=== PATIENT | male | born 1980 | race Caucasian/White ===

== ENCOUNTER 2016-08-22 19:55 | Emergency (ER) | payer SELFPAY ==
[~2016-08-22] VITALS: Ht 188 cm; Wt 227.0 kg
[~2016-08-22 19:55] MED LIST: CITA20 PO; HYDR50CA PO; LATU40TA PO; LISI-363 PO; LOPR100T PO; METF500 PO; PROT40TA PO; ULTR50TA PO; VENTAER INH
[2016-08-22 19:57] VITALS: BP 292/160; PULSE 124; RESP 20; TEMP 98.4; O2SAT 96
[2016-08-22 22:26] VITALS: BP 189/88; PULSE 104; RESP 20; TEMP 98; O2SAT 96
[2016-08-23] MEDS ORDERED: HYDR-3801 PO (03:33)
[2016-08-23] MEDS ORDERED: VENTAER INH (03:33)
[2016-08-23] MEDS ORDERED: CELE20TA PO (03:33)
[2016-08-23] MEDS ORDERED: LISI-515 PO (03:33)
[2016-08-23] MEDS ORDERED: PROT40TA PO (03:34)
[2016-08-23] MEDS ORDERED: LURA40 PO (03:34)
[2016-08-23] MEDS ORDERED: METF500T PO (03:34)
[2016-08-23] MEDS ORDERED: METO-338 PO (03:34)
[2016-08-23 04:30] VITALS: BP 241/116; PULSE 102; RESP 22; O2SAT 97
[2016-08-23] MEDS ORDERED: cloNIDine HCL 0.1 MG TAB PO ONE (05:00)
[2016-08-23] MEDS ORDERED: SODIUM CHLORIDE 0.9% FLUSH 10 ML FLUSH IVF PRN (05:00)
[2016-08-23 05:06] VITALS: RESP 20
[2016-08-23 05:21] LABS: AUTOMATED NEUTROPHIL # 6.3 TH/MM3 (1.8-7.7); BASOPHIL # 0.1 TH/MM3 (0-0.2); BASOPHIL % 1.6 % (0.0-2.0); EOSINOPHIL # 0.2 TH/MM3 (0-0.4); EOSINOPHIL % 2.1 % (0.0-4.0); HEMO FLAGS DIFF FINAL; LYMPH % 17.7 % (9.0-44.0); LYMPHOCYTE # 1.6 TH/MM3 (1.0-4.8); MEAN CELL VOLUME 90.9 FL (80.0-100.0); MEAN CORPUSCULAR HEMOGLOBIN 31.9 PG (27.0-34.0); MEAN CORPUSCULAR HGB CONC 35.1 % (32.0-36.0); MONO % 8.5 % (0.0-8.0); NEUT % 70.1 % (16.0-70.0); PLATELET COUNT 197 TH/MM3 (150-450); RED BLOOD COUNT 5.29 MIL/MM3 (4.50-5.90); RED CELL DISTRIBUTION WIDTH 12.9 % (11.6-17.2); WHITE BLOOD COUNT 8.9 TH/MM3 (4.0-11.0)
[2016-08-23 05:36] LABS: APTT (PATIENT) 21.2 SEC (24.3-30.1); INTERNATIONAL NORMALIZED RATIO 0.9 RATIO; PROTHROMBIN TIME - PATIENT 10.1 SEC (9.8-11.6)
[2016-08-23 05:58] LABS: ALKALINE PHOSPHATASE 94 U/L (45-117); ALT (GPT) 44 U/L (12-78); ANION GAP 8 MEQ/L (5-15); AST (GOT) 31 U/L (15-37); BICARBONATE 30.7 MEQ/L (21.0-32.0); BLOOD UREA NITROGEN 13 MG/DL (7-18); CHLORIDE 99 MEQ/L (98-107); GLOMERULAR FILTRATION RATE 103 ML/MIN (>89); POTASSIUM 3.7 MEQ/L (3.5-5.1); SODIUM (NA) 138 MEQ/L (136-145); TOTAL BILIRUBIN ADULT 2.5 MG/DL (0.2-1.0)
[2016-08-23] MEDS ORDERED: RESP: ALBUTEROL 2.5 MG/IPRATROPIUM 0.5 MG NEB (SCH) NEB ONE (06:00)
--- NOTE | 2016-08-23 06:19 | RADRPT ---
EXAM DATE/TIME: 08/23/2016 05:35 [facility] COMPARISON: CHEST PA & LAT, January 10, 2013, 20:28. INDICATIONS : Short of breath and dizziness. MEDICAL HISTORY : Congestive heart failure. Myocardial infarction. Hypertension. Diabetes. SURGICAL HISTORY : None. ENCOUNTER: Initial ACUITY: 2 days PAIN SCORE: 0/10 LOCATION: Bilateral chest FINDINGS: PA and lateral views of the chest demonstrate the lungs to be symmetrically aerated without evidence of mass, infiltrate or effusion. The cardiomediastinal contours are unremarkable. Osseous structure s are intact. CONCLUSION: No acute disease. Oren Tan MD on August 23, 2016 at 6:17 Board Certified Radiologist. This report was verified electronically.
[2016-08-23] MEDS ORDERED: LABETALOL HCL 100 MG/20 ML VIAL IV PUSH ONE (06:30)
--- NOTE | 2016-08-23 06:33 | PD ---
HPI Chief Complaint: Respiratory Symptoms Time Seen by Provider: 04:33 Travel History International Travel<30 days: No Contact w/Intl Traveler<30days: No Traveled to known affect area: No History of Present Illness HPI Patient is a 36-year-old male who comes in complaining of dizziness, headache, high blood pressure. He says that for the past few days he has had trouble controlling his blood pressure. He reports compliance with his medications. He says that yesterday he developed a headache and dizziness. He says it continued today, and got worse. He came in because of the dizziness and is uncontrollable blood pressure. He denies having any chest pain. He does say he has some pain across his back. He is having some shortness of breath. He denies any blurred vision. PFSH Past Medical History Blood Disorders: No Bipolar Disorder: Yes Anxiety: Yes Depression: Yes Cancer: No Cardiac Catheterization: Yes (2013 NO STENT PLACEMENT) Cardiovascular Problems: Yes (HTN/NSTEMI) High Cholesterol: Yes Congestive Heart Failure: Yes Diminished Hearing: No Endocrine: No Gastrointestinal Disorders: Yes (GERD; PYLORIC STENOSIS A ) GERD: Yes Genitourinary: Yes (KIDNEY STONES) Hypertension: Yes Immune Disorder: No Implanted Vascular Access Dvce: No Insomnia: Yes Kidney Stones: Yes Musculoskeletal: Yes ("BAD KNEES") Neurologic: No Psychiatric: Yes (2 SUICIDE ATTEMPTS IN THE PAST) Reproductive: No Respiratory: Yes (SLEEP APNEA/CPAP @NIGHT) Immunizations Current: Yes Schizophrenia: Yes Sleep Apnea: Yes (USE CPAP WITH ROOM AIR) Tetanus Vaccination: < 5 Years Influenza Vaccination: Yes Past Surgical History Abdominal Surgery: Yes (PYLORIC STENOSIS @ 6 weeks old) Cholecystectomy: Yes (2009) Genitourinary Surgery: Yes (RENAL STENT THEN KIDNEY STONE-REMOVED) Other Surgery: Yes (JENNIFER, PYLORIC STENOSIS A CHILD) Social History Alcohol Use: No Tobacco Use: Yes (HALF A PACK A WEEK ) Substance Use: No Allergies-Medications (Allergen,Severity, Reaction): Coded Allergies: Nonsteroidal Anti-Inflammatory Agts (Verified Adverse Reaction, Mild, UPSETS STOMACH, 08/23/16) Reported Meds & Prescriptions Reported Meds & Active Scripts Active Clonidine (Clonidine HCl) 0.2 Mg Tab 0.2 Mg PO BID Reported Metformin (Metformin HCl) 500 Mg Tab 500 Mg PO BIDPC With meals Protonix (Pantoprazole Sodium) 40 Mg Tab 40 Mg PO DAILY Latuda (Lurasidone) 40 Mg Tab 40 Mg PO DAILY Lopressor (Metoprolol Tartrate) 100 Mg Tab 100 Mg PO BID Lisinopril 20 Mg Tab 20 Mg PO BID Hydralazine (Hydralazine HCl) 100 Mg Tab 100 Mg PO BID Take with meals Celexa (Citalopram Hydrobromide) 20 Mg Tab 20 Mg PO DAILY Ventolin Hfa 18 GM Inh (Albuterol Sulfate) 90 Mcg/Act Aer 2 Puff INH Q4-6H PRN Review of Systems Except as stated in HPI: all other systems reviewed are Neg General / Constitutional: No: Fever, Chills Eyes: No: Blurred Vision HENT: Positive: Headaches, Lightheadedness Cardiovascular: No: Chest Pain or Discomfort Respiratory: Positive: Shortness of Breath Gastrointestinal: No: Nausea, Vomiting Musculoskeletal: Positive: Edema, No: Pain Skin: No Rash Neurologic: Positive: Dizziness Physical Exam Narrative GENERAL: Awake and alert, in no acute distress. SKIN: Focused skin assessment warm/dry. HEAD: Atraumatic. Normocephalic. EYES: Pupils equal and round. No scleral icterus. Extinguishing horizontal nystagmus. ENT: Mucous membranes pink and moist. NECK: Trachea midline. No JVD. CARDIOVASCULAR: Regular rate and rhythm. No murmur appreciated. RESPIRATORY: No accessory muscle use. Clear to auscultation. Breath sounds equal bilaterally. GASTROINTESTINAL: Abdomen soft, non-tender, nondistended. MUSCULOSKELETAL: No obvious deformities. No clubbing. No cyanosis. 2+ pitting edema bilateral lower extremities. NEUROLOGICAL: Awake and alert. No obvious cranial nerve deficits. Motor grossly within normal limits. Normal speech. PSYCHIATRIC: Appropriate mood and affect; insight and judgment normal. Data Data Last Documented VS Vital Signs Date Time Temp Pulse Resp B/P Pulse Ox O2 Delivery O2 Flow Rate FiO2 08/23/16 06:50 85 16 150/74 98 Room Air 08/22/16 22:26 98.0 Orders Complete Blood Count With Diff (08/23/16 04:46) Comprehensive Metabolic Panel (08/23/16 04:46) B-Type Natriuretic Peptide (08/23/16 04:46) Act Partial Throm Time (Ptt) (08/23/16 04:46) Prothrombin Time / Inr (Pt) (08/23/16 04:46) Troponin I (08/23/16 04:46) Iv Access Insert/Monitor (08/23/16 04:46) Electrocardiogram (08/23/16 04:46) Ecg Monitoring (08/23/16 04:46) Oximetry (08/23/16 04:46) Oxygen Administration (08/23/16 04:46) Chest, Pa & Lat (08/23/16 04:46) Sodium Chloride 0.9% Flush (Ns Flush) (08/23/16 05:00) Clonidine (Catapres) (08/23/16 05:00) Albuterol-Ipratropium Neb (Duoneb Neb) (08/23/16 06:00) Labetalol Inj (Trandate Inj) (08/23/16 06:30) Tramadol (Ultram) (08/23/16 06:45) Labs Laboratory Tests Test 08/23/16 05:05 White Blood Count 8.9 TH/MM3 Red Blood Count 5.29 MIL/MM3 Hemoglobin 16.9 GM/DL Hematocrit 48.0 % Mean Corpuscular Volume 90.9 FL Mean Corpuscular Hemoglobin 31.9 PG Mean Corpuscular Hemoglobin 35.1 % Concent Red Cell Distribution Width 12.9 % Platelet Count 197 TH/MM3 Mean Platelet Volume 6.9 FL Neutrophils (%) (Auto) 70.1 % Lymphocytes (%) (Auto) 17.7 % Monocytes (%) (Auto) 8.5 % Eosinophils (%) (Auto) 2.1 % Basophils (%) (Auto) 1.6 % Neutrophils # (Auto) 6.3 TH/MM3 Lymphocytes # (Auto) 1.6 TH/MM3 Monocytes # (Auto) 0.8 TH/MM3 Eosinophils # (Auto) 0.2 TH/MM3 Basophils # (Auto) 0.1 TH/MM3 CBC Comment DIFF FINAL Differential Comment Prothrombin Time 10.1 SEC Prothromb Time International 0.9 RATIO Ratio Activated Partial 21.2 SEC Thromboplast Time Sodium Level 138 MEQ/L Potassium Level 3.7 MEQ/L Chloride Level 99 MEQ/L Carbon Dioxide Level 30.7 MEQ/L Anion Gap 8 MEQ/L Blood Urea Nitrogen 13 MG/DL Creatinine 0.84 MG/DL Estimat Glomerular Filtration 103 ML/MIN Rate Random Glucose 215 MG/DL Calcium Level 8.7 MG/DL Total Bilirubin 2.5 MG/DL Aspartate Amino Transf 31 U/L (AST/SGOT) Alanine Aminotransferase 44 U/L (ALT/SGPT) Alkaline Phosphatase 94 U/L Troponin I 0.05 NG/ML B-Type Natriuretic Peptide 32 PG/ML Total Protein 6.4 GM/DL Albumin 3.0 GM/DL MDM Medical Decision Making Medical Screen Exam Complete: Yes Emergency Medical Condition: Yes Medical Record Reviewed: Yes Interpretation(s) ECG shows sinus rhythm at 99, no ST elevation or depression. Differential Diagnosis ACS versus hypertensive urgency versus hypertensive emergency versus CHF Narrative Course Patient is a 36-year-old male comes in complaining of high blood pressure with dizziness and headache. Exam shows no neurologic abnormalities. IV established , labs sent. Patient given clonidine. Chest x-ray performed shows no acute abnormalities. Labs sent show no acute abnormalities. Patient's blood pressure improved with Clonidine. He was given Tramadol for headache. He is sleeping comfortably. I discussed with him admission vs discharge. He is comfortable with discharge at this time. Given a prescription for Clonidine. Advised to follow up with his doctor. Advised to return to the ED as needed for any worsening symptoms. Diagnosis Primary Impression: HTN (hypertension) Qualified Code: I10 - Essential hypertension Additional Impression: Headache Qualified Code: R51 - Acute nonintractable headache, unspecified headache type Patient Instructions: General Instructions, Hypertension (DC) Additional Instructions: Follow up with your doctor. You can take a clonidine twice a day as needed for high blood pressure. Return to the ED as needed for any worsening symptoms. Scripts Clonidine 0.2 Mg Tab0.2 Mg PO BID #60 TAB Ref 0 Prov:Emma Roberts MD 08/23/16 Disposition: DISCHARGE HOME Condition: Stable Emma Roberts MD Aug 23, 2016 06:33
[2016-08-23] MEDS ORDERED: traMADol HCL 50 MG TAB PO ONE (06:45)
[2016-08-23 06:50] VITALS: BP 150/74; PULSE 85; RESP 16; O2SAT 98
[2016-08-23] MEDS ORDERED: CLON0.2T PO (07:01)
--- NOTE | 2016-08-24 07:57 | EKG ---
Date Performed: 08/23/2016 Time Performed: 05:02:20 PTAGE: 36 years EKG: Sinus rhythm INCOMPLETE RIGHT BUNDLE BRANCH BLOCK NONSPECIFIC ST & T-WAVE ABNORMALITY ABNORMAL ECG Compared to PREVIOUS TRACING , there has been resolution of a sinus tachycardia and improvement in th e inferior lateral ST segment changes. PREVIOUS TRACIN06/12/2015 06.17 DOCTOR: Yareli Gerardo Interpretating Date/Time 08/24/2016 07:56:33
== END 2016-08-23 08:39 | disposition home or self-care (01) ==
LOC: NEPE 19:55
DX: I10 Essential (primary) hypertension (principal); F41.9 Anxiety disorder, unspecified; F31.9 Bipolar disorder, unspecified; Z72.0 Tobacco use; R94.31 Abnormal electrocardiogram [ECG] [EKG]
CPT/HCPCS: 71020; 80053; 83880; 84484; 85025; 85610; 85730; 93005; 94664

== ENCOUNTER 2017-01-04 14:20 | Emergency (ER) | payer OTHER ==
[~2017-01-04] VITALS: Ht 185.4 cm; Wt 240.0 kg
[~2017-01-04 14:20] MED LIST changes: +CELE20TA PO; -CITA20 PO; +CLON0.2T PO; +HYDR-3801 PO; -HYDR50CA PO; -LATU40TA PO; -LISI-363 PO; +LISI-515 PO; -LOPR100T PO; +LURA40 PO; -METF500 PO; +METF500T PO; +METO-338 PO; -ULTR50TA PO
[2017-01-04 14:23] VITALS: BP 247/121; PULSE 112; RESP 28; TEMP 98.7; O2SAT 95
--- NOTE | 2017-01-04 14:27 | PD ---
Physical Exam Date Seen by Provider: Jan 04, 2017 Time Seen by Provider: 14:24 Narrative 36 yo male here for evaluation of HTN and headache. Feeling dizzy, nauseous x 4 days. Struggles to breath on occassion with ambulating. No sleep. Pain to head is 10/10. No other medical issues. He is morbidly obese. Vitals are stable in triage. Awaiting Bed placement. [facility] Medical Record Reviewed: Yes Supervised Visit with MINESH: Ryan Menendez Jan 04, 2017 14:27
--- NOTE | 2017-01-04 16:26 | PD ---
HPI . headache x 5 days Chief Complaint: Headache Time Seen by Provider: 16:26 Travel History International Travel<30 days: No Contact w/Intl Traveler<30days: No Traveled to known affect area: No History of Present Illness HPI 36-year-old male well-known to me from the [facility] here with complaints of uncontrolled hypertension and headache for the past 5 days. Patient reports that he's had a headache for the past 5 days. He says the pressure is 10/10 and located mainly on his left side. He reports having some type of illness/sinus issues last week, but says that has since resolved. He also reports issues with his blood pressure. It is very elevated today and patient says that he lost his insurance and has not been able to follow-up with his primary care provider. He tells me that he took the last of his medication this morning. In triage, patient reported that he had shortness of breath with walking, however this is baseline for him. He was last in here in July 2016 for hypertension and chest pain. Workup at that time was unremarkable. He has not been able to follow-up with his primary care provider due to insurance issues. He tells me that he currently has patient assistance, but heard the clinic was closing. He is in the process of filling out paperwork for [facility] and plans on making an appointment. His primary concern is his headache. He says that it's causing him trouble sleeping. He has not been able to sleep for the past 3-4 days. He has not taken any medications for this headache. PFSH Past Medical History Blood Disorders: No Bipolar Disorder: Yes Anxiety: Yes Depression: Yes Cancer: No Cardiac Catheterization: Yes (2013 NO STENT PLACEMENT) Cardiovascular Problems: Yes (HTN, STEMI ) High Cholesterol: Yes Congestive Heart Failure: Yes Diabetes: Yes ("BOARDERLINE") Diminished Hearing: No Endocrine: No Gastrointestinal Disorders: Yes (GERD; PYLORIC STENOSIS A ) GERD: Yes Genitourinary: Yes (KIDNEY STONES) Hypertension: Yes Immune Disorder: No Implanted Vascular Access Dvce: No Insomnia: Yes Kidney Stones: Yes Musculoskeletal: Yes ("BAD KNEES") Neurologic: No Psychiatric: Yes (2 SUICIDE ATTEMPTS IN THE PAST) Reproductive: No Respiratory: Yes (SLEEP APNEA/CPAP @NIGHT) Immunizations Current: Yes Schizophrenia: Yes Sleep Apnea: Yes (USE CPAP WITH ROOM AIR) Past Surgical History Abdominal Surgery: Yes (PYLORIC STENOSIS @ 6 weeks old) Cholecystectomy: Yes (2009) Genitourinary Surgery: Yes (RENAL STENT THEN KIDNEY STONE-REMOVED) Other Surgery: Yes (JENNIFER, PYLORIC STENOSIS A CHILD) Social History Alcohol Use: No Tobacco Use: Yes (HALF A PACK A WEEK ) Substance Use: No Allergies-Medications (Allergen,Severity, Reaction): Coded Allergies: Nonsteroidal Anti-Inflammatory Agts (Verified Adverse Reaction, Mild, UPSETS STOMACH, 01/04/17) Reported Meds & Prescriptions Reported Meds & Active Scripts Active Reported Labetalol (Labetalol HCl) 200 Mg Tab 200 Mg PO BID Amlodipine (Amlodipine Besylate) 5 Mg Tab 5 Mg PO BID Glipizide 5 Mg Tab 5 Mg PO BID Take 30 minutes before a meal Trazodone (Trazodone HCl) 100 Mg Tablet 100 Mg PO HS Metformin (Metformin HCl) 500 Mg Tab 500 Mg PO BIDPC With meals Protonix (Pantoprazole Sodium) 40 Mg Tab 40 Mg PO DAILY Latuda (Lurasidone) 40 Mg Tab 40 Mg PO DAILY Lopressor (Metoprolol Tartrate) 100 Mg Tab 100 Mg PO BID Celexa (Citalopram Hydrobromide) 20 Mg Tab 20 Mg PO DAILY Review of Systems General / Constitutional: No: Fever Eyes: No: Visual changes HENT: No: Headaches Cardiovascular: No: Chest Pain or Discomfort Respiratory: No: Shortness of Breath Gastrointestinal: Positive: Nausea, No: Abdominal Pain Genitourinary: No: Dysuria Musculoskeletal: No: Pain Skin: No Rash Neurologic: Positive: Headache, No: Weakness Psychiatric: No: Depression Endocrine: No: Polydipsia Hematologic/Lymphatic: No: Easy Bruising Physical Exam Narrative GENERAL: AAO x 3, no acute distress, Well-nourished, well-developed patient. SKIN: Warm and dry. No visible rashes or bruising. HEAD: Normocephalic and atraumatic. EYES: No scleral icterus. No injection or drainage. EOM intact, PERRLA ENT: No nasal drainage noted. Mucous membranes pink. Airway patent. NECK: Supple, trachea midline. No JVD. CARDIOVASCULAR: Regular rate and rhythm without murmurs, gallops, or rubs. RESPIRATORY: Breath sounds equal bilaterally. No accessory muscle use. No rhonchi or rales. GASTROINTESTINAL: Abdomen soft, non-tender, nondistended. EXTREMITIES: No cyanosis or edema. BACK: No obvious deformity. NEURO: CN II-12 intact, clinical reimbursement specialist strength normal b/l, UE and LE 5/5, no focal deficits, no pronator drift, grossly intact exam PSYCH: AAO x 3, normal affect. Data Data Last Documented VS Vital Signs Date Time Temp Pulse Resp B/P Pulse Ox O2 Delivery O2 Flow Rate FiO2 01/04/17 18:49 97 20 179/109 97 Room Air 01/04/17 14:23 98.7 Orders Complete Blood Count With Diff (01/04/17 16:37) Basic Metabolic Panel (Bmp) (01/04/17 16:37) Prothrombin Time / Inr (Pt) (01/04/17 16:37) Act Partial Throm Time (Ptt) (01/04/17 16:37) Ecg Monitoring (01/04/17 16:37) Iv Access Insert/Monitor (01/04/17 16:37) Oximetry (01/04/17 16:37) Sodium Chloride 0.9% Flush (Ns Flush) (01/04/17 16:45) Ondansetron Inj (Zofran Inj) (01/04/17 16:45) Ct Brain W/O Iv Contrast(Rout) (01/04/17 16:37) Electrocardiogram (01/04/17 ) Ondansetron Inj (Zofran Inj) (01/04/17 18:00) Hydralazine Inj (Apresoline Inj) (01/04/17 18:15) Tramadol (Ultram) (01/04/17 18:30) Labs Laboratory Tests Test 01/04/17 17:14 White Blood Count 8.9 TH/MM3 Red Blood Count 4.91 MIL/MM3 Hemoglobin 16.2 GM/DL Hematocrit 45.0 % Mean Corpuscular Volume 91.7 FL Mean Corpuscular Hemoglobin 32.9 PG Mean Corpuscular Hemoglobin 35.9 % Concent Red Cell Distribution Width 13.4 % Platelet Count 223 TH/MM3 Mean Platelet Volume 7.4 FL Neutrophils (%) (Auto) 75.1 % Lymphocytes (%) (Auto) 13.6 % Monocytes (%) (Auto) 7.6 % Eosinophils (%) (Auto) 2.8 % Basophils (%) (Auto) 0.9 % Neutrophils # (Auto) 6.7 TH/MM3 Lymphocytes # (Auto) 1.2 TH/MM3 Monocytes # (Auto) 0.7 TH/MM3 Eosinophils # (Auto) 0.2 TH/MM3 Basophils # (Auto) 0.1 TH/MM3 CBC Comment DIFF FINAL Differential Comment Prothrombin Time 9.8 SEC Prothromb Time International 0.9 RATIO Ratio Activated Partial 27.3 SEC Thromboplast Time Sodium Level 139 MEQ/L Potassium Level 4.2 MEQ/L Chloride Level 102 MEQ/L Carbon Dioxide Level 30.0 MEQ/L Anion Gap 7 MEQ/L Blood Urea Nitrogen 14 MG/DL Creatinine 0.88 MG/DL Estimat Glomerular Filtration 97 ML/MIN Rate Random Glucose 217 MG/DL Calcium Level 8.8 MG/DL [facility] Medical Decision Making Medical Screen Exam Complete: Yes Emergency Medical Condition: Yes Medical Record Reviewed: Yes Differential Diagnosis tension headache, sinus headache, uncontrolled HTN, Narrative Course 36 yr old male here with c/o headache for several days. He also states he has had difficulty sleeping. His bp was elevated. Exam unremarkable. CT brain ordered. Labs ordered. Last Impressions Head CT 01/04/17 1637 Signed Impressions: Service Date/Time: Wednesday, January 04, 2017 17:23 - CONCLUSION: Stable brain appearance with no acute findings. Chris Finch MD Laboratory Tests Test 01/04/17 17:14 White Blood Count 8.9 TH/MM3 Red Blood Count 4.91 MIL/MM3 Hemoglobin 16.2 GM/DL Hematocrit 45.0 % Mean Corpuscular Volume 91.7 FL Mean Corpuscular Hemoglobin 32.9 PG Mean Corpuscular Hemoglobin 35.9 % Concent Red Cell Distribution Width 13.4 % Platelet Count 223 TH/MM3 Mean Platelet Volume 7.4 FL Neutrophils (%) (Auto) 75.1 % Lymphocytes (%) (Auto) 13.6 % Monocytes (%) (Auto) 7.6 % Eosinophils (%) (Auto) 2.8 % Basophils (%) (Auto) 0.9 % Neutrophils # (Auto) 6.7 TH/MM3 Lymphocytes # (Auto) 1.2 TH/MM3 Monocytes # (Auto) 0.7 TH/MM3 Eosinophils # (Auto) 0.2 TH/MM3 Basophils # (Auto) 0.1 TH/MM3 CBC Comment DIFF FINAL Differential Comment Prothrombin Time 9.8 SEC Prothromb Time International 0.9 RATIO Ratio Activated Partial 27.3 SEC Thromboplast Time Sodium Level 139 MEQ/L Potassium Level 4.2 MEQ/L Chloride Level 102 MEQ/L Carbon Dioxide Level 30.0 MEQ/L Anion Gap 7 MEQ/L Blood Urea Nitrogen 14 MG/DL Creatinine 0.88 MG/DL Estimat Glomerular Filtration 97 ML/MIN Rate Random Glucose 217 MG/DL Calcium Level 8.8 MG/DL BP was still elevated. Hydralazine here in ED. Tramadol for headache. There seems to be some issues with the reported meds. We tried contacting the patient's pharmacy, but they were closed. Patient is supposedly on metoprolol and labetalol. I wonder if this combo was actually prescribed. I also wonder about patient's compliance. I advised him to f/u with his PCP immediately or go to the [facility] clinic as soon as possible. Prior to dc his bp was improved. Patient verbalized understanding of instructions, questions were answered, and thanked me for their care. I advised them if their condition worsens, please return to the nearest emergency room for further care. Diagnosis Primary Impression: Headache Qualified Code: G44.209 - Tension-type headache, not intractable, unspecified chronicity pattern Additional Impression: HTN (hypertension) Qualified Code: I10 - Essential hypertension Patient Instructions: General Instructions Additional Instructions: Please return to emergency department if your symptoms return or worsen. Follow up with your primary care provider. You can take Tylenol OTC as needed for the headache. Med/Other Pt SpecificInfo: No Change to Meds Disposition: 01 DISCHARGE HOME Condition: Stable Mayelin Herron Jan 04, 2017 16:26
[2017-01-04] MEDS ORDERED: SODIUM CHLORIDE 0.9% FLUSH 10 ML FLUSH IVF PRN (16:45)
[2017-01-04] MEDS ORDERED: ONDANSETRON HCL 4 MG/2 ML VIAL IM ONE (16:45)
[2017-01-04] MEDS ORDERED: LABE200T2 PO (16:51)
[2017-01-04] MEDS ORDERED: AMLO5TAB2 PO (16:51)
[2017-01-04] MEDS ORDERED: TRAZ100T6 PO (16:51)
[2017-01-04] MEDS ORDERED: GLIP5TAB8 PO (16:51)
[2017-01-04 16:52] VITALS: RESP 22; O2SAT 96
[2017-01-04 17:38] LABS: AUTOMATED NEUTROPHIL # 6.7 TH/MM3 (1.8-7.7); BASOPHIL # 0.1 TH/MM3 (0-0.2); BASOPHIL % 0.9 % (0.0-2.0); EOSINOPHIL # 0.2 TH/MM3 (0-0.4); EOSINOPHIL % 2.8 % (0.0-4.0); HEMO FLAGS DIFF FINAL; LYMPH % 13.6 % (9.0-44.0); LYMPHOCYTE # 1.2 TH/MM3 (1.0-4.8); MEAN CELL VOLUME 91.7 FL (80.0-100.0); MEAN CORPUSCULAR HEMOGLOBIN 32.9 PG (27.0-34.0); MEAN CORPUSCULAR HGB CONC 35.9 % (32.0-36.0); MONO % 7.6 % (0.0-8.0); NEUT % 75.1 % (16.0-70.0); PLATELET COUNT 223 TH/MM3 (150-450); RED BLOOD COUNT 4.91 MIL/MM3 (4.50-5.90); RED CELL DISTRIBUTION WIDTH 13.4 % (11.6-17.2); WHITE BLOOD COUNT 8.9 TH/MM3 (4.0-11.0)
--- NOTE | 2017-01-04 17:48 | RADRPT ---
EXAM DATE/TIME: 01/04/2017 17:23 [facility] COMPARISON: CT BRAIN W/O CONTRAST, June 12, 2015, 7:06. INDICATIONS : Headaches with dizziness. RADIATION DOSE: 53.81 CTDIvol (mGy) MEDICAL HISTORY : Cardiovascular disease. Hypertension. SURGICAL HISTORY : None. ENCOUNTER: Initial ACUITY: 4 - 6 days PAIN SCALE: 7/10 LOCATION: Left cranial TECHNIQUE: Multiple contiguous axial images were obtained of the head. Using automated exposure control and adj ustment of the mA and/or kV according to patient size, radiation dose was kept as low as reasonably a chievable to obtain optimal diagnostic quality images. DICOM format image data is available electro nically for review and comparison. FINDINGS: There is a stable small area of diminished density in the periventricular and subcortical white matte r of the right mid convexity parietal region. 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 There is no evidence of intracranial mass or hemorrhage. There is nothing to suggest acute i nfarction. The extracranial structures are grossly intact. CONCLUSION: Stable brain appearance with no acute findings. Chris Finch MD on January 04, 2017 at 17:44 Board Certified Radiologist. This report was verified electronically.
[2017-01-04 17:56] LABS: APTT (PATIENT) 27.3 SEC (24.3-30.1); INTERNATIONAL NORMALIZED RATIO 0.9 RATIO; PROTHROMBIN TIME - PATIENT 9.8 SEC (9.8-11.6)
[2017-01-04] MEDS ORDERED: ONDANSETRON HCL 4 MG/2 ML VIAL IV PUSH ONE (18:00)
[2017-01-04 18:09] VITALS: BP 202/100; PULSE 75; RESP 18; O2SAT 97
[2017-01-04 18:10] LABS: POTASSIUM 4.2 MEQ/L (3.5-5.1)
[2017-01-04] MEDS ORDERED: hydrALAZINE HCL 20 MG/ML VIAL IV PUSH ONE (18:15)
[2017-01-04] MEDS ORDERED: traMADol HCL 50 MG TAB PO ONE (18:30)
[2017-01-04 18:49] VITALS: BP 179/109; PULSE 97; RESP 20; O2SAT 97
--- NOTE | 2017-01-05 11:31 | EKG ---
Date Performed: 01/04/2017 Time Performed: 16:54:44 PTAGE: 36 years EKG: Sinus rhythm POSSIBLE LEFT ATRIAL ENLARGEMENT NONSPECIFIC T-WAVE ABNORMALITY BORDERLINE ECG Compared to prior tra cing no significant change PREVIOUS TRACING : 08/23/2016 05.02 DOCTOR: Jared Mensah Interpretating Date/Time 01/05/2017 11:28:54
== END 2017-01-04 19:08 | disposition home or self-care (01) ==
LOC: NEPE 14:20
DX: G44.209 Tension-type headache, unspecified, not intractable (principal); I11.0 Hypertensive heart disease with heart failure; I50.9 Heart failure, unspecified; I25.2 Old myocardial infarction; I25.10 Atherosclerotic heart disease of native coronary artery without angina pectoris; K21.9 Gastro-esophageal reflux disease without esophagitis; E11.9 Type 2 diabetes mellitus without complications
CPT/HCPCS: 70450; 80048; 85025; 85610; 85730; 93005; 96374; 96375; 99285; J0360; J2405

== ENCOUNTER 2017-01-26 06:17 | Inpatient (IN) | payer OTHER ==
[2017-01-26] VITALS (16 sets, daily range): BP systolic 129–273; BP diastolic 65–144; PULSE 86–138; RESP 16–38; TEMP 97.7–98.6; O2SAT 88–99
[~2017-01-26] VITALS: Ht 185.4 cm; Wt 237.6 kg
[~2017-01-26 06:17] MED LIST changes: +AMLO5TAB2 PO; -CLON0.2T PO; +GLIP5TAB8 PO; -HYDR-3801 PO; +LABE200T2 PO; -LISI-515 PO; +TRAZ100T6 PO; -VENTAER INH
[2017-01-26] MEDS: RESP: ALBUTEROL 2.5 MG/IPRATROPIUM 0.5 MG NEB (SCH) INH (06:37)
[2017-01-26] MEDS ORDERED: methylPREDNISolone SOD SUCC 125 MG/2 ML VIAL IVP ONE (06:45)
[2017-01-26] MEDS ORDERED: SODIUM CHLORIDE 0.9% FLUSH 10 ML FLUSH IVF PRN (06:45)
--- NOTE | 2017-01-26 06:49 | PD ---
HPI Chief Complaint: Chest Pain Time Seen by Provider: 06:32 Travel History International Travel<30 days: No Contact w/Intl Traveler<30days: No Traveled to known affect area: No History of Present Illness HPI 36yo M with PMH of HTN, DM, bipolar disorder, sleep apnea on nocturnal CPAP, morbid obesity presents to the ED with c/o sob for 2 days. Pt also with midsternal chest pain for a few hours today. Pain is constant, nonradiating. + Nausea. Denies any fever, cough, vomiting, abdominal pain, history of PE, DVT, recent surgery, recent travel, focal weakness or numbness. Pt states he had a NSTEMI before and they did a cardiac cath and said it was not too bad so no stent was needed. 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 Former cig smoker and had used nebulizers before. States he does have occasional abdominal cramping but no pain. PFSH Past Medical History Blood Disorders: No Bipolar Disorder: Yes Anxiety: Yes Depression: Yes Cancer: No Cardiac Catheterization: Yes (2013 NO STENT PLACEMENT) Cardiovascular Problems: Yes (HTN, STEMI ) High Cholesterol: Yes Congestive Heart Failure: Yes Diabetes: Yes ("BOARDERLINE") Diminished Hearing: No Endocrine: No Gastrointestinal Disorders: Yes (GERD; PYLORIC STENOSIS A ) GERD: Yes Genitourinary: Yes (KIDNEY STONES) Hypertension: Yes Immune Disorder: No Implanted Vascular Access Dvce: No Insomnia: Yes Kidney Stones: Yes Musculoskeletal: Yes ("BAD KNEES") Neurologic: No Psychiatric: Yes (2 SUICIDE ATTEMPTS IN THE PAST) Reproductive: No Respiratory: Yes (SLEEP APNEA/CPAP @NIGHT) Immunizations Current: Yes Schizophrenia: Yes Sleep Apnea: Yes (USE CPAP WITH ROOM AIR) Past Surgical History Abdominal Surgery: Yes (PYLORIC STENOSIS @ 6 weeks old) Cholecystectomy: Yes (2009) Genitourinary Surgery: Yes (RENAL STENT THEN KIDNEY STONE-REMOVED) Other Surgery: Yes (JENNIFER, PYLORIC STENOSIS A CHILD) Social History Alcohol Use: No Tobacco Use: No Substance Use: No Allergies-Medications (Allergen,Severity, Reaction): Coded Allergies: diclofenac (Unverified Adverse Reaction, Mild, UPSETS STOMACH, 01/26/17) etodolac (Unverified Adverse Reaction, Mild, UPSETS STOMACH, 01/26/17) flurbiprofen (Unverified Adverse Reaction, Mild, UPSETS STOMACH, 01/26/17) ibuprofen (Unverified Adverse Reaction, Mild, UPSETS STOMACH, 01/26/17) indomethacin (Unverified Adverse Reaction, Mild, UPSETS STOMACH, 01/26/17) ketoprofen (Unverified Adverse Reaction, Mild, UPSETS STOMACH, 01/26/17) ketorolac (Unverified Adverse Reaction, Mild, UPSETS STOMACH, 01/26/17) naproxen (Unverified Adverse Reaction, Mild, UPSETS STOMACH, 01/26/17) oxaprozin (Unverified Adverse Reaction, Mild, UPSETS STOMACH, 01/26/17) Reported Meds & Prescriptions Reported Meds & Active Scripts Active Reported Labetalol (Labetalol HCl) 200 Mg Tab 200 Mg PO BID Amlodipine (Amlodipine Besylate) 5 Mg Tab 5 Mg PO BID Glipizide 5 Mg Tab 5 Mg PO BID Take 30 minutes before a meal Trazodone (Trazodone HCl) 100 Mg Tablet 100 Mg PO HS Metformin (Metformin HCl) 500 Mg Tab 500 Mg PO BIDPC With meals Protonix (Pantoprazole Sodium) 40 Mg Tab 40 Mg PO DAILY Latuda (Lurasidone) 40 Mg Tab 40 Mg PO DAILY Lopressor (Metoprolol Tartrate) 100 Mg Tab 100 Mg PO BID Celexa (Citalopram Hydrobromide) 20 Mg Tab 20 Mg PO DAILY Review of Systems Except as stated in HPI: all other systems reviewed are Neg Physical Exam Narrative GENERAL: 36yo M in mild distress. SKIN: Focused skin assessment warm/dry. HEAD: Atraumatic. Normocephalic. EYES: Pupils equal and round. No scleral icterus. No injection or drainage. ENT: No nasal bleeding or discharge. Mucous membranes pink and moist. NECK: Trachea midline. No JVD. CARDIOVASCULAR: Regular rate and rhythm. No murmur appreciated. RESPIRATORY: + accessory muscle use. Expiratory wheezing bilaterally. GASTROINTESTINAL: Abdomen soft, morbidly obese. No tenderness to palpation. MUSCULOSKELETAL: No obvious deformities. No clubbing. No cyanosis. +Bilateral pitting edema. NEUROLOGICAL: Awake and alert. No obvious cranial nerve deficits. Motor grossly within normal limits. Normal speech. PSYCHIATRIC: Appropriate mood and affect; insight and judgment normal. Data Data Last Documented VS Vital Signs Date Time Temp Pulse Resp B/P (MAP) Pulse Ox O2 Delivery O2 Flow Rate FiO2 8/31/17 06:57 103 16 191/93 (125) 99 Nasal Cannula 1.50 01/26/17 06:33 98.6 Orders Orders Complete Blood Count With Diff (01/26/17 06:32) Basic Metabolic Panel (Bmp) (01/26/17 06:32) B-Type Natriuretic Peptide (01/26/17 06:32) Act Partial Throm Time (Ptt) (01/26/17 06:32) Prothrombin Time / Inr (Pt) (01/26/17 06:32) Troponin I (01/26/17 06:32) Blood Culture (01/26/17 06:32) Iv Access Insert/Monitor (01/26/17 06:32) Ecg Monitoring (01/26/17 06:32) Oximetry (01/26/17 06:32) Oxygen Administration (01/26/17 06:32) Chest, Single Ap (01/26/17 06:32) Sodium Chloride 0.9% Flush (Ns Flush) (01/26/17 06:45) Methylprednisolone So Succ Inj (Solumedr (01/26/17 06:45) Albuterol-Ipratropium Neb (Duoneb Neb) (01/26/17 06:45) Lipase (01/26/17 06:32) Electrocardiogram (01/26/17 ) Aspirin Chew (Aspirin Chew) (01/26/17 08:00) Morphine Inj (Morphine Inj) (01/26/17 08:00) Nitroglycerin 2% Oint (Nitroglycerin 2% (01/26/17 08:00) Metoprolol Tartrate Inj (Lopressor Inj) (01/26/17 08:00) Heparin Infusion OLIVE.Q1H (01/26/17 07:48) Heparin Inj (Heparin Inj) (01/26/17 08:00) Heparin Inj (Heparin Inj) (01/26/17 14:00) Heparin Inj (Heparin Inj) (01/26/17 14:00) Heparin-D5w 25,000 U/250 Ml (Heparin-D5w (01/26/17 08:00) Act Partial Throm Time (Ptt) (01/26/17 07:48) Cbc No Diff, Includes Plts (01/26/17 07:48) Cbc No Diff, Includes Plts (01/29/17 06:00) Act Partial Throm Time (Ptt) (01/26/17 14:48) Occult Blood (Hemoccult) Stool (01/26/17 07:48) Atorvastatin (Lipitor) (01/26/17 09:00) Admit Order (Ed Use Only) (01/26/17 08:16) Consult Cardiology (01/26/17 ) Labs Laboratory Tests Test 01/26/17 06:39 01/26/17 08:12 White Blood Count 8.9 TH/MM3 8.6 TH/MM3 Red Blood Count 5.22 MIL/MM3 5.06 MIL/MM3 Hemoglobin 16.8 GM/DL 16.6 GM/DL Hematocrit 49.8 % 48.5 % Mean Corpuscular Volume 95.3 FL 95.8 FL Mean Corpuscular Hemoglobin 32.3 PG 32.8 PG Mean Corpuscular Hemoglobin Concent 33.8 % 34.3 % Red Cell Distribution Width 14.2 % 14.0 % Platelet Count 237 TH/MM3 230 TH/MM3 Mean Platelet Volume 7.3 FL 7.2 FL Neutrophils (%) (Auto) 70.3 % Lymphocytes (%) (Auto) 19.0 % Monocytes (%) (Auto) 8.4 % Eosinophils (%) (Auto) 1.7 % Basophils (%) (Auto) 0.6 % Neutrophils # (Auto) 6.3 TH/MM3 Lymphocytes # (Auto) 1.7 TH/MM3 Monocytes # (Auto) 0.7 TH/MM3 Eosinophils # (Auto) 0.2 TH/MM3 Basophils # (Auto) 0.0 TH/MM3 CBC Comment DIFF FINAL Differential Comment Prothrombin Time 10.5 SEC Prothromb Time International Ratio 1.0 RATIO Activated Partial Thromboplast Time 26.1 SEC 24.5 SEC Blood Urea Nitrogen 15 MG/DL Creatinine 1.25 MG/DL Random Glucose 217 MG/DL Calcium Level 8.6 MG/DL Sodium Level 143 MEQ/L Potassium Level 4.0 MEQ/L Chloride Level 104 MEQ/L Carbon Dioxide Level 32.3 MEQ/L Anion Gap 7 MEQ/L Estimat Glomerular Filtration Rate 65 ML/MIN Troponin I 0.31 NG/ML B-Type Natriuretic Peptide 251 PG/ML Lipase 96 U/L MDM Medical Decision Making Medical Screen Exam Complete: Yes Emergency Medical Condition: Yes Interpretation(s) EKG: Sinus tachycardia at 113bpm. Normal axis. No ST segment elevation or depression. Differential Diagnosis ACS vs. Pneumonia vs. COPD exacerbation Narrative Course 36yo M who is morbidly obese here with chest pain and sob. Pt is wheezing bilaterally so will give duonebs x3, methylprednisolone. CXR showed mild basilar airspace disease most characteristic of atelectasis. Cardiomegaly. Pt seen at end of my shift and sign out to next team to follow up labs and reevaluate. Diagnosis Primary Impression: Chest pain Qualified Codes: R07.9 - Chest pain, unspecified Roxanna Tapia DO Jan 26, 2017 06:49
[2017-01-26 06:52] LABS: AUTOMATED NEUTROPHIL # 6.3 TH/MM3 (1.8-7.7); BASOPHIL % 0.6 % (0.0-2.0); EOSINOPHIL # 0.2 TH/MM3 (0-0.4); EOSINOPHIL % 1.7 % (0.0-4.0); HEMATOCRIT 49.8 % (39.0-51.0); HEMO FLAGS DIFF FINAL; LYMPHOCYTE # 1.7 TH/MM3 (1.0-4.8); MEAN CELL VOLUME 95.3 FL (80.0-100.0); MEAN CORPUSCULAR HEMOGLOBIN 32.3 PG (27.0-34.0); MEAN CORPUSCULAR HGB CONC 33.8 % (32.0-36.0); MONO % 8.4 % (0.0-8.0); NEUT % 70.3 % (16.0-70.0); PLATELET COUNT 237 TH/MM3 (150-450); RED BLOOD COUNT 5.22 MIL/MM3 (4.50-5.90); RED CELL DISTRIBUTION WIDTH 14.2 % (11.6-17.2); WHITE BLOOD COUNT 8.9 TH/MM3 (4.0-11.0)
--- NOTE | 2017-01-26 06:54 | RADRPT ---
EXAM DATE/TIME: 01/26/2017 06:45 [facility] COMPARISON: CHEST SINGLE AP, June 12, 2015, 6:16. INDICATIONS : Shortness of breath. MEDICAL HISTORY : Hypertension. Sleep apnea SURGICAL HISTORY : Cholecystectomy. ENCOUNTER: Initial ACUITY: 1 day PAIN SCORE: 0/10 LOCATION: Bilateral chest FINDINGS: Heart size is enlarged. There is mild basilar airspace disease. No significant effusion. No pneumotho rax. CONCLUSION: 1. Mild basilar airspace disease most characteristic of atelectasis. Cardiomegaly. Oren Tan MD on January 26, 2017 at 6:50 Board Certified Radiologist. This report was verified electronically.
[2017-01-26 06:59] LABS: APTT (PATIENT) 26.1 SEC (24.3-30.1); PROTHROMBIN TIME - PATIENT 10.5 SEC (9.8-11.6)
[2017-01-26 07:07] LABS: BICARBONATE 32.3 MEQ/L (21.0-32.0)
--- NOTE | 2017-01-26 07:41 | PD ---
Physical Exam Date Seen by Provider: Jan 26, 2017 Narrative Care assumed from Dr. Tapia at 700 pending workup. 36yo M with PMH of HTN, DM, bipolar disorder, sleep apnea on nocturnal CPAP, morbid obesity presents to the ED with c/o sob for 2 days. Pt also with midsternal chest pain for a few hours today. Pt states he had a NSTEMI before and they did a cardiac cath and said it was not too bad so no stent was needed. Patient states that he is amenable to admission to the chest pain center for further evaluation. Data Data Last Documented VS Vital Signs Date Time Temp Pulse Resp B/P (MAP) Pulse Ox O2 Delivery O2 Flow Rate FiO2 01/26/17 06:57 103 16 191/93 (125) 99 Nasal Cannula 1.50 01/26/17 06:33 98.6 Orders Orders Complete Blood Count With Diff (01/26/17 06:32) Basic Metabolic Panel (Bmp) (01/26/17 06:32) B-Type Natriuretic Peptide (01/26/17 06:32) Act Partial Throm Time (Ptt) (01/26/17 06:32) Prothrombin Time / Inr (Pt) (01/26/17 06:32) Troponin I (01/26/17 06:32) Blood Culture (01/26/17 06:32) Iv Access Insert/Monitor (01/26/17 06:32) Ecg Monitoring (01/26/17 06:32) Oximetry (01/26/17 06:32) Oxygen Administration (01/26/17 06:32) Chest, Single Ap (01/26/17 06:32) Sodium Chloride 0.9% Flush (Ns Flush) (01/26/17 06:45) Methylprednisolone So Succ Inj (Solumedr (01/26/17 06:45) Albuterol-Ipratropium Neb (Duoneb Neb) (01/26/17 06:45) Lipase (01/26/17 06:32) Electrocardiogram (01/26/17 ) Aspirin Chew (Aspirin Chew) (01/26/17 08:00) Morphine Inj (Morphine Inj) (01/26/17 08:00) Nitroglycerin 2% Oint (Nitroglycerin 2% (01/26/17 08:00) Metoprolol Tartrate Inj (Lopressor Inj) (01/26/17 08:00) Heparin Infusion OLIVE.Q1H (01/26/17 07:48) Heparin Inj (Heparin Inj) (01/26/17 08:00) Heparin Inj (Heparin Inj) (01/26/17 14:00) Heparin Inj (Heparin Inj) (01/26/17 14:00) Heparin-D5w 25,000 U/250 Ml (Heparin-D5w (01/26/17 08:00) Act Partial Throm Time (Ptt) (01/26/17 07:48) Cbc No Diff, Includes Plts (01/26/17 07:48) Cbc No Diff, Includes Plts (01/29/17 06:00) Act Partial Throm Time (Ptt) (01/26/17 14:48) Occult Blood (Hemoccult) Stool (01/26/17 07:48) Diet Npo Except Meds (01/26/17 Breakfast) Atorvastatin (Lipitor) (01/26/17 08:15) Admit Order (Ed Use Only) (01/26/17 08:16) Consult Cardiology (01/26/17 ) Labs Laboratory Tests Test 01/26/17 06:39 White Blood Count 8.9 TH/MM3 Red Blood Count 5.22 MIL/MM3 Hemoglobin 16.8 GM/DL Hematocrit 49.8 % Mean Corpuscular Volume 95.3 FL Mean Corpuscular Hemoglobin 32.3 PG Mean Corpuscular Hemoglobin Concent 33.8 % Red Cell Distribution Width 14.2 % Platelet Count 237 TH/MM3 Mean Platelet Volume 7.3 FL Neutrophils (%) (Auto) 70.3 % Lymphocytes (%) (Auto) 19.0 % Monocytes (%) (Auto) 8.4 % Eosinophils (%) (Auto) 1.7 % Basophils (%) (Auto) 0.6 % Neutrophils # (Auto) 6.3 TH/MM3 Lymphocytes # (Auto) 1.7 TH/MM3 Monocytes # (Auto) 0.7 TH/MM3 Eosinophils # (Auto) 0.2 TH/MM3 Basophils # (Auto) 0.0 TH/MM3 CBC Comment DIFF FINAL Differential Comment Prothrombin Time 10.5 SEC Prothromb Time International Ratio 1.0 RATIO Activated Partial Thromboplast Time 26.1 SEC Blood Urea Nitrogen 15 MG/DL Creatinine 1.25 MG/DL Random Glucose 217 MG/DL Calcium Level 8.6 MG/DL Sodium Level 143 MEQ/L Potassium Level 4.0 MEQ/L Chloride Level 104 MEQ/L Carbon Dioxide Level 32.3 MEQ/L Anion Gap 7 MEQ/L Estimat Glomerular Filtration Rate 65 ML/MIN Troponin I 0.31 NG/ML B-Type Natriuretic Peptide 251 PG/ML Lipase 96 U/L [facility] Supervised Visit with MINESH: No Narrative Course CBC & BMP Diagram 01/26/17 06:39 Calcium Level 8.6 Troponin 0.31. BNP 251. This patient has an elevated troponin. Therefore, he will need to be admitted rather then sent to the chest pain center. I reviewed his records. He had a cardiac catheterization done on 10/11/13 which showed diffuse mild coronary artery disease, a left dominant system and an ejection fraction of 55%. I will page both cardiology and medicine for admission in the meantime, I will make sure that he has had a beta naveed, nitroglycerin and heparin Critical Care Narrative Aggregate critical care time was 35* minutes. Time to perform other separately billable procedures was not included in the critical care time. My time did not include minutes spent treating any other patients simultaneously or on activities that did not directly contribute to the patient's treatment. The services I provided to this patient were to treat and/or prevent clinically significant deterioration due to NSTEMI I provided critical care services requiring my management, as noted below: Chart data review, documentation time, medication orders and management, vital sign assessments/reviewing monitor data, ordering and reviewing lab tests, ordering and interpreting/reviewing x-rays and diagnostic studies, care of the patient and discussion of the patient with the admitting physicians Physician Communication Physician Communication Dr. Torres requests that we keep him NPO for probable cath later today. Dr. Galloway will admit. Diagnosis Primary Impression: Chest pain Qualified Codes: R07.9 - Chest pain, unspecified Additional Impression: Non-ST elevation AK (NSTEMI) Admitting Information Admitting Physician Requests: Admit Condition: Stable Radha Ma MD Jan 26, 2017 07:41
[2017-01-26] MEDS ORDERED: ASPIRIN 81 MG CHEW TAB PO ONE (08:00)
[2017-01-26] MEDS ORDERED: HEPARIN SODIUM - IV 10,000 UNITS/10 ML VIAL IV ONE (08:00)
[2017-01-26] MEDS ORDERED: HEPARIN-D5W 25,000 U/250 ML 250 ML IV PRN ×2 (08:00→22:15)
[2017-01-26] MEDS ORDERED: MORPHINE SULFATE 4 MG/ML INJ IV PUSH ONE (08:00)
[2017-01-26] MEDS ORDERED: NITROGLYCERIN 2% OINT 1 GM PACKET TOP ONE (08:00)
[2017-01-26] MEDS ORDERED: SODIUM CHLOR 0.9% 1000 ML INJ 1,000 ML IV SCH (08:16)
[2017-01-26] MEDS: METOPROLOL TARTRATE 5 MG/5 ML VIAL IVS SCH ×3 (08:20→09:03)
--- NOTE | 2017-01-26 08:27 | HHI.HP ---
HPI Service [facility] Primary Care Physician Non-Staff Admission Diagnosis NSTEMI Diagnoses: Chief Complaint: Chest pain Travel History International Travel<30 Days: No Contact w/Intl Traveler <30 Da: No Traveled to Known Affected Are: No History of Present Illness Mr. Torre is a 36-year-old male with a history of hypertension, diabetes mellitus, bipolar disorder and sleep apnea who presented to the emergency department on 01/26/2017 due to epigastric and substernal chest pain as well shortness of breath that started 2 days ago. On Monday01/24/2017, he experienced epigastric and substernal chest pain. Chest discomfort did not radiate anywhere but had some nausea as well as dyspnea. He continued with the day and in fact went to school ([employer]). Later in the day, as he was walking in the parking lot, he experienced similar symptoms. Assuming it as of GI origin, he took some acid reflux medications which provided little relief. On 01/25/2017, he again had similar symptoms. This morning around 5:30AM, he woke up with epigastric, substernal chest pain, sharp, throbbing in nature and mild diaphoresis. He again had dyspnea and nausea. His pain subsided with rest. He denies any cough, abdominal pain, fever, chills. Denies any changes in bowel or bladder habits. On arrival, Temp 97.7F, HR 138, Resp 24, BP 273/144, Pulse ox 88% on room air. CXR shows atelectasis. First troponin was 0.31. Review of Systems Except as stated in HPI: all other systems reviewed are Neg Past Family Social History Past Medical History Hypertension, hyperlipidemia, diabetes, kidney stones, GERD, bipolar disorder, sleep apnea currently on CPAP machine. Morbid obesity. 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 Reported Medications Labetalol (Labetalol HCl) 200 Mg Tab 200 Mg PO BID Amlodipine (Amlodipine Besylate) 5 Mg Tab 5 Mg PO BID Glipizide 5 Mg Tab 5 Mg PO BID Take 30 minutes before a meal Trazodone (Trazodone HCl) 100 Mg Tablet 100 Mg PO HS Metformin (Metformin HCl) 500 Mg Tab 500 Mg PO BIDPC With meals Protonix (Pantoprazole Sodium) 40 Mg Tab 40 Mg PO DAILY Latuda (Lurasidone) 40 Mg Tab 40 Mg PO DAILY Lopressor (Metoprolol Tartrate) 100 Mg Tab 100 Mg PO BID Celexa (Citalopram Hydrobromide) 20 Mg Tab 20 Mg PO DAILY Allergies: Coded Allergies: diclofenac (Unverified Adverse Reaction, Mild, UPSETS STOMACH, 01/26/17) etodolac (Unverified Adverse Reaction, Mild, UPSETS STOMACH, 01/26/17) flurbiprofen (Unverified Adverse Reaction, Mild, UPSETS STOMACH, 01/26/17) ibuprofen (Unverified Adverse Reaction, Mild, UPSETS STOMACH, 01/26/17) indomethacin (Unverified Adverse Reaction, Mild, UPSETS STOMACH, 01/26/17) ketoprofen (Unverified Adverse Reaction, Mild, UPSETS STOMACH, 01/26/17) ketorolac (Unverified Adverse Reaction, Mild, UPSETS STOMACH, 01/26/17) naproxen (Unverified Adverse Reaction, Mild, UPSETS STOMACH, 01/26/17) oxaprozin (Unverified Adverse Reaction, Mild, UPSETS STOMACH, 01/26/17) Family History Dad - hypertension Social History Denies using tobacco, alcohol, illicit drugs. Physical Exam Vital Signs Vital Signs Date Time Temp Pulse Resp B/P (MAP) Pulse Ox O2 Delivery O2 Flow Rate FiO2 01/26/17 06:57 103 16 191/93 (125) 99 Nasal Cannula 1.50 01/26/17 06:40 Nasal Cannula 2.00 01/26/17 06:37 94 Nasal Cannula 2.00 01/26/17 06:33 98.6 103 38 133/65 (87) 92 01/26/17 06:33 97 Nasal Cannula 2.00 01/26/17 06:19 97.7 138 24 273/144 (187) 88 Room Air Physical Exam GENERAL: Alert, Oriented x 3, NAD. Morbidly obese. SKIN: No rashes, ecchymoses or lesions. Warm and dry. HEAD: Atraumatic. Normocephalic. No temporal or scalp tenderness. EYES: Pupils equal round and reactive. No injection or drainage. ENT: Nose without bleeding, purulent drainage or septal hematoma. Airway patent. NECK: Trachea midline. No lymphadenopathy. Supple, nontender, no meningeal signs. CARDIOVASCULAR: Regular rate and rhythm without murmurs, gallops, or rubs. No JVD. RESPIRATORY: Clear to auscultation. Breath sounds equal bilaterally. No wheezes , rales, or rhonchi. GASTROINTESTINAL: Abdomen soft, non-tender, nondistended. No guarding. MUSCULOSKELETAL: Extremities without clubbing, cyanosis, or edema. NEUROLOGICAL: Awake and alert. Cranial nerves II through XII intact. No focal neurological deficits. Normal speech. Laboratory Laboratory Tests Test 01/26/17 06:39 01/26/17 08:12 White Blood Count 8.9 Red Blood Count 5.22 Hemoglobin 16.8 Hematocrit 49.8 Mean Corpuscular Volume 95.3 Mean Corpuscular Hemoglobin 32.3 Mean Corpuscular Hemoglobin Concent 33.8 Red Cell Distribution Width 14.2 Platelet Count 237 Mean Platelet Volume 7.3 Neutrophils (%) (Auto) 70.3 Lymphocytes (%) (Auto) 19.0 Monocytes (%) (Auto) 8.4 Eosinophils (%) (Auto) 1.7 Basophils (%) (Auto) 0.6 Neutrophils # (Auto) 6.3 Lymphocytes # (Auto) 1.7 Monocytes # (Auto) 0.7 Eosinophils # (Auto) 0.2 Basophils # (Auto) 0.0 CBC Comment DIFF FINAL Differential Comment Prothrombin Time 10.5 Prothromb Time International Ratio 1.0 Activated Partial Thromboplast Time 26.1 Blood Urea Nitrogen 15 Creatinine 1.25 Random Glucose 217 Calcium Level 8.6 Sodium Level 143 Potassium Level 4.0 Chloride Level 104 Carbon Dioxide Level 32.3 Anion Gap 7 Estimat Glomerular Filtration Rate 65 Troponin I 0.31 B-Type Natriuretic Peptide 251 Lipase 96 Date/Time Source Procedure Growth Status 01/26/17 06:45 Blood Peripheral Aerobic Blood Culture Pending Received 01/26/17 06:45 Blood Peripheral Anaerobic Blood Culture Pending Received Result Diagram: 01/26/1739 01/26/1739 Imaging Last Impressions Chest X-Ray 01/26/1732 Signed Impressions: Service Date/Time: December 06:45 - CONCLUSION: 1. Mild basilar airspace disease most characteristic of atelectasis. Cardiomegaly. Oren Tan MD Caprini VTE Risk Assessment Caprini VTE Risk Assessment: Mod/High Risk (score >= 2) Caprini Risk Assessment Model Point Value = 1 Point Value = 2 Point Value = 3 Point Value = 5 Age 41-60 Minor surgery BMI > 25 kg/m2 Swollen legs Varicose veins or History of unexplained or recurrent spontaneous Oral contraceptives or hormone replacement Sepsis (< 1 month) Serious lung disease, including pneumonia (< 1 month) Abnormal pulmonary function Acute myocardial infarction Congestive heart failure (< 1 month) History of inflammatory bowel disease Medical patient at bed rest Age 61-74 Arthroscopic surgery Major open surgery (> 45 min) Laparoscopic surgery (> 45 min) Malignancy Confined to bed (> 72 hours) Immobilizing plaster cast Central venous access Age >= 75 History of VTE Family history of VTE Factor V Leiden Prothrombin [id number] Lupus anticoagulant Anticardiolipin antibodies Elevated serum homocysteine Heparin-induced thrombocytopenia Other congenital or acquired thrombophilia Stroke (< 1 month) Elective arthroplasty Hip, pelvis, or leg fracture Acute spinal cord injury (< 1 month) Prophylaxis Regimen Total Risk Factor Score Risk Level Prophylaxis Regimen 0-1 Low Early ambulation 2 Moderate Order ONE of the following: *Sequential Compression Device (SCD) *Heparin 5000 units SQ BID 3-4 Higher Order ONE of the following medications: *Heparin 5000 units SQ TID *Enoxaparin/Lovenox 40 mg SQ daily (WT < 150 kg, CrCl > 30 mL/min) *Enoxaparin/Lovenox 30 mg SQ daily (WT < 150 kg, CrCl > 10-29 mL/min) *Enoxaparin/Lovenox 30 mg SQ BID (WT < 150 kg, CrCl > 30 mL/min) AND/OR *Sequential Compression Device (SCD) 5 or more Highest Order ONE of the following medications: *Heparin 5000 units SQ TID (Preferred with Epidurals) *Enoxaparin/Lovenox 40 mg SQ daily (WT < 150 kg, CrCl > 30 mL/min) *Enoxaparin/Lovenox 30 mg SQ daily (WT < 150 kg, CrCl > 10-29 mL/min) *Enoxaparin/Lovenox 30 mg SQ BID (WT < 150 kg, CrCl > 30 mL/min) AND *Sequential Compression Device (SCD) Assessment and Plan Problem List: (1) Non-ST elevation GA (NSTEMI) ICD Code: I21.4 - Non-ST elevation GA (NSTEMI) Status: Acute (2) Hypertension ICD Code: I10 - Hypertension Status: Acute (3) Morbid obesity ICD Code: E66.01 - Morbid obesity Status: Chronic (4) Sleep apnea ICD Code: G47.30 - Sleep apnea, unspecified Status: Acute Assessment and Plan Mr. Torre is a pleasant morbidly obese male with a history of diabetes, hypertension, bipolar disorder who presents to the ED due to two day duration of epigastric, substernal chest pain - sharp, throbbing in nature, associated with nausea, dyspnea. - NSTEMI - First troponin 0.31. EKG reviewed by me, does not show any evidence ST elevation or depression. - Patient's risk factors include HTN, morbid obesity. - Cardiology consulted. Patient is currently on heparin drip. - Received Aspirin 324 mg in the ED. - Will give patient Lipitor 80mg now. Continue Aspirin 81mg Qday - NTG PRN. - Initial plan was to consider Cath. However, patient's weight is a prohibitive factor. Plan to cath was cancelled. - If non-invasive management is decided by cardiology, we could consider Ticagrelor 90mg BID as well as aspirin 81mg Qday for 12 months. - Will obtain Lipid panel in the AM. - Accelerated hypertension - BP was above 200 systolic. Patient received metoprolol IV push. - Due to sustained high BP, we started Labetalol 20mg IV once and then Labetalol 10mg 4hrs PRN. - Will start patient Nifedipine SR 60mg now and Qday. If renal function improves, consider adding lisinopril 10mg Qday. - Acute kidney injury - Creatinine 1.25. Baseline around 0.85. - BMP in the AM. Avoid nephrotoxins. - Morbid obesity - Patient admits to eating as an addict. He wants to know if he can get help at [facility]. - We will ask Case management to look into resources. - Bipolar disorder - no acute issues. Full code. Heparin drip. Discussed Condition With ER provider, RN. Physician Certification 2 Midnight Certification Type: Admission for Inpatient Services Order for Inpatient Services The services are ordered in accordance with Medicare regulations or non- Medicare payer requirements, as applicable. In the case of services not specified as inpatient-only, they are appropriately provided as inpatient services in accordance with the 2-midnight benchmark. Estimated LOS (days): 2 days is the estimated time the patient will need to remain in the hospital, assuming treatment plan goals are met and no additional complications. Post-Hospital Plan: Home [place] Galloway DO Jan 26, 2017 08:27
[2017-01-26] MEDS ORDERED: NALOXONE HCL 0.4 MG/ML AMP IV PRN (08:30)
[2017-01-26] MEDS ORDERED: MAGNESIUM HYDROXIDE SUSP 30 ML CUP PO PRN (08:30)
[2017-01-26] MEDS ORDERED: SENNOSIDES 8.6 MG TAB PO PRN (08:30)
[2017-01-26] MEDS ORDERED: BISACODYL 10 MG SUPP RECTAL PRN (08:30)
[2017-01-26] MEDS ORDERED: LACTULOSE SYRUP 20 GM/30 ML CUP PO PRN (08:30)
[2017-01-26] MEDS ORDERED: SODIUM CHLORIDE 0.9% FLUSH 10 ML FLUSH IV FLUSH PRN (08:30)
[2017-01-26 08:37] LABS: APTT (PATIENT) 24.5 SEC (24.3-30.1)
[2017-01-26 08:49] LABS: HEMATOCRIT 48.5 % (39.0-51.0); MEAN CELL VOLUME 95.8 FL (80.0-100.0); MEAN CORPUSCULAR HEMOGLOBIN 32.8 PG (27.0-34.0); MEAN CORPUSCULAR HGB CONC 34.3 % (32.0-36.0); PLATELET COUNT 230 TH/MM3 (150-450); RED BLOOD COUNT 5.06 MIL/MM3 (4.50-5.90); REVIEW FLAG FINAL; WHITE BLOOD COUNT 8.6 TH/MM3 (4.0-11.0)
--- NOTE | 2017-01-26 08:51 | PD.CONS ---
HPI Service CV Consult Requested By Reason for Consult chest pain Primary Care Physician Non-Staff History of Present Illness Here with nonobstructive CAD on [facility] 2013, HTN, hyperlipidemia for chest pain. This started Monday morning while he was getting ready to go to his college class. While taking a shower he developed retrosternal chest pain and shortness of breath. He pushed through and went to school. While walking to his class the pain came back. Now every time he exerts himself he has chest pain and shortness of breath. It does not radiate. There are no other associated symptoms. It lasts as long as he is exerting and resolves after rest for 5 minutes. He quit smoking four year ago. There is no family h/o of premature cardiac disease (Collin Corrales) Consult Requested By 36 year old male presents with chest pain symptoms. Prior cardiac workup involved [facility] 2013 which showed mild disease. Symptoms are exertional and nonexertional. + SOB. troponin milldy elevated. (Minor,Alan Alfaro MD) Review of Systems Consitutional: DENIES: Fatigue, Fever, Chills, Weight gain, Weight loss Eyes: DENIES: Amaurosis Fugax, Change in vision HEENT: DENIES: Lightheadedness, Change in hearing Respiratory: DENIES: See HPI, Cough, Snoring, Shortness of breath, Wheezing, Sputum production Cardiovascular: COMPLAINS OF: See HPI Gastrointestinal: DENIES: Nausea, Vomiting, Change in bowel habits, Reflux, Bloody stools, Melena Genitourinary: DENIES: Urinary incontinence, Difficulty voiding Integumentary: DENIES: Rash Neurologic: DENIES: Tingling or numbness, Memory problems, Poor Balance, Stroke symptoms Musculoskeletal: DENIES: Joint pain, Muscle pain, Limited range of motion, Back pain Psychiatric: DENIES: Anxiety, Depression, Sleep disturbances Hematologic: DENIES: Bruising tendencies, Bleeding tendencies Endocrine: DENIES: Weight gain, Weight loss, Thyroid disease (Collin Corrales ) Past Family Social History Allergies: Coded Allergies: diclofenac (Unverified Adverse Reaction, Mild, UPSETS STOMACH, 01/26/17) etodolac (Unverified Adverse Reaction, Mild, UPSETS STOMACH, 01/26/17) flurbiprofen (Unverified Adverse Reaction, Mild, UPSETS STOMACH, 01/26/17) ibuprofen (Unverified Adverse Reaction, Mild, UPSETS STOMACH, 01/26/17) indomethacin (Unverified Adverse Reaction, Mild, UPSETS STOMACH, 01/26/17) ketoprofen (Unverified Adverse Reaction, Mild, UPSETS STOMACH, 01/26/17) ketorolac (Unverified Adverse Reaction, Mild, UPSETS STOMACH, 01/26/17) naproxen (Unverified Adverse Reaction, Mild, UPSETS STOMACH, 01/26/17) oxaprozin (Unverified Adverse Reaction, Mild, UPSETS STOMACH, 01/26/17) Past Medical History borderline diabetes HTN hyperlipidemia h/o suicide attempts X 2 Past Surgical History pyloric stenosis corrected in infancy cholecystectomy renal stent f/b nephrectomy Reported Medications Reported Meds & Active Scripts Active Reported Labetalol (Labetalol HCl) 200 Mg Tab 200 Mg PO BID Amlodipine (Amlodipine Besylate) 5 Mg Tab 5 Mg PO BID Glipizide 5 Mg Tab 5 Mg PO BID Take 30 minutes before a meal Trazodone (Trazodone HCl) 100 Mg Tablet 100 Mg PO HS Metformin (Metformin HCl) 500 Mg Tab 500 Mg PO BIDPC With meals Protonix (Pantoprazole Sodium) 40 Mg Tab 40 Mg PO DAILY Latuda (Lurasidone) 40 Mg Tab 40 Mg PO DAILY Lopressor (Metoprolol Tartrate) 100 Mg Tab 100 Mg PO BID Celexa (Citalopram Hydrobromide) 20 Mg Tab 20 Mg PO DAILY Active Ordered Medications Current Medications Medications (Trade) Dose Ordered Sig/Abdulaziz Route Start Time Stop Time Status Last Admin (NS Flush) 2 ml UNSCH PRN IVF 01/26/17 06:45 (Heparin Inj) 5,000 units UNSCH PRN IV 01/26/17 14:00 (Heparin Inj) 2,500 units UNSCH PRN IV 01/26/17 14:00 Heparin Sodium/ Dextrose 250 ml @ 28.632 mls/ hr TITRATE PRN IV 01/26/17 08:00 01/26/17 08:19 (Lipitor) 80 mg ONCE ONCE PO 01/26/17 09:00 01/26/17 09:01 Sodium Chloride 1,000 ml @ 100 mls/hr Q10H IV 01/26/17 08:16 UNV (NS Flush) 2 ml UNSCH PRN IV FLUSH 01/26/17 08:30 UNV (NS Flush) 2 ml BID IV FLUSH 01/26/17 09:00 UNV (Tylenol) 650 mg Q4H PRN PO 01/26/17 08:30 UNV (Narcan Inj) 0.4 mg UNSCH PRN IV 01/26/17 08:30 UNV (Breanna-Colace) 1 tab BID PO 01/26/17 09:00 UNV (Milk Of Magnesia Liq) 30 ml Q12H PRN PO 01/26/17 08:30 UNV (Senokot) 17.2 mg Q12H PRN PO 01/26/17 08:30 UNV (Dulcolax Supp) 10 mg DAILY PRN RECTAL 01/26/17 08:30 UNV (Lactulose Liq) 30 ml DAILY PRN PO 01/26/17 08:30 UNV Family History no contributory Social History quit smoking 4 years ago denies EtOH and substance abuse (Collin Corrales) Physical Exam Vital Signs Vital Signs Date Time Temp Pulse Resp B/P (MAP) Pulse Ox O2 Delivery O2 Flow Rate FiO2 01/26/17 06:57 103 16 191/93 (125) 99 Nasal Cannula 1.50 01/26/17 06:40 Nasal Cannula 2.00 01/26/17 06:37 94 Nasal Cannula 2.00 01/26/17 06:33 98.6 103 38 133/65 (87) 92 01/26/17 06:33 97 Nasal Cannula 2.00 01/26/17 06:19 97.7 138 24 273/144 (187) 88 Room Air Physical Exam GENERAL: Morbidly obese patient in no apparent distress. NECK: No JVD. No carotid bruit. CARDIOVASCULAR: Regular rate and rhythm. S1/S2 no murmur, rub, or gallop. RESPIRATORY: No accessory muscle use. Clear to auscultation. Breath sounds equal bilaterally. GASTROINTESTINAL: Abdomen soft, non-tender, nondistended. MUSCULOSKELETAL: Extremities without clubbing, cyanosis, or edema. Laboratory Laboratory Tests Test 01/26/17 06:39 01/26/17 08:12 White Blood Count 8.9 Red Blood Count 5.22 Hemoglobin 16.8 Hematocrit 49.8 Mean Corpuscular Volume 95.3 Mean Corpuscular Hemoglobin 32.3 Mean Corpuscular Hemoglobin Concent 33.8 Red Cell Distribution Width 14.2 Platelet Count 237 Mean Platelet Volume 7.3 Neutrophils (%) (Auto) 70.3 Lymphocytes (%) (Auto) 19.0 Monocytes (%) (Auto) 8.4 Eosinophils (%) (Auto) 1.7 Basophils (%) (Auto) 0.6 Neutrophils # (Auto) 6.3 Lymphocytes # (Auto) 1.7 Monocytes # (Auto) 0.7 Eosinophils # (Auto) 0.2 Basophils # (Auto) 0.0 CBC Comment DIFF FINAL Differential Comment Prothrombin Time 10.5 Prothromb Time International Ratio 1.0 Activated Partial Thromboplast Time 26.1 Blood Urea Nitrogen 15 Creatinine 1.25 Random Glucose 217 Calcium Level 8.6 Sodium Level 143 Potassium Level 4.0 Chloride Level 104 Carbon Dioxide Level 32.3 Anion Gap 7 Estimat Glomerular Filtration Rate 65 Troponin I 0.31 B-Type Natriuretic Peptide 251 Lipase 96 Date/Time Source Procedure Growth Status 01/26/17 06:45 Blood Peripheral Aerobic Blood Culture Pending Received 01/26/17 06:45 Blood Peripheral Anaerobic Blood Culture Pending Received (Collin Corrales) Result Diagram: 01/26/1763801/26/17638 Assessment and Plan Problem List: (1) Non-ST elevation ID (NSTEMI) ICD Codes: I21.4 - Non-ST elevation ID (NSTEMI) Status: Acute (2) HTN (hypertension) ICD Codes: I10 - Hypertension Status: Chronic (3) CAD (coronary artery disease) ICD Codes: I25.10 - Coronary artery disease Status: Chronic Assessment and Plan NSTEMI - On heparin, with his strongly suggestive symptoms and elevated troponin we will schedule coronary angiogram. His last dose of metformin was yesterday, we will start hydration normal saline at 200 cc/hr HTN - Add NICHOL-I and BB as tolerated, the nurse had just given IV Lopressor while I was seeing the pt. Will wait for effect. (Collin Corrales) Assessment and Plan unable to do LCH due to weight limit unable to do CTA coronaries due to weight limit medical mgt only echo add long acting nitrate, asa, plavix, statin. (Alan Torres MD) Collin Corrales Jan 26, 2017 08:51 Alan Torres MD Jan 26, 2017 11:41
[2017-01-26] MEDS ORDERED: ATORVASTATIN 80 MG TAB PO ONE (09:00)
[2017-01-26] MEDS: SODIUM CHLOR 0.9% 1000 ML INJ 1,000 ML IV SCH ×2 (09:00→17:21)
[2017-01-26] MEDS: DOCUSATE SODIUM 50 MG/SENNA 8.6 MG TAB PO SCH ×2 (09:00→21:52)
[2017-01-26] MEDS: SODIUM CHLORIDE 0.9% FLUSH 10 ML FLUSH IV FLUSH SCH ×2 (09:00→22:02)
[2017-01-26] MEDS ORDERED: MIDAZOLAM HCL 2 MG/2 ML VIAL IV SCH (09:00)
[2017-01-26] MEDS ORDERED: METOPROLOL TARTRATE 50 MG TAB PO SCH (10:45)
[2017-01-26] MEDS ORDERED: METOPROLOL TARTRATE 5 MG/5 ML VIAL IV PUSH PRN (10:45)
[2017-01-26] MEDS ORDERED: NITROGLYCERIN 0.4 MG SL 25 TABS/BTL SL SCH (10:45)
[2017-01-26] MEDS ORDERED: LABETALOL HCL 100 MG/20 ML VIAL IV PUSH ONE (13:00)
[2017-01-26] MEDS ORDERED: ONDANSETRON HCL 4 MG/2 ML VIAL IV PUSH PRN (13:00)
[2017-01-26] MEDS ORDERED: HEPARIN SODIUM - IV 10,000 UNITS/10 ML VIAL IV PRN ×2 (14:00)
[2017-01-26] MEDS ORDERED: DEXTROSE 50% IN WATER 50 ML VIAL(D50) IV PRN (17:30)
[2017-01-26] MEDS ORDERED: GLUCAGON 1 MG/ML VIAL OTHER PRN (17:30)
[2017-01-26 17:36] LABS: APTT (PATIENT) 27.7 SEC (24.3-30.1)
--- NOTE | 2017-01-26 17:37 | ECHRPT ---
Indication: NSTEMI CONCLUSIONS Very technically difficult study Mildly dilated left ventricle. Mild concentric left ventricular hypertrophy. The left ventricular systolic function is moderately reduced with an estimated ejection fraction in the range of 40-45%. The left atrial size is viep-rc-jlyygxdnes dilated. The right atrial size is mildly dilated. The interatrial septum not well visualized. The aortic root and proximal ascending aorta are not well visualized. The mitral valve is not well visualized. No mitral valve stenosis. Mild mitral valve regurgitation. The aortic valve is not well visualized. No aortic valve stenosis. There is mild tricuspid valve regurgitation. There is estimated iqoykrzp-de-jomblr pulmonary hypertension present (range 60-70 mmHg). The pulmonary valve is not well visualized. The inferior vena cava was not well visualized. BP: 205 / 91 HR: 87 Rhythm: Sinus MEASUREMENTS (Male / Female) Normal Values Technical Quality:Very technically difficult study 2D ECHO LV Diastolic Diameter PLAX 5.9 cm 4.2 - 5.9 / 3.9 - 5.3 cm LV Systolic Diameter PLAX 4.9 cm IVS Diastolic Thickness 1.1 cm 0.6 - 1.0 / 0.6 - 0.9 cm LVPW Diastolic Thickness 1.1 cm 0.6 - 1.0 / 0.6 - 0.9 cm LV Relative Wall Thickness 0.4 LVOT Diameter 2.6 cm Aortic Root Diameter 3.3 cm LA Systolic Diameter LX 3.4 cm 3.0 - 4.0 / 2.7 - 3.8 cm M-MODE AV Cusp Separation MM 2.4 cm DOPPLER AV Peak Velocity 130.0 cm/s AV Peak Gradient 6.8 mmHg AV Mean Gradient 4.0 mmHg AV Velocity Time Integral 16.9 cm LVOT Peak Velocity 74.4 cm/s LVOT Peak Gradient 2.2 mmHg LVOT Velocity Time Integral 9.2 cm LVOT Cardiac Index 1162.0 cm/minm AV Area Cont Eq vti 2.9 cm AV Area Cont Eq pk 3.0 cm Mitral E Point Velocity 122.0 cm/s Mitral A Point Velocity 81.9 cm/s Mitral E to A Ratio 1.5 LV E' Lateral Velocity 7.8 cm/s Mitral E to LV E' Lateral Ratio 15.6 LV E' Septal Velocity 6.4 cm/s Mitral E to LV E' Septal Ratio 19.0 TR Peak Velocity 353.0 cm/s TR Peak Gradient 49.8 mmHg PV Peak Velocity 76.7 cm/s PV Peak Gradient 2.4 mmHg FINDINGS LEFT VENTRICLE Mildly dilated left ventricle. Mild concentric left ventricular hypertrophy. The left ventricular systolic function is moderately reduced with an estimated ejection fraction in the range of 40-45%. RIGHT VENTRICLE Normal right ventricular size and systolic function. LEFT ATRIUM The left atrial size is wlcp-lb-xlpwzmhdyj dilated. RIGHT ATRIUM The right atrial size is mildly dilated. ATRIAL SEPTUM The interatrial septum not well visualized. AORTA The aortic root and proximal ascending aorta are not well visualized. MITRAL VALVE The mitral valve is not well visualized. No mitral valve stenosis. Mild mitral valve regurgitation. AORTIC VALVE The aortic valve is not well visualized. No aortic valve stenosis. TRICUSPID VALVE There is mild tricuspid valve regurgitation. There is estimated gmmrwcls-cv-veatil pulmonary hypertension present (range 60-70 mmHg). PULMONARY VALVE The pulmonary valve is not well visualized. VESSELS The inferior vena cava was not well visualized. PERICARDIUM No pericardial effusion. Alan Torres MD, FACC (Electronically Signed) Final Date:26 January 2017 17:36
--- NOTE | 2017-01-26 17:53 | EKG ---
Date Performed: 01/26/2017 Time Performed: 06:26:14 PTAGE: 36 years EKG: SINUS TACHYCARDIA POSSIBLE LEFT ATRIAL ENLARGEMENT NONSPECIFIC ST & T-WAVE ABNORMALITY ABNO RMAL RHYTHM ECG Compared to prior tracing no significant change PREVIOUS TRACING : 01/04/2017 16.54 DOCTOR: Jared Mensah Interpretating Date/Time 01/26/2017 17:51:49
--- NOTE | 2017-01-26 17:54 | EKG ---
Date Performed: 01/26/2017 Time Performed: 10:48:50 PTAGE: 36 years EKG: Sinus rhythm POSSIBLE LEFT ATRIAL ENLARGEMENT NONSPECIFIC T-WAVE ABNORMALITY ABNORMAL ECG Compared to prior virgilio ng no significant change PREVIOUS TRACING : 01/26/2017 06.26 DOCTOR: Jared Mensah Interpretating Date/Time 01/26/2017 17:52:03
[2017-01-26] MEDS ORDERED: NIFEdipine 60 MG SUSTAINED RELEASE TAB PO ONE (18:45)
[2017-01-26] MEDS: LABETALOL HCL 100 MG/20 ML VIAL IV PUSH PRN (18:52)
[2017-01-26] MEDS ORDERED: INSULIN DETEMIR 100 UNITS/ML VIAL SQ SCH (21:00)
[2017-01-26] MEDS: ACETAMINOPHEN 325 MG TAB PO PRN (21:53)
[2017-01-26] MEDS: INSULIN ASPART SUPPLEMENTAL SCALE SQ SCH (22:02)
[2017-01-27] VITALS (19 sets, daily range): BP systolic 164–194; BP diastolic 104–117; PULSE 82–100; RESP 17–20; TEMP 97.6–97.8; O2SAT 92–99
[2017-01-27] MEDS: LABETALOL HCL 100 MG/20 ML VIAL IV PUSH PRN ×3 (00:13→11:01)
[2017-01-27 05:09] LABS: AUTOMATED NEUTROPHIL # 7.9 TH/MM3 (1.8-7.7); BASOPHIL % 0.4 % (0.0-2.0); HEMATOCRIT 44.8 % (39.0-51.0); HEMO FLAGS DIFF FINAL; LYMPH % 8.3 % (9.0-44.0); LYMPHOCYTE # 0.8 TH/MM3 (1.0-4.8); MEAN CELL VOLUME 96.5 FL (80.0-100.0); MEAN CORPUSCULAR HEMOGLOBIN 33.2 PG (27.0-34.0); MEAN CORPUSCULAR HGB CONC 34.4 % (32.0-36.0); MONO % 6.2 % (0.0-8.0); NEUT % 85.1 % (16.0-70.0); PLATELET COUNT 207 TH/MM3 (150-450); RED BLOOD COUNT 4.64 MIL/MM3 (4.50-5.90); RED CELL DISTRIBUTION WIDTH 13.8 % (11.6-17.2); WHITE BLOOD COUNT 9.2 TH/MM3 (4.0-11.0)
[2017-01-27 05:10] LABS: APTT (PATIENT) 26.3 SEC (24.3-30.1)
[2017-01-27 05:34] LABS: BICARBONATE 34.9 MEQ/L (21.0-32.0); POTASSIUM 4.3 MEQ/L (3.5-5.1)
[2017-01-27 05:36] LABS: HDL CHOLESTEROL 44.3 MG/DL (40.0-60.0)
[2017-01-27] MEDS: INSULIN ASPART SUPPLEMENTAL SCALE SQ SCH ×3 (06:27→17:21)
[2017-01-27] MEDS ORDERED: ISOSORBIDE MONONITRATE 30 MG TAB PO SCH (07:00)
--- NOTE | 2017-01-27 07:39 | PD.CARD.PN ---
Subjective Subjective Remarks no chest pain sleeping but arousable Objective Vital Signs / I&O Vital Signs Date Time Temp Pulse Resp B/P (MAP) Pulse Ox O2 Delivery O2 Flow Rate FiO2 01/27/17 03:00 97.7 86 20 194/117 (142) 99 01/26/17 23:18 18 01/26/17 23:00 98.0 90 20 183/103 (129) 95 01/26/17 19:00 98.6 92 20 162/102 (122) 95 01/26/17 18:00 93 01/26/17 17:00 92 01/26/17 15:00 98.6 95 20 171/97 (121) 96 01/26/17 13:52 01/26/17 13:30 98.6 96 22 176/95 (122) 96 01/26/17 13:04 88 20 129/79 (96) 95 Nasal Cannula 3.00 01/26/17 09:46 87 24 205/91 (129) 93 Nasal Cannula 3.00 01/26/17 08:30 95 Nasal Cannula 3.00 I/O 01/26/17 01/26/17 01/26/17 01/27/17 01/27/17 01/27/17 07:00 15:00 23:00 07:00 15:00 23:00 Intake Total 933 ml 1380 ml Balance 933 ml 1380 ml Intake Oral 240 ml 960 ml IV Total 693 ml 420 ml # Voids 4 Physical Exam GENERAL: SKIN: Warm and dry. HEAD: Normocephalic. EYES: No scleral icterus. No injection or drainage. NECK: Supple, trachea midline. No JVD or lymphadenopathy. CARDIOVASCULAR: Regular rate and rhythm without murmurs, gallops, or rubs. RESPIRATORY: Breath sounds equal bilaterally. No accessory muscle use. GASTROINTESTINAL: Abdomen soft, non-tender, nondistended. MUSCULOSKELETAL: No cyanosis, or edema. BACK: Nontender without obvious deformity. No CVA tenderness. Laboratory Laboratory Tests Test 01/26/17 08:12 01/26/17 10:03 01/26/17 16:42 01/27/17 04:50 White Blood Count 8.6 TH/MM3 9.2 TH/MM3 Red Blood Count 5.06 MIL/MM3 4.64 MIL/MM3 Hemoglobin 16.6 GM/DL 15.4 GM/DL Hematocrit 48.5 % 44.8 % Mean Corpuscular Volume 95.8 FL 96.5 FL Mean Corpuscular Hemoglobin 32.8 PG 33.2 PG Mean Corpuscular Hemoglobin Concent 34.3 % 34.4 % Red Cell Distribution Width 14.0 % 13.8 % Platelet Count 230 TH/MM3 207 TH/MM3 Mean Platelet Volume 7.2 FL 7.4 FL Activated Partial Thromboplast Time 24.5 SEC 27.7 SEC 26.3 SEC Troponin I 0.35 NG/ML 0.26 NG/ML Neutrophils (%) (Auto) 85.1 % Lymphocytes (%) (Auto) 8.3 % Monocytes (%) (Auto) 6.2 % Eosinophils (%) (Auto) 0.0 % Basophils (%) (Auto) 0.4 % Neutrophils # (Auto) 7.9 TH/MM3 Lymphocytes # (Auto) 0.8 TH/MM3 Monocytes # (Auto) 0.6 TH/MM3 Eosinophils # (Auto) 0.0 TH/MM3 Basophils # (Auto) 0.0 TH/MM3 CBC Comment DIFF FINAL Differential Comment Blood Urea Nitrogen 15 MG/DL Creatinine 0.98 MG/DL Random Glucose 163 MG/DL Calcium Level 8.4 MG/DL Sodium Level 142 MEQ/L Potassium Level 4.3 MEQ/L Chloride Level 103 MEQ/L Carbon Dioxide Level 34.9 MEQ/L Anion Gap 4 MEQ/L Estimat Glomerular Filtration Rate 86 ML/MIN Triglycerides Level 150 MG/DL Cholesterol Level 206 MG/DL LDL Cholesterol 132 MG/DL HDL Cholesterol 44.3 MG/DL Cholesterol/HDL Ratio 4.65 RATIO Assessment and Plan Problem List: (1) Non-ST elevation CA (NSTEMI) ICD Codes: I21.4 - Non-ST elevation CA (NSTEMI) Status: Acute (2) HTN (hypertension) ICD Codes: I10 - Hypertension Status: Chronic (3) CAD (coronary artery disease) ICD Codes: I25.10 - Coronary artery disease Status: Chronic Assessment and Plan NSTEMI med mgt asa plavix bb statin DC today FU PCP unable to do LCH due to weight limit unable to do CTA coronaries due to weight limit medical mgt only echo add long acting nitrate, asa, plavix, statin. Alan Torres MD Jan 27, 2017 07:39
[2017-01-27] MEDS: SODIUM CHLORIDE 0.9% FLUSH 10 ML FLUSH IV FLUSH SCH (07:46)
[2017-01-27] MEDS: DOCUSATE SODIUM 50 MG/SENNA 8.6 MG TAB PO SCH (07:47)
[2017-01-27] MEDS ORDERED: amLODIPine BESYLATE 5 MG TAB PO SCH (09:00)
[2017-01-27] MEDS ORDERED: ASPIRIN EC 81 MG TABEC PO SCH (09:00)
[2017-01-27] MEDS ORDERED: CLOPIDOGREL 75 MG TAB PO SCH (09:00)
[2017-01-27] MEDS ORDERED: ATORVASTATIN 40 MG TAB PO SCH (09:00)
[2017-01-27] MEDS ORDERED: NIFEdipine 60 MG SUSTAINED RELEASE TAB PO SCH (09:00)
[2017-01-27] MEDS: ACETAMINOPHEN 325 MG TAB PO PRN (11:01)
[2017-01-27] MEDS ORDERED: PLAV75TA29 PO (17:31)
[2017-01-27] MEDS ORDERED: ATOR40TA16 PO (17:31)
[2017-01-27] MEDS ORDERED: METF1000 PO (17:31)
[2017-01-27] MEDS ORDERED: ISOS30TA3 PO (17:31)
[2017-01-27] MEDS ORDERED: GLIP10TA6 PO (17:36)
[2017-01-27] MEDS ORDERED: GLUCTES12 (17:37)
[2017-01-27] MEDS ORDERED: NOVOLOGP2 SQ (17:37)
[2017-01-27] MEDS ORDERED: INSU1MIS15 (17:37)
[2017-01-27] MEDS ORDERED: GLUCKIT15 (17:37)
[2017-01-27] MEDS ORDERED: LANCETS1 MI1 (17:37)
--- NOTE | 2017-01-27 17:40 | HHI.DS ---
Discharge Summary Admission Date Jan 26, 2017 at 08:18 Discharge Date: Jan 27, 2017 Admitting Diagnosis NSTEMI (1) Non-ST elevation CT (NSTEMI) ICD Code: I21.4 - Non-ST elevation CT (NSTEMI) Diagnosis: Principal Status: Acute (2) Hypertension ICD Code: I10 - Hypertension Diagnosis: Principal Status: Acute (3) Morbid obesity ICD Code: E66.01 - Morbid obesity Diagnosis: Principal Status: Chronic (4) Sleep apnea ICD Code: G47.30 - Sleep apnea, unspecified Diagnosis: Principal Status: Acute (5) Morbid obesity with BMI of 60.0-69.9, adult ICD Code: E66.01 - Morbid (severe) obesity due to excess calories; Z68.44 - Body mass index (BMI) 60.0-69.9, adult Diagnosis: Principal (6) CAD (coronary artery disease) ICD Code: I25.10 - Coronary artery disease Diagnosis: Principal Status: Chronic (7) HTN (hypertension) ICD Code: I10 - Hypertension Diagnosis: Principal Status: Chronic (8) Diabetes mellitus with hyperglycemia ICD Code: E11.65 - Type 2 diabetes mellitus with hyperglycemia Diagnosis: Principal Status: Chronic Procedures none Brief History - From Admission Mr. Torre is a 36-year-old male with a history of hypertension, diabetes mellitus, bipolar disorder and sleep apnea who presented to the emergency department on 01/26/2017 due to epigastric and substernal chest pain as well shortness of breath that started 2 days ago. On Monday01/24/2017, he experienced epigastric and substernal chest pain. Chest discomfort did not radiate anywhere but had some nausea as well as dyspnea. He continued with the day and in fact went to school ([employer]). Later in the day, as he was walking in the parking lot, he experienced similar symptoms. Assuming it as of GI origin, he took some acid reflux medications which provided little relief. On 01/25/2017, he again had similar symptoms. This morning around 5:30AM, he woke up with epigastric, substernal chest pain, sharp, throbbing in nature and mild diaphoresis. He again had dyspnea and nausea. His pain subsided with rest. He denies any cough, abdominal pain, fever, chills. Denies any changes in bowel or bladder habits. On arrival, Temp 97.7F, HR 138, Resp 24, BP 273/144, Pulse ox 88% on room air. CXR shows atelectasis. First troponin was 0.31. CBC/BMP: 01/27/17 0450 01/27/17 0450 Significant Findings Laboratory Tests Test 01/26/17 06:39 01/26/17 08:12 01/26/17 10:03 01/26/17 16:42 Neutrophils (%) (Auto) 70.3 % (16.0-70.0) Monocytes (%) (Auto) 8.4 % (0.0-8.0) Random Glucose 217 MG/DL (74-106) Carbon Dioxide Level 32.3 MEQ/L (21.0-32.0) Estimat Glomerular Filtration Rate 65 ML/MIN (>89) Troponin I 0.31 NG/ML (0.02-0.05) 0.35 NG/ML (0.02-0.05) 0.26 NG/ML (0.02-0.05) B-Type Natriuretic Peptide 251 PG/ML (0-100) Test 01/27/17 04:50 Neutrophils (%) (Auto) 85.1 % (16.0-70.0) Lymphocytes (%) (Auto) 8.3 % (9.0-44.0) Neutrophils # (Auto) 7.9 TH/MM3 (1.8-7.7) Lymphocytes # (Auto) 0.8 TH/MM3 (1.0-4.8) Random Glucose 163 MG/DL (74-106) Calcium Level 8.4 MG/DL (8.5-10.1) Carbon Dioxide Level 34.9 MEQ/L (21.0-32.0) Anion Gap 4 MEQ/L (5-15) Estimat Glomerular Filtration Rate 86 ML/MIN (>89) Cholesterol Level 206 MG/DL (120-200) LDL Cholesterol 132 MG/DL (0-99) Imaging Last Impressions Chest X-Ray 01/26/17 0632 Signed Impressions: Service Date/Time: , January 26, 2017 06:45 - CONCLUSION: 1. Mild basilar airspace disease most characteristic of atelectasis. Cardiomegaly. rOen Tan MD PE at Discharge Morbidly obese, lying in bed, nad S1S2 RRR, no MRG clear lungs BL soft, obese, non tender abdomen no edema in lower extremities no JVD Pt update on day of discharge Denies cp/sob. Hospital Course Mr. Torre is a pleasant morbidly obese male with a history of diabetes, hypertension, bipolar disorder who presents to the ED due to two day duration of epigastric, substernal chest pain - sharp, throbbing in nature, associated with nausea, dyspnea. - NSTEMI - First troponin 0.31. EKG reviewed by me, does not show any evidence ST elevation or depression. Troponins peaked at 0.35 and started trending down. - Patient started on heparin drip and aspirin. - Patient was started on Beta naveed, long acting nitrates, Plavix, ASA, statin - Initial plan was to consider Cath. However, patient's weight is a prohibitive factor. Plan to cath was cancelled and medical management recommended by cardiology. - Lipid panel showed aa total cholesterol of 206 and an LDL cholesterol of 132. - Accelerated hypertension - BP was above 200 systolic. Patient received metoprolol IV push. - Due to sustained high BP, we started Labetalol 20mg IV once and then Labetalol 10mg 4hrs PRN. - Patient was started on Nifedipine SR 60mg now and Qday and amlodipine 10 mg po Q day w improvement in BP. - Acute kidney injury - Creatinine 1.25. Baseline around 0.85. - BMP repeated and back to baseline at 0.9. - Morbid obesity - Case management provided information on overeaters anonymous. - Patient advised to lose weight. - Bipolar disorder - no acute issues. - Diabetes Mellitus w hyperglycemia - Patient with uncontrolled hyperglycemia. Patient's home antidiabetic medications resumed, Patient discharged with SSI with insulin Novolog. Full code.On Heparin drip whole hospitalized. Pt Condition on Discharge: Stable Discharge Disposition: Discharge Home Discharge Time: <= 30 minutes Discharge Instructions Follow up Referrals: Cardiology - 2-3 Days with Minor,Alan Alfaro MD PCP Follow-up - 2-3 Days New Medications: Blood Glucose Monitoring W/Device (Glucocom Blood Glucose Mo W/Device) 1 Kit Kit KIT .ROUTE DIRECTED for Blood Sugar Management, #1 Glipizide (Glipizide) 10 Mg Tab 10 MG PO BIDAC for Blood Sugar Management, #60 TAB 0 Refills Take 30 minutes before a meal Glucocom Test Strips (Glucocom Test Strips) 1 Hannah Hannah EA .ROUTE DIRECTED for Blood Sugar Management, #1 Insulin Aspart Inj (Novolog Inj) 1,000 Unit/10 Ml Vial 2-12 UNITS SQ ACHS for Blood Sugar Management, #10 ML 0 Refills Max dose at bedtime ( ) units; sugars less than 70,(0) units; sugars 150-199,(2) units; sugars 200-249,(4) units; sugars 250-299,(7) units; sugars 300-349,(10) units; sugars greater than 349,(12)units Insulin Syringe/U-100/31G X 5/16" 1 ml (Insulin Syringe/U-100/31G X 5/16" 1 ml) 31 Gauge X 5/16" Mis EA .ROUTE DIRECTED for Blood Sugar Management, #1 0 Refills Lancets (Lancets) 1 Mis Mis EA .ROUTE DIRECTED for Blood Sugar Management, #1 0 Refills Metformin (Metformin) 1,000 Mg Tab 1000 MG PO BIDPC for Blood Sugar Management, #60 TAB 0 Refills With meals Atorvastatin (Atorvastatin) 40 Mg Tab 40 MG PO DAILY for Cholesterol Management, #31 TAB Clopidogrel (Plavix) 75 Mg Tab 75 MG PO DAILY for cad, #31 TAB Isosorbide Mononitrate ER (Isosorbide Mononitrate ER) 30 Mg Josee 30 MG PO DAILY@07 for cad, #31 TAB Continued Medications: Amlodipine (Amlodipine) 5 Mg Tab 5 MG PO BID for Blood Pressure Management, #30 TAB 0 Refills Citalopram (Celexa) 20 Mg Tab 20 MG PO DAILY for Control Depression, #30 TAB 0 Refills Labetalol (Labetalol) 200 Mg Tab 200 MG PO BID for Blood Pressure Management, TAB 0 Refills Lurasidone (Latuda) 40 Mg Tab 40 MG PO DAILY, #30 TAB 0 Refills Metoprolol Tartrate (Lopressor) 100 Mg Tab 100 MG PO BID, #60 TAB 0 Refills Pantoprazole (Protonix) 40 Mg Tab 40 MG PO DAILY for Reflux, #30 TAB 0 Refills Trazodone (Trazodone) 100 Mg Tablet 100 MG PO HS for Control Depression, #30 TAB 0 Refills Discontinued Medications: Glipizide (Glipizide) 5 Mg Tab 5 MG PO BID for Blood Sugar Management, #30 TAB 0 Refills Take 30 minutes before a meal Metformin (Metformin) 500 Mg Tab 500 MG PO BIDPC for Blood Sugar Management, #60 TAB 0 Refills With meals Talat Lawler MD Jan 27, 2017 17:40
--- NOTE | 2017-01-28 01:11 | EKG ---
Date Performed: 01/26/2017 Time Performed: 16:28:00 PTAGE: 36 years EKG: Sinus rhythm . Possible left posterior fascicular block Inferior/lateral ST-T changes are nonspecific Borderline E CG PREVIOUS TRACING : 01/26/2017 10.48 Compared to prior tracing no significant change DOCTOR: Andrez Butler Interpretating Date/Time 01/28/2017 01:09:25
== END 2017-01-27 18:22 | disposition home or self-care (01) | DRG 281 ==
LOC: NEPE 06:17 → NEDA 08:18 → HCIS 13:10
PROVIDERS: ADMIT Hospitalist; ATTEND Hospitalist
DX: I21.4 Non-ST elevation (NSTEMI) myocardial infarction (principal); Z68.44 Body mass index [BMI] 60.0-69.9, adult; N17.9 Acute kidney failure, unspecified; E11.9 Type 2 diabetes mellitus without complications; F31.9 Bipolar disorder, unspecified; I10 Essential (primary) hypertension; E66.01 Morbid (severe) obesity due to excess calories; G47.33 Obstructive sleep apnea (adult) (pediatric); F41.9 Anxiety disorder, unspecified; K21.9 Gastro-esophageal reflux disease without esophagitis; G47.00 Insomnia, unspecified; I25.10 Atherosclerotic heart disease of native coronary artery without angina pectoris; Z87.891 Personal history of nicotine dependence; I25.2 Old myocardial infarction; Z79.84 Long term (current) use of oral hypoglycemic drugs
CPT/HCPCS: 71010; 80048; 80061; 82948; 83690; 83880; 84484; 85025; 85027; 85610; 85730; 87040; 93005; 93306; 94640; 94664; 96374; J1644; J1815; J2270; J2405; J2930; J7030

== ENCOUNTER 2017-01-31 07:26 | Inpatient (IN) | payer OTHER ==
[2017-01-31] VITALS (17 sets, daily range): BP systolic 180–227; BP diastolic 80–124; PULSE 68–88; RESP 16–28; TEMP 98.1–98.6; O2SAT 94–99
[~2017-01-31] VITALS: Ht 185.4 cm; Wt 246.7 kg
[~2017-01-31 07:26] MED LIST changes: +ATOR40TA16 PO; +GLIP10TA6 PO; -GLIP5TAB8 PO; +GLUCKIT15; +GLUCTES12; +INSU1MIS15; +ISOS30TA3 PO; +LANCETS1 MI1; +METF1000 PO; -METF500T PO; +NOVOLOGP2 SQ; +PLAV75TA29 PO
[2017-01-31] MEDS ORDERED: SODIUM CHLORIDE 0.9% FLUSH 10 ML FLUSH IVF PRN (07:45)
--- NOTE | 2017-01-31 07:53 | PD ---
HPI Chief Complaint: Chest Pain Time Seen by Provider: 07:34 Travel History International Travel<30 days: No Contact w/Intl Traveler<30days: No Traveled to known affect area: No History of Present Illness HPI This is a 36-year-old gentleman with history of hypertension, hyperlipidemia, diabetes mellitus, morbid obesity, who presents today with complaints of chest pain since last night. The patient reports it as sharp and stabbing to the substernal area. He denies any radiation. He does report associated shortness of breath and diaphoresis. The patient was just recently admitted for a non-ST elevation FL. The patient at that time was too large to have a cardiac catheterization. It was decided that he would have medical management. The patient states that he's been taking his medications as prescribed. There are no other complaints at the time of my examination. The patient has multiple allergies listed to NSAIDs. When asked about that, he states he has GERD and is not truly allergic to the NSAIDs. PFSH Past Medical History Arthritis: No Asthma: No Blood Disorders: No Bipolar Disorder: Yes Anxiety: Yes Depression: Yes Heart Rhythm Problems: No Cancer: No Cardiac Catheterization: Yes (2013 NO STENT PLACEMENT) Cardiovascular Problems: Yes (HTN, STEMI ) High Cholesterol: Yes Chemotherapy: No Chest Pain: Yes Congestive Heart Failure: Yes COPD: No Cerebrovascular Accident: No Diabetes: Yes ("BOrDERLINE") Patient Takes Glucophage: Yes (01/30/172099) Diminished Hearing: No Endocrine: No Gastrointestinal Disorders: Yes (GERD; PYLORIC STENOSIS A ) GERD: Yes Genitourinary: Yes (KIDNEY STONES) Hiatal Hernia: No Hypertension: Yes Immune Disorder: No Implanted Vascular Access Dvce: No Insomnia: Yes Kidney Stones: Yes Musculoskeletal: Yes ("BAD KNEES") Neurologic: No Psychiatric: Yes (2 SUICIDE ATTEMPTS IN THE PAST) Reproductive: No Respiratory: Yes (SLEEP APNEA/CPAP @NIGHT) Immunizations Current: Yes Migraines: Yes (migraines 2-3 times a month) Radiation Therapy: No Renal Failure: No Schizophrenia: Yes Seizures: No Sickle Cell Disease: No Sleep Apnea: Yes (USE CPAP WITH ROOM AIR) Ulcer: No Past Surgical History Abdominal Surgery: Yes (PYLORIC STENOSIS @ 6 weeks old) AICD: No Arteriovenous Shunt: No Cardiac Surgery: No Cholecystectomy: Yes Ear Surgery: No Endocrine Surgery: No Eye Surgery: No Genitourinary Surgery: Yes (RENAL STENT THEN KIDNEY STONE-REMOVED) Gynecologic Surgery: No Insulin Pump: No Joint Replacement: No Oral Surgery: No Pacemaker: No Thoracic Surgery: No Other Surgery: Yes (JENNIFER, PYLORIC STENOSIS A CHILD) Social History Alcohol Use: No Tobacco Use: No (QUIT 2013) Substance Use: No Allergies-Medications (Allergen,Severity, Reaction): Coded Allergies: diclofenac (Unverified Adverse Reaction, Mild, UPSETS STOMACH, 01/26/17) etodolac (Unverified Adverse Reaction, Mild, UPSETS STOMACH, 01/26/17) flurbiprofen (Unverified Adverse Reaction, Mild, UPSETS STOMACH, 01/26/17) ibuprofen (Unverified Adverse Reaction, Mild, UPSETS STOMACH, 01/26/17) indomethacin (Unverified Adverse Reaction, Mild, UPSETS STOMACH, 01/26/17) ketoprofen (Unverified Adverse Reaction, Mild, UPSETS STOMACH, 01/26/17) ketorolac (Unverified Adverse Reaction, Mild, UPSETS STOMACH, 01/26/17) naproxen (Unverified Adverse Reaction, Mild, UPSETS STOMACH, 01/26/17) oxaprozin (Unverified Adverse Reaction, Mild, UPSETS STOMACH, 01/26/17) Reported Meds & Prescriptions Reported Meds & Active Scripts Active Novolog Inj (Insulin Aspart) 1,000 Unit/10 Ml Vial 2-12 Units SQ ACHS Max dose at bedtime ( ) units; sugars less than 70,(0) units; sugars 150-199,(2) units; sugars 200-249,(4) units; sugars 250-299,(7) units; sugars 300-349,(10) units; sugars greater than 349,(12)units Glucocom Test Strips (Blood Glucose Test Strips) 1 Hannah Hannah Ea .ROUTE DIRECTED Lancets 1 Mis Mis Ea .ROUTE DIRECTED Insulin Syringe/U-100/31G X 5/16" 1 ml 31 Gauge X 5/16" Mis Ea .ROUTE DIRECTED Glucocom Blood Glucose Mo W/Device (Device) 1 Kit Kit Kit .ROUTE DIRECTED Glipizide 10 Mg Tab 10 Mg PO BIDAC Take 30 minutes before a meal Metformin (Metformin HCl) 1,000 Mg Tab 1,000 Mg PO BIDPC With meals Isosorbide Mononitrate ER (Isosorbide Mononitrate) 30 Mg Josee 30 Mg PO DAILY@07 Atorvastatin (Atorvastatin Calcium) 40 Mg Tab 40 Mg PO DAILY Plavix (Clopidogrel Bisulfate) 75 Mg Tab 75 Mg PO DAILY Reported Labetalol (Labetalol HCl) 200 Mg Tab 200 Mg PO BID Amlodipine (Amlodipine Besylate) 5 Mg Tab 5 Mg PO BID Trazodone (Trazodone HCl) 100 Mg Tablet 100 Mg PO HS Protonix (Pantoprazole Sodium) 40 Mg Tab 40 Mg PO DAILY Latuda (Lurasidone) 40 Mg Tab 40 Mg PO DAILY Lopressor (Metoprolol Tartrate) 100 Mg Tab 100 Mg PO BID Celexa (Citalopram Hydrobromide) 20 Mg Tab 20 Mg PO DAILY Review of Systems Except as stated in HPI: all other systems reviewed are Neg General / Constitutional: No: Fever, Chills Eyes: No: Blurred Vision, Photophobia HENT: No: Headaches, Neck Pain Cardiovascular: Positive: Chest Pain or Discomfort, Diaphoresis, No: Palpitations, Irregular Rhythm, Tachycardia Respiratory: Positive: Shortness of Breath, No: Cough Gastrointestinal: No: Nausea, Vomiting, Abdominal Pain Genitourinary: No: Frequency, Dysuria Musculoskeletal: Positive: Weakness, Edema (chronic bilateral lower extremity edema.), No: Pain Skin: Positive Change in Pigmentation (secondary to chronic lower extremity edema.), No Lesions Neurologic: No: Weakness, Dizziness, Syncope Physical Exam Narrative GENERAL: Very pleasant obese gentleman in mild respiratory discomfort. SKIN: Focused skin assessment warm/dry. HEAD: Atraumatic. Normocephalic. EYES: Pupils equal and round. No scleral icterus. No injection or drainage. ENT: No nasal bleeding or discharge. Mucous membranes pink and moist. NECK: Trachea midline. No JVD. CARDIOVASCULAR: Regular rate and rhythm. No murmur appreciated. RESPIRATORY: No accessory muscle use. Breath sounds equal bilaterally. No Rales appreciated. Exam was limited secondary to the patient's large habitus. GASTROINTESTINAL: Abdomen soft, obese, non-tender, nondistended. MUSCULOSKELETAL: Chronic venous stasis changes bilaterally. Patient has chronic lower extremity edema. No lesions appreciated. NEUROLOGICAL: Awake and alert. No obvious cranial nerve deficits. Motor grossly within normal limits. Normal speech. PSYCHIATRIC: Appropriate mood and affect; insight and judgment normal. Data Data Last Documented VS Vital Signs Date Time Temp Pulse Resp B/P (MAP) Pulse Ox O2 Delivery O2 Flow Rate FiO2 01/31/17 08:32 73 20 194/99 (130) 95 Nasal Cannula 2.00 01/31/17 07:30 98.1 Orders Orders Electrocardiogram (01/31/17 07:34) Basic Metabolic Panel (Bmp) (01/31/17 07:34) Ckmb (Isoenzyme) Profile (01/31/17 07:34) Complete Blood Count With Diff (01/31/17 07:34) Magnesium (Mg) (01/31/17 07:34) Prothrombin Time / Inr (Pt) (01/31/17 07:34) Act Partial Throm Time (Ptt) (01/31/17 07:34) Troponin I (01/31/17 07:34) Chest, Single Ap (01/31/17 07:34) Ecg Monitoring (01/31/17 07:34) Bilateral Bp Monitoring (01/31/17 07:34) Iv Access Insert/Monitor (01/31/17 07:34) Oximetry (01/31/17 07:34) Oxygen Administration (01/31/17 07:34) Sodium Chloride 0.9% Flush (Ns Flush) (01/31/17 07:45) Metoprolol Tartrate Inj (Lopressor Inj) (01/31/17 08:00) Aspirin Chew (Aspirin Chew) (01/31/17 08:00) Nitroglycerin 2% Oint (Nitroglycerin 2% (01/31/17 08:00) Admit Order (Ed Use Only) (01/31/17 09:38) Labs Laboratory Tests Test 01/31/17 07:40 White Blood Count 8.8 TH/MM3 Red Blood Count 4.97 MIL/MM3 Hemoglobin 16.4 GM/DL Hematocrit 47.3 % Mean Corpuscular Volume 95.1 FL Mean Corpuscular Hemoglobin 33.0 PG Mean Corpuscular Hemoglobin Concent 34.7 % Red Cell Distribution Width 13.7 % Platelet Count 240 TH/MM3 Mean Platelet Volume 7.5 FL Neutrophils (%) (Auto) 74.4 % Lymphocytes (%) (Auto) 15.6 % Monocytes (%) (Auto) 6.8 % Eosinophils (%) (Auto) 2.4 % Basophils (%) (Auto) 0.8 % Neutrophils # (Auto) 6.5 TH/MM3 Lymphocytes # (Auto) 1.4 TH/MM3 Monocytes # (Auto) 0.6 TH/MM3 Eosinophils # (Auto) 0.2 TH/MM3 Basophils # (Auto) 0.1 TH/MM3 CBC Comment DIFF FINAL Differential Comment Prothrombin Time 11.4 SEC Prothromb Time International Ratio 1.0 RATIO Activated Partial Thromboplast Time 25.8 SEC Blood Urea Nitrogen 12 MG/DL Creatinine 1.15 MG/DL Random Glucose 183 MG/DL Calcium Level 8.7 MG/DL Magnesium Level 1.9 MG/DL Sodium Level 140 MEQ/L Potassium Level 4.0 MEQ/L Chloride Level 102 MEQ/L Carbon Dioxide Level 33.4 MEQ/L Anion Gap 5 MEQ/L Estimat Glomerular Filtration Rate 72 ML/MIN Total Creatine Kinase 67 U/L Troponin I 0.09 NG/ML MDM Medical Decision Making Medical Screen Exam Complete: Yes Emergency Medical Condition: Yes Differential Diagnosis Unstable angina versus non-ST elevation FL versus uncontrolled hypertension. Narrative Course 36-year-old male with a history of hypertension, diabetes mellitus, hyperlipidemia, morbid obesity, presents here with chest pain since last night. The patient has no acute EKG findings. The patient's troponin is 0.09. He states he has been taking all his medications as prescribed however the story has changed with both my questioning and the nurses questioning. The patient's systolic blood pressure was over 200 and diastolic over 100. He's been given Lopressor 5 mg I V times one dose. He's had 1 inch of nitroglycerin paste placed. He's also had 324 mg of aspirin chewable. He'll be admitted to the hospital under observation for blood pressure control. He was previously admitted and the decision at that time was for medical management secondary to the inability to catheter him secondary to his size. Diagnosis Primary Impression: Chest pain Additional Impressions: Elevated troponin I level Diabetes Uncontrolled hypertension Hyperlipidemia Morbid obesity Admitting Information Admitting Physician Requests: Observation Rishi De Souza MD Jan 31, 2017 07:53
[2017-01-31 07:59] LABS: AUTOMATED NEUTROPHIL # 6.5 TH/MM3 (1.8-7.7); BASOPHIL # 0.1 TH/MM3 (0-0.2); BASOPHIL % 0.8 % (0.0-2.0); EOSINOPHIL # 0.2 TH/MM3 (0-0.4); EOSINOPHIL % 2.4 % (0.0-4.0); HEMATOCRIT 47.3 % (39.0-51.0); HEMO FLAGS DIFF FINAL; LYMPH % 15.6 % (9.0-44.0); LYMPHOCYTE # 1.4 TH/MM3 (1.0-4.8); MEAN CELL VOLUME 95.1 FL (80.0-100.0); MEAN CORPUSCULAR HGB CONC 34.7 % (32.0-36.0); MONO % 6.8 % (0.0-8.0); NEUT % 74.4 % (16.0-70.0); PLATELET COUNT 240 TH/MM3 (150-450); RED BLOOD COUNT 4.97 MIL/MM3 (4.50-5.90); RED CELL DISTRIBUTION WIDTH 13.7 % (11.6-17.2); WHITE BLOOD COUNT 8.8 TH/MM3 (4.0-11.0)
[2017-01-31] MEDS ORDERED: NITROGLYCERIN 2% OINT 1 GM PACKET TOPICAL ONE (08:00)
[2017-01-31] MEDS ORDERED: METOPROLOL TARTRATE 5 MG/5 ML VIAL IV PUSH ONE (08:00)
[2017-01-31] MEDS ORDERED: ASPIRIN 81 MG CHEW TAB CHEW ONE (08:00)
[2017-01-31 08:11] LABS: APTT (PATIENT) 25.8 SEC (24.3-30.1); PROTHROMBIN TIME - PATIENT 11.4 SEC (9.8-11.6)
--- NOTE | 2017-01-31 08:20 | RADRPT ---
EXAM DATE/TIME: 01/31/2017 07:44 [facility] COMPARISON: CHEST SINGLE AP, January 26, 2017, 6:45. INDICATIONS : Chest pain, shortness of breath. MEDICAL HISTORY : Hypertension. Myocardial infarction. Diabetes mellitus type II. Congestive heart failure. SURGICAL HISTORY : None. ENCOUNTER: Initial ACUITY: 1 week PAIN SCORE: 10/10 LOCATION: chest midline. FINDINGS: A single view of the chest demonstrates the lungs to be symmetrically, but under aerated with minimal atelectatic changes of the right hemidiaphragm. Heart size remains prominent but appears to be well compensated accounting for the low lung volumes. Osseous structures are intact. CONCLUSION: 1. Hypoinflation with minimal atelectatic changes above the right diaphragm. 2. Compensated cardiomegaly. 3. No significant change from prior. Paul Baugh MD on January 31, 2017 at 8:17 Board Certified Radiologist. This report was verified electronically.
[2017-01-31 08:23] LABS: BICARBONATE 33.4 MEQ/L (21.0-32.0); MAGNESIUM 1.9 MG/DL (1.5-2.5)
--- NOTE | 2017-01-31 09:48 | HHI.HP ---
HPI Service Family Medicine Primary Care Physician Purvi Kuhn MD Admission Diagnosis chest pain, elevated troponin, uncontrolled htn, Diagnoses: Chief Complaint: chest pain and high BP International Travel<30 Days: No Contact w/Intl Traveler<30days: No Known Affected Area: No History of Present Illness Mr. Torre is a 36-year-old male w/PMHx DM, HTN, HLD, bipolar disorder and MANISH who presented to ED 01/26/2017 w/ epigastric and substernal CP and SOB and departed 01/27 with improvement after medical mgmt who reports back to ED today with continuing CP and SOB on exertion. His chest pain is substernal with some radiation to left arm and subsides somewhat with rest. His BP on admit is 227/ 124. Pt is not a candidate for heart cath due to body habitus here or at [facility]. He denies any cough, abdominal pain, fever, chills, headache or vision changes. Denies any changes in bladder habits; however, does describe some recent diarrhea. CXR shows lung hypoinflation likely due to MANISH noncompliance with CPAP and obesity hypoventilation syndrome. First troponin was 0.09. ECG does not show any interval change from 01/27. Admitted for ACS r/o. (David Prince MD R1) Review of Systems Other as per HPI (David Prince MD R1) Past Family Social History Past Medical History Hypertension, hyperlipidemia, diabetes, kidney stones, GERD, bipolar disorder, sleep apnea currently on CPAP machine. Morbid obesity. Past Surgical History Pyloric stenosis surgery in [place], renal stent, cholecystectomy Reported Medications Reported Meds & Active Scripts Active Novolog Inj (Insulin Aspart) 1,000 Unit/10 Ml Vial 2-12 Units SQ ACHS Max dose at bedtime ( ) units; sugars less than 70,(0) units; sugars 150-199,(2) units; sugars 200-249,(4) units; sugars 250-299,(7) units; sugars 300-349,(10) units; sugars greater than 349,(12)units Glucocom Test Strips (Blood Glucose Test Strips) 1 Hannah Hannah Ea .ROUTE DIRECTED Lancets 1 Mis Mis Ea .ROUTE DIRECTED Insulin Syringe/U-100/31G X 5/16" 1 ml 31 Gauge X 5/16" Mis Ea .ROUTE DIRECTED Glucocom Blood Glucose Mo W/Device (Device) 1 Kit Kit Kit .ROUTE DIRECTED Glipizide 10 Mg Tab 10 Mg PO BIDAC Take 30 minutes before a meal Metformin (Metformin HCl) 1,000 Mg Tab 1,000 Mg PO BIDPC With meals Isosorbide Mononitrate ER (Isosorbide Mononitrate) 30 Mg Josee 30 Mg PO DAILY@07 Atorvastatin (Atorvastatin Calcium) 40 Mg Tab 40 Mg PO DAILY Plavix (Clopidogrel Bisulfate) 75 Mg Tab 75 Mg PO DAILY Reported Labetalol (Labetalol HCl) 200 Mg Tab 200 Mg PO BID Amlodipine (Amlodipine Besylate) 5 Mg Tab 5 Mg PO BID Trazodone (Trazodone HCl) 100 Mg Tablet 100 Mg PO HS Protonix (Pantoprazole Sodium) 40 Mg Tab 40 Mg PO DAILY Latuda (Lurasidone) 40 Mg Tab 40 Mg PO DAILY Lopressor (Metoprolol Tartrate) 100 Mg Tab 100 Mg PO BID Celexa (Citalopram Hydrobromide) 20 Mg Tab 20 Mg PO DAILY (David Prince MD R1) Allergies: Coded Allergies: diclofenac (Unverified Adverse Reaction, Mild, UPSETS STOMACH, 01/26/17) etodolac (Unverified Adverse Reaction, Mild, UPSETS STOMACH, 01/26/17) flurbiprofen (Unverified Adverse Reaction, Mild, UPSETS STOMACH, 01/26/17) ibuprofen (Unverified Adverse Reaction, Mild, UPSETS STOMACH, 01/26/17) indomethacin (Unverified Adverse Reaction, Mild, UPSETS STOMACH, 01/26/17) ketoprofen (Unverified Adverse Reaction, Mild, UPSETS STOMACH, 01/26/17) ketorolac (Unverified Adverse Reaction, Mild, UPSETS STOMACH, 01/26/17) naproxen (Unverified Adverse Reaction, Mild, UPSETS STOMACH, 01/26/17) oxaprozin (Unverified Adverse Reaction, Mild, UPSETS STOMACH, 01/26/17) Active Ordered Medications Current Medications Medications (Trade) Dose Ordered Sig/Abdulaziz Route Start Time Stop Time Status Last Admin (NS Flush) 2 ml UNSCH PRN IVF 01/31/17 07:45 Family History Dad - hypertension Social History Denies using tobacco, alcohol, illicit drugs. (David Prince MD R1) Physical Exam Vital Signs Vital Signs Date Time Temp Pulse Resp B/P (MAP) Pulse Ox O2 Delivery O2 Flow Rate FiO2 01/31/17 08:32 73 20 194/99 (130) 95 Nasal Cannula 2.00 01/31/17 07:46 78 23 185/106 (132) Nasal Cannula 2.00 01/31/17 07:45 94 Nasal Cannula 2.00 01/31/17 07:35 Room Air 01/31/17 07:30 98.1 80 20 227/124 (158) 97 Physical Exam GENERAL: Alert, Oriented x 3, NAD. Morbidly obese. SKIN: No rashes, ecchymoses. Multiple striae over the distribution of lower abdomen. Warm and dry. Venous stasis skin changes over bilateral LEs from below knee to above ankles with R > L. HEAD: Atraumatic. Normocephalic. No temporal or scalp tenderness. EYES: Pupils equal round and reactive. No injection or drainage. ENT: Nose without bleeding, purulent drainage or septal hematoma. Airway patent. NECK: Trachea midline. Supple, nontender, no meningeal signs. CARDIOVASCULAR: Regular rate and rhythm without murmurs, gallops, or rubs. Body habitus makes heart sounds and JVD harder to assess. RESPIRATORY: Clear to auscultation. Breath sounds distant due to body habitus, but appear to be equal bilaterally. No wheezes, rales, or rhonchi. GASTROINTESTINAL: Abdomen soft, non-tender, morbidly obese. No guarding. MUSCULOSKELETAL: Extremities without clubbing, but venous stasis as above. NEUROLOGICAL: Awake and alert. Cranial nerves II through XII intact. No focal neurological deficits. Normal speech. Laboratory Laboratory Tests Test 01/31/17 07:40 White Blood Count 8.8 Red Blood Count 4.97 Hemoglobin 16.4 Hematocrit 47.3 Mean Corpuscular Volume 95.1 Mean Corpuscular Hemoglobin 33.0 Mean Corpuscular Hemoglobin Concent 34.7 Red Cell Distribution Width 13.7 Platelet Count 240 Mean Platelet Volume 7.5 Neutrophils (%) (Auto) 74.4 Lymphocytes (%) (Auto) 15.6 Monocytes (%) (Auto) 6.8 Eosinophils (%) (Auto) 2.4 Basophils (%) (Auto) 0.8 Neutrophils # (Auto) 6.5 Lymphocytes # (Auto) 1.4 Monocytes # (Auto) 0.6 Eosinophils # (Auto) 0.2 Basophils # (Auto) 0.1 CBC Comment DIFF FINAL Differential Comment Prothrombin Time 11.4 Prothromb Time International Ratio 1.0 Activated Partial Thromboplast Time 25.8 Blood Urea Nitrogen 12 Creatinine 1.15 Random Glucose 183 Calcium Level 8.7 Magnesium Level 1.9 Sodium Level 140 Potassium Level 4.0 Chloride Level 102 Carbon Dioxide Level 33.4 Anion Gap 5 Estimat Glomerular Filtration Rate 72 Total Creatine Kinase 67 Troponin I 0.09 (David Prince MD R1) Result Diagram: 01/31/1773901/31/17739 Imaging Last Impressions Chest X-Ray 01/31/17733 Signed Impressions: Service Date/Time: Tuesday, January 31, 2017 07:44 - CONCLUSION: 1. Hypoinflation with minimal atelectatic changes above the right diaphragm. 2. Compensated cardiomegaly. 3. No significant change from prior. Paul Baugh MD (David Prince MD R1) [place] VTE Risk Assessment [place] VTE Risk Assessment: Mod/High Risk (score >= 2) (David Prince MD R1) Assessment and Plan Assessment and Plan 36-year-old morbidly obese male 550 pounds prior history of hypertension, hypertensive emergency, hyperlipidemia, recent NSTEMI, and MANISH who returns with chest pain and shortness of breath admitted for ACS rule out versus sternal musculoskeletal pain. Code Status FULL Discussed Condition With Nic Morrissey and Shakir (David Prince MD R1) Attending Attestation The patient has been seen and examined. The chart and all resident notes have been reviewed. I agree that inpatient care is appropriate and that a two midnight stay is expected for the reasons documented in the resident history and physical. I have discussed this with the resident and certify the resident s order for inpatient admission. Patient seen and examined. Case reviewed and discussed Please refer to resident H&P for further details regarding HPI, ROS, PMH, SurgHx , FH and SocHx All systems reviewed and neg except as stated in HPI In summary, patient is a 36yoM recently admitted to the hospital for NSTEMI, admitted with chest pain and uncontrolled BP He is seen in the ED reporting some improvement in his chest pain to 3/10 after titration of Nitro gtt. GENERAL: Obese male resting in bed, awake and alert SKIN: Warm and dry. Large area of erythema and warmth over lower abdomen HEAD: Normocephalic. AT EYES: No scleral icterus. No injection or drainage. ENT: OP clear. NC in place NECK: Supple, trachea midline. No JVD or lymphadenopathy. CARDIOVASCULAR: Regular rate and rhythm without murmurs, gallops, or rubs. Distant heart sounds. RESPIRATORY: Breath sounds equal bilaterally. Diffuse exp wheezing. Poor air movement. No accessory muscle use. GASTROINTESTINAL: Abdomen soft, non-tender, nondistended. Obese, skin as noted above MUSCULOSKELETAL: No cyanosis,there is 1+ bilateral LE edema, R>L. No calf tenderness BACK: Nontender without obvious deformity. No CVA tenderness. NEURO: Awake and alert. Normal speech. CN grossly intact A/P: 36yoM admitted with: Chest pain, NSTEMI Hypertensive urgency vs emergency Medical non-compliance Obesity Hx tobacco dependence Elevated troponin HL DM MANISH Diarrhea Nitro gtt, titrate to BP Resume home anti-hypertensives Duonebs Supplemental oxygen as needed CPAP at night SSI Accu-checks Trend trop, serial ekg Empiric antibiotic therapy Lovenox Patient seen and examined. Case reviewed and discussed Agree with plan of care as discussed with me and documented in the resident note. (Radha Morrissey MD) Problem List: (1) Chest pain ICD Codes: R07.9 - Chest pain, unspecified Plan: Chest pain appears duplicated upon palpation of sternum--possible MSK pain sequela from CP and elevated Troponin/HTN emergency last week; still exertional in nature with left arm radiation--ACS r/o vs MSK pain -Morphine 2 mg IV -Supplemental O2 PRN -Nitroglycerin IV, titrate to effect -ASA 300 mg /day -Beta Aleisha--continue home Metoprolol 25 mg -Continue home atorvastatin 40 mg -Lovenox 40 mg BID vs Heparin -Continue home plavix 75 mg -Trend Troponins (1st 0.09-->0.08) -Trend EKGs -AM CBC, CMP -CPAP when sleeping (2) Hypertensive urgency ICD Codes: I16.0 - Hypertensive urgency Status: Acute Plan: -IV nitroglycerin as above to reduce BP to goal <180 systolic and <100 diastolic -Continue home Amlodipine 5mg (3) Right bundle branch block (RBBB) on electrocardiogram (ECG) ICD Codes: I45.10 - Unspecified right bundle-branch block Status: Acute Plan: -Partial block on ECG -Manage as per above (4) Sleep apnea ICD Codes: G47.30 - Sleep apnea, unspecified Status: Acute Plan: -CPAP when sleeping as above (5) Morbid obesity with BMI of 60.0-69.9, adult ICD Codes: E66.01 - Morbid (severe) obesity due to excess calories; Z68.44 - Body mass index (BMI) 60.0-69.9, adult Plan: -Counselled about wt loss -Part of pt assistance program/blue card gr -CM consult--request start of GLP-1 analog to potentially treat DM and reduce appetite and wt (6) Diabetes mellitus with hyperglycemia ICD Codes: E11.65 - Type 2 diabetes mellitus with hyperglycemia Status: Chronic Plan: -Mild SSI -Consider GLP-1 analog for potential benefit in reducing wt (7) Hyperlipidemia ICD Codes: E78.5 - Hyperlipidemia, unspecified Status: Chronic Plan: -Continue home atorvastatin 40 mg (8) Bipolar depression ICD Codes: F31.30 - Bipolar disorder, current episode depressed, mild or moderate severity, unspecified Status: Chronic Plan: -Continue home Lurasidone, xanax, citalopram (9) Panniculitis ICD Codes: M79.3 - Panniculitis, unspecified Status: Chronic Plan: -Clindamycin 600 mg IV q8h (10) Diarrhea ICD Codes: R19.7 - Diarrhea, unspecified Status: Acute Plan: -Test for C Diff (11) FEN/GI/PPx Status: Acute Plan: -DVT PPx: Lovenox as per above and RAJESH narayan to assist in venous stasis --Doppler US of bilateral LEs to r/o DVT -Diabetic diet -Trazodone for sleep (David Prince MD R1) Problem Qualifiers (1) Chest pain: Qualified Codes: R07.9 - Chest pain, unspecified (2) Diabetes mellitus with hyperglycemia: Qualified Codes: E11.65 - Type 2 diabetes mellitus with hyperglycemia; Z79.4 - jail (current) use of insulin (3) Hyperlipidemia: Qualified Codes: E78.5 - Hyperlipidemia, unspecified (4) Diarrhea: Qualified Codes: R19.7 - Diarrhea, unspecified David Prince MD R1 Jan 31, 2017 09:48 Radha Morrissey MD Jan 31, 2017 22:39
[2017-01-31] MEDS ORDERED: SODIUM CHLORIDE 0.9% FLUSH 10 ML FLUSH IV FLUSH PRN (10:15)
[2017-01-31] MEDS ORDERED: DOCUSATE SODIUM 100 MG CAP PO PRN (10:15)
[2017-01-31] MEDS ORDERED: MORPHINE SULFATE 4 MG/ML INJ IV PRN (10:15)
[2017-01-31] MEDS ORDERED: NITROGLYCERIN 0.4 MG SL 25 TABS/BTL SL PRN (10:15)
[2017-01-31] MEDS ORDERED: ONDANSETRON HCL 4 MG/2 ML VIAL IV PRN (10:15)
[2017-01-31] MEDS ORDERED: GLUCAGON 1 MG/ML VIAL OTHER PRN (10:30)
[2017-01-31] MEDS: NITROGLYCERIN-D5W 50 MG/250 ML 250 ML IV PRN (12:05)
[2017-01-31] MEDS: INSULIN ASPART SUPPLEMENTAL SCALE SQ SCH ×3 (12:30→21:00)
[2017-01-31] MEDS ORDERED: DEXTROSE 50% IN WATER 50 ML SYRINGE IV PRN (12:30)
--- NOTE | 2017-01-31 13:49 | EKG ---
Date Performed: 01/31/2017 Time Performed: 07:35:59 PTAGE: 36 years EKG: Sinus rhythm INCOMPLETE RIGHT BUNDLE BRANCH BLOCK SEPTAL MYOCARDIAL INFARCTION ABNORMAL ECG Compared to prior tra cing no significant change PREVIOUS TRACING : 01/26/2017 16.28 DOCTOR: Keyon Mccarthy Interpretating Date/Time 01/31/2017 13:46:31
[2017-01-31] MEDS: ENOXAPARIN SODIUM 40 MG/0.4 ML SYRINGE SQ SCH ×2 (15:22→22:58)
--- NOTE | 2017-01-31 17:29 | RADRPT ---
EXAM DATE/TIME: 01/31/2017 16:32 [place] COMPARISON: US LEG BILATERAL VENOUS DOPPLER, June 13, 2015, 8:37. INDICATIONS : MEDICAL HISTORY : Myocardial infarction. Congestive heart failure. Hypercholesterolemia.Hypertension. Gastroesophageal reflux. Diabetes. SURGICAL HISTORY : Cholecystectomy. Pyloric stenosis surgery. Renal stent. Kidney stone removed. ENCOUNTER: Subsequent ACUITY: 1 day PAIN SCORE: 5/10 LOCATION: Bilateral legs. TECHNIQUE: Venous ultrasound of the left and right leg was performed from the inguinal ligament to the proximal calf. Real-time, color Doppler and spectral tracing, compression and augmentation techniques were us ed. FINDINGS: RIGHT LEG: There is normal compressibility of the deep venous system from the inguinal region to the proximal ca lf. No echogenic clot is seen in the lumen of the common femoral, femoral, popliteal, and posterior tibial veins. There is a normal response of the venous system to proximal and distal augmentation an d respiration. 3.1 x 3.0 x 5.0 cm Lopez's cyst. LEFT LEG: There is normal compressibility of the deep venous system from the inguinal region to the proximal ca lf. No echogenic clot is seen in the lumen of the common femoral, femoral, popliteal, and posterior tibial veins. There is a normal response of the venous system to proximal and distal augmentation an d respiration. CONCLUSION: No DVT of either lower extremity. Persistent popliteal cyst on the right. Chris Gold MD on January 31, 2017 at 17:27 Board Certified Radiologist. This report was verified electronically.
[2017-01-31] MEDS: CLINDAMYCIN INJ 600 MG in SODIUM CHLORIDE 0.9% INJ 100 ML IV SCH (18:47)
[2017-01-31] MEDS ORDERED: METOPROLOL TARTRATE 100 MG TAB PO SCH (21:00)
[2017-01-31] MEDS: traZODone HCL 100 MG TAB PO SCH (22:57)
[2017-01-31] MEDS: amLODIPine BESYLATE 5 MG TAB PO SCH (22:57)
[2017-01-31] MEDS: METOPROLOL TARTRATE 100 MG TAB PO SCH (22:57)
[2017-02-01] VITALS (30 sets, daily range): BP systolic 131–179; BP diastolic 71–102; PULSE 72–98; RESP 18–20; TEMP 97.3–98.5; O2SAT 93–96
[2017-02-01] MEDS: CLINDAMYCIN INJ 600 MG in SODIUM CHLORIDE 0.9% INJ 100 ML IV SCH ×3 (02:00→16:44)
[2017-02-01 02:52] LABS: AUTOMATED NEUTROPHIL # 5.8 TH/MM3 (1.8-7.7); BASOPHIL % 0.6 % (0.0-2.0); EOSINOPHIL # 0.2 TH/MM3 (0-0.4); EOSINOPHIL % 2.4 % (0.0-4.0); HEMATOCRIT 45.7 % (39.0-51.0); HEMO FLAGS DIFF FINAL; LYMPH % 13.9 % (9.0-44.0); LYMPHOCYTE # 1.1 TH/MM3 (1.0-4.8); MEAN CELL VOLUME 96.1 FL (80.0-100.0); MEAN CORPUSCULAR HEMOGLOBIN 32.4 PG (27.0-34.0); MEAN CORPUSCULAR HGB CONC 33.7 % (32.0-36.0); MONO % 8.7 % (0.0-8.0); NEUT % 74.4 % (16.0-70.0); PLATELET COUNT 211 TH/MM3 (150-450); RED BLOOD COUNT 4.76 MIL/MM3 (4.50-5.90); RED CELL DISTRIBUTION WIDTH 14.1 % (11.6-17.2); WHITE BLOOD COUNT 7.8 TH/MM3 (4.0-11.0)
[2017-02-01 03:02] LABS: BICARBONATE 33.1 MEQ/L (21.0-32.0)
[2017-02-01] MEDS: METOPROLOL TARTRATE 100 MG TAB PO SCH ×3 (04:36→22:05)
[2017-02-01] MEDS: ACETAMINOPHEN 325 MG TAB PO PRN ×2 (04:37→10:44)
[2017-02-01] MEDS: ALPRAZolam 0.25 MG TAB PO PRN ×2 (04:37→22:11)
[2017-02-01] MEDS: INSULIN ASPART SUPPLEMENTAL SCALE SQ SCH ×4 (07:00→21:00)
[2017-02-01] MEDS: SODIUM CHLORIDE 0.9% FLUSH 10 ML FLUSH IV FLUSH SCH ×3 (09:00→21:00)
[2017-02-01] MEDS: ENOXAPARIN SODIUM 40 MG/0.4 ML SYRINGE SQ SCH ×2 (09:11→22:05)
[2017-02-01] MEDS: ATORVASTATIN 40 MG TAB PO SCH (09:12)
[2017-02-01] MEDS: LURASIDONE 40 MG TAB PO SCH (09:12)
[2017-02-01] MEDS: CITALOPRAM HYDROBROMIDE 20 MG TAB PO SCH (09:12)
[2017-02-01] MEDS: ASPIRIN EC 325 MG TABEC PO SCH (09:12)
[2017-02-01] MEDS: PANTOPRAZOLE SOD 40 MG DELAYED RELEASE TAB PO SCH (09:12)
[2017-02-01] MEDS: CLOPIDOGREL 75 MG TAB PO SCH (09:12)
[2017-02-01] MEDS: amLODIPine BESYLATE 5 MG TAB PO SCH ×2 (09:12→22:05)
[2017-02-01] MEDS: NITROGLYCERIN-D5W 50 MG/250 ML 250 ML IV PRN (09:14)
[2017-02-01] MEDS: LISINOPRIL 20 MG TAB PO SCH (10:31)
[2017-02-01 12:00] LABS: C. DIFF EPI 027 PRESUMPTIVE NEGATIVE (NEGATIVE)
[2017-02-01] MEDS: RESP: ALBUTEROL 2.5 MG/IPRATROPIUM 0.5 MG NEB (SCH) NEB ×3 (12:00→20:50)
--- NOTE | 2017-02-01 14:41 | EKG ---
Date Performed: 01/31/2017 Time Performed: 13:58:12 PTAGE: 36 years EKG: Sinus rhythm INCOMPLETE RIGHT BUNDLE BRANCH BLOCK MINIMAL ST DEPRESSION BORDERLINE ECG PREVIOUS TRACING : 01/31/2017 07.35 DOCTOR: Jared Mensah Interpretating Date/Time 02/01/2017 14:38:24
--- NOTE | 2017-02-01 14:42 | EKG ---
Date Performed: 02/01/2017 Time Performed: 04:41:10 PTAGE: 36 years EKG: Normal Sinus rhythm Possible incomplete right bundle branch block Poor R-wave progression Abnormal ECG PREVIOUS TRACING 01/31/17 No obvious change from the prior tracing. DOCTOR: Jared Mensah Interpretating Date/Time 02/01/2017 14:39:18
--- NOTE | 2017-02-01 14:53 | HHI.FPPN ---
Subjective Remarks Mr. Torre was afebrile with persistent HTN overnight (average SBP in 150's-170 's). Patient states that he is doing well overall; he reports improvement in shortness of breath and chest pain today. Patient states that he has a current headache which he attributes to Nitroglycerin. Patient does not report abdominal pain or dysuria. Patient reports continued loose stools. Patient states that he did not get CPAP last night but that he will get tonight. (Ruddy Sheldon MD, R3) Objective Vitals Vital Signs Date Time Temp Pulse Resp B/P (MAP) Pulse Ox O2 Delivery O2 Flow Rate FiO2 02/01/17 14:15 76 166/82 02/01/17 13:30 155/98 (117) 02/01/17 13:00 167/85 (112) 02/01/17 12:30 170/90 (116) 02/01/17 12:05 18 02/01/17 12:00 177/89 (118) 02/01/17 11:53 178/92 (120) 02/01/17 11:15 163/92 (115) 02/01/17 11:00 98.2 91 18 175/102 (126) 96 02/01/17 11:00 88 02/01/17 10:35 81 182/109 02/01/17 10:00 90 02/01/17 09:22 18 02/01/17 09:14 74 185/90 02/01/17 09:00 72 02/01/17 08:00 72 02/01/17 08:00 74 175/85 02/01/17 07:15 97.8 74 18 179/96 (123) 95 02/01/17 07:00 77 02/01/17 07:00 74 176/100 02/01/17 06:00 80 02/01/17 05:00 84 02/01/17 04:00 88 02/01/17 04:00 98.5 85 20 131/71 (91) 93 02/01/17 03:00 84 02/01/17 02:58 93 Nasal Cannula 2.00 02/01/17 02:00 78 02/01/17 01:00 74 02/01/17 00:00 98.3 73 18 165/91 (115) 94 02/01/17 00:00 76 01/31/17 23:00 82 01/31/17 22:00 82 01/31/17 21:00 88 01/31/17 20:00 98.3 88 19 187/112 (137) 95 01/31/17 20:00 80 01/31/17 18:45 85 190/115 01/31/17 18:30 80 199/116 01/31/17 18:26 86 01/31/17 18:20 95 21 01/31/17 18:10 98.6 81 19 185/104 (131) 94 01/31/17 18:10 81 186/98 01/31/17 15:20 72 28 194/93 (126) 95 Nasal Cannula 2.00 I/O 01/31/17 01/31/17 01/31/17 02/01/17 02/01/17 02/01/17 07:00 15:00 23:00 07:00 15:00 23:00 Intake Total 180 ml 100 ml Balance 180 ml 100 ml Intake Oral 180 ml IV Total 100 ml # Voids 4 (Ruddy Sheldon MD, R3) Result Diagram: 02/01/17 0202 02/01/17 0202 Imaging Last Impressions Chest X-Ray 01/31/17 0734 Signed Impressions: Service Date/Time: Tuesday, January 31, 2017 07:44 - CONCLUSION: 1. Hypoinflation with minimal atelectatic changes above the right diaphragm. 2. Compensated cardiomegaly. 3. No significant change from prior. Paul Baugh MD Lower Extremity Ultrasound 01/31/17 0000 Signed Impressions: Service Date/Time: Tuesday, January 31, 2017 16:32 - CONCLUSION: No DVT of either lower extremity. Persistent popliteal cyst on the right. Chris Gold MD Objective Remarks GENERAL: Alert, Oriented x 3, NAD. Morbidly obese. SKIN: No rashes, ecchymoses. Multiple striae over the distribution of lower abdomen. Warm and dry. Venous stasis skin changes over bilateral LEs from below knee to above ankles. EYES: Pupils equal round and reactive. No injection or drainage. CARDIOVASCULAR: Regular rate and rhythm without murmurs. RESPIRATORY: CTAB. Breath sounds distant due to body habitus, but appear to be equal bilaterally. End expiratory squeaking GASTROINTESTINAL: Abdomen soft, non-tender, morbidly obese. MUSCULOSKELETAL: No pain to calf palpation. Extremities without clubbing, but venous stasis as above. NEUROLOGICAL: Awake and alert. Cranial nerves grossly intact. No focal neurological deficits. Normal speech. (Ruddy Sheldon MD, R3) A/P Assessment and Plan 36-year-old morbidly obese male 550 pounds prior history of hypertension, hypertensive emergency, hyperlipidemia, recent NSTEMI, and MANISH who returns with chest pain and shortness of breath admitted for ACS rule out versus sternal musculoskeletal pain. Discharge Planning Pending HTN improvement/stabilization (Ruddy Sheldon MD, R3) Attending Attestation Patient seen and examined. Case reviewed and discussed Agree with plan of care as discussed with me and documented in the resident note. (Radha Morrissey MD) Problem List: (1) Hypertensive urgency ICD Codes: I16.0 - Hypertensive urgency Status: Acute Plan: Impression: BP 227/124 on admission. In association with troponin elevation, chest pain, SOB and Cr 1.15 -Continue IV nitroglycerin to decrease BP ~25% initially -Will plan to discontinue 02/01 evening vs 02/02 depending on BP -Continue Amlodipine 5mg daily -Continue Metoprolol 100mg q8hrs -Start Lisinopril 40mg daily -PRN Clonidine 0.1 q6hrs for BP 170/100 -Will monitor BMP (2) Chest pain ICD Codes: R07.9 - Chest pain, unspecified Status: Resolved Plan: Impression: Chest pain on admission reportedly exertional in nature with L arm radiation; NSTEMI last week. In association with Troponin 0.09 and EKG demonstrative of nonspecific ST changes. Improvement in chest pain during hospitalization on nitroglycerin drip; suspect secondary to hypertensive emergency Troponin x3 0.09-> 0.08-> 0.06-> 0.06 EKG x2 w/o EKG changes -Continue Nitroglycerin; plan to discontinue 02/01-02/02 -Continue HTN control -Continue ASA, BB, Atorvastatin (3) Right bundle branch block (RBBB) on electrocardiogram (ECG) ICD Codes: I45.10 - Unspecified right bundle-branch block Status: Acute Plan: -Partial block on ECG -Manage as per above (4) Sleep apnea ICD Codes: G47.30 - Sleep apnea, unspecified Status: Acute Plan: -CPAP when sleeping (5) Morbid obesity with BMI of 60.0-69.9, adult ICD Codes: E66.01 - Morbid (severe) obesity due to excess calories; Z68.44 - Body mass index (BMI) 60.0-69.9, adult Plan: -Counselled about wt loss -Part of pt assistance program/blue card gr -CM consult (6) Diabetes mellitus with hyperglycemia ICD Codes: E11.65 - Type 2 diabetes mellitus with hyperglycemia Status: Chronic Plan: Impression: Patient on home Novolog SS, Glipizide 10mg daily, Metformin 1000mg BID -Continue Mild SSI while inpatient (7) Hyperlipidemia ICD Codes: E78.5 - Hyperlipidemia, unspecified Status: Chronic Plan: -Continue home atorvastatin 40 mg (8) Bipolar depression ICD Codes: F31.30 - Bipolar disorder, current episode depressed, mild or moderate severity, unspecified Status: Chronic Plan: -Continue home Lurasidone, xanax, citalopram (9) Panniculitis ICD Codes: M79.3 - Panniculitis, unspecified Status: Chronic Plan: -Clindamycin 600 mg IV q8h (10) Diarrhea ICD Codes: R19.7 - Diarrhea, unspecified Status: Resolved Plan: Impression: Loose stools; no associated leukocytosis or significant abdominal pain. No known GI bleeding or anemia. Suspect benign etiology C diff testing negative (11) Venous stasis ICD Codes: I87.8 - Other specified disorders of veins Status: Chronic Plan: Bilateral LE US ordered on admission; negative for DVT -Continue RAJESH narayan (12) Wheezing ICD Codes: R06.2 - Wheezing Status: Acute Plan: Impression: End expiratory squeaking on exam -Will order PRN Albuterol nebulizer (13) Pulmonary hypertension ICD Codes: I27.2 - Other secondary pulmonary hypertension Status: Chronic Plan: Impression:01/26 echo with PA peak of 60-70mmHg -Will consider pulmonary consultation while inpatient (14) Total bilirubin, elevated ICD Codes: R17 - Unspecified jaundice Plan: T BILI elevation to 2.5 07/2016 -Will recheck CMP (15) FEN/GI/PPx Status: Acute Plan: Fluids: None at this time; regular diet Diet: Diabetic diet Electrolytes: Metabolic panel wnl on admission DVT PPx: Lovenox 40mg daily Continue home Pantoprazole 40mg daily (Ruddy Sheldon MD, R3) Problem Qualifiers (1) Chest pain: Qualified Codes: R07.9 - Chest pain, unspecified (2) Diabetes mellitus with hyperglycemia: Qualified Codes: E11.65 - Type 2 diabetes mellitus with hyperglycemia; Z79.4 - care home (current) use of insulin (3) Hyperlipidemia: Qualified Codes: E78.5 - Hyperlipidemia, unspecified (4) Diarrhea: Qualified Codes: R19.7 - Diarrhea, unspecified Ruddy Sheldon MD, R3 Feb 01, 2017 14:53 Radha Morrissey MD Feb 03, 2017 08:09
[2017-02-01] MEDS ORDERED: RESP: ALBUTEROL 2.5 MG/3 ML NEB (PRN) NEB (15:00)
[2017-02-01] MEDS: cloNIDine HCL 0.1 MG TAB PO PRN (15:22)
[2017-02-01 19:08] LABS: AST (GOT) 19 U/L (15-37); BICARBONATE 33.5 MEQ/L (21.0-32.0); BLOOD UREA NITROGEN 12 MG/DL (7-18); GLOMERULAR FILTRATION RATE 90 ML/MIN (>89)
[2017-02-01 19:10] LABS: ALT (GPT) 37 U/L (12-78)
[2017-02-01 19:46] LABS: ALKALINE PHOSPHATASE 78 U/L (45-117); ANION GAP 3 MEQ/L (5-15); CHLORIDE 102 MEQ/L (98-107); POTASSIUM 3.8 MEQ/L (3.5-5.1); SODIUM (NA) 138 MEQ/L (136-145); TOTAL BILIRUBIN ADULT 3.2 MG/DL (0.2-1.0)
[2017-02-01] MEDS: traZODone HCL 100 MG TAB PO SCH (22:05)
--- NOTE | 2017-02-01 22:15 | MB ---
cc: LAM MENA DATE OF CONSULTATION 02/01/[address] Radha Morrissey. REASON FOR CONSULTATION COPD, sleep apnea. HISTORY OF THE PRESENT ILLNESS Mr. Torre is a 36-year-old morbidly obese male, with diabetes mellitus, hypertension, obstructive sleep apnea. He came to the hospital with complaint of epigastric substernal pain which was going on for few days. Did not have fever or chills. No night sweats. No nausea or vomiting. The patient was evaluated in the emergency room. LABORATORY DATA His CBC showed WBC 7.8, hemoglobin 15.4, hematocrit 45.7, MCV 96, platelet count 211. Sodium 141, potassium 4.0, chloride 103, CO2 33. BUN 12, creatinine 0.98. His troponin is 0.06. IMAGING Chest x-ray shows hypoinflation. ultrasound of the lower extremity shows no DVT. His blood pressure was high. He is started on clonidine as well as he is also on nitro drip. Blood pressure is better controlled. PAST MEDICAL HISTORY Significant for: 1. History of obstructive sleep apnea, uses C-PAP machine at home. 2. Possible COPD of obesity hypoventilation. 3. Diabetes mellitus. 4. Hypertension. 5. Bipolar disorder. 6. Morbid obesity. 7. Nephrolithiasis. 8. History of cholecystectomy. 9. Gastroesophageal reflux disease. MEDICATIONS He is currently takin. Albuterol/Atrovent nebulizer treatment. 2. Lisinopril 40 mg a day. 3. Clonidine 0.1 mg q.6 h p.r.n. 4. Aspirin 325 mg a day. 5. Plavix 75 milligrams daily. 6. Lipitor 40 mg a day. 7. Celexa 20 mg a day. 8. Latuda 40 mg daily. 9. Protonix 40 mg a day. 10. Amlodipine 5 mg a day. 11. Trazodone 100 milligrams at night time. 12. Metoprolol 100 mg q.8 h. 13. Clindamycin IV. 14. Lovenox 40 mg q. 12-hour. ALLERGIES DICLOFENAC, ETODOLAC, IBUPROFEN, INDOMETHACIN, KETOPROFEN, KETORALAC, NAPROSYN. SOCIAL HISTORY He is single. Used to work at cleaning offices and worked in sales. He has a history of smoking which he quit one year ago. He drinks socially. He lives with his parents. REVIEW OF SYSTEMS He has gained weight and weights more than 500 pounds. He is able to walk a good distance. He has no seizure, stroke or epilepsy. PHYSICAL EXAMINATION GENERAL: Morbidly obese male in no acute distress. He is sitting in the chair. VITAL SIGNS: Blood pressure 170/93, heart rate 78, respirations 16, temperature 98. HEENT: Examination shows pupils are equal and reactive to light. Oral mucosa, nasal mucosa normal. NECK: Supple. JVP not raised. CHEST: Decreased breath sounds. No rhonchi. CARDIOVASCULAR: S1-S2 normal. ABDOMEN: Morbidly obese. EXTREMITIES: 1-2+ pedal edema. CENTRAL NERVOUS SYSTEM: Alert and oriented times three. No focal deficit. ASSESSMENT 1. Obstructive sleep apnea and he uses C-PAP machine. 2. Obesity hypoventilation. 3. Underlying restrictive lung disease. 4. Chest pain. 5. Morbid obesity. 6. Diabetes mellitus. 7. Bipolar disorder. 8. Hypertension. PLAN Encouraged him to use CPAP machine at night time and day time only as needed. Supplement his oxygen. Continue aerosol treatment. Cardiac workup is underway. He is not considered a candidate for cardiac cath here or at [facility]. He is on nitroglycerine for control of blood pressure and chest pain. Further treatment will depend on the course in the hospital. Thank you Dr. Radha Morrissey for this consultation. MD RAKESH Cosme/JANEE /5:26 PM /9:39 PM [place]
[2017-02-02] VITALS (27 sets, daily range): BP systolic 142–191; BP diastolic 72–103; PULSE 68–96; RESP 18–22; TEMP 97.8–99; O2SAT 92–99
[2017-02-02] MEDS: CLINDAMYCIN INJ 600 MG in SODIUM CHLORIDE 0.9% INJ 100 ML IV SCH ×2 (00:52→10:55)
[2017-02-02] MEDS: RESP: ALBUTEROL 2.5 MG/IPRATROPIUM 0.5 MG NEB (SCH) NEB ×6 (03:17→19:54)
[2017-02-02] MEDS: METOPROLOL TARTRATE 100 MG TAB PO SCH ×3 (05:00→20:48)
[2017-02-02 06:40] LABS: AUTOMATED NEUTROPHIL # 4.8 TH/MM3 (1.8-7.7); BASOPHIL % 0.6 % (0.0-2.0); EOSINOPHIL # 0.2 TH/MM3 (0-0.4); EOSINOPHIL % 2.7 % (0.0-4.0); HEMATOCRIT 44.7 % (39.0-51.0); HEMO FLAGS DIFF FINAL; LYMPH % 14.2 % (9.0-44.0); LYMPHOCYTE # 0.9 TH/MM3 (1.0-4.8); MEAN CELL VOLUME 95.2 FL (80.0-100.0); MEAN CORPUSCULAR HEMOGLOBIN 32.9 PG (27.0-34.0); MEAN CORPUSCULAR HGB CONC 34.6 % (32.0-36.0); MONO % 10.6 % (0.0-8.0); NEUT % 71.9 % (16.0-70.0); PLATELET COUNT 191 TH/MM3 (150-450); RED CELL DISTRIBUTION WIDTH 13.8 % (11.6-17.2); WHITE BLOOD COUNT 6.7 TH/MM3 (4.0-11.0)
[2017-02-02] MEDS: INSULIN ASPART SUPPLEMENTAL SCALE SQ SCH ×4 (07:00→21:00)
--- NOTE | 2017-02-02 09:11 | HHI.FPPN ---
Subjective Remarks Per EMR: Mr. Torre was afebrile with continued HTN overnight; patient with most recent BP of 146/92 at ~0400 this morning. Nitroglycerin drip weaned overnight; discontinued at approximately 5 AM Patient reports that he is doing well; he did not use CPAP last night but states that he slept well. Patient does not report chest pain, shortness of breath, nausea/vomiting, abdominal discomfort, dysuria, or abnormal bowel movements. Diarrhea resolved. Patient states that he plans to use CPAP more frequently. (Ruddy Sheldon MD, R3) Objective Vitals Vital Signs Date Time Temp Pulse Resp B/P (MAP) Pulse Ox O2 Delivery O2 Flow Rate FiO2 02/02/17 07:41 92 02/02/17 04:00 97.9 79 18 146/92 (110) 96 02/02/17 03:00 70 02/02/17 02:00 78 02/02/17 01:00 72 02/02/17 00:00 80 02/02/17 00:00 97.8 72 18 179/83 (115) 93 02/01/17 22:00 98 02/01/17 21:00 76 02/01/17 20:51 95 Nasal Cannula 2.00 02/01/17 20:00 94 Nasal Cannula 2.00 02/01/17 20:00 80 02/01/17 20:00 97.3 81 18 157/78 (104) 93 02/01/17 18:23 74 172/101 02/01/17 18:01 80 02/01/17 17:52 77 154/63 02/01/17 17:00 79 02/01/17 16:42 78 170/93 02/01/17 16:00 75 02/01/17 15:56 93 Nasal Cannula 2.00 02/01/17 15:54 94 Nasal Cannula 2.00 02/01/17 15:51 76 152/84 02/01/17 15:10 97.9 75 18 165/95 (118) 93 02/01/17 15:10 74 02/01/17 14:15 76 166/82 02/01/17 14:00 87 02/01/17 13:30 155/98 (117) 02/01/17 13:00 167/85 (112) 02/01/17 13:00 85 02/01/17 12:30 170/90 (116) 02/01/17 12:05 18 02/01/17 12:00 92 02/01/17 12:00 177/89 (118) 02/01/17 11:53 178/92 (120) 02/01/17 11:15 163/92 (115) 02/01/17 11:00 98.2 91 18 175/102 (126) 96 02/01/17 11:00 88 02/01/17 10:35 81 182/109 02/01/17 10:00 90 02/01/17 09:22 18 02/01/17 09:14 74 185/90 I/O 02/01/17 02/01/17 02/01/17 02/02/17 02/02/17 02/02/17 07:00 15:00 23:00 07:00 15:00 23:00 Intake Total 180 ml 100 ml 720 ml 339 ml Balance 180 ml 100 ml 720 ml 339 ml Intake Oral 180 ml 620 ml IV Total 100 ml 100 ml 339 ml # Voids 4 (Ruddy Sheldon MD, R3) Result Diagram: 02/02/17 0540 02/01/17 1814 Imaging Last Impressions Chest X-Ray 01/31/17 0734 Signed Impressions: Service Date/Time: Tuesday, January 31, 2017 07:44 - CONCLUSION: 1. Hypoinflation with minimal atelectatic changes above the right diaphragm. 2. Compensated cardiomegaly. 3. No significant change from prior. Paul Baugh MD Lower Extremity Ultrasound 01/31/17 0000 Signed Impressions: Service Date/Time: Tuesday, January 31, 2017 16:32 - CONCLUSION: No DVT of either lower extremity. Persistent popliteal cyst on the right. Chris Gold MD Objective Remarks GENERAL: NAD. Morbidly obese. SKIN: No rashes, ecchymoses. Multiple striae over the distribution of lower abdomen. Warm and dry. Venous stasis skin changes over bilateral LEs from below knee to above ankles. EYES: Pupils equal round and reactive. No injection or drainage. EOM grossly intact CARDIOVASCULAR: Regular rate and rhythm without murmurs. RESPIRATORY: CTAB. Breath sounds distant due to body habitus, but appear to be equal bilaterally. I did not appreciate any end-expiratory wheezing today GASTROINTESTINAL: Abdomen soft, non-tender, morbidly obese. MUSCULOSKELETAL: No pain to calf palpation. venous stasis as above. Grossly normal motor function and and range of motion NEUROLOGICAL: Awake and alert. Cranial nerves grossly intact. Grossly normal peripheral motor and sensory function. Normal speech. (Ruddy Sheldon MD, R3) A/P Assessment and Plan 36-year-old morbidly obese male 550 pounds prior history of hypertension, hypertensive emergency, hyperlipidemia, recent NSTEMI, and MANISH who returns with chest pain and shortness of breath admitted for ACS rule out versus sternal musculoskeletal pain. Discharge Planning Pending HTN improvement/stabilization (Ruddy Sheldon MD, R3) Attending Attestation Patient seen and examined. Case reviewed and discussed Agree with plan of care as discussed with me and documented in the resident note. (Radha Morrissey MD) Problem List: (1) Hypertensive urgency ICD Codes: I16.0 - Hypertensive urgency Status: Acute Plan: Impression: BP 227/124 on admission. In association with troponin elevation, chest pain, SOB and Cr 1.15 -Will discontinue IV nitroglycerin since weaned -Will restart home oral Isosorbide but increase dose to 60mg QID -Continue Amlodipine 5mg daily -Continue Metoprolol 100mg q8hrs -Start Lisinopril 40mg daily -PRN Clonidine 0.1 q6hrs for BP 170/100 -Will monitor BMP (2) Chest pain ICD Codes: R07.9 - Chest pain, unspecified Status: Resolved Plan: Impression: Chest pain on admission reportedly exertional in nature with L arm radiation; NSTEMI last week. In association with Troponin 0.09 and EKG demonstrative of nonspecific ST changes. Improvement in chest pain during hospitalization on nitroglycerin drip; suspect secondary to hypertensive emergency Troponin x3 0.09-> 0.08-> 0.06-> 0.06 EKG x2 w/o EKG changes -Continue HTN control -Continue ASA, BB, Atorvastatin (3) Right bundle branch block (RBBB) on electrocardiogram (ECG) ICD Codes: I45.10 - Unspecified right bundle-branch block Status: Acute Plan: -Partial block on ECG -Manage as per above (4) Sleep apnea ICD Codes: G47.30 - Sleep apnea, unspecified Status: Acute Plan: -CPAP when sleeping (5) Morbid obesity with BMI of 60.0-69.9, adult ICD Codes: E66.01 - Morbid (severe) obesity due to excess calories; Z68.44 - Body mass index (BMI) 60.0-69.9, adult Plan: -Counselled about wt loss -Part of pt assistance program/blue card gr -CM consult (6) Diabetes mellitus with hyperglycemia ICD Codes: E11.65 - Type 2 diabetes mellitus with hyperglycemia Status: Chronic Plan: Impression: Patient on home Novolog SS, Glipizide 10mg daily, Metformin 1000mg BID -Continue Mild SSI while inpatient (7) Hyperlipidemia ICD Codes: E78.5 - Hyperlipidemia, unspecified Status: Chronic Plan: -Continue home atorvastatin 40 mg (8) Bipolar depression ICD Codes: F31.30 - Bipolar disorder, current episode depressed, mild or moderate severity, unspecified Status: Chronic Plan: -Continue home Lurasidone, xanax, citalopram (9) Panniculitis ICD Codes: M79.3 - Panniculitis, unspecified Status: Chronic Plan: Impression: suggestion of pannicular infection.Initially placed on Clindamycin 600 mg IV q8h -Will switch to oral Bactrim (10) Diarrhea ICD Codes: R19.7 - Diarrhea, unspecified Status: Resolved Plan: Impression: Loose stools; no associated leukocytosis or significant abdominal pain. No known GI bleeding or anemia. Suspect benign etiology C diff testing negative (11) Venous stasis ICD Codes: I87.8 - Other specified disorders of veins Status: Chronic Plan: Bilateral LE US ordered on admission; negative for DVT -Continue RAJESH narayan (12) Wheezing ICD Codes: R06.2 - Wheezing Status: Acute Plan: Impression: Improved 02/02. End expiratory squeaking on exam -PRN Albuterol nebulizer (13) Pulmonary hypertension ICD Codes: I27.2 - Other secondary pulmonary hypertension Status: Chronic Plan: Impression:01/26 echo with PA peak of 60-70mmHg -Pulmonary consulted -Continue CPAP -Not eligible for further pulm HTN treatment here or at [facility] (14) Total bilirubin, elevated ICD Codes: R17 - Unspecified jaundice Plan: Impression: T BILI elevation to 2.5 07/2016 Repeat BILI elevated 02/02 at 3.2 Suspect Gilbert's -Will recheck direct Bilirubin (15) FEN/GI/PPx Status: Acute Plan: Fluids: None at this time; regular diet Diet: Diabetic diet Electrolytes: Metabolic panel wnl on admission DVT PPx: Lovenox 40mg daily Continue home Pantoprazole 40mg daily (Ruddy Sheldon MD, R3) Problem Qualifiers (1) Chest pain: Qualified Codes: R07.9 - Chest pain, unspecified (2) Diabetes mellitus with hyperglycemia: Qualified Codes: E11.65 - Type 2 diabetes mellitus with hyperglycemia; Z79.4 - longterm (current) use of insulin (3) Hyperlipidemia: Qualified Codes: E78.5 - Hyperlipidemia, unspecified (4) Diarrhea: Qualified Codes: R19.7 - Diarrhea, unspecified Ruddy Sheldon MD, R3 Feb 02, 2017 09:11 Radha Morrissey MD Feb 03, 2017 08:09
[2017-02-02] MEDS: amLODIPine BESYLATE 5 MG TAB PO SCH ×2 (09:23→20:48)
[2017-02-02] MEDS: PANTOPRAZOLE SOD 40 MG DELAYED RELEASE TAB PO SCH (09:23)
[2017-02-02] MEDS: ATORVASTATIN 40 MG TAB PO SCH (09:24)
[2017-02-02] MEDS: CITALOPRAM HYDROBROMIDE 20 MG TAB PO SCH (09:24)
[2017-02-02] MEDS: LURASIDONE 40 MG TAB PO SCH (09:24)
[2017-02-02] MEDS: ASPIRIN EC 325 MG TABEC PO SCH (09:24)
[2017-02-02] MEDS: CLOPIDOGREL 75 MG TAB PO SCH (09:24)
[2017-02-02] MEDS: SODIUM CHLORIDE 0.9% FLUSH 10 ML FLUSH IV FLUSH SCH ×2 (09:25→20:55)
[2017-02-02] MEDS: LISINOPRIL 20 MG TAB PO SCH (09:25)
[2017-02-02] MEDS: ENOXAPARIN SODIUM 40 MG/0.4 ML SYRINGE SQ SCH ×2 (09:25→20:48)
[2017-02-02] MEDS: ALPRAZolam 0.25 MG TAB PO PRN (09:36)
[2017-02-02] MEDS ORDERED: ISOSORBIDE MONONITRATE 30 MG TAB PO ONE ×2 (10:00→12:00)
[2017-02-02] MEDS: cloNIDine HCL 0.1 MG TAB PO PRN (10:55)
[2017-02-02] MEDS ORDERED: OXYGENDME NAS.CANULA (11:10)
[2017-02-02] MEDS ORDERED: PILL SPLITTER OTHER PRN (11:30)
[2017-02-02] MEDS: CHLORHEXIDINE GLUCONATE 4% SOLN 120 ML BTL TOPICAL SCH (12:15)
[2017-02-02] MEDS: SULFAMETHOXAZOLE-TRIMETHOPRIM DS 800-160 MG TAB PO SCH ×2 (12:31→20:55)
[2017-02-02] MEDS: CHLORTHALIDONE 50 MG TAB PO SCH (13:52)
--- NOTE | 2017-02-02 16:33 | HHI.PR ---
Subjective Remarks 36 YOWM with MANISH,COPD,HTN,CP Nitro drip weaned off Did't use CPAP On NC Objective Vital Signs Vital Signs Date Time Temp Pulse Resp B/P (MAP) Pulse Ox O2 Delivery O2 Flow Rate FiO2 02/02/17 12:13 97 Nasal Cannula 3.00 02/02/17 10:30 3.00 02/02/17 07:41 92 02/02/17 04:00 97.9 79 18 146/92 (110) 96 02/02/17 03:00 70 02/02/17 02:00 78 02/02/17 01:00 72 02/02/17 00:00 80 02/02/17 00:00 97.8 72 18 179/83 (115) 93 02/01/17 22:00 98 02/01/17 21:00 76 02/01/17 20:51 95 Nasal Cannula 2.00 02/01/17 20:00 94 Nasal Cannula 2.00 02/01/17 20:00 80 02/01/17 20:00 97.3 81 18 157/78 (104) 93 02/01/17 18:23 74 172/101 02/01/17 18:01 80 02/01/17 17:52 77 154/63 02/01/17 17:00 79 02/01/17 16:42 78 170/93 I/O 02/01/17 02/01/17 02/01/17 02/02/17 02/02/17 02/02/17 07:00 15:00 23:00 07:00 15:00 23:00 Intake Total 180 ml 100 ml 720 ml 339 ml 100 ml Balance 180 ml 100 ml 720 ml 339 ml 100 ml Intake Oral 180 ml 620 ml IV Total 100 ml 100 ml 339 ml 100 ml # Voids 4 Result Diagram: 02/02/17 0540 02/01/17 1814 Objective Remarks GENERAL: Morbidly obese male, NAD SKIN: Warm and dry. HEAD: Normocephalic. EYES: No scleral icterus. No injection or drainage. NECK: Supple, trachea midline. No JVD or lymphadenopathy. CARDIOVASCULAR: Regular rate and rhythm without murmurs, gallops, or rubs. RESPIRATORY: Breath sounds equal bilaterally. No accessory muscle use. GASTROINTESTINAL: Abdomen soft, non-tender, obese. MUSCULOSKELETAL: No cyanosis, ++ edema. BACK: Nontender without obvious deformity. No CVA tenderness. A/P Assessment and Plan MANISH Morbid obesity HTN Bipolar disorder CP resolved PLAN: CPAP at night and PRN Aerosol nebs Supplement 02 Monitor BP Modesto Wu MD Feb 02, 2017 16:33
[2017-02-02] MEDS: traZODone HCL 100 MG TAB PO SCH (20:48)
[2017-02-03] VITALS (15 sets, daily range): BP systolic 151–174; BP diastolic 58–99; PULSE 63–99; RESP 18–20; TEMP 97.3–98.7; O2SAT 97–99
[2017-02-03] MEDS: RESP: ALBUTEROL 2.5 MG/IPRATROPIUM 0.5 MG NEB (SCH) NEB ×4 (01:03→11:41)
[2017-02-03] MEDS: METOPROLOL TARTRATE 100 MG TAB PO SCH (05:12)
[2017-02-03] MEDS ORDERED: ISOSORBIDE MONONITRATE 30 MG TAB PO SCH (07:00)
[2017-02-03] MEDS: INSULIN ASPART SUPPLEMENTAL SCALE SQ SCH ×2 (07:00→11:00)
[2017-02-03] MEDS ORDERED: ISOSORBIDE MONONITRATE 60 MG TAB PO SCH (07:00)
[2017-02-03 07:36] LABS: BASOPHIL # 0.1 TH/MM3 (0-0.2); BASOPHIL % 1.2 % (0.0-2.0); EOSINOPHIL # 0.2 TH/MM3 (0-0.4); EOSINOPHIL % 3.1 % (0.0-4.0); HEMATOCRIT 44.5 % (39.0-51.0); LYMPH % 13.8 % (9.0-44.0); MEAN CORPUSCULAR HEMOGLOBIN 33.1 PG (27.0-34.0); MEAN CORPUSCULAR HGB CONC 34.1 % (32.0-36.0); MONO % 11.3 % (0.0-8.0); NEUT % 70.6 % (16.0-70.0); PLATELET COUNT 192 TH/MM3 (150-450); RED BLOOD COUNT 4.59 MIL/MM3 (4.50-5.90); RED CELL DISTRIBUTION WIDTH 14.2 % (11.6-17.2); WHITE BLOOD COUNT 7.1 TH/MM3 (4.0-11.0)
[2017-02-03 07:39] LABS: HEMO FLAGS AUTO DIFF
[2017-02-03 07:48] LABS: BICARBONATE 35.9 MEQ/L (21.0-32.0)
[2017-02-03] MEDS: CHLORHEXIDINE GLUCONATE 4% SOLN 120 ML BTL TOPICAL SCH (09:00)
[2017-02-03] MEDS: ENOXAPARIN SODIUM 40 MG/0.4 ML SYRINGE SQ SCH (09:00)
[2017-02-03] MEDS: SULFAMETHOXAZOLE-TRIMETHOPRIM DS 800-160 MG TAB PO SCH (09:00)
[2017-02-03 09:06] LABS: SCAN/DIFF AUTO DIFF CONFIRMED
--- NOTE | 2017-02-03 10:16 | HHI.PR ---
Subjective Remarks 36 YOWM with MANISH,COPD,HTN,CP Did't use CPAP On NC Feels much better " I am ready to go home" Objective Vital Signs Vital Signs Date Time Temp Pulse Resp B/P (MAP) Pulse Ox O2 Delivery O2 Flow Rate FiO2 02/03/17 09:00 74 02/03/17 08:10 97 Nasal Cannula 2.00 02/03/17 08:00 91 02/03/17 07:30 Nasal Cannula 2.00 21 02/03/17 07:30 89 02/03/17 07:30 97.8 92 20 174/99 (124) 99 02/03/17 06:06 66 02/03/17 05:00 74 02/03/17 04:09 63 02/03/17 04:07 98.7 78 20 159/78 (105) 98 02/03/17 03:00 64 02/03/17 02:00 68 02/03/17 01:00 73 02/03/17 00:00 98.4 69 20 151/58 (89) 97 02/03/17 00:00 69 02/02/17 23:00 90 02/02/17 22:00 70 02/02/17 21:00 68 02/02/17 20:00 74 02/02/17 20:00 89 Nasal Cannula 3.00 02/02/17 20:00 98.1 74 22 159/72 (101) 96 02/02/17 19:59 97 Nasal Cannula 3.00 02/02/17 19:00 73 02/02/17 18:00 76 02/02/17 17:00 74 02/02/17 16:04 83 02/02/17 16:00 98.6 75 18 142/81 (101) 92 02/02/17 15:00 84 02/02/17 14:00 80 02/02/17 13:00 96 02/02/17 12:13 97 Nasal Cannula 3.00 02/02/17 12:08 79 02/02/17 12:00 99.0 86 18 171/98 (122) 93 02/02/17 11:00 78 02/02/17 10:30 3.00 I/O 02/02/17 02/02/17 02/02/17 02/03/17 02/03/17 02/03/17 06:59 14:59 22:59 06:59 14:59 22:59 Intake Total 339 ml 100 ml 480 ml 120 ml Output Total 1550 ml Balance 339 ml 100 ml 480 ml -1430 ml Intake Oral 480 ml 120 ml IV Total 339 ml 100 ml Output Urine Total 1550 ml # Voids 6 Result Diagram: 02/03/17 0505 02/03/17 0509 Objective Remarks GENERAL: Morbidly obese male, NAD SKIN: Warm and dry. HEAD: Normocephalic. EYES: No scleral icterus. No injection or drainage. NECK: Supple, trachea midline. No JVD or lymphadenopathy. CARDIOVASCULAR: Regular rate and rhythm without murmurs, gallops, or rubs. RESPIRATORY: Breath sounds equal bilaterally. No accessory muscle use. GASTROINTESTINAL: Abdomen soft, non-tender, obese. MUSCULOSKELETAL: No cyanosis, ++ edema. BACK: Nontender without obvious deformity. No CVA tenderness. A/P Assessment and Plan MANISH Morbid obesity HTN Bipolar disorder CP resolved PLAN: CPAP at night and PRN Aerosol nebs Supplement 02 Monitor BP Stable from pulm standpoint Advised him to FU with Dr.Wahba Wu,Modesto Lewis MD Feb 03, 2017 10:16
[2017-02-03] MEDS ORDERED: NIFEdipine 30 MG SUSTAINED RELEASE TAB PO SCH (10:30)
[2017-02-03] MEDS ORDERED: NIFEdipine 90 MG SUSTAINED RELEASE TAB PO SCH (10:45)
[2017-02-03] MEDS ORDERED: METOPROLOL TARTRATE 100 MG TAB PO ONE (11:00)
[2017-02-03] MEDS: CLOPIDOGREL 75 MG TAB PO SCH (11:15)
[2017-02-03] MEDS: ATORVASTATIN 40 MG TAB PO SCH (11:16)
[2017-02-03] MEDS: LURASIDONE 40 MG TAB PO SCH (11:16)
[2017-02-03] MEDS: PANTOPRAZOLE SOD 40 MG DELAYED RELEASE TAB PO SCH (11:16)
[2017-02-03] MEDS: CHLORTHALIDONE 50 MG TAB PO SCH (11:16)
[2017-02-03] MEDS: ASPIRIN EC 325 MG TABEC PO SCH (11:16)
[2017-02-03] MEDS: CITALOPRAM HYDROBROMIDE 20 MG TAB PO SCH (11:17)
[2017-02-03] MEDS: ALPRAZolam 0.25 MG TAB PO PRN (11:17)
[2017-02-03] MEDS: LISINOPRIL 20 MG TAB PO SCH (11:25)
[2017-02-03] MEDS: SODIUM CHLORIDE 0.9% FLUSH 10 ML FLUSH IV FLUSH SCH (11:26)
[2017-02-03] MEDS ORDERED: NIFE90TA2 PO (14:10)
[2017-02-03] MEDS ORDERED: ASPI325T33 PO (14:10)
[2017-02-03] MEDS ORDERED: LISI40TA PO (14:10)
[2017-02-03] MEDS ORDERED: ATOR40TA16 PO (14:10)
[2017-02-03] MEDS ORDERED: SULF1TAB23 PO (14:10)
[2017-02-03] MEDS ORDERED: NITR0.4S SL (14:10)
[2017-02-03] MEDS ORDERED: METO-338 PO (14:10)
[2017-02-03] MEDS ORDERED: METF1000 PO (14:10)
[2017-02-03] MEDS ORDERED: CHLOR50 PO (14:10)
[2017-02-03] MEDS ORDERED: ISOS60TA PO (14:10)
[2017-02-03] MEDS ORDERED: PLAV75TA29 PO (14:10)
[2017-02-03] MEDS ORDERED: GLIP10TA6 PO (14:10)
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
--- NOTE | 2017-02-03 14:32 | PD.AMA ---
Against Medical Advice Note Discharge Disposition: Against Medical Advice Pt Condition on Discharge: Stable AMA Statement Patient Joss Torre has decided to leave the hospital against medical advice. This patient has the capacity to refuse care and understands the risks of leaving, including permanent disability and/or , and has had an opportunity to ask questions about his condition. The patient has been informed that he may return for care at any time, and follow up has been arranged/ advised. David Prince MD R1 Feb 03, 2017 14:32
--- NOTE | 2017-02-03 14:34 | HHI.DCPOC ---
Discharge Care Plan Diagnosis: (1) Depressive disorder (2) CAD (coronary artery disease) (3) Morbid obesity with BMI of 60.0-69.9, adult (4) Uncontrolled hypertension (5) Panniculitis (6) Chest pain (7) Hypoventilation associated with obesity syndrome Goals to Promote Your Health * To prevent worsening of your condition and complications * To maintain your health at the optimal level Directions to Meet Your Goals Take your medications as prescribed Follow your dietary instruction Follow activity as directed Keep your appointments as scheduled Take your immunizations and boosters as scheduled If your symptoms worsen call your PCP, if no PCP go to Urgent Care Center or Emergency Room Smoking is Dangerous to Your Health. Avoid second hand smoke Call the 24-hour hour crisis hotline for domestic abuse at David Prince MD R1 Feb 03, 2017 14:34
--- NOTE | 2017-02-03 16:22 | HHI.FPPN ---
Subjective Remarks grounds that he slept well and had no acute events overnight. Patient states he did not use CPAP. Patient indicates he got dizzy walking to the bathroom without supplemental O2. Discussed need to get patient's blood pressure down and need for supplemental O2 on discharge; however, apparently his insurance will not support supplemental O2. We will medically manage his hypertension at this point. Patient's panniculitis has improved with only one small area on his left abdomen at the level of the umbilicus. Patient concerned about taking care of his parents at home and has decided to go AMA versus receive additional treatment. Patient denies chest pains, shortness of breath, nausea, vomiting, diarrhea, and DVT pain. Objective Vitals Vital Signs Date Time Temp Pulse Resp B/P (MAP) Pulse Ox O2 Delivery O2 Flow Rate FiO2 02/03/17 13:00 84 02/03/17 12:18 2.00 02/03/17 12:18 99 02/03/17 12:14 2.00 02/03/17 11:00 97.3 94 18 166/98 (120) 02/03/17 11:00 94 02/03/17 09:00 74 02/03/17 08:10 97 Nasal Cannula 2.00 02/03/17 08:00 91 02/03/17 07:30 Nasal Cannula 2.00 21 02/03/17 07:30 89 02/03/17 07:30 97.8 92 20 174/99 (124) 99 02/03/17 06:06 66 02/03/17 05:00 74 02/03/17 04:09 63 02/03/17 04:07 98.7 78 20 159/78 (105) 98 02/03/17 03:00 64 02/03/17 02:00 68 02/03/17 01:00 73 02/03/17 00:00 98.4 69 20 151/58 (89) 97 02/03/17 00:00 69 02/02/17 23:00 90 02/02/17 22:00 70 02/02/17 21:00 68 02/02/17 20:00 74 02/02/17 20:00 89 Nasal Cannula 3.00 02/02/17 20:00 98.1 74 22 159/72 (101) 96 02/02/17 19:59 97 Nasal Cannula 3.00 02/02/17 19:00 73 02/02/17 18:00 76 02/02/17 17:00 74 I/O 02/02/17 02/02/17 02/02/17 02/03/17 02/03/17 02/03/17 07:00 15:00 23:00 07:00 15:00 23:00 Intake Total 339 ml 100 ml 480 ml 120 ml Output Total 1550 ml Balance 339 ml 100 ml 480 ml -1430 ml Intake Oral 480 ml 120 ml IV Total 339 ml 100 ml Output Urine Total 1550 ml # Voids 6 Result Diagram: 02/03/17 0505 02/03/17 0509 Imaging Last Impressions Chest X-Ray 01/31/17 0734 Signed Impressions: Service Date/Time: Tuesday, January 31, 2017 07:44 - CONCLUSION: 1. Hypoinflation with minimal atelectatic changes above the right diaphragm. 2. Compensated cardiomegaly. 3. No significant change from prior. Paul Baugh MD Lower Extremity Ultrasound 01/31/17 0000 Signed Impressions: Service Date/Time: Tuesday, January 31, 2017 16:32 - CONCLUSION: No DVT of either lower extremity. Persistent popliteal cyst on the right. Chris Gold MD Objective Remarks GENERAL: NAD. Morbidly obese, sitting in a chair without shirt on and RAJESH hose off. SKIN: No rashes, ecchymoses. Multiple striae over the distribution of lower abdomen. Warm and dry. Venous stasis skin changes over bilateral LEs from below knee to above ankles. 17cm x 15cm oval erythematous, warm and edematous patch over his left abdomen at level of umbilicus. Lesion in pannus appears to have resolved--no longer with foul smell. EYES: Pupils equal round and reactive. No injection or drainage. EOM grossly intact CARDIOVASCULAR: Regular rate and rhythm without murmurs. RESPIRATORY: CTAB. Breath sounds distant due to body habitus, but appear to be equal bilaterally. I did not appreciate any end-expiratory wheezing today GASTROINTESTINAL: Abdomen soft, non-tender, morbidly obese. MUSCULOSKELETAL: No pain to calf palpation. venous stasis as above. Grossly normal motor function and and range of motion NEUROLOGICAL: Awake and alert. Cranial nerves grossly intact. Grossly normal peripheral motor and sensory function. Normal speech. A/P Assessment and Plan 36-year-old morbidly obese male 550 pounds prior history of hypertension, hypertensive emergency, hyperlipidemia, recent NSTEMI, and MANISH who returns with chest pain and shortness of breath admitted for ACS rule out versus sternal musculoskeletal pain. see other entry for this date--this is a duplicate Discharge Planning Pending HTN improvement/stabilization David Prince MD R1 Feb 03, 2017 16:22
[2017-02-04] MEDS ORDERED: METOPROLOL SUCCINATE 50 MG EXTENDED RELEASE TAB PO SCH (21:00)
== END 2017-02-03 15:00 | disposition left against medical advice (07) | DRG 281 ==
LOC: NEPC 07:26 → NEDA 09:40 → NEDH 15:57 → HCIS 17:52 → OBSVTOIN 02-01 09:22
PROVIDERS: ADMIT Family Medicine; ATTEND Family Medicine
DX: R07.9 Chest pain, unspecified (principal); I21.4 Non-ST elevation (NSTEMI) myocardial infarction; E66.2 Morbid (severe) obesity with alveolar hypoventilation; I27.2 Other secondary pulmonary hypertension; E11.65 Type 2 diabetes mellitus with hyperglycemia; I11.0 Hypertensive heart disease with heart failure; I50.9 Heart failure, unspecified; R17 Unspecified jaundice; Z68.45 Body mass index [BMI] 70 or greater, adult; F31.30 Bipolar disorder, current episode depressed, mild or moderate severity, unspecified; I16.1 Hypertensive emergency; E78.5 Hyperlipidemia, unspecified; K21.9 Gastro-esophageal reflux disease without esophagitis; R19.7 Diarrhea, unspecified; I45.10 Unspecified right bundle-branch block; M79.3 Panniculitis, unspecified; J44.9 Chronic obstructive pulmonary disease, unspecified; F20.9 Schizophrenia, unspecified; I25.10 Atherosclerotic heart disease of native coronary artery without angina pectoris; F41.9 Anxiety disorder, unspecified; I87.8 Other specified disorders of veins; Z91.14 Patient's other noncompliance with medication regimen; Z87.891 Personal history of nicotine dependence; Z79.4 Long term (current) use of insulin; Z79.84 Long term (current) use of oral hypoglycemic drugs; Z91.19 Patient's noncompliance with other medical treatment and regimen
CPT/HCPCS: 71010; 80048; 80053; 82248; 82550; 82948; 83735; 84484; 85025; 85610; 85730; 87493; 93005; 93970; 94150; 94620; 94640; 94664; 96365; 96366; 96372; 96375; G0378; J1650; J1815

== ENCOUNTER 2017-02-17 08:46 | Inpatient (IN) | payer OTHER ==
[~2017-02-17] VITALS: Ht 185.4 cm; Wt 181.4 kg
[2017-02-17] VITALS (7 sets, daily range): BP systolic 118–195; BP diastolic 57–113; PULSE 77–87; RESP 14–24; TEMP 97.9–98.7; O2SAT 92–96
[~2017-02-17 08:46] MED LIST changes: -AMLO5TAB2 PO; +ASPI325T33 PO; +CHLOR50 PO; -ISOS30TA3 PO; +ISOS60TA PO; -LABE200T2 PO; +LISI40TA PO; +NIFE90TA2 PO; +NITR0.4S SL; +OXYGENDME NAS.CANULA; +SULF1TAB23 PO
[2017-02-17] MEDS ORDERED: NITROGLYCERIN 2% OINT 1 GM PACKET TOP ONE (09:00)
[2017-02-17] MEDS ORDERED: SODIUM CHLORIDE 0.9% FLUSH 10 ML FLUSH IVF PRN (09:00)
[2017-02-17] MEDS ORDERED: ASPIRIN 325 MG TAB PO ONE (09:00)
--- NOTE | 2017-02-17 09:02 | PD ---
HPI Chief Complaint: Chest Pain Time Seen by Provider: 08:56 Travel History International Travel<30 days: No Contact w/Intl Traveler<30days: No Traveled to known affect area: No History of Present Illness HPI 36-year-old male with history of diabetes, hypertension, non-ST elevation [place] 2 weeks ago, presents to the ER today because of substernal 10 out of 10 chest pains when he woke up today. He is nauseous, having mild shortness of breath. He denies any fevers, coughing, or any other symptoms. Modifying Factors: None Associated Signs & Symptoms: Chest pains Risk Factors: Non-ST elevation [place] 2 weeks ago PFSH Past Medical History Arthritis: No Asthma: No Blood Disorders: No Bipolar Disorder: Yes Anxiety: Yes Depression: Yes Heart Rhythm Problems: No Cancer: No Cardiac Catheterization: Yes (2013 NO STENT PLACEMENT) Cardiovascular Problems: Yes (HTN, STEMI ) High Cholesterol: Yes Chemotherapy: No Chest Pain: Yes Congestive Heart Failure: Yes COPD: No Cerebrovascular Accident: No Diabetes: Yes ("BOrDERLINE") Diminished Hearing: No Endocrine: No Gastrointestinal Disorders: Yes (GERD; PYLORIC STENOSIS A ) GERD: Yes Genitourinary: Yes (KIDNEY STONES) Hiatal Hernia: No Hypertension: Yes Immune Disorder: No Implanted Vascular Access Dvce: No Insomnia: Yes Kidney Stones: Yes Musculoskeletal: Yes ("BAD KNEES") Neurologic: No Psychiatric: Yes (2 SUICIDE ATTEMPTS IN THE PAST) Reproductive: No Respiratory: Yes (SLEEP APNEA/CPAP @NIGHT) Immunizations Current: Yes Migraines: Yes (migraines 2-3 times a month) Radiation Therapy: No Renal Failure: No Schizophrenia: Yes Seizures: No Sickle Cell Disease: No Sleep Apnea: Yes (USE CPAP WITH ROOM AIR) Ulcer: No Past Surgical History Abdominal Surgery: Yes (PYLORIC STENOSIS @ 6 weeks old) AICD: No Arteriovenous Shunt: No Cardiac Surgery: No Cholecystectomy: Yes Ear Surgery: No Endocrine Surgery: No Eye Surgery: No Genitourinary Surgery: Yes (RENAL STENT THEN KIDNEY STONE-REMOVED) Gynecologic Surgery: No Insulin Pump: No Joint Replacement: No Oral Surgery: No Pacemaker: No Thoracic Surgery: No Other Surgery: Yes (JENNIFER, PYLORIC STENOSIS A CHILD) Social History Alcohol Use: No Tobacco Use: No (QUIT 2013) Substance Use: Yes Allergies-Medications (Allergen,Severity, Reaction): Coded Allergies: diclofenac (Unverified Adverse Reaction, Mild, UPSETS STOMACH, 02/17/17) etodolac (Unverified Adverse Reaction, Mild, UPSETS STOMACH, 02/17/17) flurbiprofen (Unverified Adverse Reaction, Mild, UPSETS STOMACH, 02/17/17) ibuprofen (Unverified Adverse Reaction, Mild, UPSETS STOMACH, 02/17/17) indomethacin (Unverified Adverse Reaction, Mild, UPSETS STOMACH, 02/17/17) ketoprofen (Unverified Adverse Reaction, Mild, UPSETS STOMACH, 02/17/17) ketorolac (Unverified Adverse Reaction, Mild, UPSETS STOMACH, 02/17/17) naproxen (Unverified Adverse Reaction, Mild, UPSETS STOMACH, 02/17/17) oxaprozin (Unverified Adverse Reaction, Mild, UPSETS STOMACH, 02/17/17) Reported Meds & Prescriptions Reported Meds & Active Scripts Active Lisinopril 40 Mg Tab 40 Mg PO DAILY Chlorthalidone 50 Mg Tab 50 Mg PO DAILY Aspirin EC (Aspirin) 325 Mg Tabdr 325 Mg PO DAILY Nifedipine ER (Nifedipine) 90 Mg Tab 90 Mg PO DAILY Isosorbide Mononitrate ER (Isosorbide Mononitrate) 60 Mg Tab 60 Mg PO DAILY@07 Nitrostat SL (Nitroglycerin) 0.4 Mg Subl 0.4 Mg SL Q5M PRN Glipizide 10 Mg Tab 10 Mg PO BIDAC Take 30 minutes before a meal Metformin (Metformin HCl) 1,000 Mg Tab 1,000 Mg PO BIDPC With meals Plavix (Clopidogrel Bisulfate) 75 Mg Tab 75 Mg PO DAILY Lopressor (Metoprolol Tartrate) 100 Mg Tab 200 Mg PO BID Lancets 1 Mis Mis Ea .ROUTE DIRECTED Glucocom Blood Glucose Mo W/Device (Device) 1 Kit Kit Kit .ROUTE DIRECTED Reported Trazodone (Trazodone HCl) 100 Mg Tablet 100 Mg PO HS Protonix (Pantoprazole Sodium) 40 Mg Tab 40 Mg PO DAILY Latuda (Lurasidone) 40 Mg Tab 40 Mg PO DAILY Celexa (Citalopram Hydrobromide) 20 Mg Tab 20 Mg PO DAILY Review of Systems Except as stated in HPI: all other systems reviewed are Neg Physical Exam Narrative GENERAL: Well developed morbidly obese young male patient currently in moderate distress. Awake and oriented 3. SKIN: Focused skin assessment warm/dry. HEAD: Atraumatic. Normocephalic. EYES: Pupils equal and round. No scleral icterus. No injection or drainage. ENT: No nasal bleeding or discharge. Mucous membranes pink and moist. NECK: Trachea midline. No JVD. CARDIOVASCULAR: Regular rate and rhythm. No murmur appreciated. Pulses are present and equal bilaterally. RESPIRATORY: No accessory muscle use. Clear to auscultation. Breath sounds equal bilaterally. GASTROINTESTINAL: Abdomen soft, morbidly obese, non-tender, nondistended. Hepatic and splenic margins not palpable. MUSCULOSKELETAL: No obvious deformities. No clubbing. No cyanosis. Bilateral pitting edema of the legs. NEUROLOGICAL: Awake and alert. No obvious cranial nerve deficits. Motor grossly within normal limits. Normal speech. PSYCHIATRIC: Appropriate mood and affect; insight and judgment normal. Data Data Last Documented VS Vital Signs Date Time Temp Pulse Resp B/P (MAP) Pulse Ox O2 Delivery O2 Flow Rate FiO2 02/17/17 09:07 77 24 174/80 (111) 94 Nasal Cannula 2.00 156/70 (98) 02/17/17 08:51 98.7 Orders Orders Electrocardiogram (02/17/17 ) Electrocardiogram (02/17/17 08:56) Basic Metabolic Panel (Bmp) (02/17/17 08:56) B-Type Natriuretic Peptide (02/17/17 08:56) Ckmb (Isoenzyme) Profile (02/17/17 08:56) Complete Blood Count With Diff (02/17/17 08:56) Magnesium (Mg) (02/17/17 08:56) Prothrombin Time / Inr (Pt) (02/17/17 08:56) Act Partial Throm Time (Ptt) (02/17/17 08:56) Troponin I (02/17/17 08:56) Chest, Single Ap (02/17/17 08:56) Ecg Monitoring (02/17/17 08:56) Bilateral Bp Monitoring (02/17/17 08:56) Iv Access Insert/Monitor (02/17/17 08:56) Oximetry (02/17/17 08:56) Oxygen Administration (02/17/17 08:56) Aspirin (Aspirin) (02/17/17 09:00) Nitroglycerin 2% Oint (Nitroglycerin 2% (02/17/17 09:00) Sodium Chloride 0.9% Flush (Ns Flush) (02/17/17 09:00) Labs Laboratory Tests Test 02/17/17 09:00 White Blood Count 9.1 TH/MM3 Red Blood Count 5.14 MIL/MM3 Hemoglobin 16.6 GM/DL Hematocrit 47.9 % Mean Corpuscular Volume 93.4 FL Mean Corpuscular Hemoglobin 32.4 PG Mean Corpuscular Hemoglobin Concent 34.7 % Red Cell Distribution Width 13.6 % Platelet Count 256 TH/MM3 Mean Platelet Volume 7.0 FL Neutrophils (%) (Auto) 79.7 % Lymphocytes (%) (Auto) 10.3 % Monocytes (%) (Auto) 6.1 % Eosinophils (%) (Auto) 3.4 % Basophils (%) (Auto) 0.5 % Neutrophils # (Auto) 7.3 TH/MM3 Lymphocytes # (Auto) 0.9 TH/MM3 Monocytes # (Auto) 0.6 TH/MM3 Eosinophils # (Auto) 0.3 TH/MM3 Basophils # (Auto) 0.0 TH/MM3 CBC Comment DIFF FINAL Differential Comment Prothrombin Time 10.8 SEC Prothromb Time International Ratio 1.0 RATIO Activated Partial Thromboplast Time 25.6 SEC Blood Urea Nitrogen 15 MG/DL Creatinine 0.92 MG/DL Random Glucose 191 MG/DL Calcium Level 9.0 MG/DL Magnesium Level 1.9 MG/DL Sodium Level 137 MEQ/L Potassium Level 4.7 MEQ/L Chloride Level 104 MEQ/L Carbon Dioxide Level 27.4 MEQ/L Anion Gap 6 MEQ/L Estimat Glomerular Filtration Rate 93 ML/MIN Total Creatine Kinase 77 U/L Troponin I 0.03 NG/ML B-Type Natriuretic Peptide 129 PG/ML MDM Medical Decision Making Medical Screen Exam Complete: Yes Emergency Medical Condition: Yes Medical Record Reviewed: Yes Interpretation(s) EKG shows NSR, no ST elevation or depression, and no arrhythmias. No significant T-wave inversions. Laboratory Tests Test 02/17/17 09:00 Neutrophils (%) (Auto) 79.7 % (16.0-70.0) Lymphocytes # (Auto) 0.9 TH/MM3 (1.0-4.8) Random Glucose 191 MG/DL (74-106) B-Type Natriuretic Peptide 129 PG/ML (0-100) Last 24 hours Impressions Chest X-Ray 02/17/17 0856 Signed Impressions: Service Date/Time: Friday, February 17, 2017 09:16 - CONCLUSION: No acute disease. No significant change has occurred. Josh Youssef MD Differential Diagnosis ACS versus CHF versus pneumonia versus bronchitis Narrative Course EKG and chest x-ray did not show any signs of acute processes. Cardiac enzymes are negative. At this point, considering history, patient has been given aspirin and nitroglycerin and on reevaluation at 10:30 AM, his chest pains down to a 6 out of 10. My plan would be to admit him for further evaluation. Case was discussed with Dr. Galloway for admission. Diagnosis Primary Impression: Chest pain Admitting Information Admitting Physician Requests: Admit Saul Michel MD Feb 17, 2017 09:02
[2017-02-17 09:21] LABS: AUTOMATED NEUTROPHIL # 7.3 TH/MM3 (1.8-7.7); BASOPHIL % 0.5 % (0.0-2.0); EOSINOPHIL # 0.3 TH/MM3 (0-0.4); EOSINOPHIL % 3.4 % (0.0-4.0); HEMATOCRIT 47.9 % (39.0-51.0); HEMO FLAGS DIFF FINAL; LYMPH % 10.3 % (9.0-44.0); LYMPHOCYTE # 0.9 TH/MM3 (1.0-4.8); MEAN CELL VOLUME 93.4 FL (80.0-100.0); MEAN CORPUSCULAR HEMOGLOBIN 32.4 PG (27.0-34.0); MEAN CORPUSCULAR HGB CONC 34.7 % (32.0-36.0); MONO % 6.1 % (0.0-8.0); NEUT % 79.7 % (16.0-70.0); PLATELET COUNT 256 TH/MM3 (150-450); RED BLOOD COUNT 5.14 MIL/MM3 (4.50-5.90); RED CELL DISTRIBUTION WIDTH 13.6 % (11.6-17.2); WHITE BLOOD COUNT 9.1 TH/MM3 (4.0-11.0)
--- NOTE | 2017-02-17 09:22 | RADRPT ---
EXAM DATE/TIME: 02/17/2017 09:16 [facility] COMPARISON: CHEST SINGLE AP, January 31, 2017, 7:44. INDICATIONS : Bilateral chest pain. MEDICAL HISTORY : Hypertension. Congestive heart failure. Myocardial infarction. Diabetes mellitus type II. nSTEMI . SURGICAL HISTORY : None. ENCOUNTER: Initial ACUITY: 1 day PAIN SCORE: 5/10 LOCATION: Bilateral chest FINDINGS: Again noted is evidence of hypoaeration and elevation of diaphragms with the persistent suggestion of cardiomegaly compensated. CONCLUSION: No acute disease. No significant change has occurred. Josh Youssef MD on February 17, 2017 at 9:20 Board Certified Radiologist. This report was verified electronically.
[2017-02-17 09:29] LABS: APTT (PATIENT) 25.6 SEC (24.3-30.1); PROTHROMBIN TIME - PATIENT 10.8 SEC (9.8-11.6)
[2017-02-17 09:43] LABS: BICARBONATE 27.4 MEQ/L (21.0-32.0); MAGNESIUM 1.9 MG/DL (1.5-2.5); POTASSIUM 4.7 MEQ/L (3.5-5.1)
[2017-02-17] MEDS ORDERED: ACETAMINOPHEN 325 MG TAB PO PRN (11:00)
[2017-02-17] MEDS ORDERED: BISACODYL 10 MG SUPP RECTAL PRN (11:00)
[2017-02-17] MEDS ORDERED: ONDANSETRON HCL 4 MG/2 ML VIAL IVP PRN (11:00)
[2017-02-17] MEDS ORDERED: SODIUM CHLORIDE 0.9% FLUSH 10 ML FLUSH IV FLUSH PRN (11:00)
[2017-02-17] MEDS ORDERED: MAGNESIUM HYDROXIDE SUSP 30 ML CUP PO PRN (11:00)
[2017-02-17] MEDS ORDERED: NITROGLYCERIN 0.4 MG SL 25 TABS/BTL SL PRN (11:00)
[2017-02-17] MEDS ORDERED: NALOXONE HCL 0.4 MG/ML AMP IV PUSH PRN (11:00)
[2017-02-17] MEDS ORDERED: LACTULOSE SYRUP 20 GM/30 ML CUP PO PRN (11:00)
[2017-02-17] MEDS ORDERED: SENNOSIDES 8.6 MG TAB PO PRN (11:00)
[2017-02-17] MEDS ORDERED: ENOXAPARIN SODIUM 40 MG/0.4 ML SYRINGE SQ SCH (14:00)
--- NOTE | 2017-02-17 14:27 | HHI.HP ---
[facility] Purvi Kuhn MD Admission Diagnosis chest pain Diagnoses: Travel History International Travel<30 Days: No Contact w/Intl Traveler <30 Da: No Traveled to Known Affected Are: No History of Present Illness Mr. Torre is a 36-year-old male with a history of hypertension, diabetes mellitus, bipolar disorder and sleep apnea who presented to the emergency department on 02/17/2017 with substernal chest pressure that started this morning. He woke up this morning with chest pressure associated with some nausea but no vomiting and no diaphoresis. He was somewhat dyspneic during the chest pain episode. He took a sub-lingual nitroglycerin which relieved his symptoms. The whole episode lasted about 10 minutes. Patient denies any cough , fever or chills. Denies any abdominal pain, changes in bowel or bladder habits. On admission he was somewhat hypertensive with blood pressure 195/113. Blood pressure improved R on 246/83. CBC, chemistry panel unremarkable except random glucose 191. Chest x-ray unremarkable for any acute findings. Off note patient recently had an episode of NSTEMI. Cardiology evaluated patient in the previous admission. Unfortunately due to body habitus, cardiac catheter lab cannot accommodate this patient. Subsequently medical management was recommended. Review of Systems Except as stated in HPI: all other systems reviewed are Neg Past Family Social History Past Medical History NSTEMI, Hypertension, hyperlipidemia, diabetes, kidney stones, GERD, bipolar disorder, sleep apnea currently on CPAP machine. Morbid obesity Past Surgical History Pyloric stenosis surgery in early intervention [employer], renal stent, cholecystectomy. Allergies: Coded Allergies: diclofenac (Unverified Adverse Reaction, Mild, UPSETS STOMACH, 02/17/17) etodolac (Unverified Adverse Reaction, Mild, UPSETS STOMACH, 02/17/17) flurbiprofen (Unverified Adverse Reaction, Mild, UPSETS STOMACH, 02/17/17) ibuprofen (Unverified Adverse Reaction, Mild, UPSETS STOMACH, 02/17/17) indomethacin (Unverified Adverse Reaction, Mild, UPSETS STOMACH, 02/17/17) ketoprofen (Unverified Adverse Reaction, Mild, UPSETS STOMACH, 02/17/17) ketorolac (Unverified Adverse Reaction, Mild, UPSETS STOMACH, 02/17/17) naproxen (Unverified Adverse Reaction, Mild, UPSETS STOMACH, 02/17/17) oxaprozin (Unverified Adverse Reaction, Mild, UPSETS STOMACH, 02/17/17) Family History Dad - hypertension Social History Denies using tobacco, alcohol, illicit drugs. Physical Exam Vital Signs Vital Signs Date Time Temp Pulse Resp B/P (MAP) Pulse Ox O2 Delivery O2 Flow Rate FiO2 02/17/17 13:10 98.6 83 19 146/83 (104) 92 02/17/17 12:54 02/17/17 09:07 77 24 174/80 (111) 94 Nasal Cannula 2.00 156/70 (98) 02/17/17 09:06 94 Nasal Cannula 2.00 02/17/17 09:06 (140) Nasal Cannula 2.00 02/17/17 08:56 82 27 93 Nasal Cannula 2.00 02/17/17 08:51 98.7 87 14 195/113 (140) 96 Physical Exam GENERAL: Alert, Oriented x 3, NAD. Morbidly obese. SKIN: No rashes, ecchymoses or lesions. Warm and dry. HEAD: Atraumatic. Normocephalic. No temporal or scalp tenderness. EYES: Pupils equal round and reactive. No injection or drainage. ENT: Nose without bleeding, purulent drainage or septal hematoma. Airway patent. NECK: Trachea midline. No lymphadenopathy. Supple, nontender, no meningeal signs. CARDIOVASCULAR: Regular rate and rhythm without murmurs, gallops, or rubs. No JVD. RESPIRATORY: Clear to auscultation. Breath sounds equal bilaterally. No wheezes , rales, or rhonchi. GASTROINTESTINAL: Abdomen soft, non-tender, nondistended. No guarding. MUSCULOSKELETAL: Extremities without clubbing, cyanosis, or edema. NEUROLOGICAL: Awake and alert. Cranial nerves II through XII intact. No focal neurological deficits. Normal speech. Laboratory Laboratory Tests Test 02/17/17 09:00 White Blood Count 9.1 Red Blood Count 5.14 Hemoglobin 16.6 Hematocrit 47.9 Mean Corpuscular Volume 93.4 Mean Corpuscular Hemoglobin 32.4 Mean Corpuscular Hemoglobin Concent 34.7 Red Cell Distribution Width 13.6 Platelet Count 256 Mean Platelet Volume 7.0 Neutrophils (%) (Auto) 79.7 Lymphocytes (%) (Auto) 10.3 Monocytes (%) (Auto) 6.1 Eosinophils (%) (Auto) 3.4 Basophils (%) (Auto) 0.5 Neutrophils # (Auto) 7.3 Lymphocytes # (Auto) 0.9 Monocytes # (Auto) 0.6 Eosinophils # (Auto) 0.3 Basophils # (Auto) 0.0 CBC Comment DIFF FINAL Differential Comment Prothrombin Time 10.8 Prothromb Time International Ratio 1.0 Activated Partial Thromboplast Time 25.6 Blood Urea Nitrogen 15 Creatinine 0.92 Random Glucose 191 Calcium Level 9.0 Magnesium Level 1.9 Sodium Level 137 Potassium Level 4.7 Chloride Level 104 Carbon Dioxide Level 27.4 Anion Gap 6 Estimat Glomerular Filtration Rate 93 Total Creatine Kinase 77 Troponin I 0.03 B-Type Natriuretic Peptide 129 Result Diagram: 02/17/17 0900 02/17/17 0900 Imaging Last Impressions Chest X-Ray 02/17/17 0856 Signed Impressions: Service Date/Time: Friday, February 17, 2017 09:16 - CONCLUSION: No acute disease. No significant change has occurred. Josh Youssef MD Caprini VTE Risk Assessment Caprini VTE Risk Assessment: Mod/High Risk (score >= 2) Caprini Risk Assessment Model Point Value = 1 Point Value = 2 Point Value = 3 Point Value = 5 Age 41-60 Minor surgery BMI > 25 kg/m2 Swollen legs Varicose veins or History of unexplained or recurrent spontaneous Oral contraceptives or hormone replacement Sepsis (< 1 month) Serious lung disease, including pneumonia (< 1 month) Abnormal pulmonary function Acute myocardial infarction Congestive heart failure (< 1 month) History of inflammatory bowel disease Medical patient at bed rest Age 61-74 Arthroscopic surgery Major open surgery (> 45 min) Laparoscopic surgery (> 45 min) Malignancy Confined to bed (> 72 hours) Immobilizing plaster cast Central venous access Age >= 75 History of VTE Family history of VTE Factor V Leiden Prothrombin [id number] Lupus anticoagulant Anticardiolipin antibodies Elevated serum homocysteine Heparin-induced thrombocytopenia Other congenital or acquired thrombophilia Stroke (< 1 month) Elective arthroplasty Hip, pelvis, or leg fracture Acute spinal cord injury (< 1 month) Prophylaxis Regimen Total Risk Factor Score Risk Level Prophylaxis Regimen 0-1 Low Early ambulation 2 Moderate Order ONE of the following: *Sequential Compression Device (SCD) *Heparin 5000 units SQ BID 3-4 Higher Order ONE of the following medications: *Heparin 5000 units SQ TID *Enoxaparin/Lovenox 40 mg SQ daily (WT < 150 kg, CrCl > 30 mL/min) *Enoxaparin/Lovenox 30 mg SQ daily (WT < 150 kg, CrCl > 10-29 mL/min) *Enoxaparin/Lovenox 30 mg SQ BID (WT < 150 kg, CrCl > 30 mL/min) AND/OR *Sequential Compression Device (SCD) 5 or more Highest Order ONE of the following medications: *Heparin 5000 units SQ TID (Preferred with Epidurals) *Enoxaparin/Lovenox 40 mg SQ daily (WT < 150 kg, CrCl > 30 mL/min) *Enoxaparin/Lovenox 30 mg SQ daily (WT < 150 kg, CrCl > 10-29 mL/min) *Enoxaparin/Lovenox 30 mg SQ BID (WT < 150 kg, CrCl > 30 mL/min) AND *Sequential Compression Device (SCD) Assessment and Plan Problem List: (1) Chest pain ICD Code: R07.9 - Chest pain, unspecified Status: Resolved (2) Non-ST elevation [place] (NSTEMI) ICD Code: I21.4 - Non-ST elevation NV (NSTEMI) Status: Acute (3) Hypertension ICD Code: I10 - Hypertension Status: Acute (4) Morbidly obese ICD Code: E66.01 - Morbid obesity Status: Chronic Assessment and Plan Mr. Torre is a pleasant 36-year-old morbidly obese male with a history of recent NSTEMI who presented to the emergency department today 02/17/2017 due to chest pressure that occurred this morning associated with nausea and dyspnea. Previously patient was evaluated by cardiology but medical therapy was recommended due to the fact that cardiac catheterization lab cannot recommended him because of his body habitus. - Chest pain - History of recent NSTEMI - Continue aspirin 325 mg daily, Plavix 75 mg daily. - Continue lisinopril 40 mg daily, metoprolol 200 mg twice a day - Will increase isosorbide mononitrate from 60 mg daily to 120 mg daily. - We'll also increase atorvastatin from 40 mg to 80 mg daily at bedtime. - We'll obtain 2 sets of troponins along with 2 sets of EKGs. - Even if troponins are elevated, patient will likely not be able to undergo cardiac catheterization due to body habitus. - Hypertension - Hyperlipidemia - Continue lisinopril 40 mg daily, nifedipine 90 mg daily along with Imdur and beta naveed. - Continue statin at an increased dose of 80 mg daily at bedtime. - Diabetes mellitus - At home patient takes metformin 1000 mg twice a day and glipizide 10 mg daily. - While in the hospital we'll keep him on sliding scale insulin and Levemir 10 units daily at bedtime. - Obtain hemoglobin A1c. Hemoglobin A1c in 2015 was 6.3. - Morbid obesity BMI 72.7. - Discussed with patient at length regarding short amount of exercise and increasing the duration gradually. - Also encouraged patient to exercise portion control and eat more fresh for some vegetables. - Patient is motivated and shows enthusiasm. Full code. Lovenox 40 mg every day. Physician Certification 2 Midnight Certification Type: Admission for Inpatient Services Order for Inpatient Services The services are ordered in accordance with Medicare regulations or non- Medicare payer requirements, as applicable. In the case of services not specified as inpatient-only, they are appropriately provided as inpatient services in accordance with the 2-midnight benchmark. Estimated LOS (days): 1 days is the estimated time the patient will need to remain in the hospital, assuming treatment plan goals are met and no additional complications. Post-Hospital Plan: Home Wellington Galloway DO Feb 17, 2017 2:27 pm
[2017-02-17] MEDS ORDERED: GLUCAGON 1 MG/ML VIAL OTHER PRN (15:00)
[2017-02-17] MEDS ORDERED: DEXTROSE 50% IN WATER 50 ML VIAL(D50) IV PUSH PRN (15:00)
--- NOTE | 2017-02-17 16:26 | EKG ---
Date Performed: 02/17/2017 Time Performed: 08:59:02 PTAGE: 36 years EKG: Sinus rhythm POSSIBLE LEFT ATRIAL ENLARGEMENT BORDERLINE ECG Since PREVIOUS TRACING , no significant change noted PREVIOUS TRACIN02/01/2017 04.41 DOCTOR: Jenifer Billingsley Interpretating Date/Time 02/17/2017 16:25:41
[2017-02-17] MEDS: INSULIN ASPART SUPPLEMENTAL SCALE SQ SCH ×2 (17:00→21:00)
[2017-02-17] MEDS ORDERED: INSULIN DETEMIR 100 UNITS/ML VIAL SQ SCH (21:00)
[2017-02-17] MEDS ORDERED: traZODone HCL 100 MG TAB PO SCH (21:00)
[2017-02-17] MEDS: DOCUSATE SODIUM 50 MG/SENNA 8.6 MG TAB PO SCH (21:00)
[2017-02-17] MEDS: METOPROLOL TARTRATE 100 MG TAB PO SCH (21:19)
[2017-02-17] MEDS: SODIUM CHLORIDE 0.9% FLUSH 10 ML FLUSH IV FLUSH SCH (21:21)
[2017-02-18 03:45] VITALS: BP 150/71; PULSE 100; RESP 18; TEMP 98; O2SAT 92
[2017-02-18] MEDS ORDERED: ISOSORBIDE MONONITRATE 60 MG TAB PO SCH ×2 (07:00)
[2017-02-18 08:00] VITALS: BP 132/60; PULSE 105; RESP 18; TEMP 98.3; O2SAT 90
[2017-02-18] MEDS: INSULIN ASPART SUPPLEMENTAL SCALE SQ SCH (08:00)
[2017-02-18] MEDS: DOCUSATE SODIUM 50 MG/SENNA 8.6 MG TAB PO SCH (08:26)
[2017-02-18] MEDS: SODIUM CHLORIDE 0.9% FLUSH 10 ML FLUSH IV FLUSH SCH (08:28)
[2017-02-18] MEDS: METOPROLOL TARTRATE 100 MG TAB PO SCH (08:28)
[2017-02-18] MEDS ORDERED: CITALOPRAM HYDROBROMIDE 20 MG TAB PO SCH (09:00)
[2017-02-18] MEDS ORDERED: LURASIDONE 40 MG TAB PO SCH (09:00)
[2017-02-18] MEDS ORDERED: LISINOPRIL 20 MG TAB PO SCH (09:00)
[2017-02-18] MEDS ORDERED: CLOPIDOGREL 75 MG TAB PO SCH (09:00)
[2017-02-18] MEDS ORDERED: NIFEdipine 90 MG SUSTAINED RELEASE TAB PO SCH (09:00)
[2017-02-18] MEDS ORDERED: ASPIRIN EC 325 MG TABEC PO SCH (09:00)
[2017-02-18] MEDS ORDERED: CHLORTHALIDONE 50 MG TAB PO SCH (09:00)
[2017-02-18] MEDS ORDERED: ATORVASTATIN 40 MG TAB PO SCH ×2 (09:00)
[2017-02-18] MEDS ORDERED: PANTOPRAZOLE SOD 40 MG DELAYED RELEASE TAB PO SCH (09:00)
[2017-02-18] MEDS ORDERED: ISOS60TA PO (10:15)
[2017-02-18] MEDS ORDERED: ATOR40TA16 PO (10:15)
--- NOTE | 2017-02-18 10:19 | HHI.PR ---
Subjective Remarks Follow up for chest pain. Patient is currently doing well. No chest pain, SOB, fever, chills. Resting in bed comfortably. Objective Vitals Vital Signs Date Time Temp Pulse Resp B/P (MAP) Pulse Ox O2 Delivery O2 Flow Rate FiO2 02/18/17 08:00 98.3 105 18 132/60 (84) 90 02/18/17 03:45 98.0 100 18 150/71 (97) 92 02/17/17 23:42 97.9 86 18 118/57 (77) 92 02/17/17 20:00 86 02/17/17 20:00 97.9 86 19 178/97 (124) 95 02/17/17 16:00 98.3 85 19 159/87 (111) 94 02/17/17 13:15 82 02/17/17 13:10 98.6 83 19 146/83 (104) 92 02/17/17 12:54 I/O 02/17/17 02/17/17 02/17/17 02/18/17 02/18/17 02/18/17 07:00 15:00 23:00 07:00 15:00 23:00 Intake Total 480 ml Balance 480 ml Intake Oral 480 ml # Voids 1 3 # Bowel Movements 1 1 Result Diagram: 02/17/17 0900 02/17/17 0900 Imaging Last Impressions Chest X-Ray 02/17/17 0856 Signed Impressions: Service Date/Time: Friday, February 17, 2017 09:16 - CONCLUSION: No acute disease. No significant change has occurred. Josh Youssef MD Objective Remarks GENERAL: AOX3, NAD, Morbidly obese. SKIN: Warm and dry. HEAD: Normocephalic. EYES: No scleral icterus. No injection or drainage. NECK: Supple, trachea midline. No JVD or lymphadenopathy. CARDIOVASCULAR: Regular rate and rhythm without murmurs, gallops, or rubs. RESPIRATORY: Breath sounds equal bilaterally. No accessory muscle use. GASTROINTESTINAL: Abdomen soft, non-tender, nondistended. MUSCULOSKELETAL: No cyanosis, or edema. BACK: Nontender without obvious deformity. No CVA tenderness. Procedures None. A/P Problem List: (1) Chest pain ICD Code: R07.9 - Chest pain, unspecified Status: Resolved (2) Non-ST elevation [place] (NSTEMI) ICD Code: I21.4 - Non-ST elevation SC (NSTEMI) Status: Acute (3) Hypertension ICD Code: I10 - Hypertension Status: Acute (4) Morbidly obese ICD Code: E66.01 - Morbid obesity Status: Chronic Assessment and Plan Mr. Torre is a pleasant 36-year-old morbidly obese male with a history of recent NSTEMI who presented to the emergency department today 02/17/2017 due to chest pressure that occurred this morning associated with nausea and dyspnea. Previously patient was evaluated by cardiology but medical therapy was recommended due to the fact that cardiac catheterization lab cannot recommended him because of his body habitus. - Chest pain - History of recent NSTEMI - Continue aspirin 325 mg daily, Plavix 75 mg daily. - Continue lisinopril 40 mg daily, metoprolol 200 mg twice a day - Increased isosorbide mononitrate from 60 mg daily to 120 mg daily. - Increased atorvastatin from 40 mg to 80 mg daily at bedtime. - We'll obtain 2 sets of troponins along with 2 sets of EKGs. No elevation in troponins. EKGs unremarkable for any acute ischemia. - Lifestyle modifications is strongly encouraged. - Hypertension - Hyperlipidemia - Continue lisinopril 40 mg daily, nifedipine 90 mg daily along with Imdur and beta naveed. - Continue statin at an increased dose of 80 mg daily at bedtime. - Diabetes mellitus - At home patient takes metformin 1000 mg twice a day and glipizide 10 mg daily. - While in the hospital we'll keep him on sliding scale insulin and Levemir 10 units daily at bedtime. - Obtain hemoglobin A1c. Hemoglobin A1c in 2014 was 6.3. - Morbid obesity BMI 72.7. - Discussed with patient at length regarding short amount of exercise and increasing the duration gradually. - Also encouraged patient to exercise portion control and eat more fresh for some vegetables. - Patient is motivated and shows enthusiasm. Full code. Lovenox 40 mg every day. Discharge patient to home Condition on discharge: Improved Heart healthy Diet as tolerated Ad Vivian activity Rx written: Lipitor 80mg QHS Imdur 120mg Qday. Follow-up with primary care physician within one week. Wellington Galloway DO Feb 18, 2017 10:19 am
--- NOTE | 2017-02-18 16:41 | EKG ---
Date Performed: 02/17/2017 Time Performed: 18:36:50 PTAGE: 36 years EKG: Sinus rhythm POSSIBLE LEFT ATRIAL ENLARGEMENT NONSPECIFIC ST & T-WAVE ABNORMALITY Compared to previous tracing, S T-T change is slightly more prominent BORDERLINE ECG PREVIOUS TRACING : 02/17/2017 08.59 DOCTOR: Lenny Combs Interpretating Date/Time 02/18/2017 16:39:36
[2017-02-19 11:33] LABS: HEMOGLOBIN A1b 0.8 %; HEMOGLOBIN Ao 84.7 %; HEMOGLOBIN F 1.4 %; HEMOGLOBIN LA1C 1.5 %; HEMOGLOBIN P3 3.3 %
== END 2017-02-18 11:19 | disposition home or self-care (01) | DRG 313 ==
LOC: NEPE 08:46 → NEDA 10:54 → N04B 12:50
PROVIDERS: ADMIT Hospitalist; ATTEND Hospitalist
DX: R07.89 Other chest pain (principal); I25.2 Old myocardial infarction; Z68.45 Body mass index [BMI] 70 or greater, adult; I10 Essential (primary) hypertension; E11.9 Type 2 diabetes mellitus without complications; F31.9 Bipolar disorder, unspecified; G47.30 Sleep apnea, unspecified; E78.5 Hyperlipidemia, unspecified; E66.01 Morbid (severe) obesity due to excess calories; Z71.3 Dietary counseling and surveillance; Z79.84 Long term (current) use of oral hypoglycemic drugs; Z88.8 Allergy status to other drugs, medicaments and biological substances
CPT/HCPCS: 71010; 80048; 82550; 82948; 83036; 83735; 83880; 84484; 85025; 85610; 85730; 93005; 99285; J1650

== ENCOUNTER 2017-06-05 09:25 | Inpatient (IN) | payer OTHER ==
[2017-06-05] VITALS (26 sets, daily range): BP systolic 134–265; BP diastolic 66–144; PULSE 70–107; RESP 17–26; TEMP 97.7–97.8; O2SAT 89–99
[~2017-06-05] VITALS: Ht 185.4 cm; Wt 220.7 kg
[~2017-06-05 09:25] MED LIST changes: -GLUCTES12; -INSU1MIS15; -NOVOLOGP2 SQ; -OXYGENDME NAS.CANULA; -SULF1TAB23 PO; +TRAZ100T10 PO; -TRAZ100T6 PO
[2017-06-05] MEDS ORDERED: SODIUM CHLORIDE 0.9% FLUSH 10 ML FLUSH IVF PRN (09:45)
[2017-06-05] MEDS ORDERED: LABETALOL HCL 100 MG/20 ML VIAL IV PUSH ONE (10:00)
[2017-06-05] MEDS ORDERED: NITROGLYCERIN 0.4 MG SL 25 TABS/BTL SL ONE (10:00)
[2017-06-05 10:09] LABS: AUTOMATED NEUTROPHIL # 6.4 TH/MM3 (1.8-7.7); BASOPHIL # 0.1 TH/MM3 (0-0.2); BASOPHIL % 0.6 % (0.0-2.0); EOSINOPHIL # 0.2 TH/MM3 (0-0.4); EOSINOPHIL % 1.9 % (0.0-4.0); HEMATOCRIT 50.5 % (39.0-51.0); HEMOGLOBIN 17.2 GM/DL (13.0-17.0); LYMPH % 14.6 % (9.0-44.0); LYMPHOCYTE # 1.3 TH/MM3 (1.0-4.8); MEAN CELL VOLUME 93.4 FL (80.0-100.0); MEAN CORPUSCULAR HEMOGLOBIN 31.8 PG (27.0-34.0); MEAN PLATELET VOLUME 7.3 FL (7.0-11.0); MONO % 8.2 % (0.0-8.0); MONOCYTE # 0.7 TH/MM3 (0-0.9); NEUT % 74.7 % (16.0-70.0); PLATELET COUNT 229 TH/MM3 (150-450); RED BLOOD COUNT 5.41 MIL/MM3 (4.50-5.90); WHITE BLOOD COUNT 8.6 TH/MM3 (4.0-11.0)
[2017-06-05 10:12] LABS: PROTHROMBIN TIME - PATIENT 10.3 SEC (9.8-11.6)
[2017-06-05 10:15] LABS: BICARBONATE 34.9 MEQ/L (21.0-32.0); CALCIUM 8.5 MG/DL (8.5-10.1); CREATININE 1.15 MG/DL (0.60-1.30); MAGNESIUM 1.8 MG/DL (1.5-2.5)
[2017-06-05 10:20] LABS: TROPONIN I 0.04 NG/ML (0.02-0.05)
[2017-06-05] MEDS ORDERED: ONDANSETRON HCL 4 MG/2 ML VIAL IV PUSH ONE (10:45)
--- NOTE | 2017-06-05 10:49 | RADRPT ---
EXAM DATE/TIME: 06/05/2017 09:59 [place] COMPARISON: CT PULMONARY ANGIOGRAM, June 12, 2015, 9:42. CHEST SINGLE AP, February 17, 2017, 9:16. INDICATIONS : Chest pain and short of breath. MEDICAL HISTORY : Hypertension. Congestive heart failure. Myocardial infarction. Diabetes II SURGICAL HISTORY : None. ENCOUNTER: Initial ACUITY: 1 day PAIN SCORE: 9/10 LOCATION: Bilateral chest FINDINGS: The heart appears mildly enlarged. There is mild generalized vascular engorgement. There is no eviden ce of pulmonary edema or consolidating airspace disease. Osseous structures are intact CONCLUSION: 1. Cardiomegaly 2. No evidence of significant congestion or acute air space disease. Daniel Valverde MD on June 05, 2017 at 10:42 Board Certified Radiologist. This report was verified electronically.
--- NOTE | 2017-06-05 11:13 | HHI.HP ---
HPI Service [facility] Hospitalists Primary Care Physician No Primary Care Physician Admission Diagnosis Diagnoses: Chief Complaint: Chest pain Dyspnea Travel History International Travel<30 Days: No Contact w/Intl Traveler <30 Da: No Traveled to Known Affected Are: No History of Present Illness Written by Azeb Gregorio, acting as scribe for Dr. Packer on 06/05/17 at 11: 07. This is a 37-year-old morbidly obese male with a past medical history significant for hypertension, diabetes, bipolar disorder, sleep apnea, dyslipidemia, GERD, Hx of NSTEMI 01/2017 and CHF who presents to [facility] ED with complaints of 02/05 substernal nonradicular throbbing chest pain for the past 2 days. Patient reports associated shortness of breath at rest, worse with minimal exertion. He also states his shortness of breath is exacerbated with lying supine. Chest pain aggravated with activity. He endorses dry heaves. Patient's been taking nitroglycerin at home with some relief in his chest pain. He endorses medication compliance. He was seen in the office by Dr. Torres for follow up of his NSTEMI in February. At the time of the NSTEMI in January, patient was evaluated by cardiology but due to patients body habitus , cardiac receiver/laborer unable to accommodate patient and medical management recommended. Patient denies any complaints of chest pain since January. In the ED, patient was found to have extremely elevated blood pressure of 265/144. Initial troponin 0.04. Review of Systems Except as stated in HPI: all other systems reviewed are Neg Past Family Social History Past Medical History HTN hx of NSTEMI 02/12 CHF HLD Morbid obesity DM GERD MANISH, CPAP compliant Kidney stones Bipolar d/o Past Surgical History Cardiac cath 2013 Cholecystectomy Pyloric stenosis surgery in sales engineer account manager Renal stent Reported Medications sosorbide Mononitrate ER (Isosorbide Mononitrate) 60 Mg Tab 120 Mg PO DAILY@07 Atorvastatin (Atorvastatin Calcium) 40 Mg Tab 80 Mg PO DAILY Lisinopril 40 Mg Tab 40 Mg PO DAILY Chlorthalidone 50 Mg Tab 50 Mg PO DAILY Aspirin EC (Aspirin) 325 Mg Tabdr 325 Mg PO DAILY Nifedipine ER (Nifedipine) 90 Mg Tab 90 Mg PO DAILY Nitrostat SL (Nitroglycerin) 0.4 Mg Subl 0.4 Mg SL Q5M PRN Glipizide 10 Mg Tab 10 Mg PO BIDAC Take 30 minutes before a meal Metformin (Metformin HCl) 1,000 Mg Tab 1,000 Mg PO BIDPC With meals Plavix (Clopidogrel Bisulfate) 75 Mg Tab 75 Mg PO DAILY Lopressor (Metoprolol Tartrate) 100 Mg Tab 200 Mg PO BID Lancets 1 Mis Mis Ea .ROUTE DIRECTED Glucocom Blood Glucose Mo W/Device (Device) 1 Kit Kit Kit .ROUTE DIRECTED Trazodone (Trazodone HCl) 100 Mg Tablet 100 Mg PO HS Protonix (Pantoprazole Sodium) 40 Mg Tab 40 Mg PO DAILY Latuda (Lurasidone) 40 Mg Tab 40 Mg PO DAILY Celexa (Citalopram Hydrobromide) 20 Mg Tab 20 Mg PO DAILY Allergies: Coded Allergies: diclofenac (Unverified Adverse Reaction, Mild, UPSETS STOMACH, 06/05/17) etodolac (Unverified Adverse Reaction, Mild, UPSETS STOMACH, 06/05/17) flurbiprofen (Unverified Adverse Reaction, Mild, UPSETS STOMACH, 06/05/17) ibuprofen (Unverified Adverse Reaction, Mild, UPSETS STOMACH, 06/05/17) indomethacin (Unverified Adverse Reaction, Mild, UPSETS STOMACH, 06/05/17) ketoprofen (Unverified Adverse Reaction, Mild, UPSETS STOMACH, 06/05/17) ketorolac (Unverified Adverse Reaction, Mild, UPSETS STOMACH, 06/05/17) naproxen (Unverified Adverse Reaction, Mild, UPSETS STOMACH, 06/05/17) oxaprozin (Unverified Adverse Reaction, Mild, UPSETS STOMACH, 06/05/17) Active Ordered Medications Active Medications Aspirin (Ecotrin Ec) 325 mg DAILY PO; Start 06/06/17 at 09:00 Atorvastatin Calcium (Lipitor) 80 mg DAILY PO; Start 06/06/17 at 09:00 Citalopram Hydrobromide (CeleXA) 20 mg DAILY PO; Start 06/06/17 at 09:00 Clopidogrel Bisulfate (Plavix) 75 mg DAILY PO; Start 06/06/17 at 09:00 Dextrose (D50w (Vial) Inj) 50 ml UNSCH PRN IV PUSH; Start 06/05/17 at 11:30 Enalaprilat (Vasotec Inj) 1.25 mg Q8H PRN IV PUSH; Start 06/05/17 at 11:30 Glucagon (Glucagon Inj) 1 mg UNSCH PRN OTHER; Start 06/05/17 at 11:30 Insulin Aspart (NovoLOG SUPPLEMENTAL SCALE) 1 ACHS SLIDING SCALE SQ; Start 06/05 at 12:00 Isosorbide Mononitrate (Imdur) 120 mg DAILY@07 PO; Start 06/06/17 at 07:00 Labetalol HCl (Trandate Inj) 20 mg ONCE ONCE IV PUSH Last administered on at 10:14; Admin Dose 20 MG; Start 06/05/17 at 10:00; Stop 06/05/17 at 10:01; Status DC Lisinopril (Prinivil) 40 mg DAILY PO; Start 06/06/17 at 09:00 Lurasidone HCl (Latuda) 40 mg DAILY PO; Start 06/06/17 at 09:00 Metoprolol Tartrate (Lopressor) 200 mg BID PO; Start 06/05/17 at 21:00 Nifedipine (Procardia Xl) 30 mg ONCE ONCE PO Last administered on 06/05/17at 12: 47; Admin Dose 30 MG; Start 06/05/17 at 12:30; Stop 06/05/17 at 12:32; Status DC Nifedipine (Procardia Xl) 30 mg ONCE ONCE PO; Start 06/05/17 at 13:00; Stop 06/05 at 13:01; Status Cancel Nifedipine (Procardia Xl) 90 mg DAILY PO; Start 06/06/17 at 09:00 Nitroglycerin (Nitrostat Sl) 0.4 mg ONCE ONCE SL Last administered on 06/05/17at 10:14; Admin Dose 0.4 MG; Start 06/05/17 at 10:00; Stop 06/05/17 at 10:01; Status DC Ondansetron HCl (Zofran Inj) 4 mg ONCE ONCE IV PUSH Last administered on at 11:04; Admin Dose 4 MG; Start 06/05/17 at 10:45; Stop 06/05/17 at 10:46; Status DC Pantoprazole Sodium (Protonix) 40 mg DAILY PO; Start 06/06/17 at 09:00 Patient Own Medication PT OWN MED: CHLORTHALIDONE 50MG TAB... DAILY PO; Start at 09:00; Status Future Hold Sodium Chloride (NS Flush) 2 ml UNSCH PRN IVF; Start 06/05/17 at 09:45 Trazodone HCl (Desyrel) 100 mg HS PO; Start 06/05/17 at 21:00 Family History Grandmother, pacemaker Father, HTN Mental health issues Social History Patient has a history of tobacco use 2 packs/week but quit 3 1/2 to 4 years ago. Patient does not drink alcohol. Patient denies illicit drug use. Physical Exam Vital Signs Vital Signs Date Time Temp Pulse Resp B/P (MAP) Pulse Ox O2 Delivery O2 Flow Rate FiO2 06/05/17 11:05 98 18 205/121 (149) 99 Room Air 06/05/17 09:34 95 22 94 Room Air 06/05/17 09:27 97.7 107 26 265/144 (184) 97 Physical Exam GENERAL: This is a well-nourished, well-developed morbidly obese male patient, in no apparent distress. Sitting on side of bed. Awake and alert. SKIN: No rashes, ecchymoses or lesions. Cool and dry. HEAD: Atraumatic. Normocephalic. No temporal or scalp tenderness. EYES: Pupils equal round and reactive. Extraocular motions intact. No scleral icterus. No injection or drainage. ENT: Nose without bleeding or purulent drainage. Throat without erythema, tonsillar hypertrophy or exudate. Uvula midline. Airway patent. NECK: Trachea midline. No lymphadenopathy. Supple, nontender, no meningeal signs. CARDIOVASCULAR: Distant heart sounds. Regular rate and rhythm without murmurs, gallops, or rubs. RESPIRATORY: Clear to auscultation. Breath sounds equal bilaterally. No wheezes , rales, or rhonchi. GASTROINTESTINAL: Abdomen soft, non-tender, protuberant. No hepato-splenomegaly , or palpable masses. No guarding. MUSCULOSKELETAL: Extremities without clubbing or cyanosis. Bilateral pedal edema. No joint tenderness, effusion, or edema noted. No calf tenderness. NEUROLOGICAL: Awake and alert. Cranial nerves II through XII grossly intact. Motor and sensory grossly within normal limits. Five out of 5 muscle strength in all muscle groups. No focal neurologic findings appreciated. Normal speech. Laboratory Laboratory Tests Test 06/05/17 09:45 White Blood Count 8.6 Red Blood Count 5.41 Hemoglobin 17.2 Hematocrit 50.5 Mean Corpuscular Volume 93.4 Mean Corpuscular Hemoglobin 31.8 Mean Corpuscular Hemoglobin Concent 34.0 Red Cell Distribution Width 14.0 Platelet Count 229 Mean Platelet Volume 7.3 Neutrophils (%) (Auto) 74.7 Lymphocytes (%) (Auto) 14.6 Monocytes (%) (Auto) 8.2 Eosinophils (%) (Auto) 1.9 Basophils (%) (Auto) 0.6 Neutrophils # (Auto) 6.4 Lymphocytes # (Auto) 1.3 Monocytes # (Auto) 0.7 Eosinophils # (Auto) 0.2 Basophils # (Auto) 0.1 CBC Comment DIFF FINAL Differential Comment Prothrombin Time 10.3 Prothromb Time International Ratio 1.0 Activated Partial Thromboplast Time 25.7 Blood Urea Nitrogen 16 Creatinine 1.15 Random Glucose 153 Calcium Level 8.5 Magnesium Level 1.8 Sodium Level 140 Potassium Level 4.2 Chloride Level 103 Carbon Dioxide Level 34.9 Anion Gap 2 Estimat Glomerular Filtration Rate 71 Total Creatine Kinase 70 Troponin I 0.04 Result Diagram: 06/05/1794406/05/17944 Imaging Last Impressions Chest X-Ray 06/05/17944 Signed Impressions: Service Date/Time: Monday, June 05, 2017 09:59 - CONCLUSION: 1. Cardiomegaly 2. No evidence of significant congestion or acute air space disease. Daniel Valverde MD Caprini VTE Risk Assessment Caprini VTE Risk Assessment: No/Low Risk (score <= 1) Caprini Risk Assessment Model Point Value = 1 Point Value = 2 Point Value = 3 Point Value = 5 Age 41-60 Minor surgery BMI > 25 kg/m2 Swollen legs Varicose veins or History of unexplained or recurrent spontaneous Oral contraceptives or hormone replacement Sepsis (< 1 month) Serious lung disease, including pneumonia (< 1 month) Abnormal pulmonary function Acute myocardial infarction Congestive heart failure (< 1 month) History of inflammatory bowel disease Medical patient at bed rest Age 61-74 Arthroscopic surgery Major open surgery (> 45 min) Laparoscopic surgery (> 45 min) Malignancy Confined to bed (> 72 hours) Immobilizing plaster cast Central venous access Age >= 75 History of VTE Family history of VTE Factor V Leiden Prothrombin [id number] Lupus anticoagulant Anticardiolipin antibodies Elevated serum homocysteine Heparin-induced thrombocytopenia Other congenital or acquired thrombophilia Stroke (< 1 month) Elective arthroplasty Hip, pelvis, or leg fracture Acute spinal cord injury (< 1 month) Prophylaxis Regimen Total Risk Factor Score Risk Level Prophylaxis Regimen 0-1 Low Early ambulation 2 Moderate Order ONE of the following: *Sequential Compression Device (SCD) *Heparin 5000 units SQ BID 3-4 Higher Order ONE of the following medications: *Heparin 5000 units SQ TID *Enoxaparin/Lovenox 40 mg SQ daily (WT < 150 kg, CrCl > 30 mL/min) *Enoxaparin/Lovenox 30 mg SQ daily (WT < 150 kg, CrCl > 10-29 mL/min) *Enoxaparin/Lovenox 30 mg SQ BID (WT < 150 kg, CrCl > 30 mL/min) AND/OR *Sequential Compression Device (SCD) 5 or more Highest Order ONE of the following medications: *Heparin 5000 units SQ TID (Preferred with Epidurals) *Enoxaparin/Lovenox 40 mg SQ daily (WT < 150 kg, CrCl > 30 mL/min) *Enoxaparin/Lovenox 30 mg SQ daily (WT < 150 kg, CrCl > 10-29 mL/min) *Enoxaparin/Lovenox 30 mg SQ BID (WT < 150 kg, CrCl > 30 mL/min) AND *Sequential Compression Device (SCD) Assessment and Plan Assessment and Plan 37-year-old morbidly obese male with a past medical history significant for hypertension, diabetes, bipolar disorder, sleep apnea, dyslipidemia, GERD, CHF and s/p NSTEMI 01/2017 who presents to [facility] ED with complaints of 910 substernal nonradicular throbbing chest pain for the past 2 days. Previously patient was evaluated by cardiology but medical therapy was recommended due to the fact that cardiac catheterization lab cannot recommended him because of his body habitus. Hypertensive crisis - BP 265/144 at ED presentation - patient given Labetalol, Nitroglycerin and Nifedipine XL in the ED. BP still uncontrolled. - admit to [facility] [place] Nitro [place]tt - Resume patient on home dose of Imdur 120 mg daily, Lopressor 200 mg twice a day, Procardia XL 90 mg daily - Hold home dose of chlorthalidone secondary to low GFR. Obtain UA. - Monitor BP and adjust treatment accordingly Chest pain, R/O ACS CAD s/p recent NSTEMI 01/2017 - suspect secondary to uncontrolled HTN - initial troponin 0.04. Continue to cycle Kinga and EKGs. - continuous cardiac monitoring - BB, ASA, Plavix, statin daily CHF, systolic - CXR revealing cardiomegaly but no evidence of acute cardio pulmonary process, images reviewed by me - echocardiogram 01/12 technically difficult study, LVH, EF 40-45%, pHTN 60- 70mmhg - Monitor respiratory status, patient currently satting 99% on room air - Monitor for evidence of fluid overload DM - at home patient takes Metformin and Glipizide, hold - accucheck - ISS - heart healthy diabetic diet GERD - continue on home dose of Pantoprazole DVT prophylaxis - bilateral SCD the above note was scribed by Ms. Azeb Gregorio ([email or web address]). T I attest that I had a [id number] encounter with the patient on the same day, and personally performed the physical exam and medical decision making and reviewed the findings and plan with the patient. Discussed Condition With ED physician, nursing staff and patient Azeb Gregorio Jun 05, 2017 11:13 Ferny Packer MD Jun 05, 2017 17:55
--- NOTE | 2017-06-05 11:15 | PD ---
HPI Chief Complaint: Chest Pain Time Seen by Provider: 09:45 Travel History International Travel<30 days: No Contact w/Intl Traveler<30days: No Traveled to known affect area: No History of Present Illness HPI 37-year-old male came to the emergency room with history of chest pain, shortness of breath and not feeling good for past 2 days. Patient says he's been really on top of his medications but symptoms are not improving. He took 2 baby aspirin's today before coming in. His blood pressure was almost 250 systolic upon arrival. Patient is morbidly obese. He says he has had 2 and STEMI's in the past but no stents put in. He is not on any other blood thinners. Pain is worse when he tries to lay down. The shortness of breath worsens as well. No history of fever or chills. Patient says his chest pain is 9 out of 10 and is substernal. It feels like a pressure. PFSH Past Medical History Narrative Medical List of his past medical, surgical, social and family history is reviewed from the nursing note. Arthritis: No Asthma: No Blood Disorders: No Bipolar Disorder: Yes Anxiety: Yes Depression: Yes Heart Rhythm Problems: No Cancer: No Cardiac Catheterization: Yes (2013 NO STENT PLACEMENT) Cardiovascular Problems: Yes (HTN, STEMI ) High Cholesterol: Yes Chemotherapy: No Chest Pain: Yes Congestive Heart Failure: Yes COPD: No Cerebrovascular Accident: No Diabetes: Yes Patient Takes Glucophage: Yes (06/04/17 0900) Diminished Hearing: No Endocrine: No Gastrointestinal Disorders: Yes (GERD; PYLORIC STENOSIS A ) GERD: Yes Genitourinary: Yes (KIDNEY STONES) Hiatal Hernia: No Hypertension: Yes Immune Disorder: No Implanted Vascular Access Dvce: No Insomnia: Yes Kidney Stones: Yes Musculoskeletal: Yes ("BAD KNEES") Neurologic: No Psychiatric: Yes (2 SUICIDE ATTEMPTS IN THE PAST) Reproductive: No Respiratory: Yes (SLEEP APNEA/CPAP @NIGHT) Immunizations Current: Yes Migraines: Yes (migraines 2-3 times a month) Myocardial Infarction: Yes (2016, 2012) Radiation Therapy: No Renal Failure: No Schizophrenia: Yes Seizures: No Sickle Cell Disease: No Sleep Apnea: Yes (USE CPAP WITH ROOM AIR) Ulcer: No Tetanus Vaccination: > 5 Years ?: Not Past Surgical History Abdominal Surgery: Yes (PYLORIC STENOSIS @ 6 weeks old) AICD: No Arteriovenous Shunt: No Cardiac Surgery: No Cholecystectomy: Yes Ear Surgery: No Endocrine Surgery: No Eye Surgery: No Genitourinary Surgery: Yes (RENAL STENT THEN KIDNEY STONE-REMOVED) Gynecologic Surgery: No Insulin Pump: No Joint Replacement: No Oral Surgery: No Pacemaker: No Thoracic Surgery: No Other Surgery: Yes (JENNIFER, PYLORIC STENOSIS A CHILD) Social History Alcohol Use: No Tobacco Use: No (QUIT 2013) Substance Use: No Allergies-Medications (Allergen,Severity, Reaction): Coded Allergies: diclofenac (Unverified Adverse Reaction, Mild, UPSETS STOMACH, 06/05/17) etodolac (Unverified Adverse Reaction, Mild, UPSETS STOMACH, 06/05/17) flurbiprofen (Unverified Adverse Reaction, Mild, UPSETS STOMACH, 06/05/17) ibuprofen (Unverified Adverse Reaction, Mild, UPSETS STOMACH, 06/05/17) indomethacin (Unverified Adverse Reaction, Mild, UPSETS STOMACH, 06/05/17) ketoprofen (Unverified Adverse Reaction, Mild, UPSETS STOMACH, 06/05/17) ketorolac (Unverified Adverse Reaction, Mild, UPSETS STOMACH, 06/05/17) naproxen (Unverified Adverse Reaction, Mild, UPSETS STOMACH, 06/05/17) oxaprozin (Unverified Adverse Reaction, Mild, UPSETS STOMACH, 06/05/17) Comments List of his allergies reviewed from the nursing note. Reported Meds & Prescriptions Reported Meds & Active Scripts Active Isosorbide Mononitrate ER (Isosorbide Mononitrate) 60 Mg Tab 120 Mg PO DAILY@07 Atorvastatin (Atorvastatin Calcium) 40 Mg Tab 80 Mg PO DAILY Lisinopril 40 Mg Tab 40 Mg PO DAILY Chlorthalidone 50 Mg Tab 50 Mg PO DAILY Aspirin EC (Aspirin) 325 Mg Tabdr 325 Mg PO DAILY Nifedipine ER (Nifedipine) 90 Mg Tab 90 Mg PO DAILY Nitrostat SL (Nitroglycerin) 0.4 Mg Subl 0.4 Mg SL Q5M PRN Glipizide 10 Mg Tab 10 Mg PO BIDAC Take 30 minutes before a meal Metformin (Metformin HCl) 1,000 Mg Tab 1,000 Mg PO BIDPC With meals Plavix (Clopidogrel Bisulfate) 75 Mg Tab 75 Mg PO DAILY Lopressor (Metoprolol Tartrate) 100 Mg Tab 200 Mg PO BID Lancets 1 Mis Mis Ea .ROUTE DIRECTED Glucocom Blood Glucose Mo W/Device (Device) 1 Kit Kit Kit .ROUTE DIRECTED Reported Trazodone (Trazodone HCl) 100 Mg Tablet 100 Mg PO HS Protonix (Pantoprazole Sodium) 40 Mg Tab 40 Mg PO DAILY Latuda (Lurasidone) 40 Mg Tab 40 Mg PO DAILY Celexa (Citalopram Hydrobromide) 20 Mg Tab 20 Mg PO DAILY Narrative Medication List of his home medications reviewed from the nursing note. Review of Systems Except as stated in HPI: all other systems reviewed are Neg Cardiovascular: Positive: Chest Pain or Discomfort Physical Exam Narrative GENERAL: Awake, alert, morbidly obese, moderate disc SKIN: Focused skin assessment warm/dry. Erythema of the skin on the pendulous part of his abdomen which is the dependent part. HEAD: Atraumatic. Normocephalic. EYES: Pupils equal and round. No scleral icterus. No injection or drainage. ENT: No nasal bleeding or discharge. Mucous membranes pink and moist. NECK: Trachea midline. No JVD. CARDIOVASCULAR: Regular rate and rhythm. No murmur appreciated. RESPIRATORY: No accessory muscle use. Clear to auscultation. Breath sounds equal bilaterally. GASTROINTESTINAL: Abdomen soft, non-tender, nondistended. Hepatic and splenic margins not palpable. MUSCULOSKELETAL: No obvious deformities. No clubbing. No cyanosis. 3+ pedal edema. NEUROLOGICAL: Awake and alert. No obvious cranial nerve deficits. Motor grossly within normal limits. Normal speech. PSYCHIATRIC: Appropriate mood and affect; insight and judgment normal. Data Data Last Documented VS Vital Signs Date Time Temp Pulse Resp B/P (MAP) Pulse Ox O2 Delivery O2 Flow Rate FiO2 06/05/17 11:05 98 18 205/121 (149) 99 Room Air 06/05/17 09:27 97.7 Orders Orders Electrocardiogram (06/05/17 09:45) Basic Metabolic Panel (Bmp) (06/05/17 09:45) Ckmb (Isoenzyme) Profile (06/05/17 09:45) Complete Blood Count With Diff (06/05/17 09:45) Magnesium (Mg) (06/05/17 09:45) Prothrombin Time / Inr (Pt) (06/05/17 09:45) Act Partial Throm Time (Ptt) (06/05/17 09:45) Troponin I (06/05/17 09:45) Chest, Single Ap (06/05/17 09:45) Ecg Monitoring (06/05/17 09:45) Bilateral Bp Monitoring (06/05/17 09:45) Iv Access Insert/Monitor (06/05/17 09:45) Oximetry (06/05/17 09:45) Oxygen Administration (06/05/17 09:45) Sodium Chloride 0.9% Flush (Ns Flush) (06/05/17 09:45) Nitroglycerin Sl (Nitrostat Sl) (06/05/17 10:00) Labetalol Inj (Trandate Inj) (06/05/17 10:00) Ondansetron Inj (Zofran Inj) (06/05/17 10:45) Admit Order (Ed Use Only) (06/05/17 11:07) Labs Laboratory Tests Test 06/05/17 09:45 White Blood Count 8.6 TH/MM3 Red Blood Count 5.41 MIL/MM3 Hemoglobin 17.2 GM/DL Hematocrit 50.5 % Mean Corpuscular Volume 93.4 FL Mean Corpuscular Hemoglobin 31.8 PG Mean Corpuscular Hemoglobin Concent 34.0 % Red Cell Distribution Width 14.0 % Platelet Count 229 TH/MM3 Mean Platelet Volume 7.3 FL Neutrophils (%) (Auto) 74.7 % Lymphocytes (%) (Auto) 14.6 % Monocytes (%) (Auto) 8.2 % Eosinophils (%) (Auto) 1.9 % Basophils (%) (Auto) 0.6 % Neutrophils # (Auto) 6.4 TH/MM3 Lymphocytes # (Auto) 1.3 TH/MM3 Monocytes # (Auto) 0.7 TH/MM3 Eosinophils # (Auto) 0.2 TH/MM3 Basophils # (Auto) 0.1 TH/MM3 CBC Comment DIFF FINAL Differential Comment Prothrombin Time 10.3 SEC Prothromb Time International Ratio 1.0 RATIO Activated Partial Thromboplast Time 25.7 SEC Blood Urea Nitrogen 16 MG/DL Creatinine 1.15 MG/DL Random Glucose 153 MG/DL Calcium Level 8.5 MG/DL Magnesium Level 1.8 MG/DL Sodium Level 140 MEQ/L Potassium Level 4.2 MEQ/L Chloride Level 103 MEQ/L Carbon Dioxide Level 34.9 MEQ/L Anion Gap 2 MEQ/L Estimat Glomerular Filtration Rate 71 ML/MIN Total Creatine Kinase 70 U/L Troponin I 0.04 NG/ML MDM Medical Decision Making Medical Screen Exam Complete: Yes Emergency Medical Condition: Yes Medical Record Reviewed: Yes Interpretation(s) Twelve-lead EKG was reviewed by me. Normal sinus rhythm, right axis deviation, lateral T wave inversions, old anterior MO. Heart rate of 91 bpm. Differential Diagnosis Non-STEMI, ACS, congestive heart failure Narrative Course 11:14 AM patient was given sublingual nitroglycerin and IV labetalol to lower the blood pressure. Test results of back and they're within acceptable limits. Case was admitted her to the hospitalist given patient's hypertensive crisis and morbid obesity to rule out ACS. Procedures EKG Prior to Arrival: No Diagnosis Primary Impression: Chest pain Qualified Codes: R07.9 - Chest pain, unspecified Admitting Information Admitting Physician Requests: Observation Daljit Gonzalez MD Jun 05, 2017 11:15
[2017-06-05] MEDS ORDERED: DEXTROSE 50% IN WATER 50 ML VIAL(D50) IV PUSH PRN (11:30)
[2017-06-05] MEDS ORDERED: GLUCAGON 1 MG/ML VIAL OTHER PRN (11:30)
[2017-06-05] MEDS ORDERED: ENALAPRILAT 1.25 MG/ML VIAL IV PUSH PRN (11:30)
[2017-06-05] MEDS: INSULIN ASPART SUPPLEMENTAL SCALE SQ SCH ×3 (12:00→21:40)
[2017-06-05] MEDS ORDERED: NIFEdipine 30 MG SUSTAINED RELEASE TAB PO ONE ×2 (12:30→13:00)
[2017-06-05] MEDS: NITROGLYCERIN-D5W 50 MG/250 ML 250 ML IV PRN ×2 (14:18→22:41)
[2017-06-05] MEDS: ACETAMINOPHEN 650 MG/20.3 ML UDC PO PRN (16:26)
--- NOTE | 2017-06-05 18:48 | EKG ---
Date Performed: 06/05/2017 Time Performed: 09:35:44 PTAGE: 37 years EKG: Sinus rhythm POSSIBLE LEFT ATRIAL ENLARGEMENT BORDERLINE RIGHT AXIS DEVIATION INCOMPLETE RIGHT BUNDLE BRANCH BLOC K POSSIBLE ANTERIOR MYOCARDIAL INFARCTION ABNORMAL ECG PREVIOUS TRACING : 02/17/2017 18.36 Compared to prior tracing no significant change DOCTOR: Jenifer Billingsley Interpretating Date/Time 06/05/2017 18:46:19
[2017-06-05 19:12] LABS: BILIRUBIN, URINE NEG (NEG); BLOOD, URINE SMALL (NEG); GLUCOSE,URINE NEG (NEG); HYALINE CAST, URINE 1 /lpf (RARE); KETONE, URINE NEG (NEG); MUCUS URINE FEW /lpf (OCC); NITRITE,URINE NEG (NEG); URINE COLOR YELLOW (YELLW/STRAW); URINE LEUKOCYTE ESTERASE NEG (NEG)
[2017-06-05] MEDS ORDERED: CHLORHEXIDINE GLUCONATE 2 % 1 PACK (2 CLOTHS)(extra cloths) TOPICAL PRN (20:15)
[2017-06-05] MEDS: METOPROLOL TARTRATE 100 MG TAB PO SCH (21:39)
[2017-06-05] MEDS: traZODone HCL 100 MG TAB PO SCH (21:39)
[2017-06-06] VITALS (15 sets, daily range): BP systolic 104–155; BP diastolic 58–91; PULSE 71–96; RESP 13–24; TEMP 97.9–98.4; O2SAT 91–98
[2017-06-06] MEDS: CHLORHEXIDINE GLUCONATE 2 % 1 PACK (2 CLOTHS)(taper/protocol) TOPICAL SCH (04:00)
[2017-06-06] MEDS: ISOSORBIDE MONONITRATE 60 MG TAB PO SCH (06:32)
[2017-06-06] MEDS ORDERED: CHLORTHALIDONE 50 MG PO SCH (09:00)
[2017-06-06] MEDS: ASPIRIN EC 325 MG TABEC PO SCH (09:11)
[2017-06-06] MEDS: METOPROLOL TARTRATE 100 MG TAB PO SCH ×2 (09:11→19:53)
[2017-06-06] MEDS: ATORVASTATIN 80 MG TAB PO SCH (09:11)
[2017-06-06] MEDS: PANTOPRAZOLE SOD 40 MG DELAYED RELEASE TAB PO SCH (09:12)
[2017-06-06] MEDS: NIFEdipine 90 MG SUSTAINED RELEASE TAB PO SCH (09:12)
[2017-06-06] MEDS: LISINOPRIL 20 MG TAB PO SCH (09:12)
[2017-06-06] MEDS: CITALOPRAM HYDROBROMIDE 20 MG TAB PO SCH (09:12)
[2017-06-06] MEDS: CLOPIDOGREL 75 MG TAB PO SCH (09:12)
[2017-06-06] MEDS: LURASIDONE 40 MG TAB PO SCH (09:15)
[2017-06-06] MEDS: INSULIN ASPART SUPPLEMENTAL SCALE SQ SCH ×4 (09:16→19:54)
--- NOTE | 2017-06-06 14:18 | HHI.PR ---
Subjective Remarks Patient seen today around 1 PM. He reports that chest pain has improved greatly , however still present. He reports generalized shortness of breath over the past week. Reports a worsening bilateral lower extremity edema. He denies any recent changes in medications. Discussed with nurse. Patient is on 6 L via simple mask. Objective Vital Signs Date Time Temp Pulse Resp B/P (MAP) Pulse Ox O2 Delivery O2 Flow Rate FiO2 06/06/17 12:00 79 06/06/17 12:00 98.2 79 14 153/91 (111) 98 06/06/17 10:00 96 06/06/17 08:00 98.4 90 18 155/70 (98) 97 06/06/17 08:00 90 06/06/17 06:00 96 06/06/17 06:00 89 135/71 06/06/17 05:00 89 140/83 06/06/17 04:00 88 06/06/17 04:00 82 151/90 06/06/17 04:00 97.9 88 24 141/82 (101) 93 06/06/17 03:00 87 115/65 06/06/17 02:00 82 06/06/17 02:00 79 132/66 06/06/17 01:00 78 120/85 06/06/17 00:00 98.0 74 22 119/67 (84) 94 06/06/17 00:00 75 119/67 06/06/17 00:00 74 06/05/17 22:41 77 132/60 06/05/17 22:00 70 06/05/17 20:36 94 Nasal Cannula 6.00 06/05/17 20:00 94 06/05/17 19:30 97.8 89 22 134/81 (98) 89 06/05/17 19:29 06/05/17 18:17 89 18 143/74 (97) 98 Room Air 06/05/17 18:05 89 18 155/88 (110) 98 Room Air 06/05/17 17:45 90 18 150/66 (94) 98 Room Air 06/05/17 17:30 90 18 159/83 (108) 98 Room Air 06/05/17 17:30 90 159/83 06/05/17 17:15 18 06/05/17 17:10 89 18 151/77 (101) 99 Room Air 06/05/17 16:50 89 18 187/89 (121) 99 Room Air 06/05/17 16:28 90 18 167/90 (115) 99 Room Air 06/05/17 16:28 90 167/90 06/05/17 16:09 89 199/124 06/05/17 16:00 89 18 199/124 (149) 99 Room Air 06/05/17 15:44 89 18 219/108 (145) 99 Room Air 06/05/17 15:44 89 219/108 06/05/17 15:28 91 204/100 06/05/17 15:20 91 18 204/100 (134) 99 Room Air 06/05/17 15:03 94 207/92 06/05/17 15:02 94 18 207/92 (130) 97 Room Air 06/05/17 14:51 91 18 223/115 (151) 97 Room Air 06/05/17 14:50 91 223/115 06/05/17 14:45 95 18 212/95 (134) 97 Room Air 06/05/17 14:45 95 212/95 06/05/17 14:40 93 18 209/96 (133) 98 Room Air 06/05/17 14:40 93 209/96 06/05/17 14:35 94 203/108 06/05/17 14:35 94 19 203/108 (139) 98 Room Air 06/05/17 14:30 91 17 198/111 (140) 98 Room Air 06/05/17 14:30 91 198/111 06/05/17 14:25 90 18 194/113 (140) 98 Room Air 06/05/17 14:25 90 194/113 06/05/17 14:19 91 18 254/128 (170) 99 Room Air 06/05/17 14:18 91 254/128 I/O 06/05/17 06/05/17 06/05/17 06/06/17 06/06/17 06/06/17 06:59 14:59 22:59 06:59 14:59 22:59 Intake Total 250 ml 460 ml Output Total 900 ml Balance 250 ml -440 ml Intake Oral 460 ml IV Total 250 ml Output Urine Total 900 ml # Bowel Movements 0 Result Diagram: 06/05/1745 06/05/17944 Objective Remarks GENERAL: Patient sitting up in bed. somewhat short of breath while talking. SKIN: Warm and dry. HEAD: Normocephalic. EYES: No scleral icterus. No injection or drainage. NECK: Supple, trachea midline. Jugular venous distention hard to ascertain secondary to body habitus CARDIOVASCULAR: Regular rate and rhythm without murmurs, gallops, or rubs. RESPIRATORY: Breath sounds equal bilaterally. No accessory muscle use. GASTROINTESTINAL: Abdomen soft, non-tender, nondistended. MUSCULOSKELETAL: No cyanosis. 2+ bilateral lower extremity edema. BACK: Nontender without obvious deformity. No CVA tenderness. A/P Assessment and Plan 37-year-old morbidly obese male with a past medical history significant for hypertension, diabetes, bipolar disorder, sleep apnea, dyslipidemia, GERD, CHF and s/p NSTEMI 01/2017 who presents to [facility] ED with complaints of 9/10 substernal nonradicular throbbing chest pain for the past 2 days. Previously patient was evaluated by cardiology but medical therapy was recommended due to the fact that cardiac catheterization lab cannot recommended him because of his body habitus. //Hypertensive crisis - BP 265/144 at ED presentation - patient given Labetalol, Nitroglycerin and Nifedipine XL in the ED. BP still uncontrolled. - admit [place] [facility] [place] - Resume patient on home dose of Imdur 120 mg daily, Lopressor 200 mg twice a day, Procardia XL 90 mg daily - Hold home dose of chlorthalidone secondary to low GFR. Obtain UA. - Monitor BP and adjust treatment accordingly = Blood pressure much improved. Discontinue nitroglycerin drip. Check BNP Check drug screen. Start Lasix //Hypoxemic respiratory failure. -Oxygen requirement of 6 L simple mask. We'll check ABG. Chest x-ray. Consult pulmonology. //Chest pain, R/O ACS //CAD s/p recent NSTEMI 01/2017 - suspect secondary to uncontrolled HTN - initial troponin 0.04. Continue to cycle Kinga and EKGs. - continuous cardiac monitoring - BB, ASA, Plavix, statin daily //CHF, systolic - CXR revealing cardiomegaly but no evidence of acute cardio pulmonary process, images reviewed by me - echocardiogram 01/12 technically difficult study, LVH, EF 40-45%, pHTN 60- 70mmhg - Monitor respiratory status, patient currently satting 99% on room air -Check BNP //DM - at home patient takes Metformin and Glipizide, hold - accucheck - ISS - heart healthy diabetic diet //GERD - continue on home dose of Pantoprazole //DVT prophylaxis - bilateral SCD Ottoniel Boyle MD Jun 06, 2017 14:18
[2017-06-06] MEDS ORDERED: FUROSEMIDE 20 MG/2 ML VIAL IV PUSH ONE (14:30)
--- NOTE | 2017-06-06 15:35 | RADRPT ---
EXAM DATE/TIME: 06/06/2017 14:55 [place] COMPARISON: CHEST SINGLE AP, June 05, 2017, 9:59. INDICATIONS : Short of breath MEDICAL HISTORY : Hypertension. Congestive heart failure. Diabetes mellitus type II. SURGICAL HISTORY : None. ENCOUNTER: Initial ACUITY: 2 days PAIN SCORE: 0/10 LOCATION: chest FINDINGS: Limited examination due to body habitus. There is mild diffuse interstitial prominence exaggerated by low lung volumes. Cardiac silhouette remains enlarged. Remainder of exam is unchanged. CONCLUSION: 1. Cardiomegaly with mild positive fluid balance. Floyd Ballard MD on June 06, 2017 at 15:31 Board Certified Radiologist. This report was verified electronically.
[2017-06-06] MEDS ORDERED: ONDANSETRON HCL 4 MG/2 ML VIAL IV PUSH PRN (16:00)
[2017-06-06] MEDS: traZODone HCL 100 MG TAB PO SCH (19:53)
[2017-06-06] MEDS ORDERED: ACETAMINOPHEN/HYDROcodone 325 MG/5 MG TAB PO PRN (21:15)
[2017-06-06] MEDS ORDERED: RESP: ALBUTEROL 2.5 MG/IPRATROPIUM 0.5 MG NEB (PRN) NEB (21:15)
[2017-06-07] VITALS (13 sets, daily range): BP systolic 106–165; BP diastolic 56–99; PULSE 69–92; RESP 13–28; TEMP 96.8–98.5; O2SAT 89–98
[2017-06-07] MEDS: CHLORHEXIDINE GLUCONATE 2 % 1 PACK (2 CLOTHS)(taper/protocol) TOPICAL SCH (04:00)
[2017-06-07] MEDS: ISOSORBIDE MONONITRATE 60 MG TAB PO SCH (07:32)
--- NOTE | 2017-06-07 08:16 | PD.CONS ---
HPI Service cardiology Consult Requested By Reason for Consult chest pain Primary Care Physician No Primary Care Physician History of Present Illness This is a 37 yo morbidly obese WM with history of HTN, diabetes, sleep apnea, CHF and NSTEMI in Jan 2017 who presented with persistent substernal chest pain x 3 days. He states chest pain started 3 days ago and he thought it may be a flare up of GERD; he took TUMS with no relief. He also admits to SOB on exertion and orthopnea. On last admission in 01/2017 cardiac catheterization could not be completed due to weight limit. Upon admission his BP was elevated; troponin 0.04 which appear stable from previous visit. EKG did not demonstrate any concerning ST changes. Currently he is resting comfortably without chest pain. (Emelia Landrum) Review of Systems Consitutional: DENIES: Fatigue, Fever, Chills, Weight loss Respiratory: DENIES: Cough, Snoring, Shortness of breath, Wheezing Cardiovascular: DENIES: Chest pain, Palpitations, Syncope, Tachycardia Gastrointestinal: DENIES: Nausea, Vomiting, Change in bowel habits, Reflux, Bloody stools, Melena (Emelia Landrum) Past Family Social History Allergies: Coded Allergies: diclofenac (Unverified Adverse Reaction, Mild, UPSETS STOMACH, 06/05/17) etodolac (Unverified Adverse Reaction, Mild, UPSETS STOMACH, 06/05/17) flurbiprofen (Unverified Adverse Reaction, Mild, UPSETS STOMACH, 06/05/17) ibuprofen (Unverified Adverse Reaction, Mild, UPSETS STOMACH, 06/05/17) indomethacin (Unverified Adverse Reaction, Mild, UPSETS STOMACH, 06/05/17) ketoprofen (Unverified Adverse Reaction, Mild, UPSETS STOMACH, 06/05/17) ketorolac (Unverified Adverse Reaction, Mild, UPSETS STOMACH, 06/05/17) naproxen (Unverified Adverse Reaction, Mild, UPSETS STOMACH, 06/05/17) oxaprozin (Unverified Adverse Reaction, Mild, UPSETS STOMACH, 06/05/17) Past Medical History HTN hx of NSTEMI 02/12 CHF HLD Morbid obesity DM GERD MANISH, CPAP compliant Kidney stones Bipolar d/o Past Surgical History Cardiac cath 2013 Cholecystectomy Pyloric stenosis surgery in clinical pharmacologist Renal stent Reported Medications Reported Meds & Active Scripts Active Isosorbide Mononitrate ER (Isosorbide Mononitrate) 60 Mg Tab 120 Mg PO DAILY@07 Atorvastatin (Atorvastatin Calcium) 40 Mg Tab 80 Mg PO DAILY Lisinopril 40 Mg Tab 40 Mg PO DAILY Chlorthalidone 50 Mg Tab 50 Mg PO DAILY Aspirin EC (Aspirin) 325 Mg Tabdr 325 Mg PO DAILY Nifedipine ER (Nifedipine) 90 Mg Tab 90 Mg PO DAILY Nitrostat SL (Nitroglycerin) 0.4 Mg Subl 0.4 Mg SL Q5M PRN Glipizide 10 Mg Tab 10 Mg PO BIDAC Take 30 minutes before a meal Metformin (Metformin HCl) 1,000 Mg Tab 1,000 Mg PO BIDPC With meals Plavix (Clopidogrel Bisulfate) 75 Mg Tab 75 Mg PO DAILY Lopressor (Metoprolol Tartrate) 100 Mg Tab 200 Mg PO BID Lancets 1 Mis Mis Ea .ROUTE DIRECTED Glucocom Blood Glucose Mo W/Device (Device) 1 Kit Kit Kit .ROUTE DIRECTED Reported Trazodone (Trazodone HCl) 100 Mg Tablet 100 Mg PO HS Protonix (Pantoprazole Sodium) 40 Mg Tab 40 Mg PO DAILY Latuda (Lurasidone) 40 Mg Tab 40 Mg PO DAILY Celexa (Citalopram Hydrobromide) 20 Mg Tab 20 Mg PO DAILY Active Ordered Medications Current Medications Medications (Trade) Dose Ordered Sig/Abdulaziz Route Start Time Stop Time Status Last Admin (NS Flush) 2 ml UNSCH PRN IVF 06/05/17 09:45 (Vasotec Inj) 1.25 mg Q8H PRN IV PUSH 06/05/17 11:30 Future Hold (D50w (Vial) Inj) 50 ml UNSCH PRN IV PUSH 06/05/17 11:30 (Glucagon Inj) 1 mg UNSCH PRN OTHER 06/05/17 11:30 (NovoLOG SUPPLEMENTAL SCALE) 1 ACHS SLIDING SCALE SQ 06/05/17 12:00 06/06/17 19:54 (Ecotrin Ec) 325 mg DAILY PO 06/06/17 09:00 06/06/17 09:11 (Lipitor) 80 mg DAILY PO 06/06/17 09:00 06/06/17 09:11 (CeleXA) 20 mg DAILY PO 06/06/17 09:00 06/06/17 09:12 (Plavix) 75 mg DAILY PO 06/06/17 09:00 06/06/17 09:12 (Imdur) 120 mg DAILY@07 PO 06/06/17 07:00 06/07/17 07:32 (Latuda) 40 mg DAILY PO 06/06/17 09:00 06/06/17 09:15 (Lopressor) 200 mg BID PO 06/05/17 21:00 06/06/17 19:53 (Procardia Xl) 90 mg DAILY PO 06/06/17 09:00 06/06/17 09:12 (Protonix) 40 mg DAILY PO 06/06/17 09:00 06/06/17 09:12 Patient Own Medication PT OWN MED: CHLORTHALIDONE 50MG TAB... DAILY PO 06/06/17 09:00 Future Hold (Prinivil) 40 mg DAILY PO 06/06/17 09:00 06/06/17 09:12 (Desyrel) 100 mg HS PO 06/05/17 21:00 06/06/17 19:53 (Tylenol 650 Mg/ 20 ml Liq) 600 mg Q6H PRN PO 06/05/17 16:00 06/05/17 16:26 Miscellaneous Information Patient in critical care unit? Ass... Q361D .XX 06/05/17 20:15 (Chlorhexidine 2% Cloth) 3 pack DAILY@04 TOPICAL 06/06/17 04:00 06/10/17 04:01 06/07/17 04:00 (Chlorhexidine 2% Cloth) 3 pack UNSCH PRN TOPICAL 06/05/17 20:15 06/10/17 20:13 (Lasix Inj) 20 mg BID@ IV PUSH 06/07/17 09:00 (Zofran Inj) 4 mg Q6HR PRN IV PUSH 06/06/17 16:00 06/06/17 16:05 (Duoneb Neb) 1 ampule Q4HR NEB PRN NEB 06/06/17 21:15 ([place] 5-325 Mg) 1 tab Q6H PRN PO 06/06/17 21:15 06/06/17 21:48 Family History Grandmother, pacemaker Father, HTN Mental health issues Social History Patient has a history of tobacco use 2 packs/week but quit 3 1/2 to 4 years ago. Patient does not drink alcohol. Patient denies illicit drug use. (Emelia Landrum) Physical Exam Vital Signs Vital Signs Date Time Temp Pulse Resp B/P (MAP) Pulse Ox O2 Delivery O2 Flow Rate FiO2 06/07/17 06:00 75 06/07/17 04:00 80 06/07/17 04:00 96.8 80 13 110/60 (77) 98 06/07/17 02:00 78 06/07/17 00:00 78 24 114/56 (75) 96 06/07/17 00:00 78 06/06/17 23:40 92 Simple Mask 10.00 06/06/17 22:00 71 06/06/17 20:55 93 Simple Mask 10.00 06/06/17 20:00 98.0 79 13 104/58 (73) 95 06/06/17 20:00 79 06/06/17 18:00 77 06/06/17 16:30 98.2 74 19 147/83 (104) 91 06/06/17 16:00 74 06/06/17 14:00 73 06/06/17 12:00 79 06/06/17 12:00 98.2 79 14 153/91 (111) 98 06/06/17 10:00 96 06/06/17 10:00 98 Simple Mask 6.00 Physical Exam GENERAL: morbidly obese SKIN: Warm and dry. HEAD: Atraumatic. Normocephalic. EYES: Pupils equal and round.. ENT: No nasal bleeding or discharge NECK: Trachea midline. No JVD. CARDIOVASCULAR: Regular rate and rhythm. no murmurs RESPIRATORY: No accessory muscle use. Clear to auscultation. Breath sounds equal bilaterally. GASTROINTESTINAL: Abdomen soft, non-tender, nondistended. MUSCULOSKELETAL: Extremities without clubbing, cyanosis, or edema. NEUROLOGICAL: Awake and alert. No obvious cranial nerve deficits. PSYCHIATRIC: Appropriate mood and affect; insight and judgment normal. Laboratory Laboratory Tests Test 06/06/17 14:35 06/06/17 18:45 Blood Gas Puncture Site RT RADIAL Blood Gas Patient Temperature 98.6 Blood Gas HCO3 33 Blood Gas Base Excess 6.9 Blood Gas Oxygen Saturation 93 Arterial Blood pH 7.31 Arterial Blood Partial Pressure CO2 68 Arterial Blood Partial Pressure O2 83 Arterial Blood Oxygen Content 20.4 Arterial Blood Carboxyhemoglobin 2.0 Arterial Blood Methemoglobin 1.2 Blood Gas Hemoglobin 15.6 Oxygen Delivery Device SIMPLE MASK Blood Gas Liter Flow 6 Urine Opiates Screen NEG Urine Barbiturates Screen NEG Urine Amphetamines Screen NEG Urine Benzodiazepines Screen NEG Urine Cocaine Screen NEG Urine Cannabinoids Screen NEG (Emelia Landrum) Result Diagram: 06/05/17 0945 06/05/17 0945 Imaging Last 48 hours Impressions Chest X-Ray 06/06/17 0000 Signed Impressions: Service Date/Time: Tuesday, June 06, 2017 14:55 - CONCLUSION: 1. Cardiomegaly with mild positive fluid balance. Floyd Ballard MD Chest X-Ray 06/05/17 0945 Signed Impressions: Service Date/Time: Monday, June 05, 2017 09:59 - CONCLUSION: 1. Cardiomegaly 2. No evidence of significant congestion or acute air space disease. Daniel Valverde MD (Emelia Landrum) Assessment and Plan Problem List: (1) HTN (hypertension) ICD Codes: I10 - Hypertension Status: Chronic (2) Non-ST elevation IA (NSTEMI) ICD Codes: I21.4 - Non-ST elevation IA (NSTEMI) Status: Acute Assessment and Plan This is a 37 yo morbidly obese WM with history of HTN, diabetes, sleep apnea, CHF and NSTEMI in Jan 2017 who presented with persistent substernal chest pain x 3 days NSTEMI- troponin 0.04 x 3, stable from previous visit in 01/2017 unable to perform cardiac catheterization or CTA of coronaries in 01/2017 due to body habitus echo EF 40-45% patient asymptomatic. continue medical management (Emelia Landrum) Assessment and Plan add ranexa 500 BID monitor QTc on EKG (Alan Torres MD) Emelia Landrum Jun 07, 2017 08:16 Alan Torres MD Jun 07, 2017 08:30
[2017-06-07] MEDS: ACETAMINOPHEN 650 MG/20.3 ML UDC PO PRN (08:52)
[2017-06-07] MEDS: INSULIN ASPART SUPPLEMENTAL SCALE SQ SCH ×4 (08:53→21:00)
[2017-06-07] MEDS: FUROSEMIDE 20 MG/2 ML VIAL IV PUSH SCH ×2 (08:54→17:33)
[2017-06-07] MEDS: PANTOPRAZOLE SOD 40 MG DELAYED RELEASE TAB PO SCH (08:54)
[2017-06-07] MEDS: LURASIDONE 40 MG TAB PO SCH (08:55)
[2017-06-07] MEDS: NIFEdipine 90 MG SUSTAINED RELEASE TAB PO SCH (08:55)
[2017-06-07] MEDS: ATORVASTATIN 80 MG TAB PO SCH (08:55)
[2017-06-07] MEDS: METOPROLOL TARTRATE 100 MG TAB PO SCH ×2 (08:55→21:11)
[2017-06-07] MEDS: ASPIRIN EC 325 MG TABEC PO SCH (08:55)
[2017-06-07] MEDS: CLOPIDOGREL 75 MG TAB PO SCH (08:55)
[2017-06-07] MEDS: LISINOPRIL 20 MG TAB PO SCH (08:55)
[2017-06-07] MEDS: CITALOPRAM HYDROBROMIDE 20 MG TAB PO SCH (08:55)
--- NOTE | 2017-06-07 09:48 | MB ---
cc: TREVER PERERA M.D. DATE OF CONSULTATION 06/07/2017 REASON FOR CONSULTATION Shortness of breath, known history of obstructive sleep apnea, morbid obesity. HISTORY OF PRESENT ILLNESS Mr. Torer is a 37-year-old male with known history of obstructive sleep apnea using CPAP therapy at home which he tells me does not work as well. He has gained significant weight in the last few years. The patient does have history of hypertension, diabetes mellitus, bipolar disorder, congestive heart failure and coronary artery disease. He was admitted with substernal chest pain for two days prior to hospitalization. He has been followed by cardiology as an outpatient. The patient's blood pressure upon presentation was significantly elevated with a systolic pressure in the 260 range. The patient's chest pain is now significantly improved as is his shortness of breath. He is sitting at bedside. Denies history of fever, chills, cough or expectoration. PAST MEDICAL HISTORY 1. Obstructive sleep apnea on CPAP. 2. Hypertension. 3. Coronary artery disease. 4. Congestive heart failure. 5. Hyperlipidemia. 6. Diabetes mellitus. 7. Acid reflux. 8. Bipolar disorder. 9. History of renal calculi. PAST SURGICAL HISTORY 1. Cardiac cath in 2013. 2. Cholecystectomy. 3. Pyloric stenosis as a child for which he had surgery. 4. Renal stent in place. MEDICATIONS Medications at home include: 1. Lisinopril. 2. Isosorbide. 3. Atorvastatin. 4. Chlorthalidone. 5. Aspirin. 6. Nifedipine. 7. Nitrostat. 8. Glipizide. 9. Metformin. 10.Plavix. 11.Lopressor. 12.Trazodone. 13.Protonix. 14.Latuda. 15.Celexa. ALLERGIES NONSTEROIDAL ANTI-INFLAMMATORY AGENTS CAUSE STOMACH UPSET. SOCIAL HISTORY Ex-smoker, stopped smoking 4 years ago. Does not drink any alcohol. Does not use drugs. FAMILY HISTORY Positive for heart disease, hypertension, mood disorder. Grandmother has a pacemaker in place. REVIEW OF SYSTEMS A 12-point review of systems as per HPI and past history, otherwise negative. PHYSICAL EXAMINATION VITAL SIGNS: Temperature 98, pulse 86, respirations 18, blood pressure 150/90. HEENT: Unremarkable. Eyes without icterus. NECK: Without adenopathy or thyroid enlargement. Central trachea. CHEST: Without dullness to percussion, clear to auscultation. CARDIAC: PMI distant. S1, S2 audible. No murmur or rub. ABDOMEN: Obese, lax. EXTREMITIES: 1+ edema. LABORATORY White count 8000, hemoglobin 17, hematocrit 50, platelets 229,000. Sodium 140, potassium 4.2, BUN 16, creatinine 1.1. IMPRESSION 1. Obstructive sleep apnea on CPAP. 2. Morbid obesity with significant recent weight gain. 3. Congestive heart failure. 4. Coronary artery disease. 5. Diabetes mellitus. 6. Hypertension, poorly controlled. PLAN The patient does have shortness of breath which is likely multifactorial. He does have a history of congestive heart failure, ejection fraction between 40 and 45%. He is morbidly obese and extremely deconditioned. He does have a previous smoking history which is quite significant, however, has not smoked for 4 years now. Will check baseline pulmonary function. The patient's chest x-ray is with cardiomegaly and congestive change and cardiology is following. He is to continue his CPAP therapy, however, will need reevaluation in view of the recent weight gain and the patient tells me the machine is not working as well as it did in the past. Obviously he needs to lose weight and exercise regularly. I do thank you for asking me to partake in Mr. Torre' care. Trever Perera MD WWW/ESTHER /8:36 AM /9:27 AM
[2017-06-07] MEDS: RANOLAZINE 500 MG EXTENDED RELEASE TAB PO SCH ×2 (13:05→21:11)
--- NOTE | 2017-06-07 19:18 | MB ---
cc: MARIBEL ORELLANA M.D. DATE OF CONSULTATION 06/07/2017 HISTORY OF THE PRESENT ILLNESS Joss is a very pleasant 29-year-old gentleman who is morbidly obese, weighs 320.7 kg. History of nonobstructive coronary artery disease by cath in 2013. His history at the last catheterization stent was unsuccessful due to his large body habitus. The patient presents to the ER with chief complaint of chest pain, shortness of breath daily for about two days prior to admission. At the bedside with nurse the nurse present the patient is very somnolent, dozing off to sleep in the middle of trying to get a history. Currently denies chest pain. States his breathing is improved. REVIEW OF SYSTEMS Negative for any fevers, chills, cough, GI or bleeding, paroxysmal nocturnal dyspnea, orthopnea, syncope or dizziness. PAST HISTORY Per the history of present illness. 1. Per the chart he has a history of two STEMIs. 2. "He has a history of bipolar disorder". 3. Depression. 4. History of hypertension. 5. Hyperlipidemia. 6. Diabetes mellitus. 7. Gastroesophageal reflux disease. 8. Pyloric stenosis as a . 9. Nephrolithiasis. 10. History of two suicide attempts in the past. 11. Sleep apnea. 12. Migraine headaches. 13. Reported myocardial infarction in 2012, 2016. 14. Schizophrenia. 15. Renal stent "with kidney stone removal". SOCIAL HISTORY Denies alcohol use. Quit smoking in 2013. ALLERGIES DICLOFENAC, ETODOLAC, FLURBIPROFEN, IBUPROFEN, INDOMETHACIN, KETOPROFEN, KETOLAC, NAPROXEN, OXAPROZIN. MEDICATIONS Upon admission: 1. Isosorbide mononitrate 60 milligrams daily. 2. Atorvastatin 40 milligrams daily. 3. Lisinopril 40 milligrams daily. 4. Chlorthalidone 50 milligrams daily. 5. Aspirin 325 milligrams daily. 6. Nifedipine 90 milligrams daily. 7. Glipizide 10 milligrams twice a day. 8. Metformin 1000 twice a day. 9. Plavix 75 daily. 10. Lopressor 200 milligrams twice a day. 11. Lancets. 12. Trazodone. 13. Protonix. 14. Latuda. 15. Celexa. MEDICATIONS In the hospital: 1. Nifedipine 90 milligrams daily. 2. Pantoprazole 40 milligrams daily. 3. Lisinopril 40 milligrams daily. 4. Isosorbide mononitrate 120 mg daily. 5. Metoprolol 200 milligrams b.i.d. 6. Atorvastatin 80 daily. PHYSICAL EXAMINATION VITAL SIGNS: Blood pressure was 106/57, respiratory rate ranging between 20-26, pulse 74, temperature 97.6. GENERAL: He is very somnolent but oriented x3 in no acute distress. NECK: Supple. No JVD or bruits. CARDIOVASCULAR: Normal S1-S2. No murmurs, rubs, or gallops. LUNGS: Clear to auscultation bilaterally. ABDOMEN: Soft and nontender. Nondistended. Positive bowel sounds. EXTREMITIES: No lower extremity edema. IMAGING Chest x-ray cardiomegaly, no evidence of significant congestion or acute airspace disease. The repeat chest x-ray today, cardiomegaly with "mild positive fluid balance." EKG done in the ER yesterday normal sinus rhythm at 91 beats per minute, asymmetric T-wave inversion in lead I and aVL. LABORATORY DATA His labs, white count 8.6, hemoglobin 17.2, hematocrit 50.5, platelet count 229. Blood gas pH 7.31, pCO2 68, pO2 83 on 6 liters "simple mask". BNP is pending. Troponin 0.4 x3. Sodium 140, potassium 4.2, chloride 103, bicarb 34.9, BUN 16, creatinine 1.15. INR 1.0. FINAL DIAGNOSES 1. Unstable angina. 2. Coronary artery disease. 3. Morbid obesity. 4. Polycythemia. DISCUSSION The patient is currently on optimal medical therapy including aspirin, Lipitor 80, Lopressor 200 b.i.d., lisinopril. I will have to discuss whether or not he can be cath based on the equipment we have in our facility and also see if we can find any more information about his failed cath that he had in the past. The patient's symptoms are improving. There is no objective evidence of ischemia. Will keep him n.p.o. after midnight in case he decompensates in any way and we are able to accommodate him with our facilities here at [facility]. MD MOHAMUD Forbes/KK /3:37 PM /6:28 PM
--- NOTE | 2017-06-07 20:50 | HHI.PR ---
Subjective Remarks Follow up for NSTEMI. Patient is currently doing well. He is using his home CPAP machine. No acute concerns. Objective Vitals Vital Signs Date Time Temp Pulse Resp B/P (MAP) Pulse Ox O2 Delivery O2 Flow Rate FiO2 06/07/17 18:00 84 06/07/17 17:00 97.6 79 28 141/72 (95) 98 06/07/17 16:00 81 06/07/17 14:00 69 06/07/17 12:00 97.6 74 26 106/57 (73) 95 06/07/17 12:00 74 06/07/17 10:44 20 06/07/17 10:00 75 06/07/17 08:00 97.8 89 20 165/99 (121) 92 06/07/17 06:00 75 06/07/17 04:00 80 06/07/17 04:00 96.8 80 13 110/60 (77) 98 06/07/17 02:00 78 06/07/17 00:00 78 24 114/56 (75) 96 06/07/17 00:00 78 06/06/17 23:40 92 Simple Mask 10.00 06/06/17 22:00 71 06/06/17 20:55 93 Simple Mask 10.00 I/O 06/06/17 06/06/17 06/06/17 06/07/17 06/07/17 06/07/17 07:00 15:00 23:00 07:00 15:00 23:00 Intake Total 460 ml 329.9 ml 200 ml 0 ml 320 ml Output Total 900 ml 800 ml 400 ml 800 ml 1100 ml Balance -440 ml -470.1 ml -200 ml -800 ml -780 ml Intake Oral 460 ml 250 ml 200 ml 320 ml IV Total 79.9 ml 0 ml Output Urine Total 900 ml 800 ml 400 ml 800 ml 1100 ml # Bowel Movements 0 1 0 0 Result Diagram: 06/05/17 0945 06/05/17 0945 Imaging Last Impressions Chest X-Ray 06/06/17 0000 Signed Impressions: Service Date/Time: Tuesday, June 06, 2017 14:55 - CONCLUSION: 1. Cardiomegaly with mild positive fluid balance. Floyd Ballard MD Objective Remarks GENERAL: Alert, NAD. Morbidly obese. SKIN: Warm and dry. HEAD: Normocephalic. EYES: No scleral icterus. No injection or drainage. NECK: Supple, trachea midline. No JVD or lymphadenopathy. CARDIOVASCULAR: Regular rate and rhythm without murmurs, gallops, or rubs. RESPIRATORY: Breath sounds equal bilaterally. No accessory muscle use. GASTROINTESTINAL: Abdomen soft, non-tender, nondistended. MUSCULOSKELETAL: No cyanosis, or edema. BACK: Nontender without obvious deformity. No CVA tenderness. Procedures None. A/P Assessment and Plan 37-year-old morbidly obese male with a past medical history significant for hypertension, diabetes, bipolar disorder, sleep apnea, dyslipidemia, GERD, CHF and s/p NSTEMI 01/2017 who presents to [facility] ED with complaints of 9/10 substernal nonradicular throbbing chest pain for the past 2 days. Previously patient was evaluated by cardiology but medical therapy was recommended due to the fact that cardiac catheterization lab cannot recommended him because of his body habitus. Accelerated hypertension - BP 265/144 at ED presentation - currently normotensive. - patient given Labetalol, Nitroglycerin and Nifedipine XL in the ED. - Continue Lasix 20mg IV BID, Lisinopril 40mg Qday, metoprolol 200mg BID, Nifedipine 90mg Qday. Chest pain - troponin 0.04. CAD s/p recent NSTEMI 01/2017 - Cardiology evaluated - patient would not be a candidate for cardiac cath. - Continue Aspirin, Plavix, Lipitor. CHF, systolic - CXR revealing cardiomegaly but no evidence of acute cardio pulmonary process - echocardiogram 01/12 technically difficult study, LVH, EF 40-45%, pHTN 60- 70mmhg DM - at home patient takes Metformin and Glipizide, hold - accucheck - ISS - heart healthy diabetic diet Obstructive sleep apnea Probable obesity hypoventilation syndrome - Continue home CPAP. GERD - continue on home dose of Pantoprazole DVT prophylaxis - bilateral SCD Full code. SCDs. Transfer to floor when bed available. Wellington Galloway DO Jun 07, 2017 20:50
[2017-06-07] MEDS: traZODone HCL 100 MG TAB PO SCH (21:11)
[2017-06-08] VITALS (8 sets, daily range): BP systolic 106–158; BP diastolic 61–88; PULSE 73–89; RESP 14–22; TEMP 97.9–98.7; O2SAT 68–95
[2017-06-08] MEDS: CHLORHEXIDINE GLUCONATE 2 % 1 PACK (2 CLOTHS)(taper/protocol) TOPICAL SCH (04:00)
[2017-06-08] MEDS: ISOSORBIDE MONONITRATE 60 MG TAB PO SCH (05:48)
[2017-06-08] MEDS: INSULIN ASPART SUPPLEMENTAL SCALE SQ SCH ×2 (08:00→12:00)
--- NOTE | 2017-06-08 08:15 | PD.CARD.PN ---
Subjective Subjective Remarks resting comfortably, using cpap. no reoccurrence of chest pain Objective Medications Current Medications Medications (Trade) Dose Ordered Sig/Abdulaziz Route Start Time Stop Time Status Last Admin (NS Flush) 2 ml UNSCH PRN IVF 06/05/17 09:45 (Vasotec Inj) 1.25 mg Q8H PRN IV PUSH 06/05/17 11:30 Future Hold (D50w (Vial) Inj) 50 ml UNSCH PRN IV PUSH 06/05/17 11:30 (Glucagon Inj) 1 mg UNSCH PRN OTHER 06/05/17 11:30 (NovoLOG SUPPLEMENTAL SCALE) 1 ACHS SLIDING SCALE SQ 06/05/17 12:00 06/07/17 17:33 (Ecotrin Ec) 325 mg DAILY PO 06/06/17 09:00 06/07/17 08:55 (Lipitor) 80 mg DAILY PO 06/06/17 09:00 06/07/17 08:55 (CeleXA) 20 mg DAILY PO 06/06/17 09:00 06/07/17 08:55 (Plavix) 75 mg DAILY PO 06/06/17 09:00 06/07/17 08:55 (Imdur) 120 mg DAILY@07 PO 06/06/17 07:00 06/08/17 05:48 (Latuda) 40 mg DAILY PO 06/06/17 09:00 06/07/17 08:55 (Lopressor) 200 mg BID PO 06/05/17 21:00 06/07/17 21:11 (Procardia Xl) 90 mg DAILY PO 06/06/17 09:00 06/07/17 08:55 (Protonix) 40 mg DAILY PO 06/06/17 09:00 06/07/17 08:54 Patient Own Medication PT OWN MED: CHLORTHALIDONE 50MG TAB... DAILY PO 06/06/17 09:00 Future Hold (Prinivil) 40 mg DAILY PO 06/06/17 09:00 06/07/17 08:55 (Desyrel) 100 mg HS PO 06/05/17 21:00 06/07/17 21:11 (Tylenol 650 Mg/ 20 ml Liq) 600 mg Q6H PRN PO 06/05/17 16:00 06/07/17 08:52 Miscellaneous Information Patient in critical care unit? Ass... [id number] .XX 06/05/17 20:15 (Chlorhexidine 2% Cloth) 3 pack DAILY@04 TOPICAL 06/06/17 04:00 06/10/17 04:01 06/08/17 04:00 (Chlorhexidine 2% Cloth) 3 pack UNSCH PRN TOPICAL 06/05/17 20:15 06/10/17 20:13 (Lasix Inj) 20 mg BID@ IV PUSH 06/07/17 09:00 06/07/17 17:33 (Zofran Inj) 4 mg Q6HR PRN IV PUSH 06/06/17 16:00 06/06/17 16:05 (Duoneb Neb) 1 ampule Q4HR NEB PRN NEB 06/06/17 21:15 (Mchenry 5-325 Mg) 1 tab Q6H PRN PO 06/06/17 21:15 06/06/17 21:48 (Ranexa) 500 mg Q12HR PO 06/07/17 10:00 06/07/17 21:11 Vital Signs / I&O Vital Signs Date Time Temp Pulse Resp B/P (MAP) Pulse Ox O2 Delivery O2 Flow Rate FiO2 06/08/17 06:00 82 06/08/17 04:00 83 06/08/17 04:00 98.7 83 22 143/83 (103) 85 06/08/17 02:00 79 06/08/17 02:00 92 CPAP 7.00 06/08/17 00:00 98.7 77 14 106/61 (76) 68 06/08/17 00:00 77 06/07/17 22:00 92 06/07/17 20:00 86 06/07/17 20:00 98.5 86 24 129/70 (89) 89 06/07/17 18:00 84 06/07/17 17:00 97.6 79 28 141/72 (95) 98 06/07/17 16:00 81 06/07/17 14:00 69 06/07/17 12:00 97.6 74 26 106/57 (73) 95 06/07/17 12:00 74 06/07/17 10:44 20 06/07/17 10:00 75 I/O 06/07/17 06/07/17 06/07/17 06/08/1718 1/11/18 07:00 15:00 23:00 07:00 15:00 23:00 Intake Total 0 ml 320 ml 480 ml Output Total 800 ml 1100 ml Balance -800 ml -780 ml 480 ml Intake Oral 320 ml 480 ml IV Total 0 ml Output Urine Total 800 ml 1100 ml # Voids 3 # Bowel Movements 0 0 Physical Exam GENERAL: morbidly obese HEAD: Atraumatic. Normocephalic. EYES: Pupils equal and round. ENT: No nasal bleeding or discharge. NECK: Trachea midline. No JVD. CARDIOVASCULAR: Regular rate and rhythm. no murmurs RESPIRATORY: No accessory muscle use. Clear to auscultation. Breath sounds equal bilaterally. GASTROINTESTINAL: Abdomen soft, non-tender, nondistended. Hepatic and splenic margins not palpable. MUSCULOSKELETAL: Extremities without clubbing, cyanosis, or edema. No obvious deformities. NEUROLOGICAL: Awake and alert. No obvious cranial nerve deficits. Normal speech. PSYCHIATRIC: Appropriate mood and affect; insight and judgment normal. Laboratory Laboratory Tests Test 06/07/17 14:42 B-Type Natriuretic Peptide 178 PG/ML Assessment and Plan Problem List: (1) HTN (hypertension) ICD Codes: I10 - Hypertension Status: Chronic (2) Non-ST elevation FL (NSTEMI) ICD Codes: I21.4 - Non-ST elevation FL (NSTEMI) Status: Acute Assessment and Plan 37 yo morbidly obese WM with history of HTN, diabetes, sleep apnea, CHF and NSTEMI in Jan 2017 who presented with persistent substernal chest pain NSTEMI- not a candidate for cardiac catheterization. Ranexa added and tolerating well. cont asa, plavix and statin no reoccurrence of chest pain will sign off follow up with PCP Emelia Landrum Jun 08, 2017 08:15
[2017-06-08] MEDS: CITALOPRAM HYDROBROMIDE 20 MG TAB PO SCH (09:37)
[2017-06-08] MEDS: NIFEdipine 90 MG SUSTAINED RELEASE TAB PO SCH (09:38)
[2017-06-08] MEDS: METOPROLOL TARTRATE 100 MG TAB PO SCH (09:38)
[2017-06-08] MEDS: PANTOPRAZOLE SOD 40 MG DELAYED RELEASE TAB PO SCH (09:38)
[2017-06-08] MEDS: ATORVASTATIN 80 MG TAB PO SCH (09:38)
[2017-06-08] MEDS: LISINOPRIL 20 MG TAB PO SCH (09:39)
[2017-06-08] MEDS: RANOLAZINE 500 MG EXTENDED RELEASE TAB PO SCH (09:39)
[2017-06-08] MEDS: FUROSEMIDE 20 MG/2 ML VIAL IV PUSH SCH (09:40)
[2017-06-08] MEDS: LURASIDONE 40 MG TAB PO SCH (10:01)
[2017-06-08] MEDS: CLOPIDOGREL 75 MG TAB PO SCH (12:53)
[2017-06-08] MEDS: ASPIRIN EC 325 MG TABEC PO SCH (12:53)
[2017-06-08] MEDS ORDERED: TORS10TA2 PO (13:09)
[2017-06-08] MEDS ORDERED: RANO500 PO (13:09)
[2017-06-08] MEDS ORDERED: ASPI81TA23 PO (13:10)
--- NOTE | 2017-06-08 13:12 | HHI.DS ---
Discharge Summary Admission Date Jun 05, 2017 at 11:08 am Discharge Date: Jun 08, 2017 Admitting Diagnosis (1) Non-ST elevation TN (NSTEMI) ICD Code: I21.4 - Non-ST elevation TN (NSTEMI) Status: Acute (2) Morbidly obese ICD Code: E66.01 - Morbid obesity Status: Chronic (3) Hypoventilation associated with obesity syndrome ICD Code: E66.2 - Morbid (severe) obesity with alveolar hypoventilation Procedures None. Brief History - From Admission This is a 37-year-old morbidly obese male with a past medical history significant for hypertension, diabetes, bipolar disorder, sleep apnea, dyslipidemia, GERD, Hx of NSTEMI 01/2017 and CHF who presents to [facility] ED with complaints of 02/05 substernal nonradicular throbbing chest pain for the past 2 days. Patient reports associated shortness of breath at rest, worse with minimal exertion. He also states his shortness of breath is exacerbated with lying supine. Chest pain aggravated with activity. He endorses dry heaves. Patient's been taking nitroglycerin at home with some relief in his chest pain. He endorses medication compliance. He was seen in the office by Dr. Torres for follow up of his NSTEMI in February. At the time of the NSTEMI in January, patient was evaluated by cardiology but due to patients body habitus , cardiac lab systems analyst unable to accommodate patient and medical management recommended. Patient denies any complaints of chest pain since January. In the ED, patient was found to have extremely elevated blood pressure of 265/144. Initial troponin 0.04. CBC/BMP: 06/05/17 0945 06/05/17 0945 Significant Findings Laboratory Tests Test 06/05/17 15:30 06/05/17 17:45 06/05/17 18:40 06/05/17 19:45 Urine Protein 300 mg/dL (NEG-TRACE) Urine Occult Blood SMALL (NEG) Urine Mucus FEW /lpf (OCC) Test 06/06/17 14:35 06/06/17 18:45 06/07/17 14:42 Blood Gas HCO3 33 mmol/L (22-26) Blood Gas Base Excess 6.9 mmol/L (-2-2) Arterial Blood pH 7.31 (7.380-7.420) Arterial Blood Partial Pressure CO2 68 mmHg (38-42) Arterial Blood Oxygen Content 20.4 Vol % (12.0-20.0) B-Type Natriuretic Peptide 178 PG/ML (0-100) PE at Discharge GENERAL: Alert, NAD. Morbidly obese. SKIN: Warm and dry. HEAD: Normocephalic. EYES: No scleral icterus. No injection or drainage. NECK: Supple, trachea midline. No JVD or lymphadenopathy. CARDIOVASCULAR: Regular rate and rhythm without murmurs, gallops, or rubs. RESPIRATORY: Breath sounds equal bilaterally. No accessory muscle use. GASTROINTESTINAL: Abdomen soft, non-tender, nondistended. MUSCULOSKELETAL: No cyanosis, or edema. BACK: Nontender without obvious deformity. No CVA tenderness. Pt update on day of discharge Patient is currently doing well. No acute concerns. He states that he is able to ambulate at home. He will follow up with Pulmonology. Hospital Course 37-year-old morbidly obese male with a past medical history significant for hypertension, diabetes, bipolar disorder, sleep apnea, dyslipidemia, GERD, CHF and s/p NSTEMI 01/2017 who presents to [facility] ED with complaints of 9/10 substernal nonradicular throbbing chest pain for the past 2 days. Previously patient was evaluated by cardiology but medical therapy was recommended due to the fact that cardiac catheterization lab cannot recommended him because of his body habitus. Accelerated hypertension - BP 265/144 at ED presentation - currently normotensive. - patient given Labetalol, Nitroglycerin and Nifedipine XL in the ED. - Continue Lasix 20mg IV BID, Lisinopril 40mg Qday, metoprolol 200mg BID, Nifedipine 90mg Qday. Chest pain - troponin 0.04. CAD s/p recent NSTEMI 01/2017 - Cardiology evaluated - patient would not be a candidate for cardiac cath. - Continue Aspirin, Plavix, Lipitor. CHF, systolic - CXR revealing cardiomegaly but no evidence of acute cardio pulmonary process - echocardiogram 01/12 technically difficult study, LVH, EF 40-45%, pHTN 60- 70mmhg DM - at home patient takes Metformin and Glipizide, hold - accucheck - ISS - heart healthy diabetic diet Obstructive sleep apnea Probable obesity hypoventilation syndrome - Continue home CPAP. - Patient will follow up with outpatient pulm (Dr. Perera) with regards to CPAP. GERD - continue on home dose of Pantoprazole DVT prophylaxis - bilateral SCD Full code. SCDs. Pt Condition on Discharge: Good Discharge Disposition: Discharge Home Discharge Time: <= 30 minutes Discharge Instructions DIET: Follow Instructions for: Heart Healthy Diet Activities you can perform: Regular-No Restrictions Follow up Referrals: PCP Follow-up - 1 Week Pulmonology - 2 Weeks with Trever Perera MD New Medications: Aspirin DR (Aspirin EC) 81 Mg Tabdr 81 MG PO DAILY for Blood Clot Prevention, #90 TAB 0 Refills Torsemide (Torsemide) 10 Mg Tab 10 MG PO BID for Heart, #60 TAB 0 Refills Ranolazine ER 12 HR (Ranexa ER 12 HR) 500 Mg Tab 500 MG PO Q12HR for chest pain, #60 TAB 2 Refills Continued Medications: Atorvastatin (Atorvastatin) 40 Mg Tab 80 MG PO DAILY for Cholesterol Management, #90 TAB 3 Refills Chlorthalidone (Chlorthalidone) 50 Mg Tab 50 MG PO DAILY, #30 TAB Citalopram (Celexa) 20 Mg Tab 20 MG PO DAILY for Control Depression, #30 TAB 0 Refills Clopidogrel (Plavix) 75 Mg Tab 75 MG PO DAILY for cad, #31 TAB Glipizide (Glipizide) 10 Mg Tab 10 MG PO BIDAC for Blood Sugar Management, #60 TAB 0 Refills Take 30 minutes before a meal Isosorbide Mononitrate ER (Isosorbide Mononitrate ER) 60 Mg Tab 120 MG PO DAILY@07 for Angina, #60 TAB 3 Refills Lisinopril (Lisinopril) 40 Mg Tab 40 MG PO DAILY for Blood Pressure Management, #30 TAB 0 Refills Lurasidone (Latuda) 40 Mg Tab 40 MG PO DAILY, #30 TAB 0 Refills Metformin (Metformin) 1,000 Mg Tab 1000 MG PO BIDPC for Blood Sugar Management, #60 TAB 0 Refills With meals Metoprolol Tartrate (Lopressor) 100 Mg Tab 200 MG PO BID, #60 TAB 0 Refills Nifedipine (Nifedipine ER) 90 Mg Tab 90 MG PO DAILY, #30 TAB Nitroglycerin SL (Nitrostat SL) 0.4 Mg Subl 0.4 MG SL Q5M PRN for CHEST PAIN, #30 UNIT Pantoprazole (Protonix) 40 Mg Tab 40 MG PO DAILY for Reflux, #30 TAB 0 Refills Trazodone (Trazodone) 100 Mg Tablet 100 MG PO HS for Control Depression, #30 TAB 0 Refills Discontinued Medications: Aspirin DR (Aspirin EC) 325 Mg Tabdr 325 MG PO DAILY, #30 TAB Wellington Galloway DO Jun 08, 2017 13:12
--- NOTE | 2017-06-08 21:02 | EKG ---
Date Performed: 06/08/2017 Time Performed: 09:38:53 PTAGE: 37 years EKG: Sinus rhythm LOW QRS VOLTAGE IN PRECORDIAL LEADS INCOMPLETE RIGHT BUNDLE BRANCH BLOCK SEPTAL MYOCARDIAL INFARCTIO N , PROBABLY OLD ABNORMAL ECG PREVIOUS TRACING : 06/05/2017 09.35 SINCE PRIOR TRACING NO SIGNIFICANT CHANGE NOTED DOCTOR: Yareli Gerardo Interpretating Date/Time 06/08/2017 21:01:17
== END 2017-06-08 15:30 | disposition home or self-care (01) | DRG 304 ==
LOC: NEPE 09:25 → NEDA 11:08 → HIMN 19:20
PROVIDERS: ADMIT Hospitalist; ATTEND Hospitalist
DX: I16.9 Hypertensive crisis, unspecified (principal); I11.0 Hypertensive heart disease with heart failure; J96.01 Acute respiratory failure with hypoxia; I50.20 Unspecified systolic (congestive) heart failure; I25.110 Atherosclerotic heart disease of native coronary artery with unstable angina pectoris; E66.2 Morbid (severe) obesity with alveolar hypoventilation; Z68.44 Body mass index [BMI] 60.0-69.9, adult; I25.2 Old myocardial infarction; R07.89 Other chest pain; E11.9 Type 2 diabetes mellitus without complications; Z79.84 Long term (current) use of oral hypoglycemic drugs; K21.9 Gastro-esophageal reflux disease without esophagitis; G47.33 Obstructive sleep apnea (adult) (pediatric); I51.7 Cardiomegaly; F31.9 Bipolar disorder, unspecified; E78.5 Hyperlipidemia, unspecified; Z87.891 Personal history of nicotine dependence
CPT/HCPCS: 36600; 71045; 80048; 80307; 81001; 82550; 82805; 82948; 83735; 83880; 84484; 85025; 85610; 85730; 87641; 93005; 96374; 96375; J1815; J1940; J2405

== ENCOUNTER 2017-08-08 09:38 | Emergency (ER) | payer OTHER ==
[~2017-08-08] VITALS: Ht 185.4 cm; Wt 550.0 kg
[~2017-08-08 09:38] MED LIST changes: -ASPI325T33 PO; +ASPI81TA23 PO; +RANO500 PO; +TORS10TA2 PO
[2017-08-08 09:45] VITALS: BP 266/131; PULSE 112; RESP 20; TEMP 98.8; O2SAT 94
[2017-08-08 10:15] VITALS: BP 213/128; PULSE 120; RESP 18; TEMP 98.5; O2SAT 95
[2017-08-08] MEDS ORDERED: SODIUM CHLOR 0.9% 1000 ML INJ 1,000 ML IV SCH (10:19)
[2017-08-08] MEDS ORDERED: SODIUM CHLORIDE 0.9% FLUSH 10 ML FLUSH IV FLUSH PRN (10:30)
[2017-08-08] MEDS ORDERED: ONDANSETRON HCL 4 MG/2 ML VIAL IVP ONE (10:30)
[2017-08-08] MEDS ORDERED: MORPHINE SULFATE 4 MG/ML INJ IV PUSH ONE (10:30)
[2017-08-08 10:33] LABS: AUTOMATED NEUTROPHIL # 5.8 TH/MM3 (1.8-7.7); BASOPHIL # 0.1 TH/MM3 (0-0.2); BASOPHIL % 0.8 % (0.0-2.0); EOSINOPHIL # 0.1 TH/MM3 (0-0.4); EOSINOPHIL % 1.4 % (0.0-4.0); HEMATOCRIT 51.2 % (39.0-51.0); HEMOGLOBIN 17.8 GM/DL (13.0-17.0); LYMPH % 12.4 % (9.0-44.0); LYMPHOCYTE # 0.9 TH/MM3 (1.0-4.8); MEAN CELL VOLUME 92.7 FL (80.0-100.0); MEAN CORPUSCULAR HEMOGLOBIN 32.3 PG (27.0-34.0); MEAN CORPUSCULAR HGB CONC 34.9 % (32.0-36.0); MEAN PLATELET VOLUME 7.1 FL (7.0-11.0); MONO % 9.2 % (0.0-8.0); MONOCYTE # 0.7 TH/MM3 (0-0.9); NEUT % 76.2 % (16.0-70.0); PLATELET COUNT 212 TH/MM3 (150-450); RED BLOOD COUNT 5.52 MIL/MM3 (4.50-5.90); RED CELL DISTRIBUTION WIDTH 14.4 % (11.6-17.2); WHITE BLOOD COUNT 7.6 TH/MM3 (4.0-11.0)
[2017-08-08 10:45] VITALS: RESP 18
[2017-08-08 10:49] LABS: ALT (GPT) 21 U/L (12-78); AST (GOT) 23 U/L (15-37); BICARBONATE 28.6 MEQ/L (21.0-32.0); BLOOD UREA NITROGEN 13 MG/DL (7-18); CALCIUM 9.3 MG/DL (8.5-10.1); CHLORIDE 102 MEQ/L (98-107); CREATININE 1.21 MG/DL (0.60-1.30); GLOMERULAR FILTRATION RATE 67 ML/MIN (>89); GLUCOSE,RANDOM 135 MG/DL (74-106); SODIUM (NA) 140 MEQ/L (136-145)
[2017-08-08 10:52] LABS: ALKALINE PHOSPHATASE 94 U/L (45-117); TOTAL BILIRUBIN ADULT 2.6 MG/DL (0.2-1.0); TOTAL PROTEIN 6.8 GM/DL (6.4-8.2)
[2017-08-08 10:57] LABS: BACTERIA, URINE RARE /hpf; BLOOD, URINE SMALL (NEG); GLUCOSE,URINE NEG (NEG); HYALINE CAST, URINE 7 /lpf (RARE); KETONE, URINE NEG (NEG); MUCUS URINE FEW /lpf (OCC); NITRITE,URINE NEG (NEG); PH, URINE 7.5 (5.0-8.5); URINE COLOR YELLOW (YELLW/STRAW); URINE LEUKOCYTE ESTERASE NEG (NEG)
[2017-08-08 10:59] VITALS: O2SAT 98
[2017-08-08] MEDS ORDERED: SODIUM CHLORID 0.9% 500 ML INJ 500 ML IV ONE (11:00)
[2017-08-08 11:02] LABS: BILIRUBIN, URINE NEG (NEG)
[2017-08-08 11:07] LABS: PROTHROMBIN TIME - PATIENT 10.5 SEC (9.8-11.6)
[2017-08-08] MEDS ORDERED: CIPR-9 PO (12:45)
[2017-08-08] MEDS ORDERED: METR-1 PO (12:45)
--- NOTE | 2017-08-08 12:45 | PD ---
HPI Chief Complaint: Abdominal Pain Time Seen by Provider: 10:09 Travel History International Travel<30 days: No Contact w/Intl Traveler<30days: No Traveled to known affect area: No History of Present Illness HPI Patient is a 37-year-old male who comes in complaining of left-sided abdominal pain. He says he has had the pain for the past few days and is concerned he may have diverticulitis. He has never had diverticulitis in the past, but his father had this. He says that he was constipated, he took a laxative, and has had bowel movement since then. He denies nausea or vomiting. He denies fever chills. He says he took some Excedrin without relief of his pain. Severity is mild to moderate. PFSH Past Medical History Arthritis: No Asthma: No Blood Disorders: No Bipolar Disorder: Yes Anxiety: Yes Depression: Yes Heart Rhythm Problems: No Cancer: No Cardiac Catheterization: Yes Cardiovascular Problems: Yes High Cholesterol: Yes Chemotherapy: No Chest Pain: Yes Congestive Heart Failure: Yes COPD: No Cerebrovascular Accident: No Diabetes: Yes Patient Takes Glucophage: Yes Diminished Hearing: No Endocrine: No Gastrointestinal Disorders: Yes (GERD; PYLORIC STENOSIS A ) GERD: Yes Genitourinary: Yes (KIDNEY STONES) Hiatal Hernia: No Hypertension: Yes Immune Disorder: No Implanted Vascular Access Dvce: No Insomnia: Yes Kidney Stones: Yes Musculoskeletal: Yes ("BAD KNEES") Neurologic: No Psychiatric: Yes (2 SUICIDE ATTEMPTS IN THE PAST) Reproductive: No Respiratory: Yes (SLEEP APNEA/CPAP @NIGHT) Immunizations Current: Yes Migraines: Yes (migraines 2-3 times a month) Myocardial Infarction: Yes (2016, 2012) Radiation Therapy: No Renal Failure: No Schizophrenia: Yes Seizures: No Sickle Cell Disease: No Sleep Apnea: Yes (USE CPAP WITH ROOM AIR) Ulcer: No Tetanus Vaccination: > 5 Years Influenza Vaccination: No Past Surgical History Abdominal Surgery: Yes (PYLORIC STENOSIS @ 6 weeks old) AICD: No Arteriovenous Shunt: No Cardiac Surgery: No Cholecystectomy: Yes Ear Surgery: No Endocrine Surgery: No Eye Surgery: No Genitourinary Surgery: Yes (RENAL STENT THEN KIDNEY STONE-REMOVED) Gynecologic Surgery: No Insulin Pump: No Joint Replacement: No Oral Surgery: No Pacemaker: No Thoracic Surgery: No Other Surgery: Yes (JENNIFER, PYLORIC STENOSIS A CHILD) Social History Alcohol Use: No Tobacco Use: No (5 pack years) Substance Use: No Allergies-Medications (Allergen,Severity, Reaction): Coded Allergies: diclofenac (Unverified Adverse Reaction, Mild, UPSETS STOMACH, 06/05/17) etodolac (Unverified Adverse Reaction, Mild, UPSETS STOMACH, 06/05/17) flurbiprofen (Unverified Adverse Reaction, Mild, UPSETS STOMACH, 06/05/17) ibuprofen (Unverified Adverse Reaction, Mild, UPSETS STOMACH, 06/05/17) indomethacin (Unverified Adverse Reaction, Mild, UPSETS STOMACH, 06/05/17) ketoprofen (Unverified Adverse Reaction, Mild, UPSETS STOMACH, 06/05/17) ketorolac (Unverified Adverse Reaction, Mild, UPSETS STOMACH, 06/05/17) naproxen (Unverified Adverse Reaction, Mild, UPSETS STOMACH, 06/05/17) oxaprozin (Unverified Adverse Reaction, Mild, UPSETS STOMACH, 06/05/17) Reported Meds & Prescriptions Reported Meds & Active Scripts Active Loop (Hydrocodone-Acetaminophen) 5 Mg-325 Mg Tab 1 Tab PO Q6H PRN Cipro (Ciprofloxacin HCl) 500 Mg Tab 500 Mg PO BID 7 Days Flagyl (Metronidazole) 500 Mg Tab 500 Mg PO TID 7 Days Aspirin EC (Aspirin) 81 Mg Tabdr 81 Mg PO DAILY Torsemide 10 Mg Tab 10 Mg PO BID Ranexa ER 12 HR (Ranolazine) 500 Mg Tab 500 Mg PO Q12HR Isosorbide Mononitrate ER (Isosorbide Mononitrate) 60 Mg Tab 120 Mg PO DAILY@07 Atorvastatin (Atorvastatin Calcium) 40 Mg Tab 80 Mg PO DAILY Lisinopril 40 Mg Tab 40 Mg PO DAILY Chlorthalidone 50 Mg Tab 50 Mg PO DAILY Nifedipine ER (Nifedipine) 90 Mg Tab 90 Mg PO DAILY Nitrostat SL (Nitroglycerin) 0.4 Mg Subl 0.4 Mg SL Q5M PRN Glipizide 10 Mg Tab 10 Mg PO BIDAC Take 30 minutes before a meal Metformin (Metformin HCl) 1,000 Mg Tab 1,000 Mg PO BIDPC With meals Plavix (Clopidogrel Bisulfate) 75 Mg Tab 75 Mg PO DAILY Lopressor (Metoprolol Tartrate) 100 Mg Tab 200 Mg PO BID Lancets 1 Mis Mis Ea .ROUTE DIRECTED Glucocom Blood Glucose Mo W/Device (Device) 1 Kit Kit Kit .ROUTE DIRECTED Reported Trazodone (Trazodone HCl) 100 Mg Tablet 100 Mg PO HS Protonix (Pantoprazole Sodium) 40 Mg Tab 40 Mg PO DAILY Latuda (Lurasidone) 40 Mg Tab 40 Mg PO DAILY Celexa (Citalopram Hydrobromide) 20 Mg Tab 20 Mg PO DAILY Review of Systems Except as stated in HPI: all other systems reviewed are Neg General / Constitutional: No: Fever, Chills HENT: No: Headaches, Lightheadedness Cardiovascular: No: Chest Pain or Discomfort Respiratory: No: Shortness of Breath Gastrointestinal: Positive: Abdominal Pain, Constipation, No: Nausea, Vomiting Genitourinary: No: Dysuria Musculoskeletal: No: Myalgias Skin: No Rash Physical Exam Narrative GENERAL: Awake and alert, morbidly obese. SKIN: Focused skin assessment warm/dry. HEAD: Atraumatic. Normocephalic. EYES: Pupils equal and round. No scleral icterus. ENT: Mucous membranes pink and moist. NECK: Trachea midline. No JVD. CARDIOVASCULAR: Regular rate and rhythm. No murmur appreciated. RESPIRATORY: No accessory muscle use. Clear to auscultation. Breath sounds equal bilaterally. GASTROINTESTINAL: Morbidly obese abdomen, dependent edema on the lower part of the pannus with some erythema, but no warmth. Mild tenderness to palpation of the left lower quadrant. MUSCULOSKELETAL: No obvious deformities. No clubbing. No cyanosis. Bilateral lower extremity pitting edema. NEUROLOGICAL: Awake and alert. No obvious cranial nerve deficits. Motor grossly within normal limits. Normal speech. PSYCHIATRIC: Appropriate mood and affect; insight and judgment normal. Data Data Last Documented VS Vital Signs Date Time Temp Pulse Resp B/P (MAP) Pulse Ox O2 Delivery O2 Flow Rate FiO2 08/08/17 13:22 08/08/17 10:59 98 Room Air 08/08/17 10:45 18 08/08/17 10:15 98.5 120 Orders Orders Complete Blood Count With Diff (08/08/17 10:19) Comprehensive Metabolic Panel (08/08/17 10:19) Prothrombin Time / Inr (Pt) (08/08/17 10:19) Act Partial Throm Time (Ptt) (08/08/17 10:19) Urinalysis - C+S If Indicated (08/08/17 10:19) Iv Access Insert/Monitor (08/08/17 10:19) Ecg Monitoring (08/08/17 10:19) Oximetry (08/08/17 10:19) Morphine Inj (Morphine Inj) (08/08/17 10:30) Ondansetron Inj (Zofran Inj) (08/08/17 10:30) Sodium Chlor 0.9% 1000 Ml Inj (Ns 1000 M (08/08/17 10:19) Sodium Chloride 0.9% Flush (Ns Flush) (08/08/17 10:30) Sodium Chlorid 0.9% 500 Ml Inj (Ns 500 M (08/08/17 11:00) Ed Discharge Order (08/08/17 12:46) Labs Laboratory Tests Test 08/08/17 10:15 08/08/17 10:25 White Blood Count 7.6 TH/MM3 Red Blood Count 5.52 MIL/MM3 Hemoglobin 17.8 GM/DL Hematocrit 51.2 % Mean Corpuscular Volume 92.7 FL Mean Corpuscular Hemoglobin 32.3 PG Mean Corpuscular Hemoglobin Concent 34.9 % Red Cell Distribution Width 14.4 % Platelet Count 212 TH/MM3 Mean Platelet Volume 7.1 FL Neutrophils (%) (Auto) 76.2 % Lymphocytes (%) (Auto) 12.4 % Monocytes (%) (Auto) 9.2 % Eosinophils (%) (Auto) 1.4 % Basophils (%) (Auto) 0.8 % Neutrophils # (Auto) 5.8 TH/MM3 Lymphocytes # (Auto) 0.9 TH/MM3 Monocytes # (Auto) 0.7 TH/MM3 Eosinophils # (Auto) 0.1 TH/MM3 Basophils # (Auto) 0.1 TH/MM3 CBC Comment AUTO DIFF Differential Comment AUTO DIFF CONFIRMED Blood Urea Nitrogen 13 MG/DL Creatinine 1.21 MG/DL Random Glucose 135 MG/DL Total Protein 6.8 GM/DL Albumin 3.0 GM/DL Calcium Level 9.3 MG/DL Alkaline Phosphatase 94 U/L Aspartate Amino Transf (AST/SGOT) 23 U/L Alanine Aminotransferase (ALT/SGPT) 21 U/L Total Bilirubin 2.6 MG/DL Sodium Level 140 MEQ/L Potassium Level 4.1 MEQ/L Chloride Level 102 MEQ/L Carbon Dioxide Level 28.6 MEQ/L Anion Gap 9 MEQ/L Estimat Glomerular Filtration Rate 67 ML/MIN Prothrombin Time 10.5 SEC Prothromb Time International Ratio 1.0 RATIO Activated Partial Thromboplast Time 25.9 SEC Urine Color YELLOW Urine Turbidity CLEAR Urine pH 7.5 Urine Specific [place] 1.019 Urine Protein GREATER THAN 600 mg/dL Urine Glucose (UA) NEG mg/dL Urine Ketones NEG mg/dL Urine Occult Blood SMALL Urine Nitrite NEG Urine Bilirubin NEG Urine Urobilinogen 2.0 MG/DL Urine Leukocyte Esterase NEG Urine RBC 1 /hpf Urine WBC 2 /hpf Urine Bacteria RARE /hpf Urine Hyaline Casts 7 /lpf Urine Mucus FEW /lpf Microscopic Urinalysis Comment CULT NOT INDICATED MDM Medical Decision Making Medical Screen Exam Complete: Yes Emergency Medical Condition: Yes Medical Record Reviewed: Yes Differential Diagnosis Diverticulitis versus colitis versus UTI Narrative Course Patient is a 37-year-old male comes in complaining of left-sided abdominal pain. Patient has a morbidly obese belly. He is too large for a CAT scan nurse. IV established, labs sent. Labs show no acute abnormalities. We will treat presumptively for diverticulitis with Cipro and Flagyl. Patient advised to follow-up with his doctors. Advised to avoid alcohol while taking the antibiotics. Advised return anytime for any worsening symptoms. Diagnosis Primary Impression: Abdominal pain Qualified Codes: R10.32 - Left lower quadrant pain Patient Instructions: Abdominal Pain (ED), Diverticulitis (ED), General Instructions Additional Instructions: Take all of your antibiotics. Drink plenty of water. Follow up with your doctors. Return to the ED as needed for any worsening symptoms. Scripts Hydrocodone-Acetaminophen (Loop) 5 Mg-325 Mg Tab 1 TAB PO Q6H Y for PAIN, #12 TAB 0 Refills Prov: Emma Roberts MD 08/08/17 Ciprofloxacin (Cipro) 500 Mg Tab 500 MG PO BID for Infection for 7 Days, #14 TAB 0 Refills Prov: Emma Roberts MD 08/08/17 Metronidazole (Flagyl) 500 Mg Tab 500 MG PO TID for Infection for 7 Days, TAB 0 Refills Prov: Emma Roberts MD 08/08/17 Disposition: 01 DISCHARGE HOME Condition: Stable Emma Roberts MD Aug 08, 2017 12:45
[2017-08-08] MEDS ORDERED: NORC5TAB PO (12:47)
== END 2017-08-08 13:24 | disposition home or self-care (01) ==
LOC: NEPE 09:38
DX: R10.32 Left lower quadrant pain (principal); I11.0 Hypertensive heart disease with heart failure; I50.9 Heart failure, unspecified
CPT/HCPCS: 80053; 81001; 85025; 85610; 85730; 96361; 96374; 96375; 99284; J2270; J2405; J7030; J7040

== ENCOUNTER 2017-08-18 23:43 | Emergency (ER) | payer OTHER ==
[~2017-08-18] VITALS: Ht 185.4 cm; Wt 232.0 kg
[~2017-08-18 23:43] MED LIST changes: +CIPR-9 PO; +METR-1 PO; +NORC5TAB PO
[2017-08-18 23:54] VITALS: BP 236/141; PULSE 124; RESP 22; TEMP 98.7; O2SAT 95
[2017-08-19] MEDS ORDERED: SODIUM CHLORIDE 0.9% FLUSH 10 ML FLUSH IVF PRN (00:45)
--- NOTE | 2017-08-19 01:01 | PD ---
HPI . Chest pain Chief Complaint: Chest Pain Time Seen by Provider: 00:30 Travel History International Travel<30 days: No Contact w/Intl Traveler<30days: No Traveled to known affect area: No History of Present Illness HPI This patient presents with a chief complaint of chest pain. He states that his problems all started about a week and a half to 2 weeks ago when he developed some left-sided abdominal pain. He was seen here and was treated presumptively for diverticulitis with Cipro and Flagyl along with hydrocodone for pain. Since then, he has become constipated. He states that his constipation has been getting progressively worse over the course of last few days. He is now having shortness of breath which was followed by chest pain. He has attempted to treat himself at home with an [id number] laxative. He reports minimal relief with the laxative. He describes his abdominal and chest pain as sharp and gradually worsening. There have been no modifying factors. PFSH Past Medical History Arthritis: No Asthma: No Blood Disorders: No Bipolar Disorder: Yes Anxiety: Yes Depression: Yes Heart Rhythm Problems: No Cancer: No Cardiac Catheterization: Yes Cardiovascular Problems: Yes High Cholesterol: Yes Chemotherapy: No Chest Pain: Yes Congestive Heart Failure: Yes COPD: No Cerebrovascular Accident: No Diabetes: Yes Patient Takes Glucophage: No Diminished Hearing: No Endocrine: No Gastrointestinal Disorders: Yes (GERD; PYLORIC STENOSIS A ) GERD: Yes Genitourinary: Yes (KIDNEY STONES) Hiatal Hernia: No Hypertension: Yes Immune Disorder: No Implanted Vascular Access Dvce: No Insomnia: Yes Kidney Stones: Yes Musculoskeletal: Yes ("BAD KNEES") Neurologic: No Psychiatric: Yes (2 SUICIDE ATTEMPTS IN THE PAST) Reproductive: No Respiratory: Yes (SLEEP APNEA/CPAP @NIGHT) Immunizations Current: Yes Migraines: Yes (migraines 2-3 times a month) Myocardial Infarction: Yes (2016, 2012) Radiation Therapy: No Renal Failure: No Schizophrenia: Yes Seizures: No Sickle Cell Disease: No Sleep Apnea: Yes (USE CPAP WITH ROOM AIR) Ulcer: No Past Surgical History Abdominal Surgery: Yes (PYLORIC STENOSIS @ 6 weeks old) AICD: No Arteriovenous Shunt: No Cardiac Surgery: No Cholecystectomy: Yes Ear Surgery: No Endocrine Surgery: No Eye Surgery: No Genitourinary Surgery: Yes (RENAL STENT THEN KIDNEY STONE-REMOVED) Gynecologic Surgery: No Insulin Pump: No Joint Replacement: No Oral Surgery: No Pacemaker: No Thoracic Surgery: No Other Surgery: Yes (JENNIFER, PYLORIC STENOSIS A CHILD) Social History Alcohol Use: No Tobacco Use: No Substance Use: No Allergies-Medications (Allergen,Severity, Reaction): Coded Allergies: diclofenac (Unverified Adverse Reaction, Mild, UPSETS STOMACH, 08/19/17) etodolac (Unverified Adverse Reaction, Mild, UPSETS STOMACH, 08/19/17) flurbiprofen (Unverified Adverse Reaction, Mild, UPSETS STOMACH, 08/19/17) ibuprofen (Unverified Adverse Reaction, Mild, UPSETS STOMACH, 08/19/17) indomethacin (Unverified Adverse Reaction, Mild, UPSETS STOMACH, 08/19/17) ketoprofen (Unverified Adverse Reaction, Mild, UPSETS STOMACH, 08/19/17) ketorolac (Unverified Adverse Reaction, Mild, UPSETS STOMACH, 08/19/17) naproxen (Unverified Adverse Reaction, Mild, UPSETS STOMACH, 08/19/17) oxaprozin (Unverified Adverse Reaction, Mild, UPSETS STOMACH, 08/19/17) Reported Meds & Prescriptions Reported Meds & Active Scripts Active [place] (Hydrocodone-Acetaminophen) 5 Mg-325 Mg Tab 1 Tab PO Q6H PRN Cipro (Ciprofloxacin HCl) 500 Mg Tab 500 Mg PO BID 7 Days Flagyl (Metronidazole) 500 Mg Tab 500 Mg PO TID 7 Days Aspirin EC (Aspirin) 81 Mg Tabdr 81 Mg PO DAILY Torsemide 10 Mg Tab 10 Mg PO BID Ranexa ER 12 HR (Ranolazine) 500 Mg Tab 500 Mg PO Q12HR Isosorbide Mononitrate ER (Isosorbide Mononitrate) 60 Mg Tab 120 Mg PO DAILY@07 Atorvastatin (Atorvastatin Calcium) 40 Mg Tab 80 Mg PO DAILY Lisinopril 40 Mg Tab 40 Mg PO DAILY Chlorthalidone 50 Mg Tab 50 Mg PO DAILY Nifedipine ER (Nifedipine) 90 Mg Tab 90 Mg PO DAILY Nitrostat SL (Nitroglycerin) 0.4 Mg Subl 0.4 Mg SL Q5M PRN Glipizide 10 Mg Tab 10 Mg PO BIDAC Take 30 minutes before a meal Metformin (Metformin HCl) 1,000 Mg Tab 1,000 Mg PO BIDPC With meals Plavix (Clopidogrel Bisulfate) 75 Mg Tab 75 Mg PO DAILY Lopressor (Metoprolol Tartrate) 100 Mg Tab 200 Mg PO BID Lancets 1 Mis Mis Ea .ROUTE DIRECTED Glucocom Blood Glucose Mo W/Device (Device) 1 Kit Kit Kit .ROUTE DIRECTED Reported Trazodone (Trazodone HCl) 100 Mg Tablet 100 Mg PO HS Protonix (Pantoprazole Sodium) 40 Mg Tab 40 Mg PO DAILY Latuda (Lurasidone) 40 Mg Tab 40 Mg PO DAILY Celexa (Citalopram Hydrobromide) 20 Mg Tab 20 Mg PO DAILY Review of Systems Except as stated in HPI: all other systems reviewed are Neg General / Constitutional: No: Fever, Chills Cardiovascular: Positive: Chest Pain or Discomfort Respiratory: Positive: Shortness of Breath Gastrointestinal: Positive: Abdominal Pain, Constipation Physical Exam Narrative GENERAL: The patient weighs 232 kg and has a BMI of 67. This makes physical exam of his abdomen unreliable. SKIN: warm/dry. He has some erythema and thickening of the skin of the lower abdomen as well as both lower extremities, right worse than left. Patient reports that this been a problem for years. HEAD: Normocephalic. Atraumatic. EYES: Pupils equal and round. No scleral icterus. No injection or drainage. ENT: No nasal bleeding or discharge. Mucous membranes pink and moist. NECK: Trachea midline. Full range of motion without pain.. CARDIOVASCULAR: Regular rate and rhythm. Heart sounds are normal. RESPIRATORY: No accessory muscle use. Clear to auscultation. Breath sounds equal bilaterally. GASTROINTESTINAL: Unable to evaluate. MUSCULOSKELETAL: No obvious deformities. NEUROLOGICAL: Awake and alert. No obvious cranial nerve deficits. Motor grossly within normal limits. Normal speech. PSYCHIATRIC: Appropriate mood and affect; insight and judgment normal. Data Data Last Documented VS Vital Signs Date Time Temp Pulse Resp B/P (MAP) Pulse Ox O2 Delivery O2 Flow Rate FiO2 08/19/17 01:57 98 Room Air 08/18/17 23:54 98.7 124 22 236/141 (172) Orders Orders Complete Blood Count With Diff (08/19/17 00:44) Basic Metabolic Panel (Bmp) (08/19/17 00:44) Troponin I (08/19/17 00:44) Iv Access Insert/Monitor (08/19/17 00:44) Electrocardiogram (08/19/17 00:44) Ecg Monitoring (08/19/17 00:44) Oximetry (08/19/17 00:44) Oxygen Administration (08/19/17 00:44) Chest, Single Ap (08/19/17 00:44) Sodium Chloride 0.9% Flush (Ns Flush) (08/19/17 00:45) Abdomen, Upright Only (08/19/17 00:44) Ondansetron Inj (Zofran Inj) (08/19/17 02:30) Magnesium Citrate Liq (Citroma Liq) (08/19/17 02:30) Troponin I (08/19/17 03:46) Labs Laboratory Tests Test 08/19/17 01:45 08/19/17 04:00 White Blood Count 7.7 TH/MM3 Red Blood Count 5.25 MIL/MM3 Hemoglobin 16.5 GM/DL Hematocrit 48.6 % Mean Corpuscular Volume 92.5 FL Mean Corpuscular Hemoglobin 31.5 PG Mean Corpuscular Hemoglobin Concent 34.0 % Red Cell Distribution Width 14.0 % Platelet Count 207 TH/MM3 Mean Platelet Volume 7.3 FL Neutrophils (%) (Auto) 75.0 % Lymphocytes (%) (Auto) 13.3 % Monocytes (%) (Auto) 9.4 % Eosinophils (%) (Auto) 1.4 % Basophils (%) (Auto) 0.9 % Neutrophils # (Auto) 5.8 TH/MM3 Lymphocytes # (Auto) 1.0 TH/MM3 Monocytes # (Auto) 0.7 TH/MM3 Eosinophils # (Auto) 0.1 TH/MM3 Basophils # (Auto) 0.1 TH/MM3 CBC Comment AUTO DIFF Differential Comment AUTO DIFF CONFIRMED Blood Urea Nitrogen 13 MG/DL Creatinine 1.16 MG/DL Random Glucose 107 MG/DL Calcium Level 8.7 MG/DL Sodium Level 142 MEQ/L Potassium Level 4.0 MEQ/L Chloride Level 104 MEQ/L Carbon Dioxide Level 31.7 MEQ/L Anion Gap 6 MEQ/L Estimat Glomerular Filtration Rate 70 ML/MIN Troponin I 0.08 NG/ML 0.08 NG/ML MDM Medical Decision Making Medical Screen Exam Complete: Yes Emergency Medical Condition: Yes Medical Record Reviewed: Yes (patient was seen here on 08/[address] scan was not possible because of his size. Therefore he was treated presumptively for diverticulitis. Other medical problems include diabetes, hypertension and a non-STEMI.) Interpretation(s) EKG shows a sinus rhythm. He has a right bundle-branch block. I do not see any acute ischemic changes. Differential Diagnosis Differential diagnosis of abdominal pain includes but is not limited to gastritis, pancreatitis, hepatitis, gastroenteritis, gallbladder disease, constipation, urinary retention, UTI, peptic ulcer disease, diverticulitis or appendicitis Differential diagnosis of chest pain includes but is not limited to musculoskeletal pain, pulmonary embolism, acute coronary syndrome, pneumonia, pleurisy Differential diagnosis of dyspnea includes but is not limited to congestive heart failure, pneumonia, wheezing, pneumothorax, pulmonary embolism Narrative Course This patient presents with the chief complaint of chest pain. He has had constipation for several days now. He has subsequently developed shortness of breath which was followed by chest pain. I suspect that he has a chronic restrictive lung disease because of his size. I suspect that the constipation has worsened the restrictive lung disease causing his dyspnea. The chest pain may also very well be due to the constipation. However, this patient certainly has risk factors for coronary artery disease. In fact, he has had a previous non-STEMI. Following his non-STEMI in January, the patient and evaluated several times for recurrent chest pain. Unfortunately, the patient is so large that he cannot undergo a cardiac catheterization. On the subsequent admission since January, the patient has not had an PR by cardiac enzymes. He has been seen by cardiology during these hospitalizations and medical management has been recommended. Last Impressions Chest X-Ray 08/19/1743 Signed Impressions: Service Date/Time: Saturday, August 19, 2017 01:00 - CONCLUSION: Mild cardiomegaly is again noted with prominence of the central pulmonary vasculature which may represent pulmonary vascular congestion. Mathew Liao MD Abdomen X-Ray 08/19/1743 Signed Impressions: Service Date/Time: Saturday, August 19, 2017 00:57 - CONCLUSION: 1. No evidence of free air. 2. Cardiomegaly and blunting the right costophrenic angle. Mathew Liao MD I have looked at the x-rays. I don't think that we can tell anything about the patient based on these plain films. CBC & BMP Diagram 08/19/17 01:45 Calcium Level 8.7 trop 0.08. I will repeat it. Repeat troponin is also 0.08. He is now having copious bowel movements. He is stable for discharge to home. Diagnosis Primary Impression: Atypical chest pain Additional Impressions: SOB (shortness of breath) Constipation Qualified Codes: K59.03 - Drug induced constipation Disposition: 01 DISCHARGE HOME Condition: Stable Radha Ma MD Aug 19, 2017 01:01
--- NOTE | 2017-08-19 01:17 | RADRPT ---
EXAM DATE/TIME: 08/19/2017 01:00 CORRECTION Corrected on: August 19, 2017; [facility] COMPARISON: CHEST SINGLE AP, June 05, 2017, 9:59. CHEST SINGLE AP, June 06, 2017, 14:55. INDICATIONS : Shortness of breath and chest pain. MEDICAL HISTORY : Diabetes mellitus type II. Hypertension Gastroesophageal reflux disease. Pyloric stenosis. SURGICAL HISTORY : Cholecystectomy. ENCOUNTER: Initial ACUITY: 2 weeks PAIN SCORE: 10/10 LOCATION: Bilateral chest FINDINGS: A single view of the chest demonstrates the lungs to be symmetrically aerated without evidence of mas s or consolidative infiltrate. There is mild blunting of the right costophrenic angle. The heart size remains prominent. There is prominence of the central pulmonary vasculature . Osseous structures are intact. CONCLUSION: 1. Mild cardiomegaly is again noted with prominence of the central pulmonary vasculature which may re present pulmonary vascular congestion. 2. There is mild blunting of the right costophrenic angle which could indicate a small effusion. Mathew Liao MD on August 19, 2017 at 1:13 Board Certified Radiologist. This report was verified electronically. Mathew Liao MD on August 19, 2017 at 1:22 Board Certified Radiologist. This report was verified electronically.
--- NOTE | 2017-08-19 01:23 | RADRPT ---
EXAM DATE/TIME: 08/19/2017 00:57 [facility] COMPARISON: CHEST SINGLE AP, August 19, 2017, 1:00. INDICATIONS : Lower left quadrant abdomen pain MEDICAL HISTORY : Diabetes mellitus type II. Hypertension Gastroesophageal reflux disease. Pyloric stenosis. SURGICAL HISTORY : Cholecystectomy. ENCOUNTER: Initial ACUITY: 2 weeks PAIN SCORE: 10/10 LOCATION: abdomen, inferior left. FINDINGS: Multiple erect views of the upper abdomen were obtained and demonstrate no evidence of free air. Ther e is mild blunting of the right costophrenic angle. The heart size is enlarged. The patient is status post cholecystectomy. CONCLUSION: 1. No evidence of free air. 2. Cardiomegaly and blunting the right costophrenic angle. Mathew Liao MD on August 19, 2017 at 1:19 Board Certified Radiologist. This report was verified electronically.
[2017-08-19 02:11] LABS: AUTOMATED NEUTROPHIL # 5.8 TH/MM3 (1.8-7.7); BASOPHIL # 0.1 TH/MM3 (0-0.2); BASOPHIL % 0.9 % (0.0-2.0); EOSINOPHIL # 0.1 TH/MM3 (0-0.4); EOSINOPHIL % 1.4 % (0.0-4.0); HEMATOCRIT 48.6 % (39.0-51.0); HEMOGLOBIN 16.5 GM/DL (13.0-17.0); LYMPH % 13.3 % (9.0-44.0); MEAN CELL VOLUME 92.5 FL (80.0-100.0); MEAN CORPUSCULAR HEMOGLOBIN 31.5 PG (27.0-34.0); MEAN PLATELET VOLUME 7.3 FL (7.0-11.0); MONO % 9.4 % (0.0-8.0); MONOCYTE # 0.7 TH/MM3 (0-0.9); PLATELET COUNT 207 TH/MM3 (150-450); RED BLOOD COUNT 5.25 MIL/MM3 (4.50-5.90); WHITE BLOOD COUNT 7.7 TH/MM3 (4.0-11.0)
[2017-08-19] MEDS ORDERED: MAGNESIUM CITRATE SOLN 300 ML BTL PO ONE (02:30)
[2017-08-19] MEDS ORDERED: ONDANSETRON HCL 4 MG/2 ML VIAL IV PUSH ONE (02:30)
[2017-08-19 02:35] LABS: BICARBONATE 31.7 MEQ/L (21.0-32.0); CALCIUM 8.7 MG/DL (8.5-10.1); CREATININE 1.16 MG/DL (0.60-1.30)
[2017-08-19 02:37] LABS: TROPONIN I 0.08 NG/ML (0.02-0.05)
--- NOTE | 2017-08-19 20:04 | EKG ---
Date Performed: 08/19/2017 Time Performed: 00:49:43 PTAGE: 37 years EKG: SINUS TACHYCARDIA POSSIBLE LEFT ATRIAL ENLARGEMENT LOW QRS VOLTAGE IN PRECORDIAL LEADS INCO MPLETE RIGHT BUNDLE BRANCH BLOCK NONSPECIFIC T-WAVE ABNORMALITY ABNORMAL RHYTHM ECG Since the PREVIOUS TRACING , no significant change noted PREVIOUS TRACIN06/08/2017 09.38 DOCTOR: Corie Ramos Interpretating Date/Time 08/19/2017 20:02:38
== END 2017-08-19 06:07 | disposition home or self-care (01) ==
LOC: NEPC 23:43
DX: R07.89 Other chest pain (principal); R06.02 Shortness of breath; K59.00 Constipation, unspecified; R94.31 Abnormal electrocardiogram [ECG] [EKG]; E78.00 Pure hypercholesterolemia, unspecified; I11.0 Hypertensive heart disease with heart failure; I50.9 Heart failure, unspecified; E11.9 Type 2 diabetes mellitus without complications; K21.9 Gastro-esophageal reflux disease without esophagitis
CPT/HCPCS: 71045; 74018; 80048; 84484; 85025; 93005; 96374; 99285; J2405

== ENCOUNTER 2017-09-18 19:08 | Inpatient (IN) ==
[2017-11-25] MEDS ORDERED: Bisacodyl 10 MG Supp RECTAL PRN (08:39)
[2017-11-25] MEDS ORDERED: Senna/Docusate Sodium 8.6/50 MG Tablet PO SCH (09:00)
[2017-11-26] MEDS ORDERED: Naloxone Inj 0.4 MG/ML Vial IV.PUSH PRN (01:00)
[2017-11-26] MEDS ORDERED: Labetalol HCl Inj 100 MG/20 ML Vial IV.PUSH PRN (01:00)
[2017-11-26] MEDS ORDERED: hydrALAZINE HCl Inj 20 MG/ML Vial IV.PUSH PRN (01:00)
[2017-11-26] MEDS ORDERED: Bisacodyl 10 MG Supp RECTAL PRN (01:00)
[2017-11-26] MEDS ORDERED: LORazepam 0.5 MG Tablet PO PRN (01:00)
[2017-11-26] MEDS: Heparin - SQ 10,000 UNITS/ML Vial SQ ONE ×2 (01:46→05:02)
[2017-11-26] MEDS: Heparin - SQ 10,000 UNITS/ML Vial SQ SCH ×3 (06:19→21:21)
[2017-11-26] MEDS ORDERED: Senna/Docusate Sodium 8.6/50 MG Tablet PO SCH (09:00)
[2017-11-26] MEDS ORDERED: Lidocaine 5% Patch T-DERMAL SCH (09:00)
[2017-11-26] MEDS ORDERED: Chlorthalidone 50 MG Tablet PO SCH (09:00)
[2017-11-26] MEDS: Ranolazine 500 MG 12HR ER Tablet PO SCH ×2 (10:01→20:01)
[2017-11-26] MEDS: Citalopram 20 MG Tablet PO SCH (10:02)
[2017-11-26] MEDS: Lactic Acid (Ammonium Lactate) 12% Lotion 225 GM Bottle TOPICAL SCH ×2 (10:02→21:23)
[2017-11-26] MEDS: Metoprolol Tartrate 100 MG Tablet PO SCH ×2 (10:03→21:20)
[2017-11-26] MEDS: amLODIPine 10 MG Tablet PO SCH (10:03)
--- NOTE | 2017-11-26 11:54 | P.PNFP ---
<GuadalupeLalito H - Last Filed: 11/26/17 11:17> Subjective Interval history: Patient seen and examined this morning by medical team. No acute events overnight per nursing staff. Patient's only complaint this morning is continued right shoulder pain that is exacerbated with motion. He states that he has had arthritic pain "for quite some time" in that arm. He states that he would like to have an additional lidocaine patch to be applied to shoulder ( previously ordered lidocaine patch to his back). We discussed that it is not ideal for him to have 2 lidocaine patches on at the same time, however he may use his back patch on his shoulder and vice versa. He is agreeable to the medical plan with all questions answered. Otherwise he has no acute complaints and denies any fevers, chills, shortness of breath, chest pain, NVD, abdominal pain, or calf tenderness. Per discussion with staff, patient should have a bed available at [facility] tomorrow, 11/27/17. Results - Labs Result diagrams: 11/16/17 09:22 11/25/17 08:57 Abnormal lab results 11/23/17 11/24/17 11/25/17 Range/Units 08:20 11:45 08:57 BUN 25 H 26 H 25 H (7-18) MG/DL Creatinine 1.56 H 1.52 H 1.60 H (0.60-1.30) MG/DL Estimated GFR 50 L 52 L 49 L (>89) ML/MIN Albumin 3.2 L 3.1 L (3.4-5.0) GM/DL BMP 11/23/17 11/24/17 11/25/17 08:20 11:45 08:57 Sodium 139 138 Potassium 3.9 4.1 Chloride 102 104 Carbon Dioxide 27.2 23.9 BUN 25 H 26 H 25 H Creatinine 1.56 H 1.52 H 1.60 H Calcium 9.2 9.0 Liver Function 11/23/17 11/24/17 Range/Units 08:20 11:45 Albumin 3.2 L 3.1 L (3.4-5.0) GM/DL Physical Exam Vital signs: Vital Signs 11/25/17 21:00 11/26/17 08:54 Temperature 98.5 F Pulse Rate 85 Respiratory Rate 20 Blood Pressure 158/79 H Pulse Oximetry 98 97 Intake & Output 11/25/17 11/26/17 11/26/17 18:59 06:59 18:59 Output Total 750 / 750 Balance -750 / -750 Weight 177.5 kg Output: Urine 750 / 750 Narrative: GENERAL: Morbidly obese white male lying in bed in no acute distress watching television. SKIN: Cool and dry. No rash. Discoloration of the bilateral lower extremities, baseline for likely venous stasis. HEENT: Atraumatic, normocephalic with extraocular motions intact. No rhinorrhea. No visible lymphadenopathy or jugulovenous distension appreciated. Tracheostomy site healing well without drainage or hemorrhage appreciated. CARDIOVASCULAR: Regular rate and rhythm without obvious murmurs, gallops, or rubs (difficult auscultation secondary to body habitus). 2+ pulses in all four extremities. RESPIRATORY: Clear to auscultation bilaterally with no crackles, wheezes, or rhonchi. No increased work of breathing. GASTROINTESTINAL: Abdomen soft, non-tender with positive bowel sounds. No masses appreciated. MUSCULOSKELETAL: No cyanosis or edema. No calf tenderness. NEURO/PSYCH: Afocal. Awake, alert, and oriented x3. Normal speech and judgement. Assessment and Plan - Assessment (1) Physical deconditioning Code(s): R53.81 - Other malaise Status: Acute Plan: Improving with PT Patient to be discharged to [facility] for continued inpatient physical therapy Fall precautions Associated physical deconditioning: perform PT BID 7 days a week while in hospital Counseling about fall risk (2) Right shoulder pain Code(s): M25.511 - Pain in right shoulder Status: Acute Plan: Patient with chronic right shoulder pain icing for increased pain control Continue Oxycodone 5 mg QID PRN for severe pain, Tylenol for moderate pain Lidocaine patch daily (discussed with patient to use lidocaine patch only on one area of body (back versus shoulder) to limit total lidocaine exposure) Daily PT Patient was encouraged to sit up in bed as much as possible, at least 30 minutes every day (3) Acute kidney injury Code(s): N17.9 - Acute kidney failure, unspecified Status: Acute Plan: Creatinine for last several days holding around 1.5. At this point likely may be new baseline; has not responded to IV fluids. Or could be AIN from antibiotics which should resolve with time. Trend renal function (4) Hypoventilation associated with obesity Code(s): E66.2 - Morbid (severe) obesity with alveolar hypoventilation Status : Acute Plan: Pulmonology consulted, recs appreciated Trach removed 11/20, tolerated well Continue BiPAP at night Respiratory CPT and bed elevation to 30 degrees Vocal exercises w/speech therapy Continue Ativan 0.5 mg PO Q6H PRN with passing valve/Exercises (5) Lower back pain Code(s): M54.5 - Low back pain Status: Chronic Plan: Improved Continue Oxycodone 5 mg QID PRN for severe pain, Tylenol for moderate pain Lidocaine patch daily Daily PT Patient was encouraged to sit up in bed as much as possible, at least 30 minutes every day (6) Pseudomonas aeruginosa colonization Code(s): 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 - Carrier of other specified bacterial diseases Status: Chronic Plan: Urine and sputum with pseudomonas aeruginosa No leukocytosis, fever, or new symptoms Urine culture from 11/14 Pseudomonas positive ID consulted, appreciate recs -Likely colonization -Repeat urine culture 11/18 Pseudomonas positive -Monitor clinically;treat if symptomatic (7) Hypertension Code(s): I10 - Essential (primary) hypertension Status: Chronic Plan: Stable Continue with current medication regimen - metoprolol 200 mg BID - hydralazine 100 mg TID - sildenafil 40 mg Q8H (8) CHF (congestive heart failure) Code(s): I50.9 - Heart failure, unspecified Status: Chronic Plan: Stable I's and Os Careful with IV fluids Home meds: ranolazine 500 mg BID, atorvastatin 80 mg daily, metoprolol 200 mg BID, hydralazine 100 mg TID, amlodipine 10 mg daily The above meds have been adjusted as patient continues to lose weight - amlodipine held (9) Morbidly obese Code(s): E66.01 - Morbid (severe) obesity due to excess calories Status: Chronic Plan: Bariatric surgery will be most important step to affect long-term prognosis Plan to readdress as outpatient after patient completes rehabilitation (10) Bipolar depression Code(s): F31.30 - Bipolar disorder, current episode depressed, mild or moderate severity, unspecified Status: Chronic Plan: Continue Celexa 20 mg daily (11) Diabetes Code(s): E11.9 - Type 2 diabetes mellitus without complications Status: Acute Plan: Controlled Holding metformin and glipizide SSI while inpatient Glucose goal < 180 (12) Nutrition, metabolism, and development symptoms Code(s): R63.8 - Other symptoms and signs concerning food and fluid intake Status: Acute Plan: Fluids: see above Diet: Diabetic diet Electrolytes: Replete as needed per unit protocol DVT PPx: Heparin 5000 units SQ Q8h GI ppx: Lansoprazole 30mg daily - Plan Discharge Planning: Stable for discharge, [facility] has accepted as colten case, bed availability anticipated 11/26/17. PROGNOSIS SUMMARY: Mr. Torre has a number of medical comorbidities listed above including morbid obesity, hypoventilation, chronic renal disease, type 2 diabetes. This hospitalization he was treated for acute respiratory failure requiring intubation for several weeks. He has improved greatly this hospitalization but his overall prognosis is guarded at best due to his comorbidities and current poor level of physical conditioning. His prognosis could improve if he were able to get bariatric surgery or otherwise achieve significant weight loss, but at present with his medical conditions he would meet criteria for disability. <Nicholas Lynn R - Last Filed: 11/27/17 07:42> Results - Labs Result diagrams: 11/16/17 09:22 11/25/17 08:57 Physical Exam Vital signs: Vital Signs 11/26/17 08:00 11/26/17 08:54 11/26/17 20:00 Temperature 98.1 F 98.4 F Pulse Rate 88 76 Respiratory Rate 18 18 Blood Pressure 134/70 125/45 L Pulse Oximetry 99 97 98 11/26/17 21:00 11/27/17 05:00 11/27/17 05:45 Temperature Pulse Rate 86 Respiratory Rate Blood Pressure 164/82 H Pulse Oximetry 98 97 Intake & Output 11/26/17 11/27/17 11/27/17 18:59 06:59 18:59 Intake Total 1500 / 1500 400 / 400 Output Total 1700 / 1700 1150 / 1150 Balance -200 / -200 -750 / -750 Weight 177.72 kg 174.1 kg Intake: Oral 1500 / 1500 400 / 400 Output: Urine 1700 / 1700 1150 / 1150 Other: Date of Last Bowel Movement 11/26/17 11/26/17 # Bowel Movements 5 1 Assessment and Plan - Assessment (1) Physical deconditioning Code(s): R53.81 - Other malaise Status: Acute (2) Right shoulder pain Code(s): M25.511 - Pain in right shoulder Status: Acute (3) Acute kidney injury Code(s): N17.9 - Acute kidney failure, unspecified Status: Acute (4) Hypoventilation associated with obesity Code(s): E66.2 - Morbid (severe) obesity with alveolar hypoventilation Status : Acute (5) Lower back pain Code(s): M54.5 - Low back pain Status: Chronic (6) Pseudomonas aeruginosa colonization Code(s): Z22.39 - Carrier of other specified bacterial diseases Status: Chronic (7) Hypertension Code(s): I10 - Essential (primary) hypertension Status: Chronic (8) CHF (congestive heart failure) Code(s): I50.9 - Heart failure, unspecified Status: Chronic (9) Morbidly obese Code(s): E66.01 - Morbid (severe) obesity due to excess calories Status: Chronic (10) Bipolar depression Code(s): F31.30 - Bipolar disorder, current episode depressed, mild or moderate severity, unspecified Status: Chronic (11) Diabetes Code(s): E11.9 - Type 2 diabetes mellitus without complications Status: Acute (12) Nutrition, metabolism, and development symptoms Code(s): R63.8 - Other symptoms and signs concerning food and fluid intake Status: Acute - Attending Attestation The exam, history, and the medical decision-making described in the above note were completed with the assistance of the resident physician. I reviewed and agree with the findings presented. I attest that I had a [id number] encounter with the patient on the same day, and personally performed and documented my assessment and findings in the medical record. <Lalito Guadalupe - Last Filed: 11/26/17 11:17> (2) Right shoulder pain Qualifiers: Chronicity: chronic Qualified Code(s): M25.511 - Pain in right shoulder; G89.29 - Other chronic pain (5) Lower back pain Qualifiers: Chronicity: chronic Back pain laterality: bilateral Sciatica presence: without sciatica Qualified Code(s): M54.5 - Low back pain; G89.29 - Other chronic pain (7) Hypertension Qualifiers: Hypertension type: essential hypertension Qualified Code(s): I10 - Essential (primary) hypertension (8) CHF (congestive heart failure) Qualifiers: Heart failure type: unspecified Heart failure chronicity: chronic Qualified Code(s): I50.9 - Heart failure, unspecified (11) Diabetes Qualifiers: Diabetes mellitus type: type 2 Diabetes mellitus group home insulin use: without group home use Diabetes mellitus complication status: without complication Qualified Code(s): E11.9 - Type 2 diabetes mellitus without complications <Nicholas Lynn - Last Filed: 11/27/17 07:42> (2) Right shoulder pain Qualifiers: Chronicity: chronic Qualified Code(s): M25.511 - Pain in right shoulder; G89.29 - Other chronic pain (5) Lower back pain Qualifiers: Chronicity: chronic Back pain laterality: bilateral Sciatica presence: without sciatica Qualified Code(s): M54.5 - Low back pain; G89.29 - Other chronic pain (7) Hypertension Qualifiers: Hypertension type: essential hypertension Qualified Code(s): I10 - Essential (primary) hypertension (8) CHF (congestive heart failure) Qualifiers: Heart failure type: unspecified Heart failure chronicity: chronic Qualified Code(s): I50.9 - Heart failure, unspecified (11) Diabetes Qualifiers: Diabetes mellitus type: type 2 Diabetes mellitus group home insulin use: without group home use Diabetes mellitus complication status: without complication Qualified Code(s): E11.9 - Type 2 diabetes mellitus without complications
--- NOTE | 2017-11-26 14:42 | OTSOAPIP ---
TIME SESSION COMPLETED: TREATMENT TIME: MINS. CHART REVIEWED. S: PAIN: /10 O: A: PATIENT RESPONSE TO TREATMENT: P: _X_ PT WAS INSTRUCTED TO NOT GET OUT OF BED OR CHAIR WITHOUT ASSISTANCE. CALL H[facility] WAS LEFT WITHIN REACH. DISABILITIES ELEMENTS SCORE SELF-FEEDING ____ 4 = INDEPENDENT: EATS FROM A DISH AND DRINKS FROM A CUP OR GLASS PRESENTED IN THE CUSTOMARY MANNER ON TABLE OR TRAY. USES ORDINARY KNIFE, FORK, AND SPOON. ____ 3 = INDEPENDENT WITH DEVICE: USES AN ADAPTIVE OR ASSISTING DEVICE SUCH A STRAW, SPORK, OR ROCKING KNIFE OR REQUIRES MORE THAN A REASONABLE TIME TO EAT. ____ 2 = DEPENDENT PARTIAL HELP REQUIRED: PERFORMS HALF OR MORE OF FEEDING TASKS BUT REQUIRES SUPERVISION (E.G., STANDBY, CUEING, OR COAXING), SETUP (APPLICATION OF ORTHOTICS), OR OTHER HELP. ____ 1 = DEPENDENT TOTAL HELP REQUIRED: EITHER PERFORMS LESS THAN HALF OF FEEDING TASKS, OR DOES NOT EAT OR DRINK FULL MEALS BY MOUTH AND RELIES AT LEAST IN PART ON OTHER MEANS OF ALIMENTATION, SUCH PARENTERAL OR GASTROSTOMY FEEDINGS. INTERDISCIPLINARY COMMUNICATION: DISCHARGE RECOMMENDATION/ATTENTION CASE MANAGEMENT: EQUIPMENT: ___ 3-1 BEDSIDE COMMODE ___ DROP ARM COMMODE ___ SLIDING BOARD ___ SHOWER BENCH ___ NONE ___ OTHER: CONTINUED THERAPY: ___ OT AT REHAB ___ HOME WITH NO OT RECOMMENDED ___ HOME WITH HOME HEALTH OT ___ HOME WITH OUT PATIENT OT ___ REQUIRES SUPERVISION AT HOME FOR SAFETY ___ OTHER: Therapist: Maggie Johnson Signature on file
[2017-11-26] MEDS ORDERED: traZODone 100 MG Tablet PO SCH (21:00)
[2017-11-27] MEDS: Heparin - SQ 10,000 UNITS/ML Vial SQ SCH ×3 (05:53→21:08)
[2017-11-27] MEDS: Lidocaine 5% Patch T-DERMAL SCH (08:37)
[2017-11-27] MEDS: Metoprolol Tartrate 100 MG Tablet PO SCH ×2 (08:38→21:30)
[2017-11-27] MEDS: Citalopram 20 MG Tablet PO SCH (08:38)
[2017-11-27] MEDS: Ranolazine 500 MG 12HR ER Tablet PO SCH ×2 (08:38→21:30)
[2017-11-27] MEDS: amLODIPine 10 MG Tablet PO SCH (08:38)
[2017-11-27] MEDS: Lactic Acid (Ammonium Lactate) 12% Lotion 225 GM Bottle TOPICAL SCH ×2 (08:39→21:30)
--- NOTE | 2017-11-27 10:36 | P.PNFP ---
<Anthony Garner - Last Filed: 11/27/17 11:46> Subjective Interval history: Patient seen and examined at bedside. No acute events overnight. Patient reports he is doing well. Denies any chest pain, shortness of breath, nausea, vomiting, abdominal pain, fever or chills. Bowel movements have been normal. Results - Labs Result diagrams: 11/16/17 09:22 11/25/17 08:57 Physical Exam Vital signs: Vital Signs 11/26/17 20:00 11/26/17 21:00 11/27/17 05:00 Temperature 98.4 F Pulse Rate 76 Respiratory Rate 18 Blood Pressure 125/45 L Pulse Oximetry 98 98 97 11/27/17 05:45 Temperature Pulse Rate 86 Respiratory Rate Blood Pressure 164/82 H Pulse Oximetry Intake & Output 11/26/17 11/27/17 11/27/17 18:59 06:59 18:59 Intake Total 1500 / 1500 400 / 400 Output Total 1700 / 1700 1150 / 1150 Balance -200 / -200 -750 / -750 Weight 177.72 kg 174.1 kg Intake: Oral 1500 / 1500 400 / 400 Output: Urine 1700 / 1700 1150 / 1150 Other: Date of Last Bowel Movement 11/26/17 11/26/17 # Bowel Movements 5 1 - Constitutional no acute distress - Routine HEENT Exam Head: Present: normocephalic, atraumatic Eye: Present: EOMI, PERRL ENT: Present: mucous membranes moist - Routine Neck Exam Present: supple, full ROM - Routine Respiratory Exam Present: CTA bilaterally - Routine Cardiovascular Exam Present: RRR, S1, S2. Absent: murmur, gallop, rubs, bradycardia - Routine Abdominal Exam Present: soft, normoactive bowel sounds. Absent: tenderness - Routine Extremities Exam Present: cyanosis (chronic on LE), full ROM, pulses intact, normal capillary refill. Absent: calf tenderness - Routine Skin Exam Present: intact - Routine Neurological Exam Present: oriented X3, CN II-XII intact - Routine Psychiatric Exam Present: normal affect, normal thought process Assessment and Plan - Assessment (1) Physical deconditioning Code(s): R53.81 - Other malaise Status: Acute Plan: Improving with PT Patient to be discharged to [facility] for continued inpatient physical therapy Fall precautions Associated physical deconditioning: perform PT BID 7 days a week while in hospital Counseling about fall risk (2) Right shoulder pain Code(s): M25.511 - Pain in right shoulder Status: Acute Plan: Patient with chronic right shoulder pain icing for increased pain control. Improved. Continue Oxycodone 5 mg QID PRN for severe pain, Tylenol for moderate pain Lidocaine patch daily (discussed with patient to use lidocaine patch only on one area of body (back versus shoulder) to limit total lidocaine exposure) Daily PT Patient was encouraged to sit up in bed as much as possible, at least 30 minutes every day (3) Acute kidney injury Code(s): N17.9 - Acute kidney failure, unspecified Status: Acute Plan: Creatinine for last several days holding around 1.5. At this point likely may be new baseline; has not responded to IV fluids. Or could be AIN from antibiotics which should resolve with time. Trend renal function (4) Hypoventilation associated with obesity Code(s): E66.2 - Morbid (severe) obesity with alveolar hypoventilation Status : Acute Plan: Pulmonology consulted, recs appreciated Trach removed 11/20, tolerated well Continue BiPAP at night Respiratory CPT and bed elevation to 30 degrees Vocal exercises w/speech therapy Continue Ativan 0.5 mg PO Q6H PRN with passing valve/Exercises (5) Lower back pain Code(s): M54.5 - Low back pain Status: Chronic Plan: Improved Continue Oxycodone 5 mg QID PRN for severe pain, Tylenol for moderate pain Lidocaine patch daily Daily PT Patient was encouraged to sit up in bed as much as possible, at least 30 minutes every day (6) Pseudomonas aeruginosa colonization Code(s): Z22.39 - Carrier of other specified bacterial diseases Status: Chronic Plan: Urine and sputum with pseudomonas aeruginosa No leukocytosis, fever, or new symptoms Urine culture from 11/14 Pseudomonas positive ID consulted, appreciate recs -Likely colonization -Repeat urine culture 11/18 Pseudomonas positive -Monitor clinically;treat if symptomatic (7) Hypertension Code(s): I10 - Essential (primary) hypertension Status: Chronic Plan: Stable Continue with current medication regimen - metoprolol 200 mg BID - hydralazine 100 mg TID - sildenafil 40 mg Q8H (8) CHF (congestive heart failure) Code(s): I50.9 - Heart failure, unspecified Status: Chronic Plan: Stable I's and Os Careful with IV fluids Home meds: ranolazine 500 mg BID, atorvastatin 80 mg daily, metoprolol 200 mg BID, hydralazine 100 mg TID, amlodipine 10 mg daily The above meds have been adjusted as patient continues to lose weight - amlodipine held (9) Morbidly obese Code(s): E66.01 - Morbid (severe) obesity due to excess calories Status: Chronic Plan: Bariatric surgery will be most important step to affect long-term prognosis Plan to readdress as outpatient after patient completes rehabilitation (10) Bipolar depression Code(s): F31.30 - Bipolar disorder, current episode depressed, mild or moderate severity, unspecified Status: Chronic Plan: Continue Celexa 20 mg daily (11) Diabetes Code(s): E11.9 - Type 2 diabetes mellitus without complications Status: Acute Plan: Controlled Holding metformin and glipizide SSI while inpatient Glucose goal < 180 (12) Nutrition, metabolism, and development symptoms Code(s): R63.8 - Other symptoms and signs concerning food and fluid intake Status: Acute Plan: Fluids: see above Diet: Diabetic diet Electrolytes: Replete as needed per unit protocol DVT PPx: Heparin 5000 units SQ Q8h GI ppx: Lansoprazole 30mg daily <Nicholas Lynn - Last Filed: 11/28/17 10:39> Results - Labs Result diagrams: 11/16/17 09:22 11/25/17 08:57 Physical Exam Vital signs: Vital Signs 11/27/17 20:00 11/28/17 00:00 11/28/17 08:00 Temperature 98.9 F 98.4 F Pulse Rate 70 Respiratory Rate 20 20 14 Blood Pressure 122/83 129/68 136/82 Pulse Oximetry 97 99 Intake & Output 11/27/17 11/28/17 11/28/17 18:59 06:59 18:59 Intake Total 240 / 240 Output Total 1400 / 1400 650 / 650 Balance -1400 / -1400 -410 / -410 Weight 174.5 kg Intake: Oral 240 / 240 Output: Urine 1400 / 1400 650 / 650 Other: Date of Last Bowel Movement 11/27/17 11/27/17 11/28/17 # Bowel Movements 3 Assessment and Plan - Assessment (1) Physical deconditioning Code(s): R53.81 - Other malaise Status: Acute (2) Right shoulder pain Code(s): M25.511 - Pain in right shoulder Status: Acute (3) Acute kidney injury Code(s): N17.9 - Acute kidney failure, unspecified Status: Acute (4) Hypoventilation associated with obesity Code(s): E66.2 - Morbid (severe) obesity with alveolar hypoventilation Status : Acute (5) Lower back pain Code(s): M54.5 - Low back pain Status: Chronic (6) Pseudomonas aeruginosa colonization Code(s): Z22.39 - Carrier of other specified bacterial diseases Status: Chronic (7) Hypertension Code(s): I10 - Essential (primary) hypertension Status: Chronic (8) CHF (congestive heart failure) Code(s): I50.9 - Heart failure, unspecified Status: Chronic (9) Morbidly obese Code(s): E66.01 - Morbid (severe) obesity due to excess calories Status: Chronic (10) Bipolar depression Code(s): F31.30 - Bipolar disorder, current episode depressed, mild or moderate severity, unspecified Status: Chronic (11) Diabetes Code(s): E11.9 - Type 2 diabetes mellitus without complications Status: Acute (12) Nutrition, metabolism, and development symptoms Code(s): R63.8 - Other symptoms and signs concerning food and fluid intake Status: Acute - Attending Attestation CASE DISCUSSED WITH RESIDENT PHYSICIANS. I HAVE READ AND AGREE WITH ABOVE NOTE AND PLAN DISCUSSED WITH ME. <Anthony Garner - Last Filed: 11/27/17 11:46> (2) Right shoulder pain Qualifiers: Chronicity: chronic Qualified Code(s): M25.511 - Pain in right shoulder; G89.29 - Other chronic pain (5) Lower back pain Qualifiers: Chronicity: chronic Back pain laterality: bilateral Sciatica presence: without sciatica Qualified Code(s): M54.5 - Low back pain; G89.29 - Other chronic pain (7) Hypertension Qualifiers: Hypertension type: essential hypertension Qualified Code(s): I10 - Essential (primary) hypertension (8) CHF (congestive heart failure) Qualifiers: Heart failure type: unspecified Heart failure chronicity: chronic Qualified Code(s): I50.9 - Heart failure, unspecified (11) Diabetes Qualifiers: Diabetes mellitus type: type 2 Diabetes mellitus moth exterminator insulin use: without long-term use Diabetes mellitus complication status: without complication Qualified Code(s): E11.9 - Type 2 diabetes mellitus without complications <Nicholas Lynn - Last Filed: 11/28/17 10:39> (2) Right shoulder pain Qualifiers: Chronicity: chronic Qualified Code(s): M25.511 - Pain in right shoulder; G89.29 - Other chronic pain (5) Lower back pain Qualifiers: Chronicity: chronic Back pain laterality: bilateral Sciatica presence: without sciatica Qualified Code(s): M54.5 - Low back pain; G89.29 - Other chronic pain (7) Hypertension Qualifiers: Hypertension type: essential hypertension Qualified Code(s): I10 - Essential (primary) hypertension (8) CHF (congestive heart failure) Qualifiers: Heart failure type: unspecified Heart failure chronicity: chronic Qualified Code(s): I50.9 - Heart failure, unspecified (11) Diabetes Qualifiers: Diabetes mellitus type: type 2 Diabetes mellitus moth exterminator insulin use: without moth exterminator use Diabetes mellitus complication status: without complication Qualified Code(s): E11.9 - Type 2 diabetes mellitus without complications
--- NOTE | 2017-11-27 16:01 | P.PNADD ---
Addendum to Inpatient Note Reason for Addendum: Additional Documentation Additional information: Per Off service note 10/29/[address] Ely: "Mr. Torre is a morbidly obese 37-year-old male with multiple comorbidities including CHF, HTN, DM, HLD, h/o NSTEMI in 02/12, sleep apnea who presented initially to the ED with complaints of chest pain. ACS workup was done and was found to be negative. Patient was placed on every 4 vitals check and telemetry. No overnight events were reported. The next morning when the medical team went to talk with the patient he was found to be minimally responsive, opening his eyes to sternal rub but not able to answer question follow commands. Medical test were done and determined that patient was in respiratory failure due to unclear causes but possibly involving multiple factors including CHF, MANISH, underlying pneumonia. ABG drawn at that time showed increased carbon dioxide and decreased pH. Respiratory therapist were requested to place patient on BiPAP in order to relieve hypercapnia. Floor Installation Mechanic was called stat and care was transferred over. Mother was informed of the situation at the time by a member of the medicine team. Patient was intubated on 09/19. Patient is thought to have developed complications of due to ARDs, possible pneumonia and CHF. Tracheostomy procedure was done on 10/04. Sputum from bronchoscopy, blood cultures, urine analysis stool analysis all been negative for infection so far. Patient has been on and off antibiotics and these antibiotics have been tailored by ID who was consulted due to patient intermittently spiking of fevers without a determined source of infection. During the management of his care patient developed acute kidney injury, and Cr has stabilized so far ~3. Patient has the following specialist managing care: Floor Installation Mechanic, nephrology, pulmonology and infectious disease. Palliative care was also consulted to assist family with goals of care. " The following is updated from the off-service note above, dated from 10/29/17. Update: Update since 10/30: Patient's O2 requirements improved while on trach collar. Trach was capped on and removed. Site has been healing well and patient has been using CPAP at night. Patient had complained of nausea and vomiting and was treated w/ meclizine and zofran. It was found that patient had been eating very fast and was experiencing nausea after meals. Advised to eat slower, since then, nausea resolved. Found to be colonized w/pseudomonas on urine cx from 11/14. Repeat was ordered and after ID was colonized. Was positive again for Pseudomonas, but ID advised not to treat until symptomatic.Found to be C.diff positive on 11/04, was treated w/10 days of Vancomycin. Diarrhea resolved. Creatinine decreased to 1.5 and remained stable at this level during this time. Deemed likely to be new baseline at this point, thought to be from AIN due to antibiotics and should resolve w/time, since it was not responsive to fluids. Had bedside nail/I&D procedure performed by podiatry on 11/12 for infection from ingrown toenail. Healed well from this, infection resolved. Back pain has remained largely stable , currently on prn opioid regimen and lidocaine patch. Has continued to work w/ PT, requiring less and less assistance to stand and transfer. Had a fall 11/22, where he fell on his chin after slipping from the side of the bed as he was trying to slide in. Has minimal bleeding from the mouth and nose that quickly resolved. Asymptomatic other than headache. Because he was clinically benign, no imaging pursued. Was monitored and did well afterward. Because patient was self-pay, required [facility] or home discharge. W/CM assistance, patient was evaluated for [facility] once he required less assistance. Was accepted today. Antibiotic history: Vancomycin 11/04-11/14 Vancomycin and azithromycin 09/20--09/26 Vancomycin 09/28--10/01 Zosyn 09/20--10/03 Daptomycin - 10/03 Cefepime - 10/03 - 10/14 Linezolid - 10/05 - 10/11 Flagyl - 10/05 - 10/11 Micafungin - 10/04 -10/08
[2017-11-27] MEDS: traZODone 50 MG Tablet PO SCH (21:30)
[2017-11-28] MEDS: Heparin - SQ 10,000 UNITS/ML Vial SQ SCH ×3 (06:51→22:07)
[2017-11-28] MEDS: amLODIPine 10 MG Tablet PO SCH (09:13)
[2017-11-28] MEDS: Lidocaine 5% Patch T-DERMAL SCH (09:13)
[2017-11-28] MEDS: Citalopram 20 MG Tablet PO SCH (09:13)
[2017-11-28] MEDS: Ranolazine 500 MG 12HR ER Tablet PO SCH ×2 (09:13→20:59)
[2017-11-28] MEDS: Metoprolol Tartrate 100 MG Tablet PO SCH ×2 (09:13→20:59)
[2017-11-28] MEDS: Lactic Acid (Ammonium Lactate) 12% Lotion 225 GM Bottle TOPICAL SCH ×2 (09:14→21:00)
--- NOTE | 2017-11-28 11:25 | P.PNFP ---
Subjective Interval history: Patient seen and examined at bedside. No acute events overnight. Patient reports he is doing well, no current complaints. Patient was supposed to be accepted to [facility] yesterday however transfer was not completed due to miscommunication regarding CPAP settings. Results - Labs Result diagrams: 11/16/17 09:22 11/25/17 08:57 Physical Exam Vital signs: Vital Signs 11/27/17 20:00 11/28/17 00:00 11/28/17 08:00 Temperature 98.9 F 98.4 F Pulse Rate 70 Respiratory Rate 20 20 14 Blood Pressure 122/83 129/68 136/82 Pulse Oximetry 97 99 Intake & Output 11/27/17 11/28/17 11/28/17 18:59 06:59 18:59 Intake Total 240 / 240 Output Total 1400 / 1400 650 / 650 Balance -1400 / -1400 -410 / -410 Weight 174.5 kg Intake: Oral 240 / 240 Output: Urine 1400 / 1400 650 / 650 Other: Date of Last Bowel Movement 11/27/17 11/27/17 11/28/17 # Bowel Movements 3 - Constitutional no acute distress - Routine HEENT Exam Eye: Present: EOMI, PERRL ENT: Present: mucous membranes moist - Routine Neck Exam Present: supple - Routine Respiratory Exam Present: CTA bilaterally. Absent: accessory muscle use - Routine Cardiovascular Exam Present: RRR, S1, S2. Absent: murmur, gallop, rubs - Routine Abdominal Exam Present: soft. Absent: tenderness, rebound, guarding - Routine Extremities Exam Present: cyanosis (BL LE, chronic), full ROM, pulses intact, normal capillary refill. Absent: clubbing, edema, calf tenderness Assessment and Plan - Assessment (1) Physical deconditioning Code(s): R53.81 - Other malaise Status: Acute Plan: Improving with PT Patient to be discharged to [facility] for continued inpatient physical therapy. Patient will need to complete overnight trial of CPAP before [facility] is able to take patient. Patient to remain on continuous pulse ox. Fall precautions Associated physical deconditioning: perform PT BID 7 days a week while in hospital Counseling about fall risk (2) Right shoulder pain Code(s): M25.511 - Pain in right shoulder Status: Resolved Plan: Patient with chronic right shoulder pain icing for increased pain control. Improved. Continue Oxycodone 5 mg QID PRN for severe pain, Tylenol for moderate pain Lidocaine patch daily (discussed with patient to use lidocaine patch only on one area of body (back versus shoulder) to limit total lidocaine exposure) Daily PT Patient was encouraged to sit up in bed as much as possible, at least 30 minutes every day (3) Acute kidney injury Code(s): N17.9 - Acute kidney failure, unspecified Status: Acute Plan: Creatinine for last several days holding around 1.5. At this point likely may be new baseline; has not responded to IV fluids. Or could be AIN from antibiotics which should resolve with time. Trend renal function (4) Hypoventilation associated with obesity Code(s): E66.2 - Morbid (severe) obesity with alveolar hypoventilation Status : Acute Plan: Pulmonology consulted, recs appreciated Trach removed 11/20, tolerated well Trial of CPAP at overnight Respiratory CPT and bed elevation to 30 degrees Vocal exercises w/speech therapy Continue Ativan 0.5 mg PO Q6H PRN with passing valve/Exercises (5) Lower back pain Code(s): M54.5 - Low back pain Status: Chronic Plan: Improved Continue Oxycodone 5 mg QID PRN for severe pain, Tylenol for moderate pain Lidocaine patch daily Daily PT Patient was encouraged to sit up in bed as much as possible, at least 30 minutes every day (6) Pseudomonas aeruginosa colonization Code(s): Z22.39 - Carrier of other specified bacterial diseases Status: Chronic Plan: Urine and sputum with pseudomonas aeruginosa No leukocytosis, fever, or new symptoms Urine culture from 11/14 Pseudomonas positive ID consulted, appreciate recs -Likely colonization -Repeat urine culture 11/18 Pseudomonas positive -Monitor clinically;treat if symptomatic (7) Hypertension Code(s): I10 - Essential (primary) hypertension Status: Chronic Plan: Stable Continue with current medication regimen - metoprolol 200 mg BID - amlodipine 10mg QD - sildenafil 40 mg Q8H (8) CHF (congestive heart failure) Code(s): I50.9 - Heart failure, unspecified Status: Chronic Plan: Stable I's and Os Careful with IV fluids Home meds: ranolazine 500 mg BID, atorvastatin 80 mg daily, metoprolol 200 mg BID,amlodipine 10 mg daily (9) Morbidly obese Code(s): E66.01 - Morbid (severe) obesity due to excess calories Status: Chronic Plan: Bariatric surgery will be most important step to affect long-term prognosis Plan to readdress as outpatient after patient completes rehabilitation (10) Bipolar depression Code(s): F31.30 - Bipolar disorder, current episode depressed, mild or moderate severity, unspecified Status: Chronic Plan: Continue Celexa 20 mg daily (11) Diabetes Code(s): E11.9 - Type 2 diabetes mellitus without complications Status: Acute Plan: Controlled Holding metformin and glipizide SSI while inpatient Glucose goal < 180 (12) Nutrition, metabolism, and development symptoms Code(s): R63.8 - Other symptoms and signs concerning food and fluid intake Status: Acute Plan: Fluids: not indicated at this time Diet: Diabetic diet Electrolytes: Replete as needed DVT PPx: Heparin 5000 units SQ Q8h GI ppx: Lansoprazole 30mg daily (2) Right shoulder pain Qualifiers: Chronicity: chronic Qualified Code(s): M25.511 - Pain in right shoulder; G89.29 - Other chronic pain (5) Lower back pain Qualifiers: Chronicity: chronic Back pain laterality: bilateral Sciatica presence: without sciatica Qualified Code(s): M54.5 - Low back pain; G89.29 - Other chronic pain (7) Hypertension Qualifiers: Hypertension type: essential hypertension Qualified Code(s): I10 - Essential (primary) hypertension (8) CHF (congestive heart failure) Qualifiers: Heart failure type: unspecified Heart failure chronicity: chronic Qualified Code(s): I50.9 - Heart failure, unspecified (11) Diabetes Qualifiers: Diabetes mellitus type: type 2 Diabetes mellitus terminal carman insulin use: without fdc use Diabetes mellitus complication status: without complication Qualified Code(s): E11.9 - Type 2 diabetes mellitus without complications
--- NOTE | 2017-11-28 20:15 | P.CON ---
History of Present Illness Service: Podiatry Consult date: 11/28/17 Reason for Consult: Right foot pain Primary Care Provider: UNKNOWN Family Provider: UNKNOWN Chief Complaint: Right foot History of Present Illness: 37-year-old male who is concerned for right foot pain. Patient states at times he gets shooting pain from where there was a previous ingrown to the arch of his foot patient states it is not constant although he feels as his arch is achy. Patient states he has been taking Tylenol for it but it has not helped at all. He denies any nausea vomiting fevers and chills as of this moment. Review of Systems Constitutional: Denies chills, Denies fever(s) Eyes: Denies blurry vision Ears, Nose, Mouth, and Throat: Denies abnormal hearing Cardiovascular: Denies chest pain Respiratory: Denies shortness of breath Gastrointestinal: Denies abdominal pain PMFSH - Family History Family History: Family History (Last Updated 11/27/17 @ 14:49 by Nick Barrientos) Father Family history of hypertension Medications and Allergies Active Medications: Active Medications Acetaminophen (Tylenol Liq) 650 mg PO Q6H PRN PRN Reason: T>100.4, PAIN 3-6 Last Admin: 11/26/17 20:01 Dose: 650 mg Al Hydroxide/Mg Hydroxide (Milk Of Magnesia Liq) 30 ml PO Q12H PRN PRN Reason: Mild Constipation Albuterol (Albuterol Neb (Prn)) 2.5 mg NEB Q2HR NEB PRN PRN Reason: SOB/WHEEZING Amlodipine Besylate (Norvasc) 10 mg PO DAILY [facility] Last Admin: 11/28/17 09:13 Dose: 10 mg Atorvastatin Calcium (Llipitor) 80 mg PO DAILY [facility] Last Admin: 11/28/17 09:13 Dose: 80 mg Bisacodyl (Dulcolax Supp) 10 mg RECTAL DAILY PRN PRN Reason: SEVERE CONSITIPATION Chlorthalidone (Hygroton) 50 mg PO DAILY [facility] Citalopram Hydrobromide (Celexa) 20 mg PO DAILY [facility] Last Admin: 11/28/17 09:13 Dose: 20 mg Clonidine HCl (Catapres) 0.1 mg PO Q8HR PRN PRN Reason: SBP > 150 Clopidogrel Bisulfate (Plavix) 75 mg PO DAILY [facility] Last Admin: 11/28/17 09:13 Dose: 75 mg Doxazosin Mesylate (Cardura) 2 mg PO DAILY [facility] Last Admin: 11/28/17 09:13 Dose: 2 mg Heparin Sodium (Porcine) (Heparin Inj) 5,000 units SQ Q8HR [facility] Last Admin: 11/28/17 13:02 Dose: 5,000 units Hydralazine HCl (Apresoline) 100 mg PO Q8HR [facility] Last Admin: 11/28/17 13:02 Dose: 100 mg Hydralazine HCl (Apresoline Inj) 10 mg IV.PUSH Q1H PRN PRN Reason: SBP > 160, DBP > 90 Hyoscyamine (Levsin) 0.125 mg PO Q4H PRN PRN Reason: SECRETIONS Labetalol HCl (Trandate Inj) 10 mg IV.PUSH Q1H PRN PRN Reason: SBP>170, DBP>90,HR>65 Lactic Acid (Lac-Hydrin 12% Lotion) 1 applicatio TOPICAL BID [facility] Last Admin: 11/28/17 09:14 Dose: 1 applicatio Lactulose (Lactulose Liq) 30 ml PO DAILY PRN PRN Reason: SEVERE CONSITIPATION Lansoprazole (Prevacid Solutab) 30 mg NG/OG DAILY [facility] Last Admin: 11/28/17 09:13 Dose: 30 mg Lidocaine HCl (Lidoderm 5% Patch.12 Hr) 1 patch T-DERMAL DAILY [facility] Last Admin: 11/28/17 09:13 Dose: 1 patch Lorazepam (Ativan) 0.5 mg PO Q8H PRN PRN Reason: ANXIETY Last Admin: 11/26/17 20:04 Dose: 0.5 mg Lurasidone HCl (Latuda) 40 mg PO DAILY [facility] Last Admin: 11/28/17 09:13 Dose: 40 mg Meclizine HCl (Antivert) 25 mg PO Q6HR PRN PRN Reason: DIZZINESS Metoprolol Tartrate (Lopressor) 200 mg PO BID [facility] Last Admin: 11/28/17 09:13 Dose: 200 mg Naloxone HCl (Narcan Inj) 0.4 mg IV.PUSH UNSCH PRN PRN Reason: SEE LABEL COMMENTS Ondansetron HCl (Zofran Odt) 4 mg PO Q6H PRN PRN Reason: NAUSEA OR VOMITING Oxycodone HCl (Roxicodone) 5 mg PO Q6HR PRN PRN Reason: PAIN SCALE 7 TO 10 SEVERE Last Admin: 11/27/17 14:33 Dose: 5 mg Patch Removal (Remove Old Patch) 1 each T-DERMAL [facility] Last Admin: 11/27/17 21:24 Dose: Not Given Ranolazine (Ranexa) 500 mg PO Q12HR [facility] Last Admin: 11/28/17 09:13 Dose: 500 mg Senna/Docusate Sodium (Breanna-Colace) 1 tab PO BID [facility] Sennosides (Senokot) 17.2 mg PO Q12H PRN PRN Reason: Moderate Constipation Sildenafil Citrate (Revatio) 40 mg PO Q8HR [facility] Last Admin: 11/28/17 13:01 Dose: 40 mg Trazodone HCl (Desyrel) [address] [facility] Last Admin: 11/27/17 21:30 Dose: 50 mg Allergies Allergy/AdvReac Type Severity Reaction Status Date / Time diclofenac AdvReac Mild UPSETS Verified 11/25/17 03:24 STOMACH etodolac AdvReac Mild UPSETS Verified 11/25/17 03:24 STOMACH flurbiprofen AdvReac Mild UPSETS Verified 11/25/17 03:24 STOMACH ibuprofen AdvReac Mild UPSETS Verified 11/25/17 03:24 STOMACH indomethacin AdvReac Mild UPSETS Verified 11/25/17 03:24 STOMACH ketoprofen AdvReac Mild UPSETS Verified 11/25/17 03:24 STOMACH ketorolac AdvReac Mild UPSETS Verified 11/25/17 03:24 STOMACH naproxen AdvReac Mild UPSETS Verified 11/25/17 03:24 STOMACH oxaprozin AdvReac Mild UPSETS Verified 11/25/17 03:24 STOMACH Home Medications Medication Instructions Recorded Confirmed Type atorvastatin 80 mg PO DAILY 11/25/17 11/25/17 History blood-glucose meter [Blood Glucose 11/25/17 11/25/17 History Monitoring] citalopram 20 mg PO DAILY 11/25/17 11/25/17 History clopidogrel 75 mg PO DAILY 11/25/17 11/25/17 History glipizide 10 mg PO BIDAC 11/25/17 11/25/17 History isosorbide mononitrate 120 mg PO DAILY 11/25/17 11/25/17 History lisinopril 40 mg PO DAILY 11/25/17 11/25/17 History lurasidone 40 mg PO DAILY 11/25/17 11/25/17 History metformin 1,000 mg PO BIDPC 11/25/17 11/25/17 History metoprolol tartrate 200 mg PO BID 11/25/17 11/25/17 History nifedipine 90 mg PO DAILY 11/25/17 11/25/17 History nitroglycerin [Nitrostat] 0.4 mg SUBLINGUAL Q5-15M PRN 11/25/17 11/25/17 History pantoprazole 40 mg PO DAILY 11/25/17 11/25/17 History ranolazine [Ranexa] 500 mg PO Q12H 11/25/17 11/25/17 History torsemide 10 mg PO BID 11/25/17 11/25/17 History trazodone 100 mg PO HS 11/25/17 11/25/17 History trazodone 100 mg PO HS 11/25/17 11/25/17 History Physical Exam Vital signs: Vital Signs 11/28/17 00:00 11/28/17 08:00 Temperature 98.4 F Pulse Rate 70 Respiratory Rate 20 14 Blood Pressure 129/68 136/82 Pulse Oximetry 99 Intake & Output 11/28/17 11/28/17 11/29/17 06:59 18:59 06:59 Intake Total 240 / 240 Output Total 650 / 650 1250 / 1250 Balance -410 / -410 -1250 / -1250 Weight 174.5 kg Intake: Oral 240 / 240 Output: Urine 650 / 650 1250 / 1250 Other: Date of Last Bowel Movement 11/27/17 11/28/17 # Bowel Movements 1 Narrative: GENERAL: This is a well-nourished, well-developed patient, in no apparent distress. SKIN: No open lesions noted HEAD: Atraumatic. EYES: Pupils equal round and reactive. ENT: Airway patent. NECK: Trachea midline. RESPIRATORY: Nonlabored breathing. MUSCULOSKELETAL:. Negative Homans sign bilaterally. NEUROLOGICAL: Awake and alert. Normal speech. Lower extremity physical exam: Vascular: Dorsalis pedis 2/4, posterior tibial 2/4. Capillary refill time within normal limits to digits X5 bilateral foot. Edema not present right foot Neuro: Gross sensation intact to bilateral lower extremity. Pinpoint sensation decrease/increase. No hyperalgesia noted to bilateral lower extremity Dermatology: Normal temperature and turgor to bilateral lower extremity. No ecchymosis noted to right foot. No erythema or edema noted to right foot. No local signs of infection noted. No signs of injury noted. Musculoskeletal: Tender to palpation to right foot medial aspect. Assessment and Plan - Plan 37-year-old male with reported right foot pain Patient examined evaluated with all questions answered No acute signs of infection No history of trauma or clinical signs of injury Will obtain right foot x-ray rule out fracture
[2017-11-28] MEDS: traZODone 50 MG Tablet PO SCH (20:59)
--- NOTE | 2017-11-28 21:08 | XR ---
EXAM DATE: 11/28/2017 8:54 PM EDT AGE/SEX: 37 years / Male INDICATIONS: Pain in 1st toe that radiates to heel. CLINICAL DATA: This is the patient's subsequent encounter. Patient reports that signs and symptoms h ave been present for 2 weeks and indicates a pain score of 5/10. MEDICAL/SURGICAL HISTORY: Hypertension. Hypercholesterolemia. Congestive heart failure. [place]. Di zziness. Sleep apnea. GERD. Pyloric stenosis as baby. Gallbladder disease. Kidney stones. Schizophren ia. Cholecystectomy. Renal stent. COMPARISON: None. FINDINGS: 2 linear metallic foreign bodies are seen involving the soft tissues of the great toe along the plant ar surface at the base of the distal phalangeal level. One measures 7 mm in length and the second 3 m m in length. Both are approximately 1 mm in diameter. No air or soft tissue swelling appreciated. Spu rring of the calcaneus. No fractures or dislocations. Bone mineralization is normal. CONCLUSION: 1. 2 metallic foreign bodies involving the great toe as detailed above. 2. Calcaneal spurring. Electronically signed by: Joss Hernandez MD 11/28/2017 9:07 PM EDT
[2017-11-29] MEDS: Heparin - SQ 10,000 UNITS/ML Vial SQ SCH (05:41)
[2017-11-29] MEDS: Citalopram 20 MG Tablet PO SCH (09:06)
[2017-11-29] MEDS: Ranolazine 500 MG 12HR ER Tablet PO SCH (09:06)
[2017-11-29] MEDS: Metoprolol Tartrate 100 MG Tablet PO SCH (09:06)
[2017-11-29] MEDS: Lidocaine 5% Patch T-DERMAL SCH (09:06)
[2017-11-29] MEDS: amLODIPine 10 MG Tablet PO SCH (09:06)
[2017-11-29] MEDS: Lactic Acid (Ammonium Lactate) 12% Lotion 225 GM Bottle TOPICAL SCH (09:07)
--- NOTE | 2017-11-29 10:11 | P.PNFP ---
Subjective Interval history: Patient seen and examined at bedside. No acute events events. Patient did well with CPAP trial overnight. He is working well with physical therapy and will be going to [facility] today. Patient reports right foot pain is well controlled. Denies CP, SOB or N/V. <Anthony Garner - 11/29/17 10:58> Results - Labs Result diagrams: 11/16/17 09:22 11/25/17 08:57 <Nicholas Lynn 11/29/17 12:53> - Imaging Impressions Foot X-Ray 11/28/17 20:21 CONCLUSION: 1. 2 metallic foreign bodies involving the great toe as detailed above. 2. Calcaneal spurring. <Nicholas Lynn 11/29/17 12:53> Impressions Foot X-Ray 11/28/17 20:21 CONCLUSION: 1. 2 metallic foreign bodies involving the great toe as detailed above. 2. Calcaneal spurring. <Anthony Garner - 11/29/17 10:11> Physical Exam Vital signs: Vital Signs 11/28/17 20:00 11/28/17 22:00 11/28/17 22:31 Temperature 98.9 F Pulse Rate 90 Respiratory Rate 18 Blood Pressure 125/65 Pulse Oximetry 96 99 98 11/29/17 00:15 11/29/17 02:15 11/29/17 04:10 Temperature 99.0 F 98.0 F Pulse Rate 65 67 Respiratory Rate 18 18 Blood Pressure 123/69 123/67 Pulse Oximetry 99 99 99 11/29/17 05:46 11/29/17 08:00 Temperature 98.4 F Pulse Rate 78 Respiratory Rate 14 Blood Pressure 135/68 135/68 Pulse Oximetry 98 Intake & Output 11/28/17 11/29/17 11/29/17 18:59 06:59 18:59 Intake Total 240 / 240 Output Total 1250 / 1250 1000 / 1000 Balance -1250 / -1250 -760 / -760 Weight 174.4 kg Intake: Oral 240 / 240 Output: Urine 1250 / 1250 1000 / 1000 Other: Date of Last Bowel Movement 11/28/17 11/28/17 11/29/17 # Bowel Movements 1 1 <Nicholas Lynn 11/29/17 12:53> Vital Signs 11/28/17 20:00 11/28/17 22:00 11/28/17 22:31 Temperature 98.9 F Pulse Rate 90 Respiratory Rate 18 Blood Pressure 125/65 Pulse Oximetry 96 99 98 11/29/17 00:15 11/29/17 02:15 11/29/17 04:10 Temperature 99.0 F 98.0 F Pulse Rate 65 67 Respiratory Rate 18 18 Blood Pressure 123/69 123/67 Pulse Oximetry 99 99 99 11/29/17 05:46 11/29/17 08:00 Temperature 98.4 F Pulse Rate 78 Respiratory Rate 14 Blood Pressure 135/68 135/68 Pulse Oximetry 98 Intake & Output 11/28/17 11/29/17 11/29/17 18:59 06:59 18:59 Intake Total 240 / 240 Output Total 1250 / 1250 1000 / 1000 Balance -1250 / -1250 -760 / -760 Weight 174.4 kg Intake: Oral 240 / 240 Output: Urine 1250 / 1250 1000 / 1000 Other: Date of Last Bowel Movement 11/28/17 11/28/17 11/29/17 # Bowel Movements 1 1 <Anthony Garner 11/29/17 10:11> - Constitutional no acute distress <Anthony Graner 11/29/17 10:58> - Routine HEENT Exam Eye: Present: EOMI, PERRL <Anthony Garner 11/29/17 10:58> ENT: Present: mucous membranes moist <Anthony Garner 11/29/17 10:58> - Routine Neck Exam Present: supple, full ROM <Anthony Garner 11/29/17 10:58> - Routine Respiratory Exam Present: CTA bilaterally. Absent: accessory muscle use <Anthony Garner 09/13 10:58> - Routine Cardiovascular Exam Present: RRR, S1, S2. Absent: murmur, gallop, rubs <Anthony Garner 10:58> - Routine Abdominal Exam Present: soft, normoactive bowel sounds. Absent: tenderness <Anthony Garner 11/29/17 10:58> - Routine Extremities Exam Present: cyanosis (chronic LE cyanosis), clubbing, edema, full ROM, pulses intact <Anthony Garner D 11/29/17 10:58> - Routine Skin Exam Present: intact <Anthony Garner 11/29/17 10:58> - Routine Neurological Exam Present: alert, oriented X3, CN II-XII intact <Anthony Garner 11/29/17 10: 58> - Routine Psychiatric Exam Present: normal affect, normal thought process <Anthony Garner 11/29/17 10: 58> Assessment and Plan - Assessment (1) Physical deconditioning Code(s): R53.81 - Other malaise Status: Acute (2) Acute kidney injury Code(s): N17.9 - Acute kidney failure, unspecified Status: Acute (3) Hypoventilation associated with obesity Code(s): E66.2 - Morbid (severe) obesity with alveolar hypoventilation Status : Acute (4) Lower back pain Code(s): M54.5 - Low back pain Status: Chronic (5) Pseudomonas aeruginosa colonization Code(s): 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 - Carrier of other specified bacterial diseases Status: Chronic (6) Hypertension Code(s): I10 - Essential (primary) hypertension Status: Chronic (7) CHF (congestive heart failure) Code(s): I50.9 - Heart failure, unspecified Status: Chronic (8) Morbidly obese Code(s): E66.01 - Morbid (severe) obesity due to excess calories Status: Chronic (9) Bipolar depression Code(s): F31.30 - Bipolar disorder, current episode depressed, mild or moderate severity, unspecified Status: Chronic (10) Diabetes Code(s): E11.9 - Type 2 diabetes mellitus without complications Status: Acute (11) Nutrition, metabolism, and development symptoms Code(s): R63.8 - Other symptoms and signs concerning food and fluid intake Status: Acute <Nicholas Lynn - 11/29/17 12:53> (1) Physical deconditioning Code(s): R53.81 - Other malaise Status: Acute Plan: Improving with PT Patient to be discharged to [facility] for continued inpatient physical therapy. Patient complete overnight trial of CPAP with no issues overnight, O2 saturation remained 99%. Patient was accepted to [facility] and will be transferred today. Fall precautions Associated physical deconditioning: perform PT BID 7 days a week while in hospital Counseling about fall risk (2) Acute kidney injury Code(s): N17.9 - Acute kidney failure, unspecified Status: Acute Plan: Creatinine for last several days holding around 1.5. At this point likely may be new baseline; has not responded to IV fluids. Or could be AIN from antibiotics which should resolve with time. Trend renal function (3) Hypoventilation associated with obesity Code(s): E66.2 - Morbid (severe) obesity with alveolar hypoventilation Status : Acute Plan: Pulmonology consulted, recs appreciated Trach removed 11/20, tolerated well c/w CPAP at overnight Respiratory CPT and bed elevation to 30 degrees Vocal exercises w/speech therapy Continue Ativan 0.5 mg PO Q6H PRN with passing valve/Exercises (4) Lower back pain Code(s): M54.5 - Low back pain Status: Chronic Plan: Improved Continue Oxycodone 5 mg QID PRN for severe pain, Tylenol for moderate pain Lidocaine patch daily Daily PT Patient was encouraged to sit up in bed as much as possible, at least 30 minutes every day (5) Pseudomonas aeruginosa colonization Code(s): 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 - Carrier of other specified bacterial diseases Status: Chronic Plan: Urine and sputum with pseudomonas aeruginosa No leukocytosis, fever, or new symptoms Urine culture from 11/14 Pseudomonas positive ID consulted, appreciate recs -Likely colonization -Repeat urine culture 11/18 Pseudomonas positive -Monitor clinically;treat if symptomatic (6) Hypertension Code(s): I10 - Essential (primary) hypertension Status: Chronic Plan: Stable Continue with current medication regimen - metoprolol 200 mg BID - amlodipine 10mg QD - sildenafil 40 mg Q8H (7) CHF (congestive heart failure) Code(s): I50.9 - Heart failure, unspecified Status: Chronic Plan: Stable I's and Os Careful with IV fluids Home meds: ranolazine 500 mg BID, atorvastatin 80 mg daily, metoprolol 200 mg BID,amlodipine 10 mg daily (8) Morbidly obese Code(s): E66.01 - Morbid (severe) obesity due to excess calories Status: Chronic Plan: Bariatric surgery will be most important step to affect long-term prognosis Plan to readdress as outpatient after patient completes rehabilitation (9) Bipolar depression Code(s): F31.30 - Bipolar disorder, current episode depressed, mild or moderate severity, unspecified Status: Chronic Plan: Continue Celexa 20 mg daily (10) Diabetes Code(s): E11.9 - Type 2 diabetes mellitus without complications Status: Acute Plan: Controlled Holding metformin and glipizide SSI while inpatient Glucose goal < 180 (11) Nutrition, metabolism, and development symptoms Code(s): R63.8 - Other symptoms and signs concerning food and fluid intake Status: Acute Plan: Fluids: not indicated at this time Diet: Diabetic diet Electrolytes: Replete as needed DVT PPx: Heparin 5000 units SQ Q8h GI ppx: Lansoprazole 30mg daily <Anthony Garner - 11/29/17 10:48> - Attending Attestation The evaluation, assessment and plan was discussed with the resident physician and I am in agreement with continued medical care as documented in this encounter. <Nicholas Lynn R - 11/29/17 12:53> <Anthony Garner D - Last Filed: 11/29/17 10:48> (4) Lower back pain Qualifiers: Chronicity: chronic Back pain laterality: bilateral Sciatica presence: without sciatica Qualified Code(s): M54.5 - Low back pain; G89.29 - Other chronic pain (6) Hypertension Qualifiers: Hypertension type: essential hypertension Qualified Code(s): I10 - Essential (primary) hypertension (7) CHF (congestive heart failure) Qualifiers: Heart failure type: unspecified Heart failure chronicity: chronic Qualified Code(s): I50.9 - Heart failure, unspecified (10) Diabetes Qualifiers: Diabetes mellitus type: type 2 Diabetes mellitus termite renewal inspector insulin use: without termite renewal inspector use Diabetes mellitus complication status: without complication Qualified Code(s): E11.9 - Type 2 diabetes mellitus without complications <Nicholas Lynn R - Last Filed: 11/29/17 12:53> (4) Lower back pain Qualifiers: Qualified Code(s): M54.5 - Low back pain; G89.29 - Other chronic pain (6) Hypertension Qualifiers: Qualified Code(s): I10 - Essential (primary) hypertension (7) CHF (congestive heart failure) Qualifiers: Qualified Code(s): I50.9 - Heart failure, unspecified (10) Diabetes Qualifiers: Qualified Code(s): E11.9 - Type 2 diabetes mellitus without complications <Anthony Garner D - Last Filed: 11/29/17 10:48> (4) Lower back pain Qualifiers: Chronicity: chronic Back pain laterality: bilateral Sciatica presence: without sciatica Qualified Code(s): M54.5 - Low back pain; G89.29 - Other chronic pain (6) Hypertension Qualifiers: Hypertension type: essential hypertension Qualified Code(s): I10 - Essential (primary) hypertension (7) CHF (congestive heart failure) Qualifiers: Heart failure type: unspecified Heart failure chronicity: chronic Qualified Code(s): I50.9 - Heart failure, unspecified (10) Diabetes Qualifiers: Diabetes mellitus type: type 2 Diabetes mellitus fpc insulin use: without fpc use Diabetes mellitus complication status: without complication Qualified Code(s): E11.9 - Type 2 diabetes mellitus without complications <Nicholas Lynn R - Last Filed: 11/29/17 12:53> (4) Lower back pain Qualifiers: Qualified Code(s): M54.5 - Low back pain; G89.29 - Other chronic pain (6) Hypertension Qualifiers: Qualified Code(s): I10 - Essential (primary) hypertension (7) CHF (congestive heart failure) Qualifiers: Qualified Code(s): I50.9 - Heart failure, unspecified (10) Diabetes Qualifiers: Qualified Code(s): E11.9 - Type 2 diabetes mellitus without complications
--- NOTE | 2017-12-01 12:31 | P.DS ---
Date of admission: 09/18/17 21:15 Primary care physician: UNKNOWN Brief History from admission: Mr. Torre is a 37 yo Male with multiple comorbidities as hypertension, diabetes, congestive heart failure and NSTEMI January 2017 who presented to the ED with c/o chest pain and shortness of breath on exertion. He underwent ACS workup. DS: Diagnosis - Discharge Diagnosis (1) Physical deconditioning Status: Acute (2) Acute kidney injury Status: Acute (3) Hypoventilation associated with obesity Status: Acute (4) Lower back pain Status: Chronic (5) Pseudomonas aeruginosa colonization Status: Chronic (6) Hypertension Status: Chronic (7) CHF (congestive heart failure) Status: Chronic (8) Morbidly obese Status: Chronic (9) Bipolar depression Status: Chronic (10) Diabetes Status: Acute (11) Nutrition, metabolism, and development symptoms Status: Acute DS: Summary Hospital Course: Mr. Torre is a morbidly obese 37-year-old male with multiple comorbidities including CHF, HTN, DM, HLD, h/o NSTEMI in 02/12, sleep apnea who presented initially to the ED with complaints of chest pain. ACS workup was done and was found to be negative. Patient was placed on every 4 vitals check and telemetry. No overnight events were reported. The next morning when the medical team went to talk with the patient he was found to be minimally responsive, opening his eyes to sternal rub but not able to answer question follow commands. Medical test were done and determined that patient was in respiratory failure due to unclear causes but possibly involving multiple factors including CHF, MANISH, underlying pneumonia. ABG drawn at that time showed increased carbon dioxide and decreased pH. Respiratory therapist were requested to place patient on BiPAP in order to relieve hypercapnia. Acting Section Chief was called stat and care was transferred over. Mother was informed of the situation at the time by a member of the medicine team. Patient was intubated on 09/19. Patient is thought to have developed complications of due to ARDs, possible pneumonia and CHF. Tracheostomy procedure was done on 10/04. Sputum from bronchoscopy, blood cultures, urine analysis stool analysis all been negative for infection initially. Patient has been on and off antibiotics and these antibiotics have been tailored by ID who was consulted due to patient intermittently spiking of fevers without a determined source of infection. During the management of his care patient developed acute kidney injury, and Cr has stabilized so far ~3. Patient has the following specialist managing care: Acting Section Chief, nephrology, pulmonology and infectious disease. Palliative care was also consulted to assist family with goals of care. Patient's O2 requirements have improved and was then placed on trach collar. Update since 10/30: Patient's O2 requirements improved while on trach collar. Trach was capped on and removed. Site has been healing well and patient has been using BiPAP at night. Found to be colonized w/pseudomonas on urine cx from 11/14. Per ID no treatment was needed unless patient became symptomatic. He was also found to be C.diff positive on 11/04, and was treated w/10 days of Vancomycin with dilution of diarrhea. Creatinine decreased to 1.5 and remained stable at this level during this time. Deemed likely to be new baseline at this point, thought to be from AIN due to antibiotics and should resolve w/time, since it was not responsive to fluids. Had bedside nail/I&D procedure performed by podiatry on for infection from ingrown toenail. Healed well from this, infection resolved. Back pain has remained largely stable, currently on prn opioid regimen and lidocaine patch. Has continued to work w/PT, requiring less and less assistance to stand and transfer. Had a fall 11/22, where he fell on his chin after slipping from the side of the bed as he was trying to slide in. Has minimal bleeding from the mouth and nose that quickly resolved. Asymptomatic other than headache. Because he was clinically benign, no imaging pursued. Was monitored and did well afterward. Because patient was self-pay, required [facility] or home discharge. W/CM assistance, patient was evaluated for [place] [facility] once he required less assistance and was accepted. Patient completed a trial of CPAP overnight and was transferred to [place] [facility] for continue strengthening with physical therapy. Patient was hemodynamic is stable upon discharge. Antibiotic history: Vancomycin and azithromycin 09/20--09/26 Vancomycin 09/28--10/01 Zosyn 09/20--10/03 Daptomycin - 10/03 Cefepime - 10/03 - 10/14 Linezolid - 10/05 - 10/11 Flagyl - 10/05 - 10/11 Micafungin - 10/04 -10/08 - Time Spent with Patient Total time spent providing and/or coordinating discharge services: Exam - Constitutional no acute distress - Routine HEENT Exam Eye: Present: EOMI, PERRL ENT: Present: mucous membranes moist - Routine Neck Exam Present: supple, full ROM - Routine Respiratory Exam Present: CTA bilaterally. Absent: accessory muscle use - Routine Cardiovascular Exam Present: RRR, S1, S2. Absent: murmur, gallop, rubs - Routine Abdominal Exam Present: soft, normoactive bowel sounds. Absent: tenderness - Routine Extremities Exam Present: cyanosis (Chronic lower extremity cyanosis) - Routine Skin Exam Present: intact - Routine Neurological Exam Present: alert, oriented X3 Results Procedures completed during hospitalization: Intubation Tracheostomy Trach collar Lumbar puncture - Impressions ITS Impressions Foot X-Ray 11/28/17 20:21 CONCLUSION: 1. 2 metallic foreign bodies involving the great toe as detailed above. 2. Calcaneal spurring. Discharge Plan - Discharge Disposition Patient Disposition: [facility] In[facility] - Discharge Condition Condition: Stable - Discharge Order Discharge Orders: Discharge Order (Routine); Ordered 11/27/17 Ordered By: Anthony Garner - Discharge Details Anticipated Discharge Date: 11/29/17 - Physicians Team Primary Care Provider: UNKNOWN, Attending Provider: Nicholas Lynn Other Providers: Maximiliano Lai MD ; Kim Yip MD ; Joanne Foster MD ; Cely Martini MD ; Erin Laird DPM ; José Luis Sinha MD ; Vikram Garcia MD ; Chris Bourne MD ; [facility] ; Trever Perera MD ; Emma Alexandra DPM - Rxs /Orders / Referrals /Forms Prescriptions: Discontinued glipizide 10 mg Tablet 10 mg PO BIDAC isosorbide mononitrate 120 mg Tablet Extended Release 24 Hr 120 mg PO DAILY lisinopril 40 mg Tablet 40 mg PO DAILY metformin 1,000 mg Tablet 1,000 mg PO BIDPC nifedipine 90 mg Tablet Extended Release 90 mg PO DAILY pantoprazole 40 mg Tablet,Delayed Release (Dr/Ec) 40 mg PO DAILY torsemide 10 mg Tablet 10 mg PO BID trazodone 100 mg Tablet 100 mg PO HS trazodone 100 mg Tablet 100 mg PO HS No Action amlodipine [Norvasc] 5 mg Tablet 5 mg PO DAILY 30 Days Qty: 30 RF: 0 atorvastatin 80 mg Tablet 80 mg PO DAILY 30 Days Qty: 30 RF: 0 citalopram 20 mg Tablet 20 mg PO DAILY 30 Days Qty: 30 RF: 0 clopidogrel [Plavix] 75 mg Tablet 75 mg PO DAILY 30 Days Qty: 30 RF: 0 doxazosin 2 mg Tablet 2 mg PO DAILY 30 Days Qty: 30 RF: 0 famotidine 20 mg Tablet 20 mg PO BID 30 Days Qty: 60 RF: 0 gabapentin [Neurontin] 300 mg Capsule 300 mg PO TID 30 Days Qty: 90 RF: 0 hydralazine 25 mg Tablet 25 mg PO Q8HR 30 Days RF: 0 hydrocodone-acetaminophen 5-325 mg Tablet 1 tab PO Q12H PRN (Reason: Pain Scale 7 To 10 Severe) Qty: 6 RF: 0 lurasidone [Latuda] 40 mg Tablet 40 mg PO DAILY 30 Days Qty: 30 RF: 0 metoprolol tartrate 100 mg Tablet 100 mg PO BID 30 Days Qty: 60 RF: 0 ranolazine [Ranexa] 500 mg Tablet Extended Release 12 Hr 500 mg PO BID 30 Days Qty: 60 RF: 0 sennosides [Senna Lax] 8.6 mg Tablet 17.2 mg PO Q12H PRN (Reason: Moderate Constipation) 30 Days RF: 0 sildenafil (antihypertensive) [Revatio] 20 mg Tablet 40 mg PO Q8H 30 Days Qty: 180 RF: 0 trazodone 50 mg tablet 50 mg PO DAILY 30 Days Qty: 30 Referrals: UNKNOWN, [Primary Care Provider] - See Instructions - Discharge Instructions Patient Printed Instructions: Heart Failure (GEN) - Post Discharge Care Plan Care Plan Goals: Your Health Problems: Goals to Promote Your Health: * To prevent worsening of your condition * To maintain your health at the optimal level Directions to Meet Your Goals: * Take your medications as prescribed * Follow your dietary instruction * Follow activity as directed * Keep your appointments as scheduled * Take your immunizations and boosters as scheduled * If your symptoms worsen call your PCP * If no PCP go to Urgent Care or Emergency Room Smoking is dangerous to your health. Avoid second hand smoke. You may reach the 24-hour crisis hotline for domestic abuse at .
== END 2017-11-29 12:08 ==
LOC: UNDODISIN → H4EN 21:15 → UNDODISIN 11-27 22:13
PROVIDERS: ADMIT Family Medicine; ATTEND Family Medicine

== ENCOUNTER 2018-01-22 20:22 | Observation (INO) ==
--- NOTE | 2018-01-22 21:45 | ED ---
HPI General Chief complaint: Chest Pain Stated complaint: Chest pain Time Seen by Provider: 01/22/18 21:16 Source: patient Limitations: no limitations History of Present Illness HPI narrative: The patient is a 37 year old male who presents to the [facility] emergency department with a history of chest pain in the center of his chest that he reports began between 630 and 7 PM today. He reports that he was sitting when it began. He reports that the pain is a squeezing sensation. He reports that he has shortness of breath associated with it. He denies having any radiation of the pain. The patient has a complicated recent medical history in that he was admitted from August - October 2017 with respiratory failure and tracheostomy placement. The patient reports that his tracheostomy was removed just prior to being discharged to rehab on November 29. He reports that on December 13 he was discharged from the rehabilitation facility. He reports that his primary care physician is Dr. Gutierres who he followed up with 2 weeks ago. He reports that his medication regimen was decreased from 14 medications down to 8. He reports that he is currently taking amlodipine and metoprolol for his blood pressure. He reports that he is taking Plavix and a low-dose aspirin daily. He denies being on any diuretics. He denies having any worsening lower extremity. He reports a history of sleep apnea, however he has been compliant with CPAP use at night. He denies being out of any of his medications. He reports that over the last week he has had a dry cough. He denies having any fevers or chills. He reports having nausea without vomiting. He denies having any diarrhea. His last bowel movement was earlier today. He denies having any blood in his stool or black or tarry stools. On review of systems otherwise, the patient denies having any neck pain, abdominal pain, urinary symptoms, or neurologic symptoms. Related Data Home Medications Medication Instructions Recorded Confirmed amlodipine 5 mg PO DAILY 01/22/18 01/22/18 atorvastatin 80 mg PO DAILY 01/22/18 01/22/18 citalopram 20 mg PO DAILY 01/22/18 01/22/18 clopidogrel 75 mg PO DAILY 01/22/18 01/22/18 famotidine 20 mg PO DAILY 01/22/18 01/22/18 lurasidone [Latuda] 40 mg PO DAILY 01/22/18 01/22/18 metoprolol tartrate 40 mg PO BID 01/22/18 01/22/18 trazodone 50 mg PO DAILY 01/22/18 01/22/18 trazodone 50 mg PO DAILY 01/22/18 01/22/18 Previous Rx's Medication Instructions Recorded hydrocodone-acetaminophen 1 tab PO Q12H PRN #6 tab 12/13/17 Allergies Allergy/AdvReac Type Severity Reaction Status Date / Time diclofenac AdvReac Mild UPSETS Verified 11/25/17 03:24 STOMACH etodolac AdvReac Mild UPSETS Verified 11/25/17 03:24 STOMACH flurbiprofen AdvReac Mild UPSETS Verified 11/25/17 03:24 STOMACH ibuprofen AdvReac Mild UPSETS Verified 11/25/17 03:24 STOMACH indomethacin AdvReac Mild UPSETS Verified 11/25/17 03:24 STOMACH ketoprofen AdvReac Mild UPSETS Verified 11/25/17 03:24 STOMACH ketorolac AdvReac Mild UPSETS Verified 11/25/17 03:24 STOMACH naproxen AdvReac Mild UPSETS Verified 11/25/17 03:24 STOMACH oxaprozin AdvReac Mild UPSETS Verified 11/25/17 03:24 STOMACH Review of Systems ROS: all other systems reviewed are negative (Except for that which was mentioned in the HPI) PMFSH History History Provided By: Patient and Medical Record Medical History Medical History Respiratory failure (Acute) Morbid obesity with BMI of 40.0-44.9, adult (Acute) Hypertension (Acute) CHF (congestive heart failure) (Acute) Obstructive sleep apnea (Acute) Acute kidney injury (Acute) Pseudomonas aeruginosa colonization (Acute) Dyslipidemia (Acute) GERD (gastroesophageal reflux disease) (Acute) Diabetes type 2, uncontrolled (Acute) Angina pectoris (Acute) Anxiety (Acute) Bipolar disorder (Acute) COPD (chronic obstructive pulmonary disease) (Acute) Cholecystectomy planned (Acute) Coronary artery disease (Acute) Depression (Acute) Kidney stone (Acute) Non-ST elevation (NSTEMI) myocardial infarction (Acute) PTSD (post-traumatic stress disorder) (Acute) Snoring (Acute) Urinary tract infection (Acute) Surgical History Surgical History Hx of tracheostomy (Acute) Family History Family History Father Family history of hypertension TIA (transient ischemic attack) Social History Social History Substance History: No History of Abuse Second Hand Smoke Exposure: No Smoking Status: Never smoker Tobacco Type: Cigarettes Cigarettes Per Day: 10 Years Smoked: 10 Pack-Years: 5.00 How Often Do You Have a Drink Containing Alcohol: Never Hx Recent Travel: No Recent Out of Country Travel within the Last 8 Weeks: No Exam Const General: cooperative, no acute distress and well developed Nutritional Appearance: well nourished Orientation: alert, awake and oriented x3 HENMT Head: normocephalic and atraumatic Nose: no nasal discharge and no epistaxis Mouth: moist mucous membranes Throat: posterior oropharynx normal and uvula midline Eyes Sclera: normal sclerae Pupils: PERRL Neck Neck: no meningeal signs, trachea midline and no JVD Resp Effort & Inspection: no use of accessory muscles Auscultation: clear to auscultation bilaterally Cardio Rate: regular rate Rhythm: regular rhythm Heart Sounds: no murmurs GI Inspection: non-distended Palpation: soft, no hepatosplenomegaly and nontender Auscultation: normal bowel sounds Back/Spine/Pelvis Back: no CVA tenderness Skin General: dry skin (warm) Neuro General: alert, awake and oriented x3 Cranial Nerves: other (Grossly nonfocal. No facial asymmetry.) Speech: speech normal Motor: no movement abnormalities noted Extrem General: normal to inspection (No calf tenderness on palpation. 2+ pulses in all 4 extremities.), no clubbing, no cyanosis and edema (1+ pitting edema bilateral lower extremities, slightly increased on the right compared to the left. Patient reports that this is actually improved compared to prior levels of edema.) Laterality: bilaterally Psych Mood: congruent mood Affect: normal affect Judgment: judgment good Course Initial Documented Vital Signs Temperature 98.6 F 01/22/18 20:34 Pulse Rate 73 01/22/18 20:34 Respiratory Rate 18 01/22/18 20:34 Blood Pressure 197/94 H 01/22/18 20:34 Pulse Oximetry 96 01/22/18 20:34 Last Documented Vital Signs Temperature 98.6 F 01/22/18 20:34 Pulse Rate 74 01/22/18 21:55 Respiratory Rate 16 01/22/18 21:55 Blood Pressure 175/76 H 01/22/18 21:55 Pulse Oximetry 96 01/22/18 22:03 Medical Decision Making MDM Narrative Medical decision making narrative: During the course of the patient's emergency department visit, the patient's history, examination, and differential diagnosis were reviewed with the patient. The patient was placed on a sanding machine operator with oximetry and frequent blood pressure monitoring. The patient had IV access obtained and blood work sent for analysis. A diagnostic evaluation was started regarding the patient's chest pain and shortness of breath. The patient cannot recall when he last had a stress test. The patient was initially provided aspirin 243 mg p.o. 1 as he took a low-dose aspirin earlier this morning, nitroglycerin sublingual every 5 minutes 3, nitroglycerin 1 inch the chest wall. Patient's diagnostic evaluation is remarkable for a white count of 6.4, platelets 218, normal differential, hemoglobin of 14.7, PT PTT within normal limits, d-dimer less than 0.50 decreasing likelihood of pulmonary embolism in this patient with no other significant risk factors. Chemistries remarkable for a troponin I of less than 0.02, total bilirubin is 2.6, this has been elevated the past, GFR 42, creatinine 1.81 which is slightly increased compared to previous, normal saline at 100 mL/h has been started, chloride 108, BUN 28, BNP is 42, magnesium 2.1, lipase within normal limits, urinalysis chest x-ray shows no acute cardiopulmonary abnormality, ultrasound lower extremities bilaterally reveals no venous thrombosis of either lower extremity, bilateral lower extremity subcutaneous edema, small popliteal cyst on the right. The patient will be admitted to the chest pain center for rule out serial cardiac enzyme protocol followed by consideration of stress testing. The patient's results were discussed with the patient, including the plan of care. I explained that further testing and/ or monitoring is indicated based on the patient's history, examination, and/ or laboratory findings. Therefore, I recommended admission for additional evaluation. The patient expressed understanding and was agreeable with this plan. The patient was admitted to the hospital in stable condition and sent to a bed under the care of the [facility]. Medical Screen Exam Complete: Yes Emergency Medical Condition: Yes Differential Diagnosis Differential Diagnosis: Acute coronary syndrome, versus pulmonary embolism, versus pneumonia, versus hypercapnia Medical Records Medical records reviewed: Yes I reviewed the patient's medical records. Lab Data Lab results reviewed: Yes I reviewed the patient's lab results. Result diagrams: 01/22/18 22:00 01/22/18 22:00 Lab Results 01/22/18 01/22/18 01/22/18 Range/Units 22:00 22:00 22:00 WBC 6.4 (4.0-11.0) th/mm3 RBC 4.57 (4.50-5.90) mil/mm3 Hgb 14.7 (13.0-17.0) gm/dL Hct 42.1 (39.0-51.0) % MCV 92.1 (80.0-100.0) fL MCH 32.3 (27.0-34.0) pg MCHC 35.0 (32.0-36.0) % RDW 13.0 (11.6-17.2) % Plt Count 218 (150-450) th/mm3 MPV 7.5 (7.0-11.0) fL Neut % (Auto) 65.2 (16.0-70.0) % Lymph % (Auto) 23.7 (9.0-44.0) % [place] % (Auto) 7.5 (0.0-8.0) % Eos % (Auto) 2.8 (0.0-4.0) % Baso % (Auto) 0.8 (0.0-2.0) % Neut # (Auto) 4.2 (1.8-7.7) th/mm3 Lymph # (Auto) 1.5 (1.0-4.8) th/mm3 [place] # (Auto) 0.5 (0.0-0.9) th/mm3 Eos # (Auto) 0.2 (0.0-0.4) th/mm3 Baso # (Auto) 0.1 (0.0-0.2) th/mm3 WBC Differential . Differential Comment Auto diff final PT 10.0 (9.8-11.6) sec INR 1.0 Ratio APTT 26.6 (24.3-30.1) sec D-Dimer Quant (PE/DVT) 0.23 (0.00-0.50) mg/L FEU Sodium 145 (136-145) meq/L Potassium 4.2 (3.5-5.1) meq/L Chloride 108 H (98-107) meq/L Carbon Dioxide 25.4 (21.0-32.0) meq/L Anion Gap 12 (5-15) meq/L BUN 28 H (7-18) mg/dL Creatinine 1.81 H (0.60-1.30) mg/dL Estimated GFR 42 L (>89) mL/min Random Glucose 80 (74-106) mg/dL Calcium 8.7 (8.5-10.1) mg/dL Magnesium 2.1 (1.5-2.5) mg/dL Total Bilirubin 2.6 H (0.2-1.0) mg/dL AST 22 (15-37) U/L ALT 25 (12-78) U/L Alkaline Phosphatase 101 (45-117) U/L Total Creatine Kinase 64 (39-308) U/L Troponin I Less than 0.02 L (0.02-0.05) ng/mL B-Natriuretic Peptide (0-100) pg/mL Total Protein 7.4 (6.4-8.2) g/dL Albumin 4.1 (3.4-5.0) g/dL Lipase 131 (73-393) U/L / Range/Units 22:00 WBC (4.0-11.0) th/mm3 RBC (4.50-5.90) mil/mm3 Hgb (13.0-17.0) gm/dL Hct (39.0-51.0) % MCV (80.0-100.0) fL MCH (27.0-34.0) pg MCHC (32.0-36.0) % RDW (11.6-17.2) % Plt Count (150-450) th/mm3 MPV (7.0-11.0) fL Neut % (Auto) (16.0-70.0) % Lymph % (Auto) (9.0-44.0) % [place] % (Auto) (0.0-8.0) % Eos % (Auto) (0.0-4.0) % Baso % (Auto) (0.0-2.0) % Neut # (Auto) (1.8-7.7) th/mm3 Lymph # (Auto) (1.0-4.8) th/mm3 [place] # (Auto) (0.0-0.9) th/mm3 Eos # (Auto) (0.0-0.4) th/mm3 Baso # (Auto) (0.0-0.2) th/mm3 WBC Differential Differential Comment PT (9.8-11.6) sec INR Ratio APTT (24.3-30.1) sec D-Dimer Quant (PE/DVT) (0.00-0.50) mg/L FEU Sodium (136-145) meq/L Potassium (3.5-5.1) meq/L Chloride (98-107) meq/L Carbon Dioxide (21.0-32.0) meq/L Anion Gap (5-15) meq/L BUN (7-18) mg/dL Creatinine (0.60-1.30) mg/dL Estimated GFR (>89) mL/min Random Glucose (74-106) mg/dL Calcium (8.5-10.1) mg/dL Magnesium (1.5-2.5) mg/dL Total Bilirubin (0.2-1.0) mg/dL AST (15-37) U/L ALT (12-78) U/L Alkaline Phosphatase (45-117) U/L Total Creatine Kinase (39-308) U/L Troponin I (0.02-0.05) ng/mL B-Natriuretic Peptide 42 (0-100) pg/mL Total Protein (6.4-8.2) g/dL Albumin (3.4-5.0) g/dL Lipase (73-393) U/L Imaging Data Radiologist's impression: Chest X-Ray 01/22/18 21:25 CONCLUSION: No acute cardiopulmonary process. Venous Doppler Study 01/22/18 21:34 CONCLUSION: 1. No venous thrombosis of either lower extremity. 2. Bilateral lower extremity subcutaneous edema. 3. Small popliteal cyst on the right. ECG Data Attestation: I personally reviewed and interpreted this ECG as follows: Interpretation: The patient had a EKG done on arrival that shows a heart rate of 67, QRS duration is 113 ms, QTC [address] segment elevation, Q waves are noted in lead III. An incomplete right bundle branch block is noted. Discharge Plan Discharge Disposition Patient Disposition: 30 Still Patient Discharge Details Diagnosis: Chest pain, rule out acute myocardial infarction, Lower extremity edema Physicians Team ED Provider: Tammi Mensah Primary Care Provider: UNKNOWN, Attending Provider: Ar Marquez Status ED Status: Admitted Observation Patient
--- NOTE | 2018-01-22 22:20 | XR ---
EXAM DATE: 01/22/2018 9:47 PM EDT AGE/SEX: 37 years / Male INDICATIONS: Chest pain CLINICAL DATA: This is the patient's initial encounter. Patient reports that signs and symptoms have been present for 3 days and indicates a pain score of 3/10. MEDICAL/SURGICAL HISTORY: . : Hypertension. Hypercholesterolemia. Congestive heart failure. ID. Dizziness. Sleep apnea. GERD. Gallbladder disease. Kidney stones. Schizophrenia. Cholecystectomy. . Renal stent. COMPARISON: [facility] – [place], [place], CHEST SINGLE AP, 11/11/2017. . FINDINGS: A single AP view of the chest demonstrates the lungs to be symmetrically aerated without evidence of mass, infiltrate or effusion. The cardiomediastinal contours are unremarkable. Osseous structures a re intact. CONCLUSION: No acute cardiopulmonary process. Electronically signed by: Chris Mtz MD 01/22/2018 10:19 PM EDT
[2018-01-22 22:44] LABS: Baso # (Auto) 0.1 th/mm3 (0.0-0.2); Baso % (Auto) 0.8 % (0.0-2.0); Eos # (Auto) 0.2 th/mm3 (0.0-0.4); Eos % (Auto) 2.8 % (0.0-4.0); Hematocrit 42.1 % (39.0-51.0); Hemoglobin 14.7 gm/dL (13.0-17.0); Lymph # (Auto) 1.5 th/mm3 (1.0-4.8); Lymph % (Auto) 23.7 % (9.0-44.0); Mean Corpuscular Hemoglobin 32.3 pg (27.0-34.0); Mean Corpuscular Volume 92.1 fL (80.0-100.0); Mean Platelet Volume 7.5 fL (7.0-11.0); Mono # (Auto) 0.5 th/mm3 (0.0-0.9); Mono % (Auto) 7.5 % (0.0-8.0); Neut # (Auto) 4.2 th/mm3 (1.8-7.7); Neut % (Auto) 65.2 % (16.0-70.0); Platelet Count 218 th/mm3 (150-450); Red Blood Count 4.57 mil/mm3 (4.50-5.90); White Blood Count 6.4 th/mm3 (4.0-11.0)
[2018-01-22 22:53] LABS: Activated Partial Thrombo Time 26.6 sec (24.3-30.1)
[2018-01-22 22:59] LABS: D-Dimer 0.23 mg/L FEU (0.00-0.50)
[2018-01-22 23:04] LABS: Alkaline Phosphatase 101 U/L (45-117); Total Protein 7.4 g/dL (6.4-8.2)
[2018-01-22 23:08] LABS: Alanine Aminotransferase 25 U/L (12-78); Albumin 4.1 g/dL (3.4-5.0); Anion Gap 12 meq/L (5-15); Aspartate Aminotransferase 22 U/L (15-37); Blood Urea Nitrogen 28 mg/dL (7-18); Calcium 8.7 mg/dL (8.5-10.1); Carbon Dioxide 25.4 meq/L (21.0-32.0); Chloride 108 meq/L (98-107); Glomerular Filtration Rate 42 mL/min (>89); Glucose,Random 80 mg/dL (74-106); Lipase 131 U/L (73-393); Magnesium 2.1 mg/dL (1.5-2.5); Potassium 4.2 meq/L (3.5-5.1); Sodium 145 meq/L (136-145)
[2018-01-22 23:09] LABS: Creatine Kinase 64 U/L (39-308)
--- NOTE | 2018-01-22 23:55 | US ---
EXAM DATE: 01/22/2018 11:26 PM EDT AGE/SEX: 37 years / Male INDICATIONS: Bilateral leg swelling. CLINICAL DATA: This is the patient's initial encounter. Patient reports that signs and symptoms have been present for 2 weeks and indicates a pain score of 2/10. MEDICAL/SURGICAL HISTORY: Hypertension. Chronic obstructive pulmonary disease. Diabetes melli tus type II. Angina pectoris. Bipolar disorder. GERD. Morbid obesity. Dyslipidemia. . Tracheostomy. COMPARISON: [facility] – [place] LEG BILATERAL VENOUS DOPPLER, 10/07/2017. . TECHNIQUE: Venous ultrasound of both lower extremities was performed from the inguinal ligament to t he proximal calf. Real-time, color Doppler and spectral tracing, compression and augmentation techni ques were used. FINDINGS: Right Leg: Normal compression of the deep venous system from the inguinal region to the proximal eliz f. No echogenic clot is seen. Normal response of the venous system to augmentation and respiration. Left Leg: Normal compression of the deep venous system from the inguinal region to the proximal calf . No echogenic clot is seen. Normal response of the venous system to augmentation and respiration. Other: Bilateral subcutaneous edema present. There is a 4.7 x 2.2 x 0.7 cm fluid collection posterio r to the right knee. CONCLUSION: 1. No venous thrombosis of either lower extremity. 2. Bilateral lower extremity subcutaneous edema. 3. Small popliteal cyst on the right. Electronically signed by: Chris Gold MD 01/22/2018 11:53 PM EDT
[2018-01-23 02:21] LABS: Troponin I 0.02 ng/mL (0.02-0.05)
[2018-01-23] MEDS: Acetaminophen 500 MG Tablet PO PRN ×2 (02:55→10:47)
[2018-01-23] MEDS: Sod Chloride 0.9% Inj 1,000 ML IV.CONT SCH ×2 (02:58→10:25)
[2018-01-23 04:41] LABS: Bilirubin,Urine Negative (Negative); Clarity,Urine Clear (Clear); Color,Urine Yellow (Yellw/Straw); Glucose,Urine (UA) Negative (Negative); Leukocyte Esterase,Urine Negative (Negative); Nitrite,Urine Negative (Negative); Specific Gravity,Urine 1.009 (1.002-1.035)
[2018-01-23 05:07] LABS: Creatine Kinase 55 U/L (39-308)
[2018-01-23 08:36] VITALS: RESP 18
[2018-01-23] MEDS ORDERED: Citalopram 20 MG Tablet PO SCH (10:00)
[2018-01-23] MEDS ORDERED: Metoprolol Tartrate 50 MG Tablet PO SCH (10:00)
[2018-01-23] MEDS ORDERED: Famotidine 20 MG Tablet PO SCH (10:00)
[2018-01-23] MEDS ORDERED: amLODIPine 5 MG Tablet PO SCH (10:00)
--- NOTE | 2018-01-23 12:43 | P.HPCA ---
History of Present Illness Primary Care Physician: UNKNOWN Chief Complaint: Chest pain History of Present Illness: This is a 37-year-old male with history of hypertension, hyperlipidemia, diabetes, and recent admission for respiratory failure that presents to ED to evaluated for chest discomfort with shortness of breath. This began last evening around 630. He was sitting on the couch after having dinner. Symptoms lasted about an hour. Denied nausea or diaphoresis. States he has had a cardiac workup and after reviewing records, patient had a heart catheterization in 2013 that revealed mild coronary artery disease in the left dominant system with EF of 55%. 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 States he no longer smokes. There is family history of CAD. Patient has history of hypertension, hyperlipidemia, diabetes, morbid obesity, admission in October for respiratory distress. - Diagnosis (1) Chest pain (2) Hyperlipidemia (3) Renal insufficiency (4) Hypertension (5) Morbidly obese (6) Diabetes Review of Systems General: Patient denies fevers, chills, and recent travel. HEENT: Patient denies headache, sore throat, difficulty swallowing. Cardiovascular: Has the chest discomfort as mentioned above. Denies sensation of heart beating rapidly or irregularly. No syncope. Denies diaphoresis. Respiratory: He was short of breath. Denies inspirational chest discomfort. Denies coughing wheezing or hemoptysis. GI: Planes of lower extremity edema bilaterally. Patient denies nausea, vomiting, diarrhea, abdominal pain, bloody stools. Musculoskeletal: Patient denies joint pain or edema. Denies calf pain. Neurovascular: Patient denies numbness, tingling, weakness in extremities. Denies headache. Endocrine: Denies polyuria and polydipsia. Hematologic: Denies easy bruising. Skin: Denies rash or itching. PMFSH - History History Provided By: Patient - Medical History Medical History: Medical History (Last Reviewed 01/23/18 @ 09:21 by Michelle Holt RN) Respiratory failure (Acute) Morbid obesity with BMI of 40.0-44.9, adult (Acute) Hypertension (Acute) CHF (congestive heart failure) (Acute) Obstructive sleep apnea (Acute) Acute kidney injury (Acute) Pseudomonas aeruginosa colonization (Acute) Dyslipidemia (Acute) GERD (gastroesophageal reflux disease) (Acute) Diabetes type 2, uncontrolled (Acute) Angina pectoris Anxiety Bipolar disorder COPD (chronic obstructive pulmonary disease) Cholecystectomy planned Coronary artery disease Depression Kidney stone Non-ST elevation (NSTEMI) myocardial infarction PTSD (post-traumatic stress disorder) Snoring Urinary tract infection - Surgical History Surgical History: Surgical History (Last Reviewed 01/23/18 @ 09:22 by Michelle Holt RN) History of cholecystectomy Hx of tracheostomy - Family History Family History: Family History (Last Reviewed 01/23/18 @ 09:26 by Michelle Holt RN) Father Family history of hypertension TIA (transient ischemic attack) - Tobacco History Second Hand Smoke Exposure: No Smoking Status: Former smoker Tobacco Type: Cigarettes Cigarettes Per Day: 10 Years Smoked: 10 - Alcohol History How Often Do You Have a Drink Containing Alcohol: Never - Substance Use History Substance History: No History of Abuse - Travel History History of Recent Travel: No Recent Travel in the [place] Within the Last 8 Weeks: No Recent Travel Out of the Country Within the Last 8 Weeks: No - Immunization History Tetanus Immunization: >5 Years Hx Influenza Vaccine This Season: No Medications and Allergies Active Medications: Active Medications Acetaminophen (Tylenol) 500 mg PO Q4H PRN PRN Reason: HEADACHE Last Admin: 01/23/18 10:47 Dose: 500 mg Amlodipine Besylate (Norvasc) 5 mg PO DAILY [facility] Last Admin: 01/23/18 10:47 Dose: 5 mg Atorvastatin Calcium (Lipitor) 80 mg PO DAILY [facility] Last Admin: 01/23/18 10:46 Dose: 80 mg Citalopram Hydrobromide (Celexa) 20 mg PO DAILY [facility] Last Admin: 01/23/18 10:47 Dose: 20 mg Clopidogrel Bisulfate (Plavix) 75 mg PO DAILY [facility] Last Admin: 01/23/18 10:47 Dose: 75 mg Famotidine (Pepcid) 20 mg PO DAILY [facility] Last Admin: 01/23/18 10:46 Dose: 20 mg Gabapentin (Neurontin) 300 mg PO TID [facility] Sodium Chloride (Ns Inj) 1,000 mls @ 100 mls/hr IV.CONT .Q10H [facility] Last Admin: 01/23/18 10:25 Dose: Not Given Lurasidone HCl (Latuda) 40 mg PO DAILY [facility] Last Admin: 01/23/18 11:00 Dose: 40 mg Metoprolol Tartrate (Lopressor) 50 mg PO BID [facility] Last Admin: 01/23/18 11:00 Dose: 50 mg Sodium Chloride (Ns Flush) 2 ml IV.FLUSH UNSCH PRN PRN Reason: FLUSH AFTER USING IV ACCESS Last Admin: 01/22/18 21:36 Dose: 2 ml Sodium Chloride (Ns Flush) 2 ml IV.FLUSH BID [facility] Last Admin: 01/23/18 08:21 Dose: Not Given Sodium Chloride (Ns Flush) 2 ml IV.FLUSH PRN PRN PRN Reason: FLUSH AFTER USING IV ACCESS Trazodone HCl (Desyrel) 50 mg PO DAILY [facility] Allergies Allergy/AdvReac Type Severity Reaction Status Date / Time diclofenac AdvReac Mild UPSETS Verified 01/23/18 09:26 STOMACH etodolac AdvReac Mild UPSETS Verified 01/23/18 09:26 STOMACH flurbiprofen AdvReac Mild UPSETS Verified 01/23/18 09:26 STOMACH ibuprofen AdvReac Mild UPSETS Verified 01/23/18 09:26 STOMACH indomethacin AdvReac Mild UPSETS Verified 01/23/18 09:26 STOMACH ketoprofen AdvReac Mild UPSETS Verified 01/23/18 09:26 STOMACH ketorolac AdvReac Mild UPSETS Verified 01/23/18 09:26 STOMACH naproxen AdvReac Mild UPSETS Verified 01/23/18 09:26 STOMACH oxaprozin AdvReac Mild UPSETS Verified 01/23/18 09:26 STOMACH Home Medications Medication Instructions Recorded Confirmed Type amlodipine 5 mg PO DAILY 01/22/18 01/22/18 History atorvastatin 80 mg PO DAILY 01/22/18 01/22/18 History citalopram 20 mg PO DAILY 01/22/18 01/22/18 History clopidogrel 75 mg PO DAILY 01/22/18 01/22/18 History famotidine 20 mg PO DAILY 01/22/18 01/22/18 History lurasidone [Latuda] 40 mg PO DAILY 01/22/18 01/22/18 History metoprolol tartrate 40 mg PO BID 01/22/18 01/22/18 History trazodone 50 mg PO DAILY 01/22/18 01/22/18 History trazodone 50 mg PO DAILY 01/22/18 01/22/18 History gabapentin 300 mg PO TID 01/23/18 01/23/18 History Exam Vital signs: Vital Signs 01/22/18 20:34 01/22/18 20:40 01/22/18 21:40 Temperature 98.6 F Pulse Rate 73 66 64 Respiratory Rate 18 18 18 Blood Pressure 197/94 H 212/96 H 182/86 H Pulse Oximetry 96 98 99 01/22/18 21:45 01/22/18 21:55 01/22/18 22:03 Temperature Pulse Rate 74 74 Respiratory Rate 18 16 Blood Pressure 173/74 H 175/76 H Pulse Oximetry 97 98 96 01/23/18 03:30 01/23/18 05:15 01/23/18 05:18 Temperature 98.6 F 98.6 F Pulse Rate 66 82 82 Respiratory Rate 15 18 20 Blood Pressure 168/89 H 144/73 H 144/73 H Pulse Oximetry 99 01/23/18 08:00 01/23/18 09:17 Temperature 98.8 F Pulse Rate 81 71 Respiratory Rate 18 Blood Pressure 167/74 H Pulse Oximetry 96 Intake & Output 01/22/18 01/23/18 01/23/18 18:59 06:59 18:59 Intake Total 1000 / 1000 Balance 1000 / 1000 Weight 172.365 kg 162.1 kg Intake: IV 1000 / 1000 NS Inj 1,000 ML @ 100 mls/hr IV 1000 / 1000 .CONT .Q10H [facility] Rx#:[id number] Other: Date of Last Bowel Movement 01/22/18 Weight On Admission 162.1 kg Narrative: GENERAL: This is a morbidly obese patient weighing 162 kg, in no apparent distress. Patient speaks in clear complete sentences. Patient is pleasant. HEENT: Head is atraumatic and normocephalic. Neck is supple without lymphadenopathy and trachea is midline. No JVD or carotid bruits. CARDIOVASCULAR: Regular rate and rhythm without murmurs, gallops, or rubs. RESPIRATORY: Clear to auscultation. Breath sounds equal bilaterally. No wheezes , rales, or rhonchi. Chest wall is nontender. No use of accessory muscles. GASTROINTESTINAL: Abdomen is nontender, nondistended. Abdomen soft. No obvious pulsatile mass or bruit. No CVA tenderness. Strong femoral pulses bilaterally. Normal bowel sounds in all quadrants. MUSCULOSKELETAL: 1+ bilateral lower extremity edema. Patient is moving upper and lower extremities freely. No calf tenderness, no Homans sign. Strong pulses in upper and lower extremities. NEUROLOGICAL: Patient is alert and oriented. Cranial nerves 2-12 are grossly intact. No focal deficits and speech is clear. SKIN: No rash and turgor is normal. Results 01/22/18 22:00 01/22/18 22:00 Cardiac Enzymes 01/22/18 01/22/18 01/23/18 Range/Units 22:00 22:00 01:20 AST 22 (15-37) U/L Troponin I Less than 0.02 L 0.02 (0.02-0.05) ng/mL B-Natriuretic Peptide 42 (0-100) pg/mL 01/23/18 Range/Units 04:15 AST (15-37) U/L Troponin I Less than 0.02 L (0.02-0.05) ng/mL B-Natriuretic Peptide (0-100) pg/mL Coagulation 01/22/18 01/22/18 Range/Units 22:00 22:00 PT 10.0 (9.8-11.6) sec APTT 26.6 (24.3-30.1) sec B-Natriuretic Peptide 42 (0-100) pg/mL CBC 01/22/18 Range/Units 22:00 WBC 6.4 (4.0-11.0) th/mm3 RBC 4.57 (4.50-5.90) mil/mm3 Hgb 14.7 (13.0-17.0) gm/dL Hct 42.1 (39.0-51.0) % Plt Count 218 (150-450) th/mm3 Neut # (Auto) 4.2 (1.8-7.7) th/mm3 Lymph # (Auto) 1.5 (1.0-4.8) th/mm3 [place] # (Auto) 0.5 (0.0-0.9) th/mm3 Eos # (Auto) 0.2 (0.0-0.4) th/mm3 Baso # (Auto) 0.1 (0.0-0.2) th/mm3 Comprehensive Metabolic Panel 01/22/18 Range/Units 22:00 Sodium 145 (136-145) meq/L Potassium 4.2 (3.5-5.1) meq/L Chloride 108 H (98-107) meq/L Carbon Dioxide 25.4 (21.0-32.0) meq/L BUN 28 H (7-18) mg/dL Creatinine 1.81 H (0.60-1.30) mg/dL Calcium 8.7 (8.5-10.1) mg/dL AST 22 (15-37) U/L ALT 25 (12-78) U/L Alkaline Phosphatase 101 (45-117) U/L Total Protein 7.4 (6.4-8.2) g/dL Albumin 4.1 (3.4-5.0) g/dL Intake and Output 01/22/18 01/23/18 01/23/18 22:59 06:59 14:59 Intake Total 1000 / 1000 Balance 1000 / 1000 Intake: IV 1000 / 1000 NS Inj 1,000 ML @ 100 mls/hr IV 1000 / 1000 .CONT .Q10H [facility] Rx#:[id number] Other: Date of Last Bowel Movement 01/22/18 Weight 172.365 kg 162.1 kg Weight On Admission 162.1 kg Patient Weight 01/24/18 06:59 Weight 162.1 kg EKG interpretations - EKG EKG shows: sinus rhythm (Sinus rhythm with no significant ST segment depressions or elevations.) Caprini VTE Risk Assessment Caprini VTE Risk Assessment: No/Low Risk (score <= 1) Caprini Risk Assessment Model: Point Value = 1 Point Value = 2 Point Value = 3 Point Value = 5 Age 41-60 Minor surgery BMI > 25 kg/m2 Swollen legs Varicose veins or History of unexplained or recurrent spontaneous Oral contraceptives or hormone replacement Sepsis (< 1 month) Serious lung disease, including pneumonia (< 1 month) Abnormal pulmonary function Acute myocardial infarction Congestive heart failure (< 1 month) History of inflammatory bowel disease Medical patient at bed rest Age 61-74 Arthroscopic surgery Major open surgery (> 45 min) Laparoscopic surgery (> 45 min) Malignancy Confined to bed (> 72 hours) Immobilizing plaster cast Central venous access Age >= 75 History of VTE Family history of VTE Factor V Leiden Prothrombin [id number] Lupus anticoagulant Anticardiolipin antibodies Elevated serum homocysteine Heparin-induced thrombocytopenia Other congenital or acquired thrombophilia Stroke (< 1 month) Elective arthroplasty Hip, pelvis, or leg fracture Acute spinal cord injury (< 1 month) Prophylaxis Regimen: Total Risk Factor Score Risk Level Prophylaxis Regimen 0-1 Low Early ambulation 2 Moderate Order ONE of the following: *Sequential Compression Device (SCD) *Heparin 5000 units SQ BID 3-4 Higher Order ONE of the following medications: *Heparin 5000 units SQ TID *Enoxaparin/Lovenox 40 mg SQ daily (WT < 150 kg, CrCl > 30 mL/min) *Enoxaparin/Lovenox 30 mg SQ daily (WT < 150 kg, CrCl > 10-29 mL/min) *Enoxaparin/Lovenox 30 mg SQ BID (WT < 150 kg, CrCl > 30 mL/min) AND/OR *Sequential Compression Device (SCD) 5 or more Highest Order ONE of the following medications: *Heparin 5000 units SQ TID (Preferred with Epidurals) *Enoxaparin/Lovenox 40 mg SQ daily (WT < 150 kg, CrCl > 30 mL/min) *Enoxaparin/Lovenox 30 mg SQ daily (WT < 150 kg, CrCl > 10-29 mL/min) *Enoxaparin/Lovenox 30 mg SQ BID (WT < 150 kg, CrCl > 30 mL/min) AND *Sequential Compression Device (SCD) Assessment and Plan - Assessment (1) Chest pain Code(s): R07.9 - Chest pain, unspecified Status: Acute (2) Hyperlipidemia Code(s): E78.5 - Hyperlipidemia, unspecified Status: Acute (3) Renal insufficiency Code(s): N28.9 - Disorder of kidney and ureter, unspecified Status: Acute (4) Hypertension Code(s): I10 - Essential (primary) hypertension Status: Chronic (5) Morbidly obese Code(s): E66.01 - Morbid (severe) obesity due to excess calories Status: Chronic (6) Diabetes Code(s): E11.9 - Type 2 diabetes mellitus without complications Status: Acute - Plan * Chest pain: Patient has had serial cardiac enzymes and EKGs were ruling out purposes. He has been seen by Dr. Billingsley of cardiology in the chest pain center. He has known history of some CAD from prior heart cath. He will be reassessed with stress test. Patient will be discharged home if the stress test is nonischemic with instructions to follow-up with PCP. * Hypertension: Continue medication. * Hyperlipidemia: Continue medication. * Diabetes: Continue medication. Follow diabetic diet. * Renal insufficiency: Patient counseled on the importance of follow-up with his PCP to closely monitor his renal function. * Morbid obesity: Patient counseled importance of diet, excess, and weight loss. H&P: Quality - VTE Deep Vein Thrombosis/Pulmonary Embolism Present on Admission: No (4) Hypertension Qualifiers: (6) Diabetes Qualifiers:
[2018-01-23] MEDS ORDERED: Regadenoson Inj 0.4 MG/5 ML Syringe IV.PUSH ONE (12:45)
[2018-01-23] MEDS ORDERED: Gabapentin 300 MG Capsule PO SCH (13:00)
[2018-01-23 14:34] VITALS: BP 166/93; PULSE 75; TEMP 98.7; O2SAT 98
--- NOTE | 2018-01-23 14:36 | NM ---
EXAM DATE: 01/23/2018 2:11 PM EDT AGE/SEX: 37 years / Male INDICATIONS:Angina. Congestive heart failure Substernal chest pain for one day with dyspnea. CLINICAL DATA: This is the patient's initial encounter. Patient reports that signs and symptoms have been present for 1 day and indicates a pain score of 6/10. MEDICAL/SURGICAL HISTORY: Chronic obstructive pulmonary disease. Diabetes mellitus type II. G astroesophageal reflux disease. Coronary artery disease, hypertension, myocardial infarction and pse udomonas aeruginosa colonization. Cholecystectomy. COMPARISON: No prior exams available for comparison. DOSE: 11.0 mCi Tc 99m Myoview at rest 35.0 mCi [id number] at stress 0.4 mg Lexiscan STRESS SYMPTOMS: Dyspnea. EJECTION FRACTION: 53 % TECHNIQUE: The patient underwent pharmacologic stress with infusion of prescribed dose. Continuous ECG tracing was monitored during stress. Gated SPECT imaging was performed after stress and conventi onal SPECT imaging was performed at rest. The examination was performed on a SPECT/CT scanner, both attenuation and non-corrected datasets were reviewed. FINDINGS: Distribution: The maximum perfused segment at stress is in the septal wall. Perfusion Study: The pattern of perfusion at stress is within normal limits. Gated Study: There are intact wall motion and wall thickening without hypokinetic or dyskinetic segm ents. The ejection fraction is calculated at 53%. RISK CATEGORY: Low (<1% Annual Motality Rate) CONCLUSION:Unremarkable myocardial perfusion. Electronically signed by: Ar Gonzalez MD 01/23/2018 2:35 PM EDT
--- NOTE | 2018-01-23 16:31 | TR ---
Date Performed: 01/23/2018 Time Performed: 13:01:38 DOCTOR: Jenifer Billingsley DRUG LIST: CLINICAL HISTORY: CHEST PAIN REASON FOR TEST: CHEST PAIN REASON FOR ENDING: OBSERVATION: CONCLUSION: Lexiscan stress test was performed under standard four minute protocol. Radionuclid e was injected one minute prior to ending the test. No electrocardiographic abormalities were present to suggest ischemia. Nuclear imaging and interpretation are pending. COMMENTS: no ischemia
--- NOTE | 2018-01-23 16:42 | ECG ---
Date Performed: 01/23/2018 Time Performed: 03:45:47 PTAGE: 37 years EKG: Sinus rhythm INCOMPLETE RIGHT BUNDLE BRANCH BLOCK NONSPECIFIC T-WAVE ABNORMALITY BORDERLINE ECG Since PREVIOUS TRACING , no significant change noted PREVIOUS TRACIN01/23/2018 00.35 DOCTOR: Jenifer Billingsley Interpretating Date/Time 01/23/2018 16:40:33
[2018-01-23] MEDS ORDERED: Insulin NovoLIN Regular Correctional Sugar Inj SQ SCH (17:00)
[2018-01-23] MEDS ORDERED: traZODone 50 MG Tablet PO SCH (20:00)
--- NOTE | 2018-01-23 20:32 | ECG ---
Date Performed: 01/23/2018 Time Performed: 00:35:24 PTAGE: 37 years EKG: Sinus rhythm INCOMPLETE RIGHT BUNDLE BRANCH BLOCK NONSPECIFIC T-WAVE ABNORMALITY BORDERLINE ECG Since PREVIOUS TRACING , no significant change noted PREVIOUS TRACIN01/22/2018 21.15 DOCTOR: Jenifer Billingsley Interpretating Date/Time 01/23/2018 20:30:13
--- NOTE | 2018-01-23 20:33 | ECG ---
Date Performed: 01/22/2018 Time Performed: 21:15:59 PTAGE: 37 years EKG: Sinus rhythm INCOMPLETE RIGHT BUNDLE BRANCH BLOCK NONSPECIFIC T-WAVE ABNORMALITY BORDERLINE ECG Since PREVIOUS TRACING , no significant change noted PREVIOUS TRACIN10/16/2017 00.48 DOCTOR: Jenifer Billingsley Interpretating Date/Time 01/23/2018 20:32:39
== END 2018-01-23 15:37 | disposition home or self-care (01) ==
LOC: NEDA 20:22 → NEPC 20:22 → NEDH 01-23 03:25 → NEPFCDU 01-23 08:06
PROVIDERS: ADMIT Internal Medicine Cardiovascular Disease; ATTEND Internal Medicine Cardiovascular Disease

== ENCOUNTER 2018-05-15 15:00 | Observation (INO) ==
[2018-05-15] MEDS ORDERED: Sod Chloride 0.9% Inj 1,000 ML IV.CONT SCH (16:30)
--- NOTE | 2018-05-15 16:35 | ED ---
HPI General Chief complaint: Neuro Symptoms/Deficit Stated complaint: Numbness Time Seen by Provider: 05/15/18 16:11 Source: patient Mode of arrival: ambulatory Limitations: no limitations History of Present Illness HPI narrative: 38 y/o male presents stating at about 1230 this afternoon he had an episode where his left arm and leg got tingly and he had difficulty moving for about 5 minutes. He states that he did not have issues with his speech or memory that he knows of. He states since then he has had no symptoms. He denies any other concurrent complaints. He denies specific modifying factors. He states he went to his primary care physician who sent him here for further evaluation. He is currently symptom-free. Quality was tingling. Severity is resolved. Related Data Home Medications Medication Instructions Recorded Confirmed amlodipine 10 mg PO DAILY 01/22/18 05/15/18 atorvastatin 80 mg PO DAILY 01/22/18 05/15/18 citalopram 20 mg PO DAILY 01/22/18 05/15/18 clopidogrel 75 mg PO DAILY 01/22/18 05/15/18 lurasidone [Latuda] 40 mg PO DAILY 01/22/18 05/15/18 metoprolol tartrate 40 mg PO BID 01/22/18 05/15/18 trazodone 100 mg PO HS 01/22/18 05/15/18 gabapentin 300 mg PO TID 01/23/18 05/15/18 Allergies Allergy/AdvReac Type Severity Reaction Status Date / Time diclofenac AdvReac Mild UPSETS Verified 05/15/18 16:15 STOMACH etodolac AdvReac Mild UPSETS Verified 05/15/18 16:15 STOMACH flurbiprofen AdvReac Mild UPSETS Verified 05/15/18 16:15 STOMACH ibuprofen AdvReac Mild UPSETS Verified 05/15/18 16:15 STOMACH indomethacin AdvReac Mild UPSETS Verified 05/15/18 16:15 STOMACH ketoprofen AdvReac Mild UPSETS Verified 05/15/18 16:15 STOMACH ketorolac AdvReac Mild UPSETS Verified 05/15/18 16:15 STOMACH naproxen AdvReac Mild UPSETS Verified 05/15/18 16:15 STOMACH oxaprozin AdvReac Mild UPSETS Verified 05/15/18 16:15 STOMACH Review of Systems ROS: all other systems reviewed are negative [facility] Medical History Medical History Respiratory failure (Acute) Morbid obesity with BMI of 40.0-44.9, adult (Acute) Hypertension (Acute) CHF (congestive heart failure) (Acute) Obstructive sleep apnea (Acute) Acute kidney injury (Acute) Pseudomonas aeruginosa colonization (Acute) Dyslipidemia (Acute) GERD (gastroesophageal reflux disease) (Acute) Diabetes type 2, uncontrolled (Acute) Angina pectoris (Acute) Anxiety (Acute) Bipolar disorder (Acute) COPD (chronic obstructive pulmonary disease) (Acute) Cholecystectomy planned (Acute) Coronary artery disease (Acute) Depression (Acute) Kidney stone (Acute) Non-ST elevation (NSTEMI) myocardial infarction (Acute) PTSD (post-traumatic stress disorder) (Acute) Snoring (Acute) Urinary tract infection (Acute) Surgical History Surgical History History of cholecystectomy (Acute) Hx of tracheostomy (Acute) Family History Family History Father Family history of hypertension TIA (transient ischemic attack) Social History Social History Substance History: No History of Abuse Second Hand Smoke Exposure: No Smoking Status: Never smoker Tobacco Type: Cigarettes Cigarettes Per Day: 10 Years Smoked: 10 Pack-Years: 5.00 How Often Do You Have a Drink Containing Alcohol: Never Hx Recent Travel: No Recent Travel in [facility] within the Last 8 Weeks: No Recent Out of Country Travel within the Last 8 Weeks: No Immunization History Tetanus Immunization: >5 Years Exam Narrative Exam Narrative: GENERAL: 38 y/o male in no apparent distress SKIN: Focused skin assessment warm/dry. HEAD: Atraumatic. Normocephalic. EYES: Pupils equal and round. No scleral icterus. No injection or drainage. ENT: No nasal bleeding or discharge. Mucous membranes pink and moist. NECK: Trachea midline. CARDIOVASCULAR: Regular rate and rhythm. RESPIRATORY: No accessory muscle use. Clear to auscultation. Breath sounds equal bilaterally. GASTROINTESTINAL: Abdomen soft, non-tender, nondistended. MUSCULOSKELETAL: No obvious deformities. No clubbing. No cyanosis. NEUROLOGICAL: Awake and alert. Motor grossly within normal limits. Normal speech. equal grasp bilaterally, no facial droop PSYCHIATRIC: Appropriate mood and affect; insight and judgment normal. Course Reevaluation(s) Reevaluation #1: Blood pressure has improved, will admit for further care Consultations Consultation #1: dr pate agrees to controlling blood pressure and will need aspirin in addition if ct is ok, then will need evaluation of carotids and mri with observation Consultation #2: dr andrews agrees to admit Initial Documented Vital Signs Temperature 98.2 F 05/15/18 15:04 Pulse Rate 106 H 05/15/18 15:04 Respiratory Rate 20 05/15/18 15:04 Blood Pressure 210/123 H 05/15/18 15:04 Pulse Oximetry 97 05/15/18 15:04 Last Documented Vital Signs Temperature 98.2 F 05/15/18 15:04 Pulse Rate 88 05/15/18 17:26 Respiratory Rate 18 05/15/18 17:26 Blood Pressure 199/95 H 05/15/18 17:26 Pulse Oximetry 94 L 05/15/18 17:26 Medical Decision Making [facility] Narrative Medical decision making narrative: will check labs, ct and discuss with neurology Medical Screen Exam Complete: Yes Emergency Medical Condition: Yes Differential Diagnosis Differential Diagnosis: stroke, bleed, tia, hypertensive urgency Lab Data Lab results reviewed: Yes I reviewed the patient's lab results. Result diagrams: 05/15/18 16:00 05/15/18 16:00 Lab Results 05/15/18 05/15/18 05/15/18 Range/Units 16:00 16:00 16:00 WBC 7.4 (4.0-11.0) th/mm3 RBC 4.76 (4.50-5.90) mil/mm3 Hgb 15.7 (13.0-17.0) gm/dL Hct 44.2 (39.0-51.0) % MCV 92.9 (80.0-100.0) fL MCH 33.0 (27.0-34.0) pg MCHC 35.5 (32.0-36.0) % RDW 13.3 (11.6-17.2) % Plt Count 192 (150-450) th/mm3 MPV 7.2 (7.0-11.0) fL Neut % (Auto) 72.8 H (16.0-70.0) % Lymph % (Auto) 16.3 (9.0-44.0) % Lawrence % (Auto) 7.6 (0.0-8.0) % Eos % (Auto) 2.6 (0.0-4.0) % Baso % (Auto) 0.7 (0.0-2.0) % Neut # (Auto) 5.4 (1.8-7.7) th/mm3 Lymph # (Auto) 1.2 (1.0-4.8) th/mm3 Lawrence # (Auto) 0.6 (0.0-0.9) th/mm3 Eos # (Auto) 0.2 (0.0-0.4) th/mm3 Baso # (Auto) 0.0 (0.0-0.2) th/mm3 WBC Differential . Differential Comment Auto diff final PT 9.9 (9.8-11.6) sec INR 1.0 Ratio APTT 28.7 (23.4-31.7) sec Sodium 144 (136-145) meq/L Potassium 4.4 (3.5-5.1) meq/L Chloride 111 H (98-107) meq/L Carbon Dioxide 27.6 (21.0-32.0) meq/L Anion Gap 5 (5-15) meq/L BUN 31 H (7-18) mg/dL Creatinine 1.47 H (0.60-1.30) mg/dL Estimated GFR 53 L (>89) mL/min Random Glucose 125 H (74-106) mg/dL Calcium 8.5 (8.5-10.1) mg/dL Total Bilirubin 1.6 H (0.2-1.0) mg/dL AST 26 (15-37) U/L ALT 25 (12-78) U/L Alkaline Phosphatase 105 (45-117) U/L Total Creatine Kinase 522 H (39-308) U/L CK-MB (CK-2) 2.8 (0.5-3.6) ng/mL CK-MB (CK-2) % 0.5 (0.0-4.0) % Troponin I 0.06 H (0.02-0.05) ng/mL Total Protein 7.2 (6.4-8.2) g/dL Albumin 3.7 (3.4-5.0) g/dL Urine Color (Yellw/Straw) Urine Clarity (Clear) Urine pH (5.0-8.5) Ur Specific [place] (1.002-1.035) Urine Protein (Neg-Trace) mg/dL Urine Glucose (UA) (Negative) mg/dL Urine Ketones (Negative) mg/dL Urine Occult Blood (Negative) Urine Nitrate (Negative) Urine Bilirubin (Negative) Urine Urobilinogen (Less than 2) mg/dL Ur Leukocyte Esterase (Negative) Urine RBC (0-3) /hpf Urine WBC (0-5) /hpf Ur Squamous Epith Cells (0-5) /hpf Urine Mucus (Occasional) /lpf Micro UA Comment Ur Microscopic Review Urine Culture Comments 05/15/18 Range/Units 16:50 WBC (4.0-11.0) th/mm3 RBC (4.50-5.90) mil/mm3 Hgb (13.0-17.0) gm/dL Hct (39.0-51.0) % MCV (80.0-100.0) fL MCH (27.0-34.0) pg MCHC (32.0-36.0) % RDW (11.6-17.2) % Plt Count (150-450) th/mm3 MPV (7.0-11.0) fL Neut % (Auto) (16.0-70.0) % Lymph % (Auto) (9.0-44.0) % Lawrence % (Auto) (0.0-8.0) % Eos % (Auto) (0.0-4.0) % Baso % (Auto) (0.0-2.0) % Neut # (Auto) (1.8-7.7) th/mm3 Lymph # (Auto) (1.0-4.8) th/mm3 Lawrence # (Auto) (0.0-0.9) th/mm3 Eos # (Auto) (0.0-0.4) th/mm3 Baso # (Auto) (0.0-0.2) th/mm3 WBC Differential Differential Comment PT (9.8-11.6) sec INR Ratio APTT (23.4-31.7) sec Sodium (136-145) meq/L Potassium (3.5-5.1) meq/L Chloride (98-107) meq/L Carbon Dioxide (21.0-32.0) meq/L Anion Gap (5-15) meq/L BUN (7-18) mg/dL Creatinine (0.60-1.30) mg/dL Estimated GFR (>89) mL/min Random Glucose (74-106) mg/dL Calcium (8.5-10.1) mg/dL Total Bilirubin (0.2-1.0) mg/dL AST (15-37) U/L ALT (12-78) U/L Alkaline Phosphatase (45-117) U/L Total Creatine Kinase (39-308) U/L CK-MB (CK-2) (0.5-3.6) ng/mL CK-MB (CK-2) % (0.0-4.0) % Troponin I (0.02-0.05) ng/mL Total Protein (6.4-8.2) g/dL Albumin (3.4-5.0) g/dL Urine Color Yellow (Yellw/Straw) Urine Clarity Clear (Clear) Urine pH 5.0 (5.0-8.5) Ur Specific [place] 1.020 (1.002-1.035) Urine Protein 100 H (Neg-Trace) mg/dL Urine Glucose (UA) Negative (Negative) mg/dL Urine Ketones Negative (Negative) mg/dL Urine Occult Blood Negative (Negative) Urine Nitrate Negative (Negative) Urine Bilirubin Negative (Negative) Urine Urobilinogen Less than 2 (Less than 2) mg/dL Ur Leukocyte Esterase Negative (Negative) Urine RBC Less than 1 (0-3) /hpf Urine WBC Less than 1 (0-5) /hpf Ur Squamous Epith Cells <1 (0-5) /hpf Urine Mucus Few H (Occasional) /lpf Micro UA Comment Culture not ind Ur Microscopic Review Not Reportable Urine Culture Comments Culture not ind Imaging Data Attestation: I personally reviewed and interpreted this imaging study as follows : Radiologist's impression: Head CT 05/15/18 16:17 CONCLUSION: 1. No acute intracranial abnormality. 2. Stable CT of the brain compared to 01/04/2017. . Chest X-Ray 05/15/18 16:18 CONCLUSION: Stable appearance with no acute cardiopulmonary disease. Discharge Plan Discharge Disposition Patient Disposition: ED Admit(ED Internal Use Only) Discharge Order Discharge Orders: ED Use Only Admit Order (Routine); Ordered 05/15/18 Ordered By: Bambi Bang Discharge Details Diagnosis: Brain TIA, Elevated troponin Physicians Team ED Provider: Bambi Bang Attending Provider: Santy Andrews Rxs /Orders / Referrals /Forms Prescriptions: No Action amlodipine 5 mg Tablet 10 mg PO DAILY RF: 0 citalopram 20 mg Tablet 20 mg PO DAILY RF: 0 atorvastatin 80 mg Tablet 80 mg PO DAILY RF: 0 trazodone 50 mg Tablet 100 mg PO HS RF: 0 clopidogrel 75 mg Tablet 75 mg PO DAILY RF: 0 metoprolol tartrate 50 mg Tablet 40 mg PO BID RF: 0 lurasidone [Latuda] 40 mg Tablet 40 mg PO DAILY RF: 0 gabapentin 300 mg Capsule 300 mg PO TID RF: 0 Discharge Interventions Interventions: Vital Signs Last Done: 05/15/18 17:26 Status ED Status: Admitted Observation Patient
--- NOTE | 2018-05-15 16:37 | XR ---
EXAM DATE: 05/15/2018 4:34 PM EST AGE/SEX: 38 years / Male INDICATIONS: Palpitations. Left sided numbness. CLINICAL DATA: This is the patient's initial encounter. Patient reports that signs and symptoms have been present for 1 day and indicates a pain score of 0/10. MEDICAL/SURGICAL HISTORY: . Congestive heart failure. Cholecystectomy. COMPARISON: [facility] [place] 1V SINGLE AP, 01/22/2018. . FINDINGS: A single AP view of the chest demonstrates the lungs to be symmetrically aerated without evidence of mass, infiltrate or effusion. The cardiomediastinal contours are unremarkable. Osseous structures a re intact. CONCLUSION: Stable appearance with no acute cardiopulmonary disease. Electronically signed by: Mathew Liao MD Board Certified Radiologist 05/15/2018 4:36 PM EST
[2018-05-15 16:46] LABS: Baso % (Auto) 0.7 % (0.0-2.0); Eos # (Auto) 0.2 th/mm3 (0.0-0.4); Eos % (Auto) 2.6 % (0.0-4.0); Hematocrit 44.2 % (39.0-51.0); Hemoglobin 15.7 gm/dL (13.0-17.0); Lymph # (Auto) 1.2 th/mm3 (1.0-4.8); Lymph % (Auto) 16.3 % (9.0-44.0); Mean Corpuscular HGB Conc 35.5 % (32.0-36.0); Mean Corpuscular Volume 92.9 fL (80.0-100.0); Mean Platelet Volume 7.2 fL (7.0-11.0); Mono # (Auto) 0.6 th/mm3 (0.0-0.9); Mono % (Auto) 7.6 % (0.0-8.0); Neut # (Auto) 5.4 th/mm3 (1.8-7.7); Neut % (Auto) 72.8 % (16.0-70.0); Platelet Count 192 th/mm3 (150-450); Red Blood Count 4.76 mil/mm3 (4.50-5.90); Red Cell Distribution Width 13.3 % (11.6-17.2); White Blood Count 7.4 th/mm3 (4.0-11.0)
--- NOTE | 2018-05-15 16:51 | CT ---
EXAM DATE: 05/15/2018 4:46 PM EST AGE/SEX: 38 years / Male INDICATIONS: Dizziness and numbness to left side of body. CLINICAL DATA: This is the patient's initial encounter. Patient reports that signs and symptoms have been present for 1 day and indicates a pain score of 10/10. MEDICAL/SURGICAL HISTORY: Congestive heart failure. Chronic obstructive pulmonary disease. Hypert ension. None. RADIATION DOSE: 43.21 CTDI (mGy) COMPARISON: [facility] – [place], CT BRAIN W/O CONTRAST, 01/04/2017. [facility] [place], [place] BRAIN W/O CONTRAST, 06/12/2015. . TECHNIQUE: CT of the head without contrast. Using automated exposure control and adjustment of the mA and/or kV according to patient size, radiation dose was kept as low as reasonably achievable to ob tain optimal diagnostic quality images. DICOM format image data is available electronically for revi ew and comparison. FINDINGS: Cerebrum: The ventricles are normal for age. No evidence of midline shift, mass lesion, hemorrhage or acute infarction. No extraaxial fluid collections are seen. There is a stable area of decreased a ttenuation within the right interparietal subcortical white matter. Posterior Fossa: The cerebellum and brainstem are intact. The 4th ventricle is midline. The cerebe llopontine angle is unremarkable. Stable vertebral basilar dolichoectasia is noted. Extracranial: The visualized portion of the orbits is intact. Skull: The calvaria is intact. No evidence of skull fracture. CONCLUSION: 1. No acute intracranial abnormality. 2. Stable CT of the brain compared to 01/04/2017. . Electronically signed by: Ozzie Leal MD Board Certified Radiologist 05/15/2018 4:50 PM EST
[2018-05-15 16:57] LABS: Activated Partial Thrombo Time 28.7 sec (23.4-31.7); Prothrombin Time 9.9 sec (9.8-11.6)
[2018-05-15 16:59] LABS: Alanine Aminotransferase 25 U/L (12-78); Albumin 3.7 g/dL (3.4-5.0); Anion Gap 5 meq/L (5-15); Aspartate Aminotransferase 26 U/L (15-37); Blood Urea Nitrogen 31 mg/dL (7-18); Calcium 8.5 mg/dL (8.5-10.1); Carbon Dioxide 27.6 meq/L (21.0-32.0); Chloride 111 meq/L (98-107); Glomerular Filtration Rate 53 mL/min (>89); Glucose,Random 125 mg/dL (74-106); Potassium 4.4 meq/L (3.5-5.1); Sodium 144 meq/L (136-145)
[2018-05-15 17:03] LABS: Alkaline Phosphatase 105 U/L (45-117); Creatine Kinase 522 U/L (39-308); Total Protein 7.2 g/dL (6.4-8.2); Troponin I 0.06 ng/mL (0.02-0.05)
[2018-05-15] MEDS ORDERED: Aspirin 325 MG Tablet PO ONE (17:13)
[2018-05-15 17:15] LABS: CKMB Percent 0.5 % (0.0-4.0); Creatine Kinase MB 2.8 ng/mL (0.5-3.6)
[2018-05-15] MEDS ORDERED: Acetaminophen 325 MG Tablet PO ONE (17:15)
[2018-05-15 17:21] LABS: Bilirubin,Urine Negative (Negative); Clarity,Urine Clear (Clear); Color,Urine Yellow (Yellw/Straw); Glucose,Urine (UA) Negative (Negative); Leukocyte Esterase,Urine Negative (Negative); Mucus,Urine Few /lpf (Occasional); Nitrite,Urine Negative (Negative); Squamous Epithelial Cell,Urine <1 /hpf (0-5)
[2018-05-15] MEDS ORDERED: Acetaminophen 325 MG Tablet PO PRN (17:38)
--- NOTE | 2018-05-15 18:53 | MR ---
EXAM DATE: 05/15/2018 6:47 PM EST AGE/SEX: 38 years / Male INDICATIONS: Stroke. Left sided weakness. CLINICAL DATA: This is the patient's initial encounter. Patient reports that signs and symptoms have been present for 2 days and indicates a pain score of 4/10. MEDICAL/SURGICAL HISTORY: Hypertension. Renal insufficiency. Myocardial infarction. Cholecyst ectomy. COMPARISON: [facility], MRA HEAD W/O CONTRAST, 05/15/2018. [facility], CT HEAD W/O CONTRAST, 05/15/2018. [facility], MRA NECK W CONTRAST, 05/15/2018. [facility], CT BRAIN W/O CONTRAST, 06/12/2015. [facility], CT BRAIN W/O CONTRA ST, 01/04/2017. . TECHNIQUE: Multiplanar, multisequence examination of the brain was performed without contrast. FINDINGS: Diffusion weighted images demonstrate no evidence for acute infarction. Ventricles and cisterns are o f normal size and configuration. There is no evidence for intracranial hemorrhage or mass. A few tiny foci of increased T2 signal are noted in the white matter otherwise the signal intensity of the brai n is normal. Probable mildly prominent perivascular space right posterior periventricular white matte r. CONCLUSION: 1. No acute findings. Electronically signed by: Andrei Miller MD Board Certified Radiologist 05/15/2018 6:52 PM EST
--- NOTE | 2018-05-15 18:54 | MR ---
EXAM DATE: 05/15/2018 6:46 PM EST AGE/SEX: 38 years / Male INDICATIONS: Stroke. Left sided weakness. CLINICAL DATA: This is the patient's initial encounter. Patient reports that signs and symptoms have been present for 2 days and indicates a pain score of 3/10. MEDICAL/SURGICAL HISTORY: Renal insufficiency. Hypertension. Myocardial infarction. Cholecyst ectomy. COMPARISON: [facility] [place] HEAD W/O CONTRAST, 05/15/2018. [facility] [place], MRA NECK W CONTRAST, 05/15/2018. [facility], CT HEAD W/O CONTRAST, 05/15/2018. . TECHNIQUE: 3D [id number] MRA was performed. Source images, multiplanar STS MIP, and 3D volum e MIP reconstructions were reviewed. FINDINGS: There is excellent visualization of the major intracranial arteries out to the second-order branch ve ssels. There is no evidence for aneurysm, vessel truncation or stenosis, and no evidence for vascula r malformation. The A-1 division of the right anterior cerebral artery is hypoplastic as compared to the left. CONCLUSION: 1. Negative MRA [place] ([place]) non contrast. Electronically signed by: Andrei Miller MD Board Certified Radiologist 05/15/2018 6:53 PM EST
[2018-05-15] MEDS ORDERED: Labetalol HCl Inj 100 MG/20 ML Vial IV.PUSH ONE (19:07)
[2018-05-15] MEDS ORDERED: Gadobutrol PF 10 MMOL/10 ML Vial (for RAD) IV.SIG ONE (19:13)
--- NOTE | 2018-05-15 19:32 | P.HP ---
History of Present Illness Service: [facility] Primary Care Physician: Chris Gutierres History of Present Illness: 38-year-old male with a past medical history significant for chronic kidney disease, CAD status post and STEMI and cardiac catheterization without intervention, hypertension, hyperlipidemia and CHF presents to the emergency department for the evaluation of left sided numbness. The patient reports that last night he had a throbbing headache with accompanying dizziness. When he awoke this morning he continued to have headache symptoms with associated dizziness and bilateral blurry vision. He states that around 1 PM he had left upper and lower extremity numbness and tingling without associated weakness. He denies any chest pain or shortness of breath. No abdominal pain. No nausea/ vomiting/diarrhea. No fever/chills. Review of Systems All other systems reviewed negative except as stated in HPI [facility] - History History Provided By: Patient - Medical History Medical History: Medical History (Last Updated 05/15/18 @ 19:11 by Fabiola Summers MD) Chronic kidney disease Anxiety Bipolar disorder CHF (congestive heart failure) COPD (chronic obstructive pulmonary disease) Coronary artery disease Depression Dyslipidemia GERD (gastroesophageal reflux disease) Hypertension Morbid obesity with BMI of 40.0-44.9, adult Obstructive sleep apnea PTSD (post-traumatic stress disorder) Pseudomonas aeruginosa colonization - Surgical History Surgical History: Surgical History (Last Updated 05/15/18 @ 19:12 by Fabiola Summers MD) Status post cardiac catheterization History of cholecystectomy Hx of tracheostomy - Family History Family History: Family History (Last Reviewed 05/15/18 @ 19:12 by Fabiola Summers MD) Father Family history of hypertension TIA (transient ischemic attack) - Tobacco History Second Hand Smoke Exposure: No Smoking Status: Never smoker Tobacco Type: Cigarettes Cigarettes Per Day: 10 Years Smoked: 10 - Alcohol History How Often Do You Have a Drink Containing Alcohol: Never - Substance Use History Substance History: No History of Abuse - Travel History History of Recent Travel: No Recent Travel in the [place] Within the Last 8 Weeks: No Recent Travel Out of the Country Within the Last 8 Weeks: No - Immunization History Tetanus Immunization: >5 Years Medications and Allergies Active Medications: Active Medications Acetaminophen (Tylenol) 650 mg PO Q4H PRN PRN Reason: Temp > 100.4 Al Hydroxide/Mg Hydroxide (Milk Of Magnesia Liq) 30 ml PO Q12H PRN PRN Reason: Mild Constipation Clonidine HCl (Catapres) 0.1 mg PO Q6H PRN PRN Reason: SYS BP GREATER THAN 160 MMHG Enalaprilat (Vasotec Inj) 1.25 mg IV.PUSH Q6H PRN PRN Reason: SBP>160, DBP>90 Sodium Chloride (Ns Inj) 1,000 mls @ 70 mls/hr IV.CONT .[id number] JUANCHO Stop: 05/16/18 06:47 Last Admin: 05/15/18 16:22 Dose: 70 mls/hr Ondansetron HCl (Zofran Inj) 4 mg IV.PUSH Q6H PRN PRN Reason: NAUSEA OR VOMITING Sodium Chloride (Ns Flush) 2 ml IV.FLUSH BID JUANCHO Sodium Chloride (Ns Flush) 2 ml IV.FLUSH PRN PRN PRN Reason: FLUSH AFTER USING IV ACCESS Allergies Allergy/AdvReac Type Severity Reaction Status Date / Time diclofenac AdvReac Mild UPSETS Verified 05/15/18 16:15 STOMACH etodolac AdvReac Mild UPSETS Verified 05/15/18 16:15 STOMACH flurbiprofen AdvReac Mild UPSETS Verified 05/15/18 16:15 STOMACH ibuprofen AdvReac Mild UPSETS Verified 05/15/18 16:15 STOMACH indomethacin AdvReac Mild UPSETS Verified 05/15/18 16:15 STOMACH ketoprofen AdvReac Mild UPSETS Verified 05/15/18 16:15 STOMACH ketorolac AdvReac Mild UPSETS Verified 05/15/18 16:15 STOMACH naproxen AdvReac Mild UPSETS Verified 05/15/18 16:15 STOMACH oxaprozin AdvReac Mild UPSETS Verified 05/15/18 16:15 STOMACH Home Medications Medication Instructions Recorded Confirmed Type amlodipine 10 mg PO DAILY 01/22/18 05/15/18 History atorvastatin 80 mg PO DAILY 01/22/18 05/15/18 History citalopram 20 mg PO DAILY 01/22/18 05/15/18 History clopidogrel 75 mg PO DAILY 01/22/18 05/15/18 History lurasidone [Latuda] 40 mg PO DAILY 01/22/18 05/15/18 History metoprolol tartrate 40 mg PO BID 01/22/18 05/15/18 History trazodone 100 mg PO HS 01/22/18 05/15/18 History gabapentin 300 mg PO TID 01/23/18 05/15/18 History Exam Vital signs: Vital Signs 05/15/18 15:04 05/15/18 16:10 05/15/18 16:20 Temperature 98.2 F Pulse Rate 106 H 96 H 96 H Respiratory Rate 20 18 Blood Pressure 210/123 H 185/112 H Pulse Oximetry 97 96 05/15/18 16:22 05/15/18 17:26 05/15/18 19:03 Temperature Pulse Rate 88 81 Respiratory Rate 18 18 Blood Pressure 199/95 H 200/93 H Pulse Oximetry 96 94 L 97 Intake & Output 05/15/18 05/15/18 05/16/18 06:59 18:59 06:59 Weight 163.293 kg Narrative: Gen.: No acute distress Head: Normocephalic. Atraumatic. EENT: Pupils equal round and reactive to light. Nose without drainage. Airway intact. Throat without injection. Cardiovascular: Regular rate and rhythm. No murmurs, rubs or gallops. Respiratory: Lungs clear to auscultation bilaterally. No wheezes or rhonchi. Abdomen: Soft, nontender, nondistended. No peritoneal signs. Musculoskeletal: No gross deformities. No edema. Skin: No obvious rashes or erythema. Neuro: Cranial nerves II through XII intact. Strength 5/5 throughout. Sensation equal bilaterally. Results - Labs CBC & Chem 7: 05/15/18 16:00 05/15/18 16:00 Labs: Laboratory Results - last 24 hr 05/15/18 05/15/18 05/15/18 16:00 16:00 16:00 WBC 7.4 RBC 4.76 Hgb 15.7 Hct 44.2 MCV 92.9 MCH 33.0 MCHC 35.5 RDW 13.3 Plt Count 192 MPV 7.2 Neut % (Auto) 72.8 H Lymph % (Auto) 16.3 [place] % (Auto) 7.6 Eos % (Auto) 2.6 Baso % (Auto) 0.7 Neut # (Auto) 5.4 Lymph # (Auto) 1.2 [place] # (Auto) 0.6 Eos # (Auto) 0.2 Baso # (Auto) 0.0 WBC Differential . Differential Comment Auto diff final PT 9.9 INR 1.0 APTT 28.7 Sodium 144 Potassium 4.4 Chloride 111 H Carbon Dioxide 27.6 Anion Gap 5 BUN 31 H Creatinine 1.47 H Estimated GFR 53 L Random Glucose 125 H Calcium 8.5 Total Bilirubin 1.6 H AST 26 ALT 25 Alkaline Phosphatase 105 Total Creatine Kinase 522 H CK-MB (CK-2) 2.8 CK-MB (CK-2) % 0.5 Troponin I 0.06 H Total Protein 7.2 Albumin 3.7 Urine Color Urine Clarity Urine pH Ur Specific [place] Urine Protein Urine Glucose (UA) Urine Ketones Urine Occult Blood Urine Nitrate Urine Bilirubin Urine Urobilinogen Ur Leukocyte Esterase Urine RBC Urine WBC Ur Squamous Epith Cells Urine Mucus Micro UA Comment Ur Microscopic Review Urine Culture Comments Blood Type Blood Type Recheck Antibody Screen 05/15/18 05/15/18 16:50 17:47 WBC RBC Hgb Hct MCV MCH MCHC RDW Plt Count MPV Neut % (Auto) Lymph % (Auto) [place] % (Auto) Eos % (Auto) Baso % (Auto) Neut # (Auto) Lymph # (Auto) [place] # (Auto) Eos # (Auto) Baso # (Auto) WBC Differential Differential Comment PT INR APTT Sodium Potassium Chloride Carbon Dioxide Anion Gap BUN Creatinine Estimated GFR Random Glucose Calcium Total Bilirubin AST ALT Alkaline Phosphatase Total Creatine Kinase CK-MB (CK-2) CK-MB (CK-2) % Troponin I Total Protein Albumin Urine Color Yellow Urine Clarity Clear Urine pH 5.0 Ur Specific [place] 1.020 Urine Protein 100 H Urine Glucose (UA) Negative Urine Ketones Negative Urine Occult Blood Negative Urine Nitrate Negative Urine Bilirubin Negative Urine Urobilinogen Less than 2 Ur Leukocyte Esterase Negative Urine RBC Less than 1 Urine WBC Less than 1 Ur Squamous Epith Cells <1 Urine Mucus Few H Micro UA Comment Culture not ind Ur Microscopic Review Not Reportable Urine Culture Comments Culture not ind Blood Type O Negative Blood Type Recheck Required Antibody Screen Negative - Imaging Impressions Head CT 05/15/18 16:17 CONCLUSION: 1. No acute intracranial abnormality. 2. Stable CT of the brain compared to 01/04/2017. . Chest X-Ray 05/15/18 16:18 CONCLUSION: Stable appearance with no acute cardiopulmonary disease. Head MRI 05/15/18 17:25 CONCLUSION: 1. No acute findings. Head MRA 05/15/18 17:25 CONCLUSION: 1. Negative MRA Cow ([place]) non contrast. Caprini VTE Risk Assessment Caprini VTE Risk Assessment: No/Low Risk (score <= 1) Caprini Risk Assessment Model: Point Value = 1 Point Value = 2 Point Value = 3 Point Value = 5 Age 41-60 Minor surgery BMI > 25 kg/m2 Swollen legs Varicose veins or History of unexplained or recurrent spontaneous Oral contraceptives or hormone replacement Sepsis (< 1 month) Serious lung disease, including pneumonia (< 1 month) Abnormal pulmonary function Acute myocardial infarction Congestive heart failure (< 1 month) History of inflammatory bowel disease Medical patient at bed rest Age 61-74 Arthroscopic surgery Major open surgery (> 45 min) Laparoscopic surgery (> 45 min) Malignancy Confined to bed (> 72 hours) Immobilizing plaster cast Central venous access Age >= 75 History of VTE Family history of VTE Factor V Leiden Prothrombin [id number] Lupus anticoagulant Anticardiolipin antibodies Elevated serum homocysteine Heparin-induced thrombocytopenia Other congenital or acquired thrombophilia Stroke (< 1 month) Elective arthroplasty Hip, pelvis, or leg fracture Acute spinal cord injury (< 1 month) Prophylaxis Regimen: Total Risk Factor Score Risk Level Prophylaxis Regimen 0-1 Low Early ambulation 2 Moderate Order ONE of the following: *Sequential Compression Device (SCD) *Heparin 5000 units SQ BID 3-4 Higher Order ONE of the following medications: *Heparin 5000 units SQ TID *Enoxaparin/Lovenox 40 mg SQ daily (WT < 150 kg, CrCl > 30 mL/min) *Enoxaparin/Lovenox 30 mg SQ daily (WT < 150 kg, CrCl > 10-29 mL/min) *Enoxaparin/Lovenox 30 mg SQ BID (WT < 150 kg, CrCl > 30 mL/min) AND/OR *Sequential Compression Device (SCD) 5 or more Highest Order ONE of the following medications: *Heparin 5000 units SQ TID (Preferred with Epidurals) *Enoxaparin/Lovenox 40 mg SQ daily (WT < 150 kg, CrCl > 30 mL/min) *Enoxaparin/Lovenox 30 mg SQ daily (WT < 150 kg, CrCl > 10-29 mL/min) *Enoxaparin/Lovenox 30 mg SQ BID (WT < 150 kg, CrCl > 30 mL/min) AND *Sequential Compression Device (SCD) Assessment and Plan - Plan Assessment/plan: 1. Hypertensive urgency Patient's blood pressure on arrival 210/123 Reports compliance with his metoprolol and amlodipine Suspect symptoms secondary to uncontrolled hypertension Labetalol x1, clonidine as needed, continue home amlodipine/metoprolol 2. Left-sided numbness/headache/dizziness/blurred vision Suspect secondary to hypertensive urgency Head CT negative for acute intracranial abnormality Have MRI/MRA negative for acute process Symptoms have now resolved Monitor 3. Elevated troponin Troponin 0.06, likely secondary to renal function. Patient with history of elevated troponins in the past. Serial troponins/EKGs pending Patient denies chest pain. 4. Coronary artery disease/hyperlipidemia Patient denies stent placement however is on Plavix Continue Plavix Continue statin 5. Depression/PTSD Continue home Latuda, trazodone, citalopram 6. Chronic kidney disease Creatinine 1.47, baseline for patient Monitor renal function FEN NPO Electrolytes: Motor and replete as needed NS at 100 cc/hour
[2018-05-15] MEDS: Sod Chloride 0.9% Inj 1,000 ML IV.CONT SCH (19:35)
--- NOTE | 2018-05-15 19:45 | MR ---
EXAM DATE: 05/15/2018 7:36 PM EST AGE/SEX: 38 years / Male INDICATIONS: Stroke. Left sided weakness. CLINICAL DATA: This is the patient's initial encounter. Patient reports that signs and symptoms have been present for 2 days and indicates a pain score of 3/10. MEDICAL/SURGICAL HISTORY: Hypertension. Myocardial infarction. Renal insufficiency. Cholecyst ectomy. COMPARISON: . TECHNIQUE: 10 ml Gadavist (gadobutrol) contrast infused MRA (single exam dose) of the extracranial circulation was performed using a neurovascular coil. Postprocessing was performed, including rotati ng sub-volume maximum intensity projections of each carotid artery, rotating full-volume maximum inte nsity projections of both carotid arteries, sagittal and coronal sliding thin-slab reformations of ea ch carotid artery, and left oblique sliding thin-slab reformation through the aortic arch to include the origin of the arch branch vessels. FINDINGS: Aortic Arch : There is a three-vessel origin of the great vessels from the aorta. No evidence of o stial narrowing. Right Carotid : The common carotid artery is intact. The carotid bulb has a normal configuration wi thout ulceration or narrowing. The internal carotid artery lumen is smooth without stenosis. The ex ternal carotid artery is intact. Left Carotid : The common carotid artery is intact. The carotid bulb has a normal configuration wit hout ulceration or narrowing. The internal carotid artery lumen is smooth without stenosis. The ext ernal carotid artery is intact. Vertebrals : The vertebral arteries have a symmetric diameter. No stenotic lesions are seen. CONCLUSION: MRA carotids within normal limits. Percent stenosis is calculated using the diameter of the stenotic region over the diameter of the nor mal distal internal carotid artery Electronically signed by: Walt Diaz MD Board Certified Radiologist 05/15/2018 7:44 PM EST
[2018-05-15] MEDS ORDERED: traZODone 100 MG Tablet PO SCH (21:00)
[2018-05-15] MEDS: Metoprolol Tartrate 100 MG Tablet PO SCH (22:33)
[2018-05-15 23:31] LABS: Albumin 3.6 g/dL (3.4-5.0); Anion Gap 6 meq/L (5-15); Aspartate Aminotransferase 23 U/L (15-37); Blood Urea Nitrogen 33 mg/dL (7-18); Calcium 8.7 mg/dL (8.5-10.1); Carbon Dioxide 25.5 meq/L (21.0-32.0); Chloride 110 meq/L (98-107); Glomerular Filtration Rate 53 mL/min (>89); Glucose,Random 93 mg/dL (74-106); Potassium 4.1 meq/L (3.5-5.1); Sodium 141 meq/L (136-145)
[2018-05-15 23:32] LABS: Alanine Aminotransferase 21 U/L (12-78)
[2018-05-15 23:36] LABS: Alkaline Phosphatase 102 U/L (45-117); Creatine Kinase 348 U/L (39-308); Total Protein 6.9 g/dL (6.4-8.2); Troponin I 0.07 ng/mL (0.02-0.05)
[2018-05-15 23:49] LABS: CKMB Percent 0.6 % (0.0-4.0); Creatine Kinase MB 2.2 ng/mL (0.5-3.6)
[2018-05-16] MEDS: Sod Chloride 0.9% Inj 1,000 ML IV.CONT SCH (06:06)
[2018-05-16 07:22] VITALS: RESP 18
[2018-05-16 07:35] LABS: Baso % (Auto) 0.6 % (0.0-2.0); Eos # (Auto) 0.2 th/mm3 (0.0-0.4); Eos % (Auto) 2.5 % (0.0-4.0); Hematocrit 41.2 % (39.0-51.0); Hemoglobin 14.6 gm/dL (13.0-17.0); Lymph # (Auto) 1.8 th/mm3 (1.0-4.8); Lymph % (Auto) 24.9 % (9.0-44.0); Mean Corpuscular HGB Conc 35.5 % (32.0-36.0); Mean Corpuscular Hemoglobin 32.9 pg (27.0-34.0); Mean Corpuscular Volume 92.7 fL (80.0-100.0); Mean Platelet Volume 7.3 fL (7.0-11.0); Mono # (Auto) 0.5 th/mm3 (0.0-0.9); Neut # (Auto) 4.6 th/mm3 (1.8-7.7); Platelet Count 179 th/mm3 (150-450); Red Blood Count 4.44 mil/mm3 (4.50-5.90); Red Cell Distribution Width 12.9 % (11.6-17.2); White Blood Count 7.1 th/mm3 (4.0-11.0)
[2018-05-16 07:36] LABS: Creatine Kinase 249 U/L (39-308); Troponin I 0.04 ng/mL (0.02-0.05)
[2018-05-16 07:49] LABS: Creatine Kinase MB 1.8 ng/mL (0.5-3.6)
[2018-05-16] MEDS: Gabapentin 300 MG Capsule PO SCH ×2 (08:46→12:28)
[2018-05-16] MEDS: Metoprolol Tartrate 100 MG Tablet PO SCH (08:46)
[2018-05-16] MEDS ORDERED: amLODIPine 5 MG Tablet PO SCH (09:00)
[2018-05-16] MEDS ORDERED: Citalopram 20 MG Tablet PO SCH (09:00)
[2018-05-16 12:05] VITALS: BP 167/79; PULSE 52; TEMP 98.5; O2SAT 94
--- NOTE | 2018-05-16 12:15 | P.DS ---
DS: Providers Date of admission: 05/15/18 17:33 Primary care physician: Chris Gutierres Brief History from admission: 38-year-old male with a past medical history significant for chronic kidney disease, CAD status post and STEMI and cardiac catheterization without intervention, hypertension, hyperlipidemia and CHF presents to the emergency department for the evaluation of left sided numbness. The patient reports that last night he had a throbbing headache with accompanying dizziness. When he awoke this morning he continued to have headache symptoms with associated dizziness and bilateral blurry vision. He states that around 1 PM he had left upper and lower extremity numbness and tingling without associated weakness. He denies any chest pain or shortness of breath. No abdominal pain. No nausea/ vomiting/diarrhea. No fever/chills. DS: Summary Patient complete resolution of the symptoms. Blood pressures are much better controlled, I lengthy discussion with the patient regarding his symptoms. He states he was taking aspirin and Plavix, and compliant with his medications. But his blood pressures have been somewhat uncontrolled. Neurologic workup was unremarkable, and he was clinically stable for discharge and outpatient follow- up. His Norvasc was changed to nifedipine and he is instructed to follow-up with his primary care physician regarding blood pressure control, should he have another episode concerning for TIA, increasing his anticoagulation may be consideration, however at this time I think his symptoms are related to his elevated blood pressures. Discharge diagnosis: HTN emergency L sided paresthesia - suspected due to elevated bp, but TIA can not be ruled out , CAD DYSLIPIDEMIA MORBID OBESITY BMI 47.5 Time Spent with Patient Total time spent providing and/or coordinating discharge services: Status at Discharge Functional status at discharge: independent ambulation Quality: VTE Deep Vein Thrombosis/Pulmonary Embolism Present on Admission: No Exam Narrative Exam Narrative: aaox3 nad heart s1s2 reg lungs clear no wrr abd soft nondt pos bs ext no edema no calf tenderness moving all ext w full strength Results Labs on day of discharge: Labs from last 24 hours 05/16/18 05/16/18 05/15/18 05:55 05:55 23:04 WBC 7.1 RBC 4.44 L Hgb 14.6 Hct 41.2 MCV 92.7 MCH 32.9 MCHC 35.5 RDW 12.9 Plt Count 179 MPV 7.3 Neut % (Auto) 65.0 Lymph % (Auto) 24.9 [place] % (Auto) 7.0 Eos % (Auto) 2.5 Baso % (Auto) 0.6 Neut # (Auto) 4.6 Lymph # (Auto) 1.8 [place] # (Auto) 0.5 Eos # (Auto) 0.2 Baso # (Auto) 0.0 WBC Differential . Differential Comment Auto diff final PT INR APTT Sodium 141 Potassium 4.1 Chloride 110 H Carbon Dioxide 25.5 Anion Gap 6 BUN 33 H Creatinine 1.49 H Estimated GFR 53 L Random Glucose 93 Calcium 8.7 Total Bilirubin 1.2 H AST 23 ALT 21 Alkaline Phosphatase 102 Total Creatine Kinase 249 348 H CK-MB (CK-2) 1.8 2.2 CK-MB (CK-2) % 0.6 Troponin I 0.04 0.07 H Total Protein 6.9 Albumin 3.6 Urine Color Urine Clarity Urine pH Ur Specific [place] Urine Protein Urine Glucose (UA) Urine Ketones Urine Occult Blood Urine Nitrate Urine Bilirubin Urine Urobilinogen Ur Leukocyte Esterase Urine RBC Urine WBC Ur Squamous Epith Cells Urine Mucus Micro UA Comment Ur Microscopic Review Urine Culture Comments Blood Type Blood Type Recheck Antibody Screen 05/15/18 05/15/18 05/15/18 17:47 16:50 16:00 WBC RBC Hgb Hct MCV MCH MCHC RDW Plt Count MPV Neut % (Auto) Lymph % (Auto) [place] % (Auto) Eos % (Auto) Baso % (Auto) Neut # (Auto) Lymph # (Auto) [place] # (Auto) Eos # (Auto) Baso # (Auto) WBC Differential Differential Comment PT INR APTT Sodium 144 Potassium 4.4 Chloride 111 H Carbon Dioxide 27.6 Anion Gap 5 BUN 31 H Creatinine 1.47 H Estimated GFR 53 L Random Glucose 125 H Calcium 8.5 Total Bilirubin 1.6 H AST 26 ALT 25 Alkaline Phosphatase 105 Total Creatine Kinase 522 H CK-MB (CK-2) 2.8 CK-MB (CK-2) % 0.5 Troponin I 0.06 H Total Protein 7.2 Albumin 3.7 Urine Color Yellow Urine Clarity Clear Urine pH 5.0 Ur Specific [place] 1.020 Urine Protein 100 H Urine Glucose (UA) Negative Urine Ketones Negative Urine Occult Blood Negative Urine Nitrate Negative Urine Bilirubin Negative Urine Urobilinogen Less than 2 Ur Leukocyte Esterase Negative Urine RBC Less than 1 Urine WBC Less than 1 Ur Squamous Epith Cells <1 Urine Mucus Few H Micro UA Comment Culture not ind Ur Microscopic Review Not Reportable Urine Culture Comments Culture not ind Blood Type O Negative Blood Type Recheck Required Antibody Screen Negative 05/15/18 05/15/18 16:00 16:00 WBC 7.4 RBC 4.76 Hgb 15.7 Hct 44.2 MCV 92.9 MCH 33.0 MCHC 35.5 RDW 13.3 Plt Count 192 MPV 7.2 Neut % (Auto) 72.8 H Lymph % (Auto) 16.3 [place] % (Auto) 7.6 Eos % (Auto) 2.6 Baso % (Auto) 0.7 Neut # (Auto) 5.4 Lymph # (Auto) 1.2 [place] # (Auto) 0.6 Eos # (Auto) 0.2 Baso # (Auto) 0.0 WBC Differential . Differential Comment Auto diff final PT 9.9 INR 1.0 APTT 28.7 Sodium Potassium Chloride Carbon Dioxide Anion Gap BUN Creatinine Estimated GFR Random Glucose Calcium Total Bilirubin AST ALT Alkaline Phosphatase Total Creatine Kinase CK-MB (CK-2) CK-MB (CK-2) % Troponin I Total Protein Albumin Urine Color Urine Clarity Urine pH Ur Specific [place] Urine Protein Urine Glucose (UA) Urine Ketones Urine Occult Blood Urine Nitrate Urine Bilirubin Urine Urobilinogen Ur Leukocyte Esterase Urine RBC Urine WBC Ur Squamous Epith Cells Urine Mucus Micro UA Comment Ur Microscopic Review Urine Culture Comments Blood Type Blood Type Recheck Antibody Screen Impressions ITS Impressions Head CT 05/15/18 16:17 CONCLUSION: 1. No acute intracranial abnormality. 2. Stable CT of the brain compared to 01/04/2017. . Chest X-Ray 05/15/18 16:18 CONCLUSION: Stable appearance with no acute cardiopulmonary disease. Head MRI 05/15/18 17:25 CONCLUSION: 1. No acute findings. Head MRA 05/15/18 17:25 CONCLUSION: 1. Negative MRA [place] ([place]) non contrast. Neck MRA 05/15/18 17:25 CONCLUSION: MRA carotids within normal limits. Percent stenosis is calculated using the diameter of the stenotic region over the diameter of the normal distal internal carotid artery Discharge Plan Discharge Disposition Patient Disposition: 01 Discharge Home Discharge Condition Condition: Good Discharge Order Discharge Orders: Discharge Order (Routine); Ordered 05/16/18 Ordered By: Candelaria Vogt Physicians Team Attending Provider: Candelaria Vogt Rxs /Orders / Referrals /Forms Prescriptions: New metoprolol tartrate 100 mg Tablet 100 mg PO BID Qty: 60 RF: 0 clopidogrel [Plavix] 75 mg Tablet 75 mg PO DAILY Qty: 30 RF: 0 nifedipine 60 mg Tablet Extended Release 24hr 60 mg PO DAILY Qty: 30 RF: 0 aspirin 325 mg tablet 325 mg PO DAILY Qty: 30 RF: 0 Continue citalopram 20 mg Tablet 20 mg PO DAILY RF: 0 atorvastatin 80 mg Tablet 80 mg PO DAILY RF: 0 trazodone 50 mg Tablet 100 mg PO HS RF: 0 lurasidone [Latuda] 40 mg Tablet 40 mg PO DAILY RF: 0 gabapentin 300 mg Capsule 300 mg PO TID RF: 0 Discontinued amlodipine 5 mg Tablet 10 mg PO DAILY RF: 0 clopidogrel 75 mg Tablet 75 mg PO DAILY RF: 0 metoprolol tartrate 50 mg Tablet 40 mg PO BID RF: 0 Referrals: Chris Gutierres [Other] - See Instructions ( Please call the physician's office to book the appointment to be seen within [2-3d].) Discharge Instructions Patient Printed Instructions: Nifedipine (By mouth), Chronic Hypertension (DC) , Hypertension (DC) Status ED Status: Left Department Discharge Information Discharge Date/Time: 05/16/18 14:01
--- NOTE | 2018-05-16 15:35 | ECG ---
Date Performed: 05/15/2018 Time Performed: 19:27:39 PTAGE: 38 years EKG: Sinus rhythm POSSIBLE LEFT ATRIAL ENLARGEMENT NONSPECIFIC T-WAVE ABNORMALITY Since the previous tracing, no signi ficant change noted BORDERLINE ECG PREVIOUS TRACING : 05/15/2018 15.16 DOCTOR: Corie Ramos Interpretating Date/Time 05/16/2018 15:32:12
--- NOTE | 2018-05-16 15:35 | ECG ---
Date Performed: 05/16/2018 Time Performed: 03:54:08 PTAGE: 38 years EKG: Sinus rhythm MODERATE INTRAVENTRICULAR CONDUCTION DELAY NONSPECIFIC T-WAVE ABNORMALITY Since the previous tracing , no significant change noted BORDERLINE ECG PREVIOUS TRACING : 05/15/2018 19.27 DOCTOR: Corie Ramos Interpretating Date/Time 05/16/2018 15:32:03
--- NOTE | 2018-05-16 15:36 | ECG ---
Date Performed: 05/15/2018 Time Performed: 15:16:31 PTAGE: 38 years EKG: ATRIAL FLUTTER/TACHYCARDIA WITH RAPID VENTRICULAR RESPONSE NONSPECIFIC T-WAVE ABNORMALITY S nafisa the previous tracing, no significant change noted ABNORMAL RHYTHM ECG PREVIOUS TRACING : 02/19/2018 12.58 DOCTOR: Corie Ramos Interpretating Date/Time 05/16/2018 15:32:20
== END 2018-05-16 14:01 | disposition home or self-care (01) ==
LOC: NEDA 15:00 → NEPC 15:00 → NEDA 20:54 → NEPGCP 20:59
PROVIDERS: ADMIT Internal Medicine; ATTEND Internal Medicine
DX: I25.10 Atherosclerotic heart disease of native coronary artery without angina pectoris; F31.9 Bipolar disorder, unspecified; Z79.84 Long term (current) use of oral hypoglycemic drugs; R79.89 Other specified abnormal findings of blood chemistry; E66.01 Morbid (severe) obesity due to excess calories; R29.818 Other symptoms and signs involving the nervous system; J44.9 Chronic obstructive pulmonary disease, unspecified; E78.5 Hyperlipidemia, unspecified; Z79.01 Long term (current) use of anticoagulants; I50.9 Heart failure, unspecified; Z68.41 Body mass index [BMI] 40.0-44.9, adult; E11.65 Type 2 diabetes mellitus with hyperglycemia; E11.22 Type 2 diabetes mellitus with diabetic chronic kidney disease; I16.0 Hypertensive urgency; F43.11 Post-traumatic stress disorder, acute; N18.9 Chronic kidney disease, unspecified; I13.0 Hypertensive heart and chronic kidney disease with heart failure and stage 1 through stage 4 chronic kidney disease, or unspecified chronic kidney disease